=== PATIENT | female | born 1965 | race Caucasian/White ===

== ENCOUNTER 2024-06-05 08:56 | Inpatient (IN) | payer MEDICAID, SELFPAY ==
[2024-06-05] VITALS (12 sets, daily range): BP systolic 111–172; BP diastolic 66–96; PULSE 82–95; RESP 16–24; TEMP 36.8; O2SAT 92–98
[2024-06-05 09:19] LABS: Glucose Point of Care 80 mg/dL (70-110)
[2024-06-05 09:19] LABS: Glucose Point of Care 89 mg/dL (70-110)
--- NOTE | 2024-06-05 09:19 | XRR_ITS ---
PROCEDURE INFORMATION: Exam: XR Chest Exam date and time: 06/05/2024 9:34 AM Age: 59 years old Clinical indication: Shortness of breath TECHNIQUE: Imaging protocol: Radiologic exam of the chest. Views: 1 view. COMPARISON: No relevant prior studies available. FINDINGS: Lungs: Bilateral apical fibrotic changes. No focal infiltrates. Mild pulmonary venous congestion. Pleural spaces: Unremarkable. No pleural effusion. No pneumothorax. Heart/Mediastinum: The heart is enlarged. Bones/joints: Chronic left rib fractures. XR/XR chest 1V portable [id number] IMPRESSION: Cardiomegaly with mild pulmonary venous congestion. No focal infiltrates.
--- NOTE | 2024-06-05 09:19 | CTR_ITS ---
PROCEDURE INFORMATION: Exam: CT Head Without Contrast Exam date and time: 06/05/2024 9:41 AM Age: 59 years old Clinical indication: Altered mental status/memory loss TECHNIQUE: Imaging protocol: Computed tomography of the head without contrast. Radiation optimization: All CT scans at this facility use at least one of these dose optimization techniques: automated exposure control; mA and/or kV adjustment per patient size (includes targeted exams where dose is matched to clinical indication); or iterative reconstruction. COMPARISON: No relevant prior studies available. RADIATION DOSE METRICS: Total DLP (mGy-cm): 1024.08 FINDINGS: Brain: Normal. No hemorrhage. Unremarkable white matter. No mass effect. Cerebral ventricles: Cavum septum vergae. Pituitary gland and sella: There is a normal empty pituitary sella. Paranasal sinuses: Visualized sinuses are unremarkable. No fluid levels. Mastoid air cells: Visualized mastoid air cells are well aerated. Bones: Unremarkable. No acute fracture. Soft tissues: Unremarkable. CT/CT head wo con* [id number] IMPRESSION: No large territorial infarct or intracranial bleed.
--- NOTE | 2024-06-05 09:23 | W.ED.AMS ---
HPI - Altered Mental Status General: Chief Complaint: Altered Mental Status Stated Complaint: AMS Time Seen by Provider: 06/05/24 09:14 History of Present Illness: Patient presents to the ED with altered mental status and somnolence. Patient appears confused and demonstrates poor orientation, only able to identify location as '[place]' and '[facility].' Patient incorrectly identified year as 2023 but was able to name the current month and president correctly. Patient reports recent illness with breathing difficulties and abdominal pain. Patient endorses weakness in legs. Patient lives with mother and uses a walker for ambulation. Patient reports having been sick in recent days with associated breathing problems. Patient denies taking more medications than she is supposed to. She states she has fallen 3 times in the past 2 days due to generalized weakness and difficulty walking. Uncertain if she had hit her head. She also complains of midthoracic back pain. She smokes 1 pack cigarettes per day. She is not on oxygen at home. Constitutional: Positive for weakness and somnolence Respiratory: Positive for breathing difficulties Gastrointestinal: Positive for abdominal pain Neurological: Positive for altered mental status, confusion Musculoskeletal: Positive for generalized weakness All other systems negative or unable to assess due to patient's mental status [facility] ED PFSH: Medical History (Updated 06/05/24 @ 13:43 by Ric Red MD) Tobacco use disorder Social History Smoking and tobacco/nicotine status: current every day tobacco/nicotine user Physical Exam Const: GENERAL APPEARANCE: other (Somnolent but wakes easily. Speech is somewhat difficult to understand) HENMT: OTHER: Dry mucous membranes Eye: OTHER: Pupils are equal, round, reactive to light and accommodation. No scleral icterus Neck/C-Spine: OTHER: Neck is supple, no lymphadenopathy Resp: OTHER: Faint expiratory wheezes in the upper lobes bilaterally, decreased breath sounds in the lung bases bilaterally Cardio: OTHER: Heart is regular, GI: OTHER: Abdomen soft, nontender, normal bowel sounds Back/Pelvis: OTHER: tenderness in the mid thoracic spine region. Extremity: OTHER: Extremities are atraumatic. Right hand is cool to the touch but the distal motor and sensory function is intact. Radial pulses normal on the right. Lower extremities, motor and sensory function are normal. Neuro: OTHER: Patient is oriented x 2. Moves all extremities symmetrically, strength is equal bilaterally. Equal sensation bilaterally. Cranial nerves are intact Course Vital Signs: Vital signs: Vital Signs Temperature 98.3 F 06/05/24 08:58 Pulse Rate 84 06/05/24 11:48 Respiratory Rate 18 06/05/24 08:58 Blood Pressure 129/96 06/05/24 12:26 Pulse Oximetry 94 06/05/24 11:48 Oxygen Delivery Me thod BiPAP 06/05/24 11:48 Oxygen Flow Rate 2 06/05/24 09:45 Fraction of Inspir ed Oxygen 28 06/05/24 10:01 MDM - Altered Mental Status Medical Decision Making ?Patient is a 59-year-old female presenting with altered mental status, somnolence, confusion, breathing difficulties, and weakness. Patient has limited history available due to mental status. Unknown last normal as family is here with the patient. Problem List: 1. Altered mental status 2. Respiratory distress 3. Weakness 4. Abdominal pain Differential Diagnosis: 1. Medication overdose/toxicity 2. Metabolic encephalopathy 3. Hypoxic respiratory failure 4. Sepsis 5. Neurological emergency (CVA, seizure) 6. Substance use 7. Respiratory failure with CO2 toxicity ED Course: Patient requires immediate workup including comprehensive metabolic panel, complete blood count, urine drug screen, chest x-ray, and head CT to evaluate for acute pathology. Will initiate appropriate monitoring and supportive care. 1. Altered Mental Status - Obtain comprehensive metabolic panel, complete blood count, urine drug screen, Tylenol, aspirin and alcohol levels as well as urinalysis. Due to her frequent falls, will also obtain CPK to rule out rhabdomyolysis. Will check for COVID, flu and RSV. Will also check magnesium level to evaluate further for weakness. Will also check an ABG to rule out CO2 narcosis and respiratory failure - Head CT to rule out acute intracranial process - Continuous monitoring of mental status 2. Respiratory Distress - Chest x-ray to evaluate for acute process - Pulse oximetry monitoring - Consider blood gas if hypoxia noted 3. Weakness - Neurological examination monitoring - Consider additional imaging based on exam findings 4. Disposition - Likely admission pending workup results Patient was initially placed on BiPAP due to her hypercarbia and respiratory acidosis. She did seem somewhat improved. She was noted to have positive opiates in her urine drug screen so she was given 2 mg of Narcan IV and subsequently woke up. She is also hyperglycemic, initial glucose 57, repeat Accu-Chek 40. The patient has been given an amp of D50. Patient is much more awake. Magnesium is low she is she has been given IV magnesium. Repeat mixed blood gas does show improvement of her pH. Discussion with the family in regards to the patient's condition. They feel she is too weak for them to be able to take care of at home. They are requesting jail placement. Will plan for observation admission to the hospital to correct her metabolic abnormalities and probable jail placement subsequent to that. Have discussed this with the hospitalist, Dr. Red, who is in agreement Lab Data Patient is hyponatremic with a sodium of 131. She is hypoglycemic with a glucose of 57. She has been given 1 amp of D50. She has hyperkalemia with potassium of 5.9. White blood cell count is elevated at 17.0 with no definite source. Urinalysis is negative for UTI. Chest x-ray shows no infiltrate. On the patient's initial ABG she did have respiratory acidosis with a pCO2 in the 60s, pH of 7.3. She was placed on BiPAP. She is hypomagnesemic with a magnesium of 1.4. I have ordered replacement IV magnesium. She is also mild rhabdomyolysis with a CPK of 414 from interpretation. Urine drug screen is positive for opiates. Tylenol and aspirin are negative. She is negative for COVID, influenza and RSV. 06/05/24 10:05 06/05/24 11:46 Radiology Impressions Chest X-Ray 06/05/24 09:19 IMPRESSION: Cardiomegaly with mild pulmonary venous congestion. No focal infiltrates. Head CT 06/05/24 09:19 IMPRESSION: No large territorial infarct or intracranial bleed. Laboratory Results WBC 17.09 10^3/uL (3.29-11.43) H 06/05/24 10:05 RBC 4.80 10^6/uL (3.85-5.65) 06/05/24 10:05 Hgb 13.50 g/dL (11.27-16.99) 06/05/24 10:05 Hct 46.4 % (36-47) 06/05/24 10:05 MCV 96.7 fl (85-98) 06/05/24 10:05 MCH 28.1 pg (27-33) 06/05/24 10:05 MCHC 29.1 g/dL (30-55) L 06/05/24 10:05 RDW 14.8 % (12.1-15.1) 06/05/24 10:05 Plt Count 228 10^3/cmm (157-399) 06/05/24 10:05 MPV 10.6 fL (7.4-10.4) H 06/05/24 10:05 Neut % (Auto) 88.1 % 06/05/24 10:05 Lymph % (Auto) 4.2 % 06/05/24 10:05 [place] % (Auto) 6.6 % 06/05/24 10:05 Eos % (Auto) 0.1 % 06/05/24 10:05 Baso % (Auto) 0.2 % 06/05/24 10:05 Neut # (Auto) 15.05 10^3/uL (1.8-7.7) H 06/05/24 10:05 Lymph # (Auto) 0.7 10^3/uL (0.8-4.8) L 06/05/24 10:05 [place] # (Auto) 1.1 10^3/uL (0.2-0.9) H 06/05/24 10:05 Eos # (Auto) 0.0 10^3/uL (0.0-0.8) 06/05/24 10:05 Baso # (Auto) 0.0 10^3/uL (0.0-0.1) 06/05/24 10:05 Nucleated RBC % (auto) 0 % 06/05/24 10:05 Nucleated RBCs # 0.0 /100WBC 06/05/24 10:05 Specimen Type Arterial 06/05/24 12:16 Sample Site Radial, right 06/05/24 12:16 ABG pH 7.37 (7.35-7.45) 06/05/24 12:16 ABG pCO2 55.2 mmHg (35-45) H 06/05/24 12:16 ABG pO2 41.0 mmHg (80.0-100.0) L 06/05/24 12:16 ABG PO2/FiO2 Ratio 227 06/05/24 09:31 ABG HCO3 31.5 mmol/L (22-26) H 06/05/24 12:16 ABG Base Excess 4.8 mmol/L (-2.0-2.0) H 06/05/24 12:16 Aditya Test Pos 06/05/24 12:16 Hematocrit 38.1 % (37-47) 06/05/24 12:16 O2 Delivery Device Nc 06/05/24 12:16 O2 Liters/Min 2.0 % 06/05/24 09:31 FiO2 28.0 % 06/05/24 09:31 Family Services Manager ID glc 06/05/24 12:16 Blood Gas Notified Time 1010 06/05/24 09:31 Sodium 131 mmol/L (136-145) L 06/05/24 11:46 Potassium 5.9 mmol/L (3.5-5.1) H 06/05/24 11:46 Chloride 97 mmol/L (98-107) L 06/05/24 11:46 Carbon Dioxide 23 mmol/L (22-29) 06/05/24 11:46 Anion Gap 16.9 (5-19) 06/05/24 11:46 BUN 21 mg/dL (8-23) 06/05/24 11:46 Creatinine 1.3 mg/dL (0.5-0.9) H 06/05/24 11:46 GFR Calculation 41.6 mL/min (90-130) L 06/05/24 11:46 Glucose 57 mg/dL (65-115) L 06/05/24 11:46 POC Glucose 104 mg/dL (70-110) 06/05/24 13:02 Calculated Osmolality 273 mOsm/kg (285-295) L 06/05/24 11:46 Lactic Acid 1.4 mmol/L (0.5-2.2) 06/05/24 10:05 Calcium 8.3 mg/dL (8.5-10.5) L 06/05/24 11:46 Magnesium 1.4 mg/dL (1.7-2.3) L 06/05/24 11:46 Total Bilirubin 0.6 mg/dL (0.15-1.2) 06/05/24 11:46 AST 26 U/L (0-32) 06/05/24 11:46 ALT 12 U/L (0-33) 06/05/24 11:46 Alkaline Phosphatase 148 U/L (35-105) H 06/05/24 11:46 Ammonia 50 umol/L (11-51) 06/05/24 10:05 Creatine Kinase 414 U/L (26-192) H* 06/05/24 11:46 Total Protein 6.2 g/dL (6.6-8.7) L 06/05/24 11:46 Albumin 2.7 g/dL (3.5-5.2) L 06/05/24 11:46 Globulin 3.5 g/dL (1.3-4.6) 06/05/24 11:46 Urine Color Yellow (Yellow) 06/05/24 09:35 Urine Appearance Clear (CLEAR) 06/05/24 09:35 Urine pH 5.5 (5-7) 06/05/24 09:35 Ur Specific [place] 1.018 (1.005-1.030) 06/05/24 09:35 Urine Protein 1+ (Negative) A 06/05/24 09:35 Urine Glucose (UA) Negative (Normal) 06/05/24 09:35 Urine Ketones Negative (Negative) 06/05/24 09:35 Urine Blood Negative (Negative) 06/05/24 09:35 Urine Nitrate Negative (Negative) 06/05/24 09:35 Urine Bilirubin Negative (Negative) 06/05/24 09:35 Urine Urobilinogen 1.0 mg/dL (Negative) 06/05/24 09:35 Ur Leukocyte Esterase Negative (Negative) 06/05/24 09:35 Urine RBC 0-2 /hpf (0-2) 06/05/24 09:35 Urine WBC 0-5 /hpf (0-5) 06/05/24 09:35 Ur Squamous Epith Cells 0-5 /hpf (0-5) 06/05/24 09:35 Amorphous Sediment Not Reportable 06/05/24 09:35 Urine Bacteria None seen /hpf (NONE) 06/05/24 09:35 Hyaline Casts 13.63 /lpf 06/05/24 09:35 Salicylates < 0.3 mg/dL (3-10) L 06/05/24 11:46 Urine Opiates Screen Positive ng/mL (Negative) H 06/05/24 09:35 Acetaminophen < 5.0 ug/mL (10-30) L 06/05/24 11:46 Ur Barbiturates Screen Negative ng/mL (Negative) 06/05/24 09:35 Ur Phencyclidine Scrn Negative ng/mL (Negative) 06/05/24 09:35 Ur Amphetamines Screen Negative ng/mL (Negative) 06/05/24 09:35 U Benzodiazepines Scrn Negative ng/mL (Negative) 06/05/24 09:35 Urine Cocaine Screen Negative ng/mL (Negative) 06/05/24 09:35 U Marijuana (THC) Screen Negative ng/mL (Negative) 06/05/24 09:35 Ethyl Alcohol < 10 mg/dL (0-10) 06/05/24 11:46 Coronavirus (PCR) Negative (Negative) 06/05/24 09:40 Influenza A (PCR) Negative (Negative) 06/05/24 09:40 Influenza Type B (PCR) Negative (Negative) 06/05/24 09:40 RSV (PCR) Negative (Negative) 06/05/24 09:40 All radiology interpretation(s) finalized by discharge ED provider radiology interpretation(s): Chest x-ray per my interpretation shows mild vascular congestion, no consolidative infiltrate. Discharge Plan Discharge Condition: Stable Patient Instructions: Altered Mental Status (ED) Coding Level of Care Code ED Blood Bank Custodian for Negra Flaherty
[2024-06-05 09:43] LABS: ABG PH Result 7.31 (7.35-7.45); Arterial Blood Gas Hematocrit 42.8 % (37-47); Base Excess ABG 2.9 mmol/L (-2.0-2.0); Blood Gas Allen Test Pos; Blood Gas Operator Identificat glc; Blood Gas Sample Site Radial, right; Blood Gas Sample Type Arterial; HCO3 ABG 30.9 mmol/L (22-26); Oxygen Device NC; PO2 ABG 63.6 mmHg (80.0-100.0); PO2 FiO2 Ratio Arterial Blood 227
[2024-06-05 09:44] LABS: Bilirubin Urine Negative (Negative); Blood Urine Negative (Negative); Glucose Urine UA Negative (Normal); Ketones Urine Negative (Negative); Leukocyte Esterase Urine Negative (Negative); Nitrate Urine Negative (Negative); Protein Urine 1+ (Negative); Specific Gravity, Urine 1.018 (1.005-1.030); Urine Appearance Clear (CLEAR); Urine Color Yellow (Yellow); pH Urine 5.5 (5-7)
[2024-06-05] MEDS: sodium chloride 0.9% 1,000 ML 999 ML IV (09:44)
[2024-06-05 09:47] LABS: Add Urine Microscopic? YES; Bacteria Urine None Seen /hpf; Hyaline Casts Urine 13.63 /lpf; RBC Urine 0-2 /hpf (0-2); Squamous Epithelial Cell Urine 0-5 /hpf (0-5); WBC Urine 0-5 /hpf (0-5)
[2024-06-05 09:52] LABS: Amphetamines Screen Urine Negative (Negative); Barbiturates Screen Urine Negative (Negative); Benzodiazepines Screen Urine Negative (Negative); Cocaine Screen Urine Negative (Negative); Opiate Screen Urine Positive (Negative); PCP Screen Urine Negative (Negative); THC Screen Urine Negative (Negative)
[2024-06-05 10:03] LABS: UA Slide Review UA Slide Review Perf
[2024-06-05 10:09] LABS: ABG PCO2 61.5 mmHg (35-45)
[2024-06-05 10:10] LABS: Blood Gas CCRB Time 1010
[2024-06-05 10:15] LABS: Basophils % 0.2 %; Eosinophils % 0.1 %; Hematocrit 46.4 % (36-47); Lymphocytes # 0.7 10^3/uL (0.8-4.8); Lymphocytes % 4.2 %; Mean Corpuscular HGB Conc 29.1 g/dL (30-55); Mean Corpuscular Hemoglobin 28.1 pg (27-33); Mean Corpuscular Volume 96.7 fl (85-98); Mean Platelet Volume 10.6 fL (7.4-10.4); Monocytes # 1.1 10^3/uL (0.2-0.9); Monocytes % 6.6 %; Neutrophils # 15.05 10^3/uL (1.8-7.7); Neutrophils % 88.1 %; Nucleated Red Blood Cells % 0 %; Platelet Count 228 10^3/cmm (157-399); Red Cell Distribution Width 14.8 % (12.1-15.1); White Blood Count 17.09 10^3/uL (3.29-11.43)
[2024-06-05 10:37] LABS: Lactic Sepsis W/Reflex 1.4 mmol/L (0.5-2.2)
[2024-06-05 10:38] LABS: Ammonia 50 umol/L (11-51)
[2024-06-05 10:53] LABS: Covid PCR NEGATIVE (Negative); Influenza A NEGATIVE (Negative); Influenza B NEGATIVE (Negative); Respiratory Syncytial Virus Ce NEGATIVE (Negative)
[2024-06-05] MEDS: naloxone 0.4 mg/ml SDV 2 MG IVP (11:26)
[2024-06-05 12:18] LABS: Alanine Aminotransferase 12 U/L (0-33); Albumin Level 2.7 g/dL (3.5-5.2); Alkaline Phosphatase 148 U/L (35-105); Blood Urea Nitrogen 21 mg/dL (8-23); Calcium 8.3 mg/dL (8.5-10.5); Carbon Dioxide 23 mmol/L (22-29); Chloride 97 mmol/L (98-107); Globulin 3.5 g/dL (1.3-4.6); Glomerular Filtration Rate 41.6 mL/min (90-130); Glucose 57 mg/dL (65-115); Magnesium 1.4 mg/dL (1.7-2.3); Osmolality Calculated 273 mOsm/kg (285-295); Sodium 131 mmol/L (136-145); Total Bilirubin 0.6 mg/dL (0.15-1.2); Total Protein 6.2 g/dL (6.6-8.7)
[2024-06-05 12:27] LABS: Acetaminophen < 5.0 ug/mL (10-30); Alcohol Level < 10 mg/dL (0-10); Creatine Phosphokinase 414 U/L (26-192); Salicylate < 0.3 mg/dL (3-10)
[2024-06-05 12:27] LABS: ABG PCO2 55.2 mmHg (35-45); ABG PH Result 7.37 (7.35-7.45); Arterial Blood Gas Hematocrit 38.1 % (37-47); Base Excess ABG 4.8 mmol/L (-2.0-2.0); Blood Gas Allen Test Pos; Blood Gas Operator Identificat glc; Blood Gas Sample Site Radial, right; Blood Gas Sample Type Arterial; HCO3 ABG 31.5 mmol/L (22-26); Oxygen Device NC
[2024-06-05 12:43] LABS: Anion Gap 16.9 (5-19); Aspartate Amino Transferase 26 U/L (0-32); Potassium 5.9 mmol/L (3.5-5.1)
[2024-06-05] MEDS: dextrose 50% syringe 50 mL IVP (12:43)
[2024-06-05 13:06] LABS: Glucose Point of Care 104 mg/dL (70-110)
--- NOTE | 2024-06-05 13:39 | P.HP_ITS ---
Providers/Chief Complaint 2 Chief Complaint: AMS History of Present Illness Wanda Lamb is a 59 year old female with a past medical history significant for chronic pain, type 2 diabetes mellitus, and hypertension who presents to the emergency department with altered mentation. Patient is awake but found to be quite altered on examination. Patient's main complaint is shortness of breath, worse with exertion. Her family is bedside. Her mother provides most of collateral information. She states that the patient came to live with her this past Friday. Patient's been staying with various family members. She states that the patient's been somewhat lethargic for the past week. She states that she is fallen at least 6 times in the house. She states that she has hit her head at least 2 of these falls. She states that she can no longer care for the patient anymore. She does note that the patient is on chronic pain medications. She expresses concern that the patient likely ran out of her meds and has now been taking her oxycodones. Patient was reportedly given Narcan en route by EMS with improvement in mentation. She also received Narcan in the ED also with improvement in mentation. Further workup in the emergency department revealed multiple metabolic derangements. Also revealed evidence of rhabdomyolysis in the setting of recurrent falls. Patient also found to have hypoglycemia started on D10 infusion. Patient is unable to provide any pertinent history regarding her HPI or past medical history. She seems to be new to our health system. Reviewed medical history with the patient's mother. Limited knowledge of her medical history. She notes that she knows she is diabetic and has high blood pressures. She states she has had multiple surgeries including ankle surgeries. She notes a family history of malignancies. She states that the patient smokes about 1 pack of cigarettes per day. She denies current alcohol abuse. She is not sure about the medications that the patient takes. She states that she does fill her prescriptions at [facility] in [place]. Review of Systems 2 Narrative: A complete review of systems was obtained and is negative except as stated in HPI. PFSH Acute 2 PFSH: Medical History (Updated 06/05/24 @ 15:13 by Ric Red MD) Chronic pain Hypertension Diabetes mellitus Tobacco use disorder Surgical History (Updated 06/05/24 @ 14:03 by Ric Red MD) History of ankle surgery Family History (Updated 06/05/24 @ 14:03 by Ric Red MD) Grandfather Bone cancer Social History (Updated 06/05/24 @ 14:03 by Ric Red MD) Smoking and tobacco/nicotine status: current every day tobacco/nicotine user Alcohol intake: never Substance/Drug Use: unknown Vitals/I&O/Wt Last Vital Signs Temp 98.3 F 06/05/24 08:58 Pulse 84 06/05/24 11:48 Resp 18 06/05/24 08:58 BP 129/96 06/05/24 12:26 Pulse Ox 94 06/05/24 11:48 O2 Del Method BiPAP 06/05/24 11:48 O2 Flow Rate 2 06/05/24 09:45 FiO2 28 06/05/24 10:01 06/04/24 06/05/24 06/05/24 22:59 06:59 14:59 Intake Total 1000 / 1000 Balance 1000 / 1000 Weight last 48 hrs Weight 118.388 kg Physical Exam 2 Narrative: General: Patient is very lethargic. Arouses to stimulation. Head: Normocephalic. Atraumatic. EOM intact. Neck: No JVD. Cardiovascular: RRR. No gallops. No murmurs. Nonpitting lower extremity edema. Lungs: Breath sounds are slightly diminished n, no use of accessory muscles, no crackles or wheezes. On nasal cannula support. Skin: No jaundice. No rashes. Abdomen: Normal bowel sounds, abdomen soft and nontender. Extremities: No cyanosis or clubbing. Some bruising/scrapes on lower extremities. Musculoskeletal: No swollen or erythematous joints. Neurological: Moves all 4 extremities. No myoclonus. Urinary Catheter Management: [place]: Cath Placed During This Visit: yes Urinary Catheter Date of Insertion: 06/05/24 Urinary Catheter Time of Insertion: 09:46 Data 06/05/24 10:05 06/05/24 11:46 Micro: Microbiology 06/05/24 10:05 Blood Culture - Preliminary Blood SPECIMEN COLLECTED 06/05/24 09:55 Blood Culture - Preliminary Blood SPECIMEN COLLECTED A&P Assessment and plan (1) Toxic encephalopathy: Presentation concerning for acute toxic encephalopathy secondary to opioid overdose Patient is received 2 doses of Narcan Continue to monitor respiration rate May need additional doses versus Narcan drip (2) Diabetes mellitus: Patient with type 2 diabetes mellitus, home regimens unknown She is currently hypoglycemic Continue D10 drip Monitor blood glucose, hold off on insulin initiation due to hypoglycemia (3) Hypertension: Home regimen unknown IV hydralazine as needed (4) Chronic pain: Hold all opiates due to opiate overdose Tylenol PRNs okay Avoid other sedating meds (5) Hyperkalemia: Status post IV fluids in ED Repeat potassium level in several hours Telemetry monitoring (6) Hypomagnesemia: Replace magnesium Trend levels (7) Fall: Recurrent falls, head CT negative for subdural hematoma Fall precautions Therapy eval when appropriate (8) Leukocytosis: No obvious evidence of infection, continue to look for such Will check procalcitonin (9) Rhabdomyolysis: Suspected traumatic rhabdomyolysis from recurrent falls Monitor renal function, creatinine is currently 1.3 Start IV fluids Avoid further nephrotoxins Repeat labs tomorrow (10) Tobacco use disorder: Patient would benefit from cessation (11) Failure to thrive: Failure to thrive in adulthood Therapy evaluation Mother reports she can no longer care for her Case management consult Plan DVT prophylaxis: SCDs Attestations 2 Medical Necessity Statement*: Patient presents with altered mental status suspected secondary to opiate overdose, found to have multiple other metabolic derangements with failure to thrive with expected hospitalization not to cross 2 midnights for electrolyte replacement, treatment opioid overdose, therapy evaluation and supportive care. Coding Level of Care Code Acute Code for [facility] Diagnoses Toxic encephalopathy G92.9 Diabetes mellitus E11.9 Hypertension I10 Chronic pain G89.29 Hyperkalemia E87.5 Hypomagnesemia E83.42 Fall W19.XXXA Leukocytosis D72.829 Rhabdomyolysis M62.82 Tobacco use disorder F17.200 Failure to thrive
[2024-06-05 13:48] LABS: Glucose Point of Care 70 mg/dL (70-110)
[2024-06-05 15:33] LABS: Procalcitonin 0.07 ng/mL (0-0.5)
[2024-06-05] MEDS: magnesium sulfate premix 2 GM/50 ML PIGGYBACK IV (15:42)
[2024-06-05 15:43] LABS: Glucose Point of Care 45 mg/dL (70-110)
[2024-06-05 15:43] LABS: Glucose Point of Care 79 mg/dL (70-110)
[2024-06-05 16:23] LABS: Glucose Point of Care 44 mg/dL (70-110)
[2024-06-05] MEDS: dextrose 10% 250 ML 1000 ML IV ×2 (16:31→16:53)
[2024-06-05] MEDS: dextrose 10% 250 ML IV (16:59)
[2024-06-05 18:07] LABS: Glucose Point of Care 69 mg/dL (70-110)
[2024-06-05 18:34] LABS: Glucose Point of Care 54 mg/dL (70-110)
[2024-06-05 19:06] LABS: Glucose Point of Care 84 mg/dL (70-110)
[2024-06-05 19:39] LABS: Anion Gap 12.6 (5-19); Blood Urea Nitrogen 17 mg/dL (8-23); Carbon Dioxide 30 mmol/L (22-29); Chloride 99 mmol/L (98-107); Glomerular Filtration Rate 50.5 mL/min (90-130); Glucose 44 mg/dL (65-115); Osmolality Calculated 283 mOsm/kg (285-295); Potassium 4.6 mmol/L (3.5-5.1); Sodium 137 mmol/L (136-145)
[2024-06-05 22:28] LABS: Glucose Point of Care 39 mg/dL (70-110)
[2024-06-05] MEDS: glucagon 1 mg/mL KIT 1 mL IM (22:29)
[2024-06-05] MEDS: dextrose 10% 125 ML 750 ML IV (22:32)
[2024-06-05 23:20] LABS: Glucose Point of Care 103 mg/dL (70-110)
[2024-06-05 23:38] LABS: Glucose Point of Care 111 mg/dL (70-110)
[2024-06-06] VITALS (68 sets, daily range): BP systolic 115–230; BP diastolic 67–198; PULSE 61–114; RESP 12–31; TEMP 36.7–36.8; O2SAT 80–97; BMI 38.9
[2024-06-06 00:49] LABS: Glucose Point of Care 60 mg/dL (70-110)
[2024-06-06 01:47] LABS: Glucose Point of Care 59 mg/dL (70-110)
[2024-06-06] MEDS: octreotide 500 MCG in sodium chloride 0.9% (100 ml) 100 ML 10.1 MCG IV (01:48)
[2024-06-06] MEDS: hydrocortisone 100 mg/2 mL SDV IVP (01:50)
[2024-06-06] MEDS: glucagon 1 mg/mL KIT 1 mL IM (02:39)
--- NOTE | 2024-06-06 02:40 | PC.NURSE ---
Glucagon Patient's blood sugar [address] around [address] Hawkins at bedside. Order received for 1 mg glucagon IM.
--- NOTE | 2024-06-06 02:45 | XRR_ITS ---
PROCEDURE INFORMATION: Exam: XR Chest Exam date and time: 06/06/2024 2:44 AM Age: 59 years old Clinical indication: Other vascular access device placement or adjustment; Central line, non-tunnelled; Check S/P left sided central line placement TECHNIQUE: Imaging protocol: Radiologic exam of the chest. Views: 1 view. COMPARISON: CR (CHEST, ) 06/05/2024 9:34 AM FINDINGS: Tubes, catheters and devices: Central venous catheter has been placed on the left with its tip overlying the distal left brachiocephalic vein/SVC junction. Lungs: There may be minimal central vascular congestion. No focal consolidation is noted. Pleural spaces: Unremarkable. No pleural effusion. No pneumothorax. Heart/Mediastinum: The heart is enlarged. Bones/joints: There are old rib fractures on the left. XR/XR chest 1V portable [id number] IMPRESSION: 1. Central line placement as above. 2. Cardiomegaly. 3. Minimal central vascular congestion is suspected.
[2024-06-06] MEDS: dextrose 10% 250 ML 1000 ML IV (03:04)
--- NOTE | 2024-06-06 03:05 | PC.NURSE ---
D10 Dr. Hawkins at bedside while central line being placed by Dr. Mancilla. Verbal order received to administer D10 bolus 250 ml once now.
--- NOTE | 2024-06-06 03:41 | W.PM.EVENTAC ---
Event Note Event Note: Patient has been consistently hypoglycemic given multiple doses of glucagon, D10 boluses, I was told by the nursing staff they can run D10 continuously because there is no central line, central line was placed by Dr. Mancilla, she has been started on octreotide as well, patient likely has obstructive sleep apnea
[2024-06-06 03:43] LABS: Glucose Point of Care 188 mg/dL (70-110)
[2024-06-06 03:43] LABS: Glucose Point of Care 42 mg/dL (70-110)
[2024-06-06 04:11] LABS: Glucose Point of Care 183 mg/dL (70-110)
[2024-06-06 04:57] LABS: Glucose Point of Care 139 mg/dL (70-110)
[2024-06-06 06:04] LABS: Glucose Point of Care 83 mg/dL (70-110)
[2024-06-06] MEDS: dextrose 10% 250 ML 100 ML IV (06:15)
[2024-06-06 06:32] LABS: Basophils % 0.2 %; Lymphocytes # 0.5 10^3/uL (0.8-4.8); Lymphocytes % 1.9 %; Mean Corpuscular HGB Conc 29.1 g/dL (30-55); Mean Corpuscular Hemoglobin 28.1 pg (27-33); Mean Corpuscular Volume 96.4 fl (85-98); Mean Platelet Volume 10.3 fL (7.4-10.4); Monocytes # 0.4 10^3/uL (0.2-0.9); Monocytes % 1.8 %; Neutrophils # 23.23 10^3/uL (1.8-7.7); Neutrophils % 95.5 %; Nucleated Red Blood Cells % 0 %; Platelet Count 260 10^3/cmm (157-399); Red Blood Count 4.77 10^6/uL (3.85-5.65); Red Cell Distribution Width 14.8 % (12.1-15.1); White Blood Count 24.33 10^3/uL (3.29-11.43)
[2024-06-06 06:49] LABS: Alanine Aminotransferase 13 U/L (0-33); Albumin Level 3.1 g/dL (3.5-5.2); Alkaline Phosphatase 167 U/L (35-105); Anion Gap 13.2 (5-19); Aspartate Amino Transferase 28 U/L (0-32); Blood Urea Nitrogen 15 mg/dL (8-23); Calcium 9.4 mg/dL (8.5-10.5); Carbon Dioxide 30 mmol/L (22-29); Chloride 98 mmol/L (98-107); Globulin 3.7 g/dL (1.3-4.6); Glomerular Filtration Rate 56.4 mL/min (90-130); Glucose 88 mg/dL (65-115); Magnesium 1.6 mg/dL (1.7-2.3); Osmolality Calculated 282 mOsm/kg (285-295); Phosphorus 2.5 mg/dL (2.5-4.5); Potassium 5.2 mmol/L (3.5-5.1); Sodium 136 mmol/L (136-145); Total Bilirubin 0.8 mg/dL (0.15-1.2); Total Protein 6.8 g/dL (6.6-8.7)
[2024-06-06 06:57] LABS: Creatine Phosphokinase 279 U/L (26-192)
[2024-06-06 08:02] LABS: Glucose Point of Care 125 mg/dL (70-110)
[2024-06-06 08:24] LABS: NT Pro B Type Natriuretic Pept 2805 pg/mL (0-125)
[2024-06-06 09:28] LABS: Glucose Point of Care 122 mg/dL (70-110)
[2024-06-06 11:15] LABS: Glucose Point of Care 102 mg/dL (70-110)
[2024-06-06] MEDS: magnesium sulfate premix 2 GM/50 ML PIGGYBACK IV (12:06)
[2024-06-06] MEDS: FUROsemide 10 mg/mL SDV 2mL 20 MG IVP (12:06)
--- NOTE | 2024-06-06 13:08 | P.PN_ITS ---
Subjective 2 Subjective: Patient seen evaluated the emergency department this morning. She has been boarding there due to hospital census. Overnight, she was found to have persistent hypoglycemia. She was ultimately put on a D10 and octreotide. She does recall taking Lantus but cannot recall the specific details. She complains of persistent shortness of breath and states that she wants to go home today. She is adamant to go home. We reviewed her clinical presentation and plan of care. Medications: Reviewed: Yes Vitals/I&O/Wt Last Vital Signs Temp 98.3 F 06/05/24 08:58 Pulse 67 06/06/24 11:48 Resp 16 06/06/24 06:15 BP 166/83 06/06/24 09:33 Pulse Ox 95 06/06/24 11:48 O2 Del Method Nasal Cannula 06/06/24 09:32 O2 Flow Rate 5 06/06/24 09:32 FiO2 28 06/06/24 11:48 06/05/24 06/06/24 06/06/24 22:59 06:59 14:59 Intake Total 945 / 1945 250 / 2195 250 / 250 Output Total 1650 / 1650 1000 / 2650 Balance -705 / 295 -750 / -455 250 / 250 Weight last 48 hrs Weight 118.388 kg Physical Exam 2 Narrative: General: Patient is awake. Somewhat agitated. Head: Normocephalic. Atraumatic. EOM intact. Neck: No JVD. Cardiovascular: RRR. No gallops. No murmurs. Nonpitting lower extremity edema. Hypertensive. Lungs: Tachypneic. Conversational dyspnea. Increased work of breathing when speaking. On nasal cannula. Skin: No jaundice. Abdomen: Normal bowel sounds, abdomen soft and nontender. Extremities: No cyanosis or clubbing. Bruising/scrapes on lower extremities. Musculoskeletal: No swollen or erythematous joints. Neurological: Moves all 4 extremities. No myoclonus. Urinary Catheter Management: Huerta: Cath Placed During This Visit: yes Reason for Continuing Indwelling Catheter: Accurate Measurement of Urinary Output in Critically Ill Patients Urinary Catheter Date of Insertion: 06/05/24 Urinary Catheter Time of Insertion: 09:46 Data 06/06/24 06:23 06/06/24 06:23 Micro: Microbiology 06/05/24 10:05 Blood Culture - Preliminary Blood NEGATIVE TO DATE 06/05/24 09:55 Blood Culture - Preliminary Blood NEGATIVE TO DATE A&P Assessment and plan (1) Hypoglycemia: Patient persistently hypoglycemic overnight received D10 and octreotide She recalls taking multiple doses of Lantus but cannot recall the specific details Glycemic control seems to be improving, will hold drip to monitor blood glucose Continue holding diabetes medications and insulins Encourage oral intake (2) Pulmonary edema: Patient complains of shortness of breath X-ray this morning shows acute pulmonary edema Continue diuresis with IV lasix daily Check cardiac function w/ echo Continue respiratory support including BiPAP as needed (3) Toxic encephalopathy: Presented with acute toxic encephalopathy secondary to opioid overdose Mentation is improving, suspect opioid intoxication is nearing resolution She is at risk for opiate withdrawal symptoms, continue to monitor for such closely Avoid sedating medications Continue supportive care (4) Failure to thrive: Failure to thrive in adulthood Therapy evaluation Mother reports she can no longer care for her Case management consult (5) Diabetes mellitus: Patient with type 2 diabetes mellitus, home regimen still unknown Hypoglycemic overnight treated with D10 and octreotide Encourage oral intake Close monitoring of glucose levels today, may need further intervention pending clinical course (6) Hyperkalemia: Improved, K 5.2 Telemetry monitoring (7) Hypomagnesemia: Replace magnesium Trend levels (8) Leukocytosis: Leukocytosis worsening, no obvious source of infection, continue to monitor (9) Rhabdomyolysis: CK levels improved, currently at 279, discontinue trending Avoid further nephrotoxins (10) Fall: Fall precautions Patient is not quite medically ready for therapy evaluation (11) Hypertension: Home regimen unknown Blood pressures are elevated although patient is agitated IV hydralazine as needed (12) Chronic pain: Hold all opiates due to opiate overdose Tylenol PRNs Avoid other sedating meds (13) Tobacco use disorder: Patient would benefit from cessation Plan DVT prophylaxis: SCDs Attestations 2 Medical Necessity Statement*: Patient requires ongoing hospitalization for hourly glucose monitoring due to persistent/refractory hypoglycemia, toxic encephalopathy, acute pulmonary edema, respiratory failure requiring noninvasive mechanical ventilation, electrolyte management, and supportive care. Coding Level of Care Code Acute Code for [facility] Diagnoses Hypoglycemia E16.2 Pulmonary edema J81.1 Toxic encephalopathy G92.9 Failure to thrive Diabetes mellitus E11.9 Hyperkalemia E87.5 Hypomagnesemia E83.42 Leukocytosis D72.829 Rhabdomyolysis M62.82 Fall W19.XXXA Hypertension I10 Chronic pain G89.29 Tobacco use disorder F17.200
--- NOTE | 2024-06-06 13:15 | USCV_ITS ---
Wanda Lamb Age: 59 Gender: F : 1965 Exam Date: 06/06/2024 16:37 Ordering Phys: Ric Red MD Technologist: Radny Fontenot Exam Location: [facility] [place] Indication: pulmonary edema BP: 190 / 112 HR: 96 Rhythm: Sinus Technical Quality: Adequate MEASUREMENTS (Male / Female) Normal Values 2D ECHO LVOT Diameter 2.2 cm LV Ejection Fraction MOD 4C 72.4 % LV Ejection Fraction MOD 2C 67.5 % LV Ejection Fraction 2C AL 68.0 % LA Diameter 3.2 cm RA Systolic Volume 4C AL 38.3 ml RA Systolic Volume 4C MOD 37.6 ml LA Sys Volume AL 49.4 cm cubed LA Sys Volume Index AL 20.3 cm cubed/m squared Aorta at Sinotubular Diameter 2.1 cm M-MODE LA Ao Ratio MM 1.4 AV Cusp Separation MM 1.9 cm DOPPLER AV Peak Velocity 177.0 cm/s LVOT Peak Velocity 164.0 cm/s AV Area Cont Eq vti 3.7 cm squared AV Area Cont Eq pk 3.5 cm squared MV Peak Velocity 223.0 cm/s MV Area PHT 6.2 cm squared Mitral E to A Ratio 0.8 TV Peak Velocity 290.0 cm/s TR Peak Velocity 297.0 cm/s TR Peak Gradient 35.3 mmHg TR Mean Velocity 257.0 cm/s TR Mean Gradient 26.8 mmHg TR Velocity Time Integral 73.1 cm PV Peak Velocity 115.0 cm/s RV Ejection Time 0.3 s FINDINGS Left Ventricle LV systolic function is normal with EF of 55-60%. No regional wall motion abnormalities are seen. Grade 1 diastolic dysfunction Right Ventricle Normal in size and function. Right Atrium Normal in size Left Atrium Normal in size Mitral Valve Mitral valve appears thickened. Mild mitral regurgitation. Moderately elevated gradients across mitral valve of 8 mmHg. Aortic Valve Grossly normal. No significant stenosis or regurgitation. Tricuspid Valve Insufficient TR jet to calculate RVSP Pulmonic Valve Not well visualized Pericardium Normal Aorta Normal in size IVC Not well visualized CONCLUSIONS LV systolic function is normal with EF of 55 to 60%. Grade 1 diastolic dysfunction. Mild mitral regurgitation. Moderately elevated gradients across mitral valve of 8 mmHg No comparison studies are available. Jarret Chan MD (Electronically Signed) Final Date: 07 June 2024 16:33 S
[2024-06-06] MEDS: hyDRALAzine 20 mg/mL INJ 1 mL 10 MG IVP (15:13)
[2024-06-06 15:27] LABS: Glucose Point of Care 88 mg/dL (70-110)
[2024-06-06] MEDS: acetaminophen 325 mg Tablet 650 MG PO (18:01)
[2024-06-06 18:34] LABS: Glucose Point of Care 105 mg/dL (70-110)
[2024-06-06 20:34] LABS: Glucose Point of Care 108 mg/dL (70-110)
--- NOTE | 2024-06-06 20:59 | PC.NURSE ---
Present with RT in room as patient adamantly refused Bipap, stated she wanted to go home tomorrow.
[2024-06-06] MEDS: enoxaparin 40 mg/0.4 mL Syringe SUBCUT (21:37)
[2024-06-07] VITALS (104 sets, daily range): BP systolic 120–190; BP diastolic 56–130; PULSE 62–103; RESP 10–31; TEMP 36.2–36.8; O2SAT 86–98
[2024-06-07 00:41] LABS: Glucose Point of Care 105 mg/dL (70-110)
[2024-06-07] MEDS: hyDRALAzine 20 mg/mL INJ 1 mL 10 MG IVP ×4 (01:00→23:58)
--- NOTE | 2024-06-07 01:08 | PC.NURSE ---
Patient continued to refuse Bipap. When confronted with a second nurse to try and reinforce education of S/S of CO2 retention and risks, patient agreed to try bipap briefly if something for anxiety could be given. Contacted Dr. Hawkins in reference to discussion with patient, recieved orders for 2mg morphine IVP ONCE, and Dr. Hawkins insisted patient needs to wear Bipap only.
[2024-06-07] MEDS: morphine 4 mg/mL SDV 1 mL 2 MG IVP (01:37)
--- NOTE | 2024-06-07 02:57 | PC.NURSE ---
Contacted Dr. Hawkins in reference to consistently high BP. Received orders to add one time hydralazine 10 mg IVP ONCE NOW, and then to resume Q4H existing order if needed.
[2024-06-07 04:22] LABS: Glucose Point of Care 103 mg/dL (70-110)
[2024-06-07 05:09] LABS: Basophils # 0.1 10^3/uL (0.0-0.1); Basophils % 0.2 %; Eosinophils # 0.1 10^3/uL (0.0-0.8); Eosinophils % 0.3 %; Hematocrit 49.1 % (36-47); Lymphocytes # 0.8 10^3/uL (0.8-4.8); Lymphocytes % 3.8 %; Mean Corpuscular HGB Conc 28.7 g/dL (30-55); Mean Corpuscular Hemoglobin 27.7 pg (27-33); Mean Corpuscular Volume 96.5 fl (85-98); Mean Platelet Volume 10.4 fL (7.4-10.4); Monocytes # 1.7 10^3/uL (0.2-0.9); Monocytes % 7.8 %; Neutrophils # 19.04 10^3/uL (1.8-7.7); Neutrophils % 87.2 %; Nucleated Red Blood Cells % 0 %; Platelet Count 245 10^3/cmm (157-399); Red Blood Count 5.09 10^6/uL (3.85-5.65); White Blood Count 21.85 10^3/uL (3.29-11.43)
[2024-06-07 05:36] LABS: Alanine Aminotransferase 13 U/L (0-33); Alkaline Phosphatase 170 U/L (35-105); Anion Gap 16.9 (5-19); Aspartate Amino Transferase 23 U/L (0-32); Blood Urea Nitrogen 15 mg/dL (8-23); Calcium 9.4 mg/dL (8.5-10.5); Carbon Dioxide 28 mmol/L (22-29); Chloride 95 mmol/L (98-107); Creatinine Clr Calc Pharmacy 79.0766; Glomerular Filtration Rate 56.4 mL/min (90-130); Glucose 114 mg/dL (65-115); Magnesium 1.8 mg/dL (1.7-2.3); Osmolality Calculated 282 mOsm/kg (285-295); Phosphorus 2.6 mg/dL (2.5-4.5); Potassium 4.9 mmol/L (3.5-5.1); Sodium 135 mmol/L (136-145); Total Bilirubin 0.9 mg/dL (0.15-1.2)
[2024-06-07] MEDS: FUROsemide 10 mg/mL SDV 4mL 40 MG IVP (08:34)
[2024-06-07 08:57] LABS: Glucose Point of Care 125 mg/dL (70-110)
[2024-06-07 11:39] LABS: Glucose Point of Care 137 mg/dL (70-110)
--- NOTE | 2024-06-07 12:50 | ECG_ITS ---
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 Measurements Intervals [place] Rate: 89 P: 65 UT: 171 QRS: 102 QRSD: 80 T: 41 QT: 349 QTc: 426 Interpretive Statements SINUS RHYTHM POSSIBLE LEFT ATRIAL ENLARGEMENT [-0.1mV P-WAVE IN V1/V2] PATTERN CONSISTENT WITH PULMONARY DISEASE POSSIBLE RIGHT VENTRICULAR HYPERTROPHY [SOME/ALL OF: PROMINENT R IN V1, LATE TRANSITION, RAD, TRACI, SSS] SEPTAL MYOCARDIAL INFARCTION , OF INDETERMINATE AGE [40+ ms Q WAVE IN V1/V2] No previous ECG available for comparison Electronically Signed On 06-10-2024 22:07:00 SHANK SANDER by Jarret Chan M.D. [email or web address] [id number]
--- NOTE | 2024-06-07 13:17 | CTR_ITS ---
PROCEDURE INFORMATION: Exam: CT Chest Without Contrast; Diagnostic Exam date and time: 06/07/2024 5:07 PM Age: 59 years old Clinical indication: Other: Leukocytosis; Dyspnea; Additional info: Persitent leukocytosis, persistent leukocytosis, evluate for hydronpehrosis, TECHNIQUE: Imaging protocol: Diagnostic computed tomography of the chest without contrast. Radiation optimization: All CT scans at this facility use at least one of these dose optimization techniques: automated exposure control; mA and/or kV adjustment per patient size (includes targeted exams where dose is matched to clinical indication); or iterative reconstruction. COMPARISON: CR (CHEST, ) 06/06/2024 2:44 AM RADIATION DOSE METRICS: Total DLP (mGy-cm): 1310.68 FINDINGS: Lungs: Calcified granuloma with scarring in the right lung apex. Small scattered ground-glass opacities in the bilateral upper lobes and right middle lobe. Dependent atelectasis in the lower lobes. Pleural spaces: Small left and trace right pleural effusions. No pneumothorax. Heart: Unremarkable. No cardiomegaly. No pericardial effusion. Coronary arteries: Coronary artery calcifications. Lymph nodes: Unremarkable. No enlarged lymph nodes. Vasculature: Unremarkable. No aortic aneurysm. Bones/joints: Age indeterminate severe T7 and mild T5 compression fractures. Multiple old left rib fractures. Soft tissues: Unremarkable. PROCEDURE INFORMATION: Exam: CT Abdomen And Pelvis Without Contrast Exam date and time: 06/07/2024 5:07 PM Age: 59 years old Clinical indication: Other: Leukocytosis; Dyspnea; Additional info: Persitent leukjocytosis, persistent leukocytosis, evluate for hydronpehrosis, TECHNIQUE: Imaging protocol: Computed tomography of the abdomen and pelvis without contrast. Radiation optimization: All CT scans at this facility use at least one of these dose optimization techniques: automated exposure control; mA and/or kV adjustment per patient size (includes targeted exams where dose is matched to clinical indication); or iterative reconstruction. COMPARISON: CR (CHEST, ) 06/06/2024 2:44 AM RADIATION DOSE METRICS: Total DLP (mGy-cm): 1310.68 FINDINGS: Limitations: Streak artifact in the upper abdomen due to the patient's arms which were left at the sides. Liver: Normal. No mass. Gallbladder and biliary ducts: Cholecystectomy. The bile ducts are normal. Pancreas: Normal. No ductal dilation. Spleen: Normal. No splenomegaly. Adrenal glands: Normal. No mass. Kidneys and ureters: Normal. No hydronephrosis. Stomach and bowel: Gas distended transverse colon, likely ileus. The stomach, small bowel, and remainder of the colon are unremarkable. No wall thickening or obstruction. Appendix: The appendix is visualized and is normal. Intraperitoneal space: Unremarkable. No free air. No significant fluid collection. Vasculature: Mild calcified arterial plaque. No aneurysm. Lymph nodes: Unremarkable. No enlarged lymph nodes. Urinary bladder: Huerta catheter in a decompressed urinary bladder. Reproductive: Unremarkable as visualized. Bones/joints: Degenerative changes of the lumbar spine. Mild age indeterminate L1 and L2 compression fractures. Soft tissues: Body wall edema in the flank and hip regions. CT/[place] [id number] IMPRESSION: 1. Small scattered ground-glass opacities in both lungs. This could represent pneumonia or less likely pulmonary edema. 2. Small left and trace right pleural effusions. 3. Age-indeterminate T5 and T7 compression fractures. IMPRESSION: 1. No acute findings. 2. Age indeterminate mild L1 and L2 compression fractures.
[2024-06-07 14:54] LABS: Troponin(5th) Baseline 118 ng/L (0-10)
--- NOTE | 2024-06-07 15:36 | ECG_ITS ---
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 Measurements Intervals [place] Rate: 94 P: 66 PA: 169 QRS: 105 QRSD: 76 T: 40 QT: 347 QTc: 435 Interpretive Statements SINUS RHYTHM POSSIBLE LEFT ATRIAL ENLARGEMENT [-0.1mV P-WAVE IN V1/V2] POSSIBLE RIGHT VENTRICULAR HYPERTROPHY [SOME/ALL OF: PROMINENT R IN V1, LATE TRANSITION, RAD, TRACI, SSS] SEPTAL MYOCARDIAL INFARCTION , OF INDETERMINATE AGE [40+ ms Q WAVE IN V1/V2] Compared to ECG 06/07/2024 13:21:58 No significant changes Electronically Signed On 06-10-2024 22:23:19 KNIFE SHARPENER by Jarret Chan M.D. [email or web address] [email or web address]
[2024-06-07 16:55] LABS: Glucose Point of Care 137 mg/dL (70-110)
--- NOTE | 2024-06-07 17:34 | P.PN_ITS ---
Subjective 2 Subjective: Chart reviewed,patient is awake and alert today. States that she has been experiencing shortness of breath over past several weeks. She used to live with her biyfriend who a few weeks ago and she has since been living with her mother. Has a h/o HTN, type 2 diabetes mellitus, Medications: Reviewed: Yes Vitals/I&O/Wt Last Vital Signs Temp 97.1 F L 06/07/24 11:37 Pulse 94 06/07/24 16:15 Resp 15 06/07/24 16:15 BP 180/70 06/07/24 16:15 Pulse Ox 95 06/07/24 14:45 O2 Del Method BiPAP 06/07/24 04:00 O2 Flow Rate 3 06/06/24 20:00 FiO2 35 06/07/24 03:21 06/07/24 06/07/24 06/07/24 06:59 14:59 22:59 Output Total 800 / 4800 1650 / 1650 Balance -800 / -4410 -1650 / -1650 Weight last 48 hrs Weight 116.12 kg Weight 116.12 kg Weight 116.12 kg Physical Exam 2 Narrative: General: chronically ill appearing, AO x3 HEENT: PERRLA, pupils bilaterally equal and reactive, pallors not present Chest: scattered crackles bilaterally CVS: S1-S2 regular, no murmurs, no tachycardia, no gallops, no rubs Abdomen: Soft, nontender, no organomegaly, bowel sounds present Neuro: No focal deficits, no facial deformity, AO x3, power 5/5 in all limbs Extremities: anasarca+ Urinary Catheter Management: Huerta: Cath Placed During This Visit: yes Reason for Continuing Indwelling Catheter: Accurate Measurement of Urinary Output in Critically Ill Patients Urinary Catheter Date of Insertion: 06/05/24 Urinary Catheter Time of Insertion: 09:46 Data 06/07/24 04:54 06/07/24 04:54 A&P Assessment and plan (1) Hypoglycemia: Patient persistently hypoglycemic overnight received D10 and octreotide She recalls taking multiple doses of Lantus but cannot recall the specific details Glycemic control seems to be improving, will hold drip to monitor blood glucose Continue holding diabetes medications and insulins Encourage oral intake (2) Pulmonary edema: Patient complains of shortness of breath X-ray this morning shows acute pulmonary edema Continue diuresis with IV lasix daily Check cardiac function w/ echo Continue respiratory support including BiPAP as needed (3) Toxic encephalopathy: Presented with acute toxic encephalopathy secondary to opioid overdose Mentation is improving, suspect opioid intoxication is nearing resolution She is at risk for opiate withdrawal symptoms, continue to monitor for such closely Avoid sedating medications Continue supportive care (4) Failure to thrive: Failure to thrive in adulthood Therapy evaluation Mother reports she can no longer care for her Case management consult (5) Diabetes mellitus: Patient with type 2 diabetes mellitus, home regimen still unknown Hypoglycemic overnight treated with D10 and octreotide Encourage oral intake Close monitoring of glucose levels today, may need further intervention pending clinical course (6) Hyperkalemia: Improved, K 5.2 Telemetry monitoring (7) Hypomagnesemia: Replace magnesium Trend levels (8) Leukocytosis: Leukocytosis worsening, no obvious source of infection, continue to monitor (9) Rhabdomyolysis: CK levels improved, currently at 279, discontinue trending Avoid further nephrotoxins (10) Fall: Fall precautions Patient is not quite medically ready for therapy evaluation (11) Hypertension: Home regimen unknown Blood pressures are elevated although patient is agitated IV hydralazine as needed (12) Chronic pain: Hold all opiates due to opiate overdose Tylenol PRNs Avoid other sedating meds (13) Tobacco use disorder: Patient would benefit from cessation Plan DVT prophylaxis: lovenox Full code Jun 07, 2024 Chart reveiwed, patient is awake, alert today, She is chroniclaly ill appearing. Denies being on 02 previously , currently on 3-4 lpm supplemental 02. Underwent CT CAP today due to persisting leukocytosis, infectious sourceevaluation. Shows B/L scattered opacities likely infectious vs edema. Start Ceftriaxone 1g iv every 24 h and azithromycin 500mg x 3 days for possibility of CAP. CT abdomen pelvis additionally perfromed to assess for underlying cirrhosis as patient has generalized subcutanous edema. Study negative for cirrhosis, negtaive for any abdominal pathology. With elevated BNP, pulmonary edema, concern for CHF. Echo results available today show [id number]%, gr 1 diastolic dysfunction, mild MR. Possibly patient may have acute on chronic dCHF exacerbation. favor a chronic process though cannot be certain given the absence of prior echo to compare. Check EKG and trop series today , baseline trop at 118--> 109at 2 hrs. Negtaive delta. No acute ST_T changes on EKG. LEss likely ACS. Suspecte elevated trop related to CHF exacerbation. Continue lasxi 40mg iv q24h. Start asa 81mg daily. May need stress test once euvolemic. Currently heart failure may be contributed also by uncontrolled high BP. Start amlodipine 5mg po daily and metoprolol 12.5 mg BID, titrate medication per response. Noted to have severe crural candidiasis in groin folds and under breasts B/L. Start clotrimazole local application BID. Attestations 2 Medical Necessity Statement*: iv diuresis, stress test once euvolemic, CT CAP today Coding Level of Care Code Acute Code for [facility] Diagnoses Hypoglycemia E16.2 Pulmonary edema J81.1 Toxic encephalopathy G92.9 Failure to thrive Diabetes mellitus E11.9 Hyperkalemia E87.5 Hypomagnesemia E83.42 Leukocytosis D72.829 Rhabdomyolysis M62.82 Fall W19.XXXA Hypertension I10 Chronic pain G89.29 Tobacco use disorder F17.200
[2024-06-07 18:31] LABS: Troponin 5 2HR Delta -8.3 ABS# (0-10)
[2024-06-07 18:32] LABS: Troponin 5 2HR 109.7 ng/L (0-10)
--- NOTE | 2024-06-07 18:50 | ECG_ITS ---
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 Measurements Intervals [place] Rate: 77 P: 64 WI: 170 QRS: 98 QRSD: 78 T: 32 QT: 359 QTc: 408 Interpretive Statements SINUS RHYTHM WITH MARKED SINUS ARRHYTHMIA POSSIBLE LEFT ATRIAL ENLARGEMENT [-0.1mV P-WAVE IN V1/V2] BORDERLINE RIGHT AXIS DEVIATION [QRS AXIS > 90] SEPTAL MYOCARDIAL INFARCTION , OF INDETERMINATE AGE [40+ ms Q WAVE IN V1/V2] Compared to ECG 06/07/2024 15:36:30 No significant changes Electronically Signed On 06-10-2024 22:22:40 CONSUMER ELECTRONIC RETAIL SPECIALIST by Jarret Chan M.D. [email or web address] [id number]
[2024-06-07] MEDS: cefTRIAXone 1,000 mg SDV 1000 MG IVP (19:57)
[2024-06-07] MEDS: amlodipine 5 mg Tablet PO (19:57)
[2024-06-07 20:19] LABS: D Dimer 1.79 ug/mLFEU (0-0.59)
[2024-06-07 20:20] LABS: Troponin 5 6HR Delta -7.8 ng/L (0-12)
[2024-06-07 20:21] LABS: Troponin 5 6HR 110.2 ng/L (0-10)
[2024-06-07] MEDS: metoprolol tartrate 25 mg Tablet 12.5 MG PO (22:16)
[2024-06-07] MEDS: enoxaparin 40 mg/0.4 mL Syringe SUBCUT (22:16)
[2024-06-07 22:24] LABS: Glucose Point of Care 143 mg/dL (70-110)
[2024-06-08] VITALS (57 sets, daily range): BP systolic 100–185; BP diastolic 59–94; PULSE 55–87; RESP 12–27; TEMP 36.7–37; O2SAT 91–98
[2024-06-08] MEDS: acetaminophen 325 mg Tablet 650 MG PO ×3 (00:33→17:10)
[2024-06-08 05:26] LABS: Glucose Point of Care 133 mg/dL (70-110)
[2024-06-08 05:34] LABS: Basophils % 0.2 %; Eosinophils # 0.1 10^3/uL (0.0-0.8); Eosinophils % 0.4 %; Hematocrit 44.5 % (36-47); Lymphocytes # 0.7 10^3/uL (0.8-4.8); Lymphocytes % 3.9 %; Mean Corpuscular HGB Conc 30.6 g/dL (30-55); Mean Corpuscular Hemoglobin 28.6 pg (27-33); Mean Corpuscular Volume 93.5 fl (85-98); Mean Platelet Volume 10.8 fL (7.4-10.4); Monocytes # 1.4 10^3/uL (0.2-0.9); Monocytes % 8.3 %; Neutrophils # 14.52 10^3/uL (1.8-7.7); Neutrophils % 86.5 %; Nucleated Red Blood Cells % 0 %; Platelet Count 238 10^3/cmm (157-399); Red Blood Count 4.76 10^6/uL (3.85-5.65); Red Cell Distribution Width 14.7 % (12.1-15.1); White Blood Count 16.79 10^3/uL (3.29-11.43)
[2024-06-08 06:07] LABS: Alanine Aminotransferase 11 U/L (0-33); Albumin Level 2.9 g/dL (3.5-5.2); Alkaline Phosphatase 146 U/L (35-105); Anion Gap 15.2 (5-19); Aspartate Amino Transferase 16 U/L (0-32); Blood Urea Nitrogen 16 mg/dL (8-23); Calcium 9.1 mg/dL (8.5-10.5); Carbon Dioxide 34 mmol/L (22-29); Chloride 91 mmol/L (98-107); Creatinine Clr Calc Pharmacy 87.8629; Globulin 3.5 g/dL (1.3-4.6); Glomerular Filtration Rate 63.7 mL/min (90-130); Glucose 133 mg/dL (65-115); Osmolality Calculated 285 mOsm/kg (285-295); Potassium 4.2 mmol/L (3.5-5.1); Sodium 136 mmol/L (136-145); Total Bilirubin 0.9 mg/dL (0.15-1.2); Total Protein 6.4 g/dL (6.6-8.7)
[2024-06-08 06:30] LABS: Estmated Average Glucose 120; Hemoglobin A1C 5.8 % (4.0-6.0)
[2024-06-08 07:46] LABS: Glucose Point of Care 119 mg/dL (70-110)
[2024-06-08] MEDS: azithromycin 250 mg Tablet 500 MG PO (08:10)
[2024-06-08] MEDS: aspirin 81 mg EC Tablet PO (08:10)
[2024-06-08] MEDS: amlodipine 5 mg Tablet PO (08:10)
[2024-06-08] MEDS: FUROsemide 10 mg/mL SDV 4mL 40 MG IVP (08:11)
[2024-06-08] MEDS: metoprolol tartrate 25 mg Tablet 12.5 MG PO ×2 (08:28→20:01)
[2024-06-08] MEDS: clotrimazole 1% cream 30 gm 1 APPLIC TOPICAL ×2 (08:29→17:11)
[2024-06-08] MEDS: amlodipine 10 mg Tablet PO (09:56)
[2024-06-08 12:22] LABS: Glucose Point of Care 129 mg/dL (70-110)
[2024-06-08 12:38] LABS: MRSA PCR OZH (swab) NOT DETECTED (Not Detecte)
--- NOTE | 2024-06-08 14:05 | PC.NURSE ---
Report was given to NICHOLE Jaimes in med surge. Patient was transferred with all their belongings. Patient was stable upon transfer.
[2024-06-08 16:48] LABS: Glucose Point of Care 122 mg/dL (70-110)
[2024-06-08] MEDS: atorvastatin 40 mg Tablet 20 MG PO (17:11)
--- NOTE | 2024-06-08 17:30 | USCV_ITS ---
Wanda Lamb Age: 59 Gender: F : 1965 Exam Date: 06/08/2024 19:25 Ordering Phys: Chey Argueta MD Technologist: ISAMAR Exam Location: [facility] [place] Indication: assess for dvt HISTORY: assess for dvt PROCEDURES: Venous duplex imaging was performed in bilateral lower extremities. The following venous structures were evaluated: common femoral vein, profunda vein, proximal portion of the greater saphenous vein, superficial femoral vein, and the popliteal vein. In addition, the posterior tibial veins were evaluated. FINDINGS: Normal 2-D Doppler and augmentation and compressibility throughout the lower extremity venous structures. Additional imaging through the proximal calf veins also reveals no thrombus. Limited evaluation of the greater saphenous vein is patent with no thrombus. CONCLUSIONS No DVT bilateral lower extremities. Dr. Rody Mancuso DO (Electronically Signed) Final Date: 09 June 2024 08:58 S
--- NOTE | 2024-06-08 17:30 | P.PN_ITS ---
Subjective 2 Subjective: awake and alert. c/o pain in her legs B/L, restless legs Medications: Reviewed: Yes Vitals/I&O/Wt Last Vital Signs Temp 98.0 F 06/08/24 15:24 Pulse 71 06/08/24 15:24 Resp 16 06/08/24 15:24 BP 146/76 06/08/24 15:24 Pulse Ox 95 06/08/24 15:24 O2 Del Method Nasal Cannula 06/08/24 15:24 O2 Flow Rate 2 06/08/24 13:45 FiO2 35 06/07/24 03:21 06/08/24 06/08/24 06/08/24 06:59 14:59 22:59 Intake Total 400 / 400 Output Total 700 / 2350 1800 / 1800 Balance -300 / -1950 -1800 / -1800 Weight last 48 hrs Weight 108.5 kg Weight 108.5 kg Weight 116.12 kg Weight 116.12 kg Physical Exam 2 Narrative: General: chronically ill appearing, AO x3 HEENT: PERRLA, pupils bilaterally equal and reactive, pallors not present Chest: scattered crackles bilaterally CVS: S1-S2 regular, no murmurs, no tachycardia, no gallops, no rubs Abdomen: Soft, nontender, no organomegaly, bowel sounds present Neuro: No focal deficits, no facial deformity, AO x3, power 5/5 in all limbs Extremities: anasarca+ Urinary Catheter Management: Ocampo: Cath Placed During This Visit: yes Reason for Continuing Indwelling Catheter: Accurate Measurement of Urinary Output in Critically Ill Patients Urinary Catheter Date of Insertion: 06/05/24 Urinary Catheter Time of Insertion: 09:46 Data 06/08/24 03:00 06/08/24 03:00 Micro: Microbiology 06/08/24 09:39 Bacterial Antigens - Final Urine,Clean Catch A&P Assessment and plan (1) Hypoglycemia: Patient persistently hypoglycemic overnight received D10 and octreotide She recalls taking multiple doses of Lantus but cannot recall the specific details Glycemic control seems to be improving, will hold drip to monitor blood glucose Continue holding diabetes medications and insulins Encourage oral intake (2) Pulmonary edema: Patient complains of shortness of breath X-ray this morning shows acute pulmonary edema Continue diuresis with IV lasix daily Check cardiac function w/ echo Continue respiratory support including BiPAP as needed (3) Toxic encephalopathy: Presented with acute toxic encephalopathy secondary to opioid overdose Mentation is improving, suspect opioid intoxication is nearing resolution She is at risk for opiate withdrawal symptoms, continue to monitor for such closely Avoid sedating medications Continue supportive care (4) Failure to thrive: Failure to thrive in adulthood Therapy evaluation Mother reports she can no longer care for her Case management consult (5) Diabetes mellitus: Patient with type 2 diabetes mellitus, home regimen still unknown Hypoglycemic overnight treated with D10 and octreotide Encourage oral intake Close monitoring of glucose levels today, may need further intervention pending clinical course (6) Hyperkalemia: Improved, K 5.2 Telemetry monitoring (7) Hypomagnesemia: Replace magnesium Trend levels (8) Leukocytosis: Leukocytosis worsening, no obvious source of infection, continue to monitor (9) Rhabdomyolysis: CK levels improved, currently at 279, discontinue trending Avoid further nephrotoxins (10) Fall: Fall precautions Patient is not quite medically ready for therapy evaluation (11) Hypertension: Home regimen unknown Blood pressures are elevated although patient is agitated IV hydralazine as needed (12) Chronic pain: Hold all opiates due to opiate overdose Tylenol PRNs Avoid other sedating meds (13) Tobacco use disorder: Patient would benefit from cessation Plan DVT prophylaxis: lovenox Full code Jun 07, 2024 Chart reveiwed, patient is awake, alert today, She is chroniclaly ill appearing. Denies being on 02 previously , currently on 3-4 lpm supplemental 02. Underwent CT CAP today due to persisting leukocytosis, infectious sourceevaluation. Shows B/L scattered opacities likely infectious vs edema. Start Ceftriaxone 1g iv every 24 h and azithromycin 500mg x 3 days for possibility of CAP. CT abdomen pelvis additionally perfromed to assess for underlying cirrhosis as patient has generalized subcutanous edema. Study negative for cirrhosis, negtaive for any abdominal pathology. With elevated BNP, pulmonary edema, concern for CHF. Echo results available today show [id number]%, gr 1 diastolic dysfunction, mild MR. Possibly patient may have acute on chronic dCHF exacerbation. favor a chronic process though cannot be certain given the absence of prior echo to compare. Check EKG and trop series today , baseline trop at 118--> 109at 2 hrs. Negtaive delta. No acute ST_T changes on EKG. LEss likely ACS. Suspecte elevated trop related to CHF exacerbation. Continue lasxi 40mg iv q24h. Start asa 81mg daily. May need stress test once euvolemic. Currently heart failure may be contributed also by uncontrolled high BP. Start amlodipine 5mg po daily and metoprolol 12.5 mg BID, titrate medication per response. Noted to have severe crural candidiasis in groin folds and under breasts B/L. Start clotrimazole local application BID. 06/08/24: Alert, awake, 02 reqirement stable at 2-3 lpm, urine output 2400 cc. breathing is easier. encourage OOB and ambulation d/c ocampo catheter. c/o B/L severe leg pain. Resume lyrica, at reduced dosing of 75mg po daily, add prn morphine for pain control. Check LE duplex to evaluate for DVT. Kiney function improving today, BIRGIT resolving. BP is better controlled today with addition of metoprolol and increasing amlodipine dose to 10mg po daily. Plan for stress test once euvolemic. continue abx for pneumonia, leukocytsois is improving. Blood cx thus far negative to date. PDMP PDMP Reviewed: Not Reviewed Attestations 2 Medical Necessity Statement*: iv diuresis, stress test once euvolemic, iv antibiotics Coding Level of Care Code Acute Code for Chg Fwd Diagnoses Hypoglycemia E16.2 Pulmonary edema J81.1 Toxic encephalopathy G92.9 Failure to thrive Diabetes mellitus E11.9 Hyperkalemia E87.5 Hypomagnesemia E83.42 Leukocytosis D72.829 Rhabdomyolysis M62.82 Fall W19.XXXA Hypertension I10 Chronic pain G89.29 Tobacco use disorder F17.200
[2024-06-08] MEDS: cefTRIAXone 1,000 mg SDV 1000 MG IVP (18:07)
[2024-06-08] MEDS: pregabalin 75 mg Capsule PO (18:07)
[2024-06-08] MEDS: enoxaparin 40 mg/0.4 mL Syringe SUBCUT (20:01)
[2024-06-08] MEDS: zolpidem 5 mg Tablet 10 MG PO (20:07)
[2024-06-08 20:21] LABS: Glucose Point of Care 140 mg/dL (70-110)
[2024-06-09] VITALS (9 sets, daily range): BP systolic 90–151; BP diastolic 53–75; PULSE 60–85; RESP 17–21; TEMP 36.7–37.1; O2SAT 86–97
--- NOTE | 2024-06-09 | ECG_ITS ---
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
[2024-06-09 05:31] LABS: Basophils % 0.3 %; Eosinophils # 0.1 10^3/uL (0.0-0.8); Eosinophils % 1.2 %; Lymphocytes # 1.1 10^3/uL (0.8-4.8); Lymphocytes % 10.1 %; Mean Corpuscular HGB Conc 30.2 g/dL (30-55); Mean Corpuscular Hemoglobin 27.5 pg (27-33); Mean Corpuscular Volume 91.1 fl (85-98); Mean Platelet Volume 10.8 fL (7.4-10.4); Monocytes # 1.2 10^3/uL (0.2-0.9); Monocytes % 10.6 %; Neutrophils % 77.3 %; Nucleated Red Blood Cells % 0 %; Platelet Count 222 10^3/cmm (157-399); Red Blood Count 4.94 10^6/uL (3.85-5.65); Red Cell Distribution Width 14.8 % (12.1-15.1); White Blood Count 11.12 10^3/uL (3.29-11.43)
[2024-06-09 06:04] LABS: Alanine Aminotransferase 9 U/L (0-33); Albumin Level 2.9 g/dL (3.5-5.2); Alkaline Phosphatase 142 U/L (35-105); Blood Urea Nitrogen 20 mg/dL (8-23); Calcium 9.1 mg/dL (8.5-10.5); Carbon Dioxide 35 mmol/L (22-29); Chloride 91 mmol/L (98-107); Creatinine Clr Calc Pharmacy 94.8055; Globulin 3.5 g/dL (1.3-4.6); Glomerular Filtration Rate 72.9 mL/min (90-130); Glucose 138 mg/dL (65-115); Osmolality Calculated 289 mOsm/kg (285-295); Sodium 137 mmol/L (136-145); Total Bilirubin 0.8 mg/dL (0.15-1.2); Total Protein 6.4 g/dL (6.6-8.7)
[2024-06-09 06:05] LABS: Anion Gap 14.7 (5-19); Aspartate Amino Transferase 14 U/L (0-32); Potassium 3.7 mmol/L (3.5-5.1)
[2024-06-09 06:10] LABS: Glucose Point of Care 147 mg/dL (70-110)
[2024-06-09] MEDS: regadenoson 0.4 Mg/5 ml Syringe IVP (06:59)
[2024-06-09] MEDS: metoprolol tartrate 25 mg Tablet 12.5 MG PO ×2 (08:49→20:31)
[2024-06-09] MEDS: amlodipine 10 mg Tablet PO (08:49)
[2024-06-09] MEDS: FUROsemide 10 mg/mL SDV 4mL 40 MG IVP (08:49)
[2024-06-09] MEDS: aspirin 81 mg EC Tablet PO (08:49)
[2024-06-09] MEDS: pregabalin 75 mg Capsule PO (08:49)
[2024-06-09] MEDS: duloxetine 60 mg Capsule PO (08:49)
[2024-06-09] MEDS: azithromycin 250 mg Tablet 500 MG PO (08:52)
[2024-06-09] MEDS: clotrimazole 1% cream 30 gm 1 APPLIC TOPICAL ×2 (09:51→16:59)
[2024-06-09 11:45] LABS: Glucose Point of Care 186 mg/dL (70-110)
--- NOTE | 2024-06-09 15:09 | P.PN_ITS ---
Subjective 2 Subjective: Patient stable. Blood pressure has improved. She is not requiring BiPAP at this time. She is on nasal cannula oxygen saturation 94%. She is had adequate urine output. Currently on Lasix 40 every 12. Edema has resolved. She denies any chest pain at this time. Vitals/I&O/Wt Last Vital Signs Temp 98.0 F 06/09/24 13:00 Pulse 73 06/09/24 13:00 Resp 18 06/09/24 13:00 BP 90/53 06/09/24 13:00 Pulse Ox 92 06/09/24 13:20 O2 Del Method Nasal Cannula 06/09/24 13:00 O2 Flow Rate 2 06/09/24 13:20 FiO2 35 06/07/24 03:21 06/09/24 06/09/24 06/09/24 06:59 14:59 22:59 Intake Total 60 / 660 360 / 360 Balance 60 / -1140 360 / 360 Weight last 48 hrs Weight 236 lb 12.8 oz Weight 236 lb 14.4 oz Weight 239 lb 3.225 oz Weight 239 lb 3.225 oz Physical Exam 2 Narrative: General: No apparent distress, healthy appearing, well nourished HENMT: normoceophalic Eye: PERRL Neck: No carotid bruit bilaterally Muskuloskeletal: Full ROM Lymphatic: no lymphedema noted Respiratory: Normal respiratory effort, clear to auscultation bilaterally throughout all lung stein, no use of accessory muscles Cardio: No JVD, regular rate, regular rhythm, S1 S2 normal, no murmurs, peripheral pulses 2+ throughout GI: Normal to inspection, nondistended Extremities: Full ROM, normal, normal capillary refill, no cyanosis or edema Neuro: Alert and oriented x4, no focal motor deficits Psych: Affect normal, denies suicidal ideation, mental status grossly normal Skin: No rashes or lesions noted, no wounds Urinary Catheter Management: Huerta: Cath Placed During This Visit: yes, but has since been removed by the nurse Reason for Continuing Indwelling Catheter: Decision to DC Catheter Urinary Catheter Date of Insertion: 06/05/24 Urinary Catheter Time of Insertion: 09:46 Date Urinary Catheter Removed: 06/08/24 Time Urinary Catheter Discontinued: 14:00 Data 06/09/24 05:07 06/09/24 05:07 Micro: Microbiology 06/08/24 09:39 Bacterial Antigens - Final Urine,Clean Catch A&P PDMP PDMP Reviewed: Not Reviewed Coding Level of Care Code Acute Code for Chg Fwd
--- NOTE | 2024-06-09 15:39 | P.PN_ITS ---
Subjective 2 Subjective: Leukocytosis is now resolved. Stress test completed this morning showed a small area of ischemia in the left circumflex artery territory. Patient is currently on room air when evaluated. Medications: Reviewed: Yes Vitals/I&O/Wt Last Vital Signs Temp 98.0 F 06/09/24 13:00 Pulse 73 06/09/24 13:00 Resp 18 06/09/24 13:00 BP 90/53 06/09/24 13:00 Pulse Ox 92 06/09/24 13:20 O2 Del Method Nasal Cannula 06/09/24 13:00 O2 Flow Rate 2 06/09/24 13:20 FiO2 35 06/07/24 03:21 06/09/24 06/09/24 06/09/24 06:59 14:59 22:59 Intake Total 60 / 660 360 / 360 Balance 60 / -1140 360 / 360 Weight last 48 hrs Weight 107.411 kg Weight 107.456 kg Weight 108.5 kg Weight 108.5 kg Physical Exam 2 Narrative: General: No acute distress, AO x3 HEENT: PERRLA, pupils bilaterally equal and reactive, pallors not present Chest: Normal vesicular breath sounds, no added sounds, equal good air entry bilaterally CVS: S1-S2 regular, no murmurs, no tachycardia, no gallops, no rubs Abdomen: Soft, nontender, no organomegaly, bowel sounds present Neuro: No focal deficits, no facial deformity, AO x3, power 5/5 in all limbs Urinary Catheter Management: Ocampo: Cath Placed During This Visit: yes, but has since been removed by the nurse Reason for Continuing Indwelling Catheter: Decision to DC Catheter Urinary Catheter Date of Insertion: 06/05/24 Urinary Catheter Time of Insertion: 09:46 Date Urinary Catheter Removed: 06/08/24 Time Urinary Catheter Discontinued: 14:00 Data 06/09/24 05:07 06/09/24 05:07 Micro: Microbiology 06/08/24 09:39 Bacterial Antigens - Final Urine,Clean Catch A&P Assessment and plan (1) Hypoglycemia: Patient persistently hypoglycemic overnight received D10 and octreotide She recalls taking multiple doses of Lantus but cannot recall the specific details Glycemic control seems to be improving, will hold drip to monitor blood glucose Continue holding diabetes medications and insulins Encourage oral intake (2) Pulmonary edema: Patient complains of shortness of breath X-ray this morning shows acute pulmonary edema Continue diuresis with IV lasix daily Check cardiac function w/ echo Continue respiratory support including BiPAP as needed (3) Toxic encephalopathy: Presented with acute toxic encephalopathy secondary to opioid overdose Mentation is improving, suspect opioid intoxication is nearing resolution She is at risk for opiate withdrawal symptoms, continue to monitor for such closely Avoid sedating medications Continue supportive care (4) Failure to thrive: Failure to thrive in adulthood Therapy evaluation Mother reports she can no longer care for her Case management consult (5) Diabetes mellitus: Patient with type 2 diabetes mellitus, home regimen still unknown Hypoglycemic overnight treated with D10 and octreotide Encourage oral intake Close monitoring of glucose levels today, may need further intervention pending clinical course (6) Hyperkalemia: Improved, K 5.2 Telemetry monitoring (7) Hypomagnesemia: Replace magnesium Trend levels (8) Leukocytosis: Leukocytosis worsening, no obvious source of infection, continue to monitor (9) Rhabdomyolysis: CK levels improved, currently at 279, discontinue trending Avoid further nephrotoxins (10) Fall: Fall precautions Patient is not quite medically ready for therapy evaluation (11) Hypertension: Home regimen unknown Blood pressures are elevated although patient is agitated IV hydralazine as needed (12) Chronic pain: Hold all opiates due to opiate overdose Tylenol PRNs Avoid other sedating meds (13) Tobacco use disorder: Patient would benefit from cessation Plan DVT prophylaxis: lovenox Full code Jun 07, 2024 Chart reveiwed, patient is awake, alert today, She is chroniclaly ill appearing. Denies being on 02 previously , currently on 3-4 lpm supplemental 02. Underwent CT CAP today due to persisting leukocytosis, infectious sourceevaluation. Shows B/L scattered opacities likely infectious vs edema. Start Ceftriaxone 1g iv every 24 h and azithromycin 500mg x 3 days for possibility of CAP. CT abdomen pelvis additionally perfromed to assess for underlying cirrhosis as patient has generalized subcutanous edema. Study negative for cirrhosis, negtaive for any abdominal pathology. With elevated BNP, pulmonary edema, concern for CHF. Echo results available today show [id number]%, gr 1 diastolic dysfunction, mild MR. Possibly patient may have acute on chronic dCHF exacerbation. favor a chronic process though cannot be certain given the absence of prior echo to compare. Check EKG and trop series today , baseline trop at 118--> 109at 2 hrs. Negtaive delta. No acute ST_T changes on EKG. LEss likely ACS. Suspecte elevated trop related to CHF exacerbation. Continue lasxi 40mg iv q24h. Start asa 81mg daily. May need stress test once euvolemic. Currently heart failure may be contributed also by uncontrolled high BP. Start amlodipine 5mg po daily and metoprolol 12.5 mg BID, titrate medication per response. Noted to have severe crural candidiasis in groin folds and under breasts B/L. Start clotrimazole local application BID. 06/08/24: Alert, awake, 02 reqirement stable at 2-3 lpm, urine output 2400 cc. breathing is easier. encourage OOB and ambulation d/c ocampo catheter. c/o B/L severe leg pain. Resume lyrica, at reduced dosing of 75mg po daily, add prn morphine for pain control. Check LE duplex to evaluate for DVT. Kiney function improving today, BIRGIT resolving. BP is better controlled today with addition of metoprolol and increasing amlodipine dose to 10mg po daily. Plan for stress test once euvolemic. continue abx for pneumonia, leukocytsois is improving. Blood cx thus far negative to date. 06/09/24 : Alert, awake, feels better. Change iv lasix to po lasix 40mg daily today. BP dropped to 90 systolic this afternoon with increasing amlodipine dose. Reduce back to 5 mg daily. continue metoprolol. Stress test done today reported abnormal in lcx territory. Will consult cardiology. Leukocytosis resolved. L PDMP PDMP Reviewed: Not Reviewed Attestations 2 Medical Necessity Statement*: iv diuresis to po today, abnormal stress test , cardiology assessment Coding Level of Care Code Acute Code for Chg Fwd Diagnoses Hypoglycemia E16.2 Pulmonary edema J81.1 Toxic encephalopathy G92.9 Failure to thrive Diabetes mellitus E11.9 Hyperkalemia E87.5 Hypomagnesemia E83.42 Leukocytosis D72.829 Rhabdomyolysis M62.82 Fall W19.XXXA Hypertension I10 Chronic pain G89.29 Tobacco use disorder F17.200
--- NOTE | 2024-06-09 16:55 | P.CONIM_ITS ---
<Statement entered by Callum Mcguire MD - 06/09/24 23:41> Patient was evaluated and cared for in conjunction with an advanced practice practitioner. I personally examined the patient and reviewed the chart and all pertinent data including imaging, telemetry, and laboratory results. I discussed the patient in detail with the advanced practice practitioner. Please see their note for complete H&P testing result and agreed upon plan of care for the patient. 59-year-old female past medical history significant for hypertension diabetes mellitus presented with mental status changes secondary to opioid patient was treated with Narcan, currently she is alert awake oriented x 3, patient denies categorically getting chest pain shortness of breath PND orthopnea history of pulm edema or heart failure signs and symptoms. Echocardiogram shows normal ejection fraction but moderate mitral valve stenosis and mild mitral valve regurgitation there was no wall motion abnormality. Patient underwent Lexiscan MIBI stress test which shows small area of ischemia in circumflex territory, in the absence of wall motion abnormality and prone images it may can represent artifact since patient remains asymptomatic. GENERAL: Patient is alert, awake and oriented x3. HEART: Regular S1 and S2. No murmur, rub or gallop. LUNGS: Clear to auscultate bilaterally. CENTRAL NERVOUS SYSTEM: Grossly nonfocal. EXTREMITIES: Lower extremities with out edema bilaterally. Assessment and plan Abnormal stress test Mental status changes secondary to opiate currently alert awake vented x 3 Moderate mitral valve stenosis on the basis of transthoracic echocardiogram with gradient around 8 mmHg may need further assessment with Ross esophageal echocardiogram which may can perform as an outpatient, patient can follow-up with cardiology as an outpatient as she may need a further workup for that. Stress test shows mild area of ischemia in the circumflex territory which may can represent artifact in the absence of symptoms, prone images and wall motion abnormality on echo and both nuclear images therefore invasive strategy currently may not be warranted Continue aspirin add statin Continue beta-doug Follow-up with cardiology over next 4 weeks for possible further assessment of moderate mitral valve stenosis which may require outpatient transesophageal echocardiogram. From a cardiovascular perspective patient can be discharged home with scheduled follow-up as outpatient in cardiology department Providers/Reason For Consult 2 Consulting Physician/Specialty*: Callum Mcguire MD Reason for Consult*: Abnormal stress test Requesting Physician: Dr. Argueta Attending Physician: Chey Argueta MD History of Present Illness History of Present Illness This is a 59-year-old female past medical history significant for type 2 diabetes, hypertension, high cholesterol, and chronic pain that presented to our ER with altered mentation. Apparently she came in with main complaint of shortness of breath. She was found to have toxic encephalopathy secondary to possible ipioid overdose. Narcan was given and menation improved. She denies any recent episodes of chest pain. proBNP was found to be elevated at 2805. Echo was done that showed Ef 55-60% and grade 1 diastolic dysfunction. Troponin series was done that showed 118-109-110. She was found to have rhabdo as well. A stress test was done that showed small area of ischemia seen in the left circ territory and attneuation artifact in the anterior wall. LV function was normal. Currently she is on amlodipine 5 mg daily and metoprolol 12.5 BID for bp and lasix 40 mg daily. BP overall seems controlled. Review of Systems 2 Narrative: Consitutional: denies fever, chills, body aches, or changes in appetite, denies abnormal weight loss Eyes: Denies changes in vision Card: Denies chest pain, palpitations, irregular heart rhythm, edema, syncope, shortness of breath, orthopnea, leg pain with exertion Resp: Denies shortness of breath, denies hemoptysis, denies cough GI: denies abdominal pain, denies nausea or voimting, denies blood in stool : denies blood in urine, denies dysuria Musc: Denies extremity pain, denies limited range of motion or recent injury Skin: Denies rash, lesions, or wounds, denies changes to skin color Neuro: Denies nubmness in extremities, h/a, s/s of stroke Humberto: Denies easy bruiding/bleeding Medications/Allergies Home Medications ?Medication ?Instructions ?Recorded ?Confirmed ?Last Taken ?Type atorvastatin 20 mg tablet (Lipitor) 20 mg PO QPM 06/0606/06/24 Unknown History duloxetine 60 mg capsule,delayed 60 mg PO BID 06/06/24 06/06/24 Unknown History release (Cymbalta) insulin glargine 100 unit/mL 35 unit SUBCUT BID 06/06/24 Unknown History subcutaneous solution (Lantus U-100 Insulin) insulin lispro 100 unit/mL See Rx Instructions .Route .COMPLEX 06/06/24 06/06/24 Unknown History subcutaneous pen (Humalog KwikPen (U-100) Insulin) pregabalin 75 mg capsule (Lyrica) 75 mg PO Q8H 5 06/06/24 Unknown History zolpidem 10 mg tablet 10 mg PO BEDTIME 06/06/24 Unknown History Allergies Allergy/AdvReac Type Severity Reaction Status Date / Time No Known Allergies Allergy Unverified 06/06/24 01:01 Current Medications Generic Name Dose Route Start Last Admin Trade Name Freq PRN Reason Stop Dose Admin Acetaminophen 650 mg 06/05/24 16:02 06/08/24 17:10 Acetaminophen 325 Mg Tablet PO 650 mg Q6H PRN Administration Mild/Mod Pain Or Temp >/= 101 Aspirin 81 mg 06/08/24 09:00 06/09/24 08:49 Aspirin 81 Mg Ec Tablet PO 81 mg DAILY BRENNAN Administration Atorvastatin Calcium 20 mg 06/08/24 18:00 06/08/24 17:11 Atorvastatin 40 Mg Tablet PO 20 mg QPM BRENNAN Administration Azithromycin 500 mg 06/08/24 09:00 06/09/24 08:52 Azithromycin 250 Mg Tablet PO 06/11/24 08:59 500 mg DAILY BRENNAN Administration Protocol Ceftriaxone Sodium 1,000 mg 06/07/24 19:00 06/08/24 18:07 Ceftriaxone 1,000 Mg Sdv IVP 1,000 mg Q24H BRENNAN Administration Protocol Clotrimazole 1 applic 06/08/24 09:00 06/09/24 09:51 Clotrimazole 1% Cream 30 Gm TOPICAL 1 applic BID BRENNAN Administration Duloxetine HCl 60 mg 06/09/24 09:00 06/09/24 08:49 Duloxetine 60 Mg Capsule PO 60 mg DAILY BRENNAN Administration Enoxaparin Sodium 40 mg 06/06/24 21:00 06/08/24 20:01 Enoxaparin 40 Mg/0.4 Ml Syringe SUBCUT 40 mg BEDTIME BRENNAN Administration Hydralazine HCl 10 mg 06/05/24 16:02 06/07/24 23:58 Hydralazine 20 Mg/Ml Inj 1 Ml IVP 10 mg Q4H PRN Administration SBP>180mmHg or DBP>110mmHG Dextrose 125 mls @ 750 mls/hr 06/05/24 16:02 06/05/24 22:47 D10w IV Infused PRN PRN Infusion Adult Acute Hypoglycemia Nursing Protocol Protocol Dextrose 250 mls @ 1,000 mls/hr 06/06/24 03:02 06/06/24 03:16 D10w IV Infused PRN PRN Infusion Adult Acute Hypoglycemia Nursing Protocol Protocol Metoprolol Tartrate 12.5 mg 06/07/24 21:00 06/09/24 08:49 Metoprolol Tartrate 25 Mg Tablet PO 12.5 mg BID@0900,2100 BRENNAN Administration Pregabalin 75 mg 06/08/24 17:35 06/09/24 08:49 Pregabalin 75 Mg Capsule PO 75 mg DAILY BRENNAN Administration Zolpidem Tartrate 10 mg 06/08/24 17:33 06/08/24 20:07 Zolpidem 5 Mg Tablet PO 10 mg BEDTIME PRN Administration sleep PFSH Acute 2 PFSH: Medical History (Updated 06/09/24 @ 17:03 by Arina Paige NP) Chronic pain Hypertension Diabetes mellitus Tobacco use disorder Surgical History (Updated 06/05/24 @ 14:03 by Ric Red MD) History of ankle surgery Family History (Updated 06/05/24 @ 14:03 by Ric Red MD) Grandfather Bone cancer Social History (Updated 06/05/24 @ 14:03 by Ric Red MD) Smoking and tobacco/nicotine status: current every day tobacco/nicotine user Alcohol intake: never Substance/Drug Use: unknown Vitals/I&O/Wt Last Vital Signs Temp 98.0 F 06/09/24 13:00 Pulse 73 06/09/24 13:00 Resp 18 06/09/24 13:00 BP 90/53 06/09/24 13:00 Pulse Ox 92 06/09/24 13:20 O2 Del Method Nasal Cannula 06/09/24 13:00 O2 Flow Rate 2 06/09/24 13:20 FiO2 35 06/07/24 03:21 06/09/24 06/09/24 06/09/24 06:59 14:59 22:59 Intake Total 60 / 660 360 / 360 Balance 60 / -1140 360 / 360 Weight last 48 hrs Weight 236 lb 12.8 oz Weight 236 lb 14.4 oz Weight 239 lb 3.225 oz Weight 239 lb 3.225 oz Physical Exam 2 Narrative: General: No apparent distress, healthy appearing, well nourished HENMT: normoceophalic Neck: No carotid bruit bilaterally Muskuloskeletal: Full ROM Lymphatic: no lymphedema noted Respiratory: Normal respiratory effort, clear to auscultation bilaterally throughout all lung stein, no use of accessory muscles Cardio: No JVD, regular rate, regular rhythm, S1 S2 normal, no murmurs, peripheral pulses 2+ radial palpated bilaterally GI: obese, nondistended Extremities: Full ROM, normal, normal capillary refill, no cyanosis or edema Neuro: Alert and oriented x3 to person, place and somewhat to situation, poor historian Psych: Affect normal, denies suicidal ideation, mental status grossly normal Skin: No rashes or lesions noted, no wounds Urinary Catheter Management: Huerta: Cath Placed During This Visit: yes, but has since been removed by the nurse Reason for Continuing Indwelling Catheter: Decision to DC Catheter Urinary Catheter Date of Insertion: 06/05/24 Urinary Catheter Time of Insertion: 09:46 Date Urinary Catheter Removed: 06/08/24 Time Urinary Catheter Discontinued: 14:00 Data 06/09/24 05:07 06/09/24 05:07 Micro: Microbiology 06/08/24 09:39 Bacterial Antigens - Final Urine,Clean Catch A&P Assessment and plan (1) Hypertension: (2) Diabetes mellitus: (3) Hypoglycemia: (4) Failure to thrive: (5) Abnormal stress test: Plan At this time, patient is asymptomatic with mildy abnormal stress test. Could be artifact due to no prone imaging. Troponins were elevated. Dr. Mcguire will further look at the stress test. Will continue to monitor patient overnight for any acute changes. Most likely, patient will go home tomorrow. PDMP PDMP Reviewed: Not Reviewed Coding Level of Care Code Acute Code for Chg Fwd Diagnoses Hypertension I10 Diabetes mellitus E11.9 Hypoglycemia E16.2 Failure to thrive Abnormal stress test R94.39
[2024-06-09 16:58] LABS: Glucose Point of Care 118 mg/dL (70-110)
[2024-06-09] MEDS: cefTRIAXone 1,000 mg SDV 1000 MG IVP (16:59)
[2024-06-09] MEDS: atorvastatin 40 mg Tablet 20 MG PO (16:59)
[2024-06-09] MEDS: acetaminophen 325 mg Tablet 650 MG PO (17:12)
[2024-06-09 20:25] LABS: Glucose Point of Care 148 mg/dL (70-110)
[2024-06-09] MEDS: enoxaparin 40 mg/0.4 mL Syringe SUBCUT (20:32)
[2024-06-09] MEDS: zolpidem 5 mg Tablet 10 MG PO (20:35)
--- NOTE | 2024-06-09 22:09 | NMCV_ITS ---
NM sae perf SPECT r/s* [id number] Wanda Lamb Age: 59 Gender: F : 1965 Exam Date: 06/09/2024 06:17 Ordering Phys: Chey Argueta MD Technologist: KATY Mesa Exam Location: [facility] Indications: cp STRESS TEST [facility] IMAGE PROTOCOL Rest/Stress 1 Lexiscan Day Radiopharmaceutical Dose (mCi) Administration Site Administered by Rest: Tc-99m 11 IV Leilani Ryan, [employer] Sestamibi Stress:Tc-99m 33 IV Leilani Sanchezgle, [employer] Sestamibi Rest: 09-Jun-2024 60 Discovery 630 Stress: 09-Jun-2024 30 Discovery 630 0.4mg Lexiscan. Supine position only as patient was unable to lay prone. SPECT RESULTS Technical Quality: Good Raw Data Analysis: Normal Image Corrections: No attenuation or motion correction applied Summed Stress Score: 1 Summed Rest Score: 0 Summed Difference Score: 1 PERFUSION FINDINGS There is small area of reversible perfusion defect seen in the inferolateral wall. This is consistent with small area of ischemia in left circumflex artery territory. There is reduced radiotracer uptake in the anterior wall however no prone imaging performed. Likely secondary to attenuation artifact. FUNCTIONAL RESULTS (calculated via Gated SPECT) Stress Image LV EF (%): 84 Stress EDV (mL):93 TID: 1.05 Stress ESV (mL):15 FUNCTIONAL FINDINGS: There is normal left ventricular systolic function. IMPRESSIONS 1. Small area of ischemia seen in left circumflex artery territory. Attenuation artifact seen in anterior wall. 2. LV systolic function is normal Jarret Chan MD (Electronically Signed) Final Date: 09 June 2024 08:28 S
[2024-06-10] VITALS: BP 128/75; PULSE 65; RESP 18; TEMP 37; O2SAT 96
[2024-06-10 02:45] LABS: Basophils % 0.4 %; Eosinophils # 0.1 10^3/uL (0.0-0.8); Eosinophils % 1.7 %; Hematocrit 43.8 % (36-47); Lymphocytes # 1.9 10^3/uL (0.8-4.8); Lymphocytes % 22.6 %; Mean Corpuscular HGB Conc 30.6 g/dL (30-55); Mean Corpuscular Volume 91.6 fl (85-98); Mean Platelet Volume 10.5 fL (7.4-10.4); Monocytes # 1.3 10^3/uL (0.2-0.9); Monocytes % 15.2 %; Neutrophils # 4.93 10^3/uL (1.8-7.7); Neutrophils % 59.7 %; Nucleated Red Blood Cells % 0 %; Platelet Count 196 10^3/cmm (157-399); Red Blood Count 4.78 10^6/uL (3.85-5.65); Red Cell Distribution Width 14.8 % (12.1-15.1); White Blood Count 8.24 10^3/uL (3.29-11.43)
[2024-06-10 03:09] LABS: Alanine Aminotransferase 9 U/L (0-33); Alkaline Phosphatase 128 U/L (35-105); Anion Gap 12.8 (5-19); Aspartate Amino Transferase 19 U/L (0-32); Blood Urea Nitrogen 26 mg/dL (8-23); Carbon Dioxide 39 mmol/L (22-29); Chloride 91 mmol/L (98-107); Creatinine Clr Calc Pharmacy 75.8276; Globulin 3.7 g/dL (1.3-4.6); Glomerular Filtration Rate 56.4 mL/min (90-130); Glucose 148 mg/dL (65-115); Osmolality Calculated 296 mOsm/kg (285-295); Potassium 3.8 mmol/L (3.5-5.1); Sodium 139 mmol/L (136-145); Total Bilirubin 0.6 mg/dL (0.15-1.2); Total Protein 6.7 g/dL (6.6-8.7)
[2024-06-10 03:53] VITALS: BP 134/78; PULSE 67; RESP 17; TEMP 36.8; O2SAT 96
[2024-06-10 06:18] LABS: Glucose Point of Care 180 mg/dL (70-110)
[2024-06-10 07:35] VITALS: BP 123/60; PULSE 77; TEMP 36.9
[2024-06-10] MEDS: aspirin 81 mg EC Tablet PO (09:38)
[2024-06-10] MEDS: azithromycin 250 mg Tablet 500 MG PO (09:38)
[2024-06-10] MEDS: clotrimazole 1% cream 30 gm 1 APPLIC TOPICAL (09:38)
[2024-06-10] MEDS: amlodipine 10 mg Tablet 5 MG PO (09:38)
[2024-06-10] MEDS: duloxetine 60 mg Capsule PO (09:38)
[2024-06-10] MEDS: pregabalin 75 mg Capsule PO (09:38)
[2024-06-10] MEDS: FUROsemide 40 mg Tablet PO (09:38)
[2024-06-10] MEDS: metoprolol tartrate 25 mg Tablet 12.5 MG PO (09:40)
[2024-06-10 10:00] VITALS: PULSE 62; RESP 18; O2SAT 92
[2024-06-10 11:05] LABS: Glucose Point of Care 187 mg/dL (70-110)
[2024-06-10 11:14] VITALS: BP 158/70; PULSE 74; RESP 15; TEMP 36.5
--- NOTE | 2024-06-10 15:50 | P.DS_ITS ---
Discharge Providers Date of Admission: 06/06/24 08:07 Date of Discharge: June 10, 2024 Attending Provider at Admission: Ric Red MD Attending Provider at Discharge: Chey Argueta MD Diagnoses at Discharge Discharge Diagnosis (1) Hypoglycemia: Status: Acute (2) Pulmonary edema: Status: Acute (3) Toxic encephalopathy: Status: Acute (4) Failure to thrive: Status: Acute (5) Diabetes mellitus: Status: Acute (6) Hyperkalemia: Status: Acute (7) Hypomagnesemia: Status: Acute (8) Leukocytosis: Status: Acute (9) Rhabdomyolysis: Status: Acute (10) Fall: Status: Acute (11) Hypertension: Status: Acute (12) Chronic pain: Status: Chronic (13) Tobacco use disorder: Status: Acute Reason for Visit Reason for Visit: AMS Brief History: Wanda Lamb is a 59 year old female with a past medical history significant for chronic pain, type 2 diabetes mellitus, and hypertension who presents to the emergency department with altered mentation. Patient had been increasingly lethargic in the past few weeks. States that she used to live with her boyfriend who and she recently came to live with her mother. Her mother noted her to be increasingly fatigued and brought her to the hospital. There was concern for possible opiate overdose for which patient received Narcan with improvement in mentation. Thereafter patient also was noted to have persistent hypoglycemia for which she was on dextrose infusion. Patient's A1c returned at 5.8 consistent with well-controlled diabetes. Overall patient appears to have poor medical literacy. She tells me that she was on 325 units of Lantus twice daily. Her chart states she is on 35 units twice daily. It is highly unlikely that she was able to administer 325 units of Lantus via an insulin pen every day twice daily. It is however possi ble that she may have administered excess insulin accidentally. Since her HbA1c is currently pressure very well-controlled, Lantus has been placed on hold. She is recommended only to continue NovoLog sliding scale as she was doing previously prior to meals. She does note her scale to be 2,4,6 ,8 units etc. Her hypoglycemia resolved. Mentation improved during the course of admission. She was noted to have generalized anasarca. Concern was for CHF therefore she underwent an echocardiogram which showed a preserved ejection fraction of 55 to 60%. Grade 1 diastolic dysfunction and mild mitral regurgitation. There was moderately elevated gradient across the mitral valve. She received diuresis with Lasix IV, this has been transition to Lasix 20 mg p.o. daily at home. Troponins were elevated in the 100s range however without significant delta at 2 or 6 hours. She underwent a stress test due to concern for underlying ischemic disease. Stress test showed a small area of ischemia in the left circumflex artery territory. Cardiology was consulted. Since the patient was overall asymptomatic, this was thought to be related to possible artifact. Medical management was recommended. Patient is being discharged with aspirin 81 mg p.o. daily, continuing her atorvastatin 20 mg p.o. daily. Beta-doug added with metoprolol 12.5 mg p.o. twice daily. Follow-up arranged with cardiology as outpatient. She had leukocytosis of over 20,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 She was started on treatment with ceftriaxone and azithromycin. Leukocytosis is resolved. Patient has been successfully been able to wean down on her oxygen requirements. Home O2 eval was completed prior to discharge. Overall she is clinically improved and being discharged home in stable condition. Referral provided to establish with PCP locally. Physical Exam Urinary Catheter Management: Hu[place]: Cath Placed During This Visit: yes, but has since been removed by the nurse Reason for Continuing Indwelling Catheter: Decision to DC Catheter Urinary Catheter Date of Insertion: 06/05/24 Urinary Catheter Time of Insertion: 09:46 Date Urinary Catheter Removed: 06/08/24 Time Urinary Catheter Discontinued: 14:00 Discharge Data Studies Completed and Pending Completed Studies During Hospitalization Category Date Time Status CT chest abdomen pelvis [[place] [id number] Cat Scan 06/07/24 13:17 Completed ] Routine CT head wo con* [id number] Stat Cat Scan 06/05/24 09:19 Completed Cardiac Stress Test MIBI [Sestamibi Stress Test Request Exams 06/09/24 06:44 Draft ] Routine XR chest 1V portable [id number] Stat Exams 06/05/24 09:19 Completed XR chest 1V portable [id number] Stat Exams 06/06/24 02:45 Completed NM sae perf SPECT r/s* [id number] Routine Nuc Med 06/09/24 22:09 [place] [id number] Routine Ultrasound 06/08/24 17:30 Completed CV. echo complete* [id number] Routine Ultrasound 06/06/24 13:15 Completed Pending at discharge Category Date Time Status Cardiac Stress Test MIBI [Sestamibi Stress Test Request Exams 06/08/24 22:09 Stop Req ] Routine CMP [Comprehensive Metabolic Panel] AM LABS Lab 06/11/24 04:00 Ordered Complete Blood Count w/Auto AM LABS Lab 06/11/24 04:00 Ordered Radiology Impressions Head CT 06/05/24 09:19 IMPRESSION: No large territorial infarct or intracranial bleed. Chest X-Ray 06/06/24 02:45 IMPRESSION: 1. Central line placement as above. 2. Cardiomegaly. 3. Minimal central vascular congestion is suspected. Chest/Abdomen/Pelvis CT 06/07/24 13:17 IMPRESSION: 1. Small scattered ground-glass opacities in both lungs. This could represent pneumonia or less likely pulmonary edema. 2. Small left and trace right pleural effusions. 3. Age-indeterminate T5 and T7 compression fractures. IMPRESSION: 1. No acute findings. 2. Age indeterminate mild L1 and L2 compression fractures. Laboratory Results WBC 8.24 10^3/uL (3.29-11.43) 06/10/24 02:29 RBC 4.78 10^6/uL (3.85-5.65) 06/10/24 02:29 Hgb 13.40 g/dL (11.27-16.99) 06/10/24 02:29 Hct 43.8 % (36-47) 06/10/24 02: MCV 91.6 fl (85-98) 06/10/24 02:29 MCH 28.0 pg (27-33) 06/10/24 02:29 MCHC 30.6 g/dL (30-55) 06/10/24 02:29 RDW 14.8 % (12.1-15.1) 06/10/24 02:29 Plt Count 196 10^3/cmm (157-399) 06/10/24 02:29 MPV 10.5 fL (7.4-10.4) H 06/10/24 02:29 Neut % (Auto) 59.7 % 06/10/24 02:29 Lymph % (Auto) 22.6 % 06/10/24 02:29 [place] % (Auto) 15.2 % 06/10/24 02: Eos % (Auto) 1.7 % 06/10/24 02: Baso % (Auto) 0.4 % 06/10/24 02: Neut # (Auto) 4.93 10^3/uL (1.8-7.7) 06/10/24 02: Lymph # (Auto) 1.9 10^3/uL (0.8-4.8) 06/10/24 02: [place] # (Auto) 1.3 10^3/uL (0.2-0.9) H 06/10/24 02: Eos # (Auto) 0.1 10^3/uL (0.0-0.8) 06/10/24 02: Baso # (Auto) 0.0 10^3/uL (0.0-0.1) 06/10/24 02: Nucleated RBC % (auto) 0 % 06/10/24 02: Nucleated RBCs # 0.0 /100WBC 06/10/24 02: D-Dimer 1.79 ug/mLFEU (0-0.59) H 06/07/24 19:39 Specimen Type Arterial 06/05/24 12:16 Sample Site Radial, right 06/05/24 12:16 ABG pH 7.37 (7.35-7.45) 06/05/24 12:16 ABG pCO2 55.2 mmHg (35-45) H 06/05/24 12:16 ABG pO2 41.0 mmHg (80.0-100.0) L 06/05/24 12:16 ABG PO2/FiO2 Ratio 227 06/05/24 09:31 ABG HCO3 31.5 mmol/L (22-26) H 06/05/24 12:16 ABG Base Excess 4.8 mmol/L (-2.0-2.0) H 06/05/24 12:16 Aditya Test Pos 06/05/24 12:16 Hematocrit 38.1 % (37-47) 06/05/24 12:16 O2 Delivery Device Nc 06/05/24 12:16 O2 Liters/Min 2.0 % 06/05/24 09:31 FiO2 28.0 % 06/05/24 09:31 Telecom Coordinator ID [email or web address] 06/05/24 12:16 Blood Gas Notified Time 1010 06/05/24 09:31 Sodium 139 mmol/L (136-145) 06/10/24 02:29 Potassium 3.8 mmol/L (3.5-5.1) 06/10/24 02:29 Chloride 91 mmol/L (98-107) L 06/10/24 02:29 Carbon Dioxide 39 mmol/L (22-29) H 06/10/24 02:29 Anion Gap 12.8 (5-19) 06/10/24 02:29 BUN 26 mg/dL (8-23) H 06/10/24 02:29 Creatinine 1.0 mg/dL (0.5-0.9) H 06/10/24 02:29 GFR Calculation 56.4 mL/min (90-130) L 06/10/24 02:29 Glucose 148 mg/dL (65-115) H 06/10/24 02:29 POC Glucose 187 mg/dL (70-110) H 06/10/24 10:47 Estimat Average Glucose 120 06/08/24 03:00 Hemoglobin A1c 5.8 % (4.0-6.0) 06/08/24 03:00 Calculated Osmolality 296 mOsm/kg (285-295) H 06/10/24 02:29 Lactic Acid 1.4 mmol/L (0.5-2.2) 06/05/24 10:05 Calcium 9.0 mg/dL (8.5-10.5) 06/10/24 02:29 Phosphorus 2.6 mg/dL (2.5-4.5) 06/07/24 04:54 Magnesium 1.8 mg/dL (1.7-2.3) 06/07/24 04:54 Total Bilirubin 0.6 mg/dL (0.15-1.2) 06/10/24 02:29 AST 19 U/L (0-32) 06/10/24 02:29 ALT 9 U/L (0-33) 06/10/24 02:29 Alkaline Phosphatase 128 U/L (35-105) H 06/10/24 02:29 Ammonia 50 umol/L (11-51) 06/05/24 10:05 Creatine Kinase 279 U/L (26-192) H 06/06/24 06:23 Troponin T Baseline 118 ng/L (0-10) H* 06/07/24 13:35 Troponin T 120 Minute 109.7 ng/L (0-10) H 06/07/24 16:46 Delta Troponin T -8.3 ABS# (0-10) L 06/07/24 16:46 Troponin T Hi Sens 6Hr 110.2 ng/L (0-10) H 06/07/24 19:39 Troponin T Hi Sens 6Hr Delta -7.8 ng/L (0-12) L 06/07/24 19:39 NT-Pro-B Natriuret Pep 2805 pg/mL (0-125) H 06/06/24 06:23 Total Protein 6.7 g/dL (6.6-8.7) 06/10/24 02:29 Albumin 3.0 g/dL (3.5-5.2) L 06/10/24 02:29 Globulin 3.7 g/dL (1.3-4.6) 06/10/24 02:29 Procalcitonin 0.07 ng/mL (0-0.5) 06/05/24 11:46 Urine Color Yellow (Yellow) 06/05/24 09:35 Urine Appearance Clear (CLEAR) 06/05/24 09:35 Urine pH 5.5 (5-7) 06/05/24 09:35 Ur Specific [place] 1.018 (1.005-1.030) 06/05/24 09:35 Urine Protein 1+ (Negative) A 06/05/24 09:35 Urine Glucose (UA) Negative (Normal) 06/05/24 09:35 Urine Ketones Negative (Negative) 06/05/24 09:35 Urine Blood Negative (Negative) 06/05/24 09:35 Urine Nitrate Negative (Negative) 06/05/24 09:35 Urine Bilirubin Negative (Negative) 06/05/24 09:35 Urine Urobilinogen 1.0 mg/dL (Negative) 06/05/24 09:35 Ur Leukocyte Esterase Negative (Negative) 06/05/24 09:35 Urine RBC 0-2 /hpf (0-2) 06/05/24 09:35 Urine WBC 0-5 /hpf (0-5) 06/05/24 09:35 Ur Squamous Epith Cells 0-5 /hpf (0-5) 06/05/24 09:35 Amorphous Sediment Not Reportable 06/05/24 09:35 Urine Bacteria None seen /hpf (NONE) 06/05/24 09:35 Hyaline Casts 13.63 /lpf 06/05/24 09:35 Nasal MRSA (PCR) Not detected (Not Detecte) 06/08/24 09:39 Salicylates < 0.3 mg/dL (3-10) L 06/05/24 11:46 Urine Opiates Screen Positive ng/mL (Negative) H 06/05/24 09:35 Acetaminophen < 5.0 ug/mL (10-30) L 06/05/24 11:46 Ur Barbiturates Screen Negative ng/mL (Negative) 06/05/24 09:35 Ur Phencyclidine Scrn Negative ng/mL (Negative) 06/05/24 09:35 Ur Amphetamines Screen Negative ng/mL (Negative) 06/05/24 09:35 U Benzodiazepines Scrn Negative ng/mL (Negative) 06/05/24 09:35 Urine Cocaine Screen Negative ng/mL (Negative) 06/05/24 09:35 U Marijuana (THC) Screen Negative ng/mL (Negative) 06/05/24 09:35 Ethyl Alcohol < 10 mg/dL (0-10) 06/05/24 11:46 Coronavirus (PCR) Negative (Negative) 06/05/24 09:40 Influenza A (PCR) Negative (Negative) 06/05/24 09:40 Influenza Type B (PCR) Negative (Negative) 06/05/24 09:40 RSV (PCR) Negative (Negative) 06/05/24 09:40 Vitals Last Vital Signs Temp 97.7 F 06/10/24 11:14 Pulse 74 06/10/24 11:14 Resp 15 06/10/24 11:14 BP 158/70 06/10/24 11:14 Pulse Ox 92 06/10/24 10:00 O2 Del Method Room Air 06/10/24 10:00 O2 Flow Rate 2 06/10/24 08:00 FiO2 35 06/07/24 03:21 Discharge Plan Discharge Patient Disposition: Home Condition: Stable Prescriptions: New aspirin 81 mg Tablet,Delayed Release (Dr/Ec) 81 mg PO DAILY 30 Days Qty: 30 0RF amlodipine 10 mg Tablet 5 mg PO DAILY 30 Days Qty: 30 0RF clotrimazole 1 % Cream 1 applic topical BID 30 Days Qty: 30 0RF metoprolol tartrate 25 mg Tablet 12.5 mg PO BID@0900,2100 30 Days Qty: 30 0RF amoxicillin-pot clavulanate 875-125 mg tablet 1 tab PO BID 3 Days Qty: 6 0RF furosemide [Lasix] 20 mg tablet 20 mg PO DAILY 30 Days Qty: 30 0RF Continued atorvastatin [Lipitor] 20 mg Tablet 20 mg PO QPM zolpidem 10 mg tablet 10 mg PO BEDTIME insulin lispro [Humalog KwikPen Insulin] 100 unit/mL Insulin Pen See Rx Instructions .ROUTE .COMPLEX Rx Instructions: Inject 5 units with meals along with sliding scale . 150-200=2units 201-250=4units 251-300-=6units 301-350=8units over 350=10 units max 15 duloxetine [Cymbalta] 60 mg Capsule,Delayed Release(Dr/Ec) 60 mg PO BID pregabalin [Lyrica] 75 mg Capsule 75 mg PO Q8H Discontinued insulin glargine [Lantus U-100 Insulin] 100 unit/mL Solution 35 unit SUBCUT BID Discharge Orders: Discharge Order (Routine); Ordered 06/10/24 Ordered By: Chey Argueta Other Ambulatory Orders: DME: Oxygen (Order) Location: None Selected Ordered By: Chey Argueta Referrals: Arina Paige NP [Nurse Practitioner] - 3 weeks (abnoral stress test, hospital discharge follow up ) Ric Lima MD [Physician] - (We have notified your physician's clinic of the need for a follow-up appointment to be scheduled. If you have not heard from them within the next 2 business days, please call them directly. ) Discharge Diet: Usual diet Discharge Activity: Resume usual activity Patient Instructions: Metoprolol (By mouth) (Lopressor, Toprol XL), Furosemide (By mouth) (Lasix), Betamethasone/Clotrimazole (On the skin) (Lotrisone), Aspirin (By mouth), Amoxicillin/Clavulanate Potassium (By mouth) (Augmentin, Augmentin..., Amlodipine (By mouth), Leukocytosis (DC), Altered Mental Status (ED), Encephalopathy (DC), Hypoglycemia in Adolescents with Diabetes (DC), Opioid Safety Discharge Attestations Time Spent in Discharge Care*: greater than 30 min Quality Metrics Clinical Quality Measures [ No reported AMI, CVA or VTE this stay] Coding Level of Care Code Acute Code for Chg Fwd Diagnoses Hypoglycemia E16.2 Pulmonary edema J81.1 Toxic encephalopathy G92.9 Failure to thrive Diabetes mellitus E11.9 Hyperkalemia E87.5 Hypomagnesemia E83.42 Leukocytosis D72.829 Rhabdomyolysis M62.82 Fall W19.XXXA Hypertension I10 Chronic pain G89.29 Tobacco use disorder F17.200
[2024-06-10 16:44] VITALS: BP 158/70; PULSE 74; RESP 15; TEMP 36.5; O2SAT 99
== END 2024-06-10 16:47 | disposition home or self-care (01) | DRG 917 ==
LOC: ER 11:09 → ER IP 14:43 → MEDSURG 06-06 00:47 → ICU 06-06 01:32 → MEDSURG 06-08 14:07
PROVIDERS: Internal Medicine; Admitting Provider Internal Medicine; Emergency Provider Emergency Medicine; Visit Provider Student in an Organized Health Care Education/Training Program
DX: T40.2X1A Poisoning by other opioids, accidental (unintentional), initial encounter (principal); G92.8 Other toxic encephalopathy; I50.31 Acute diastolic (congestive) heart failure; E11.649 Type 2 diabetes mellitus with hypoglycemia without coma; R62.7 Adult failure to thrive; Z68.36 Body mass index [BMI] 36.0-36.9, adult; E87.5 Hyperkalemia; E83.42 Hypomagnesemia; T79.6XXA Traumatic ischemia of muscle, initial encounter; W18.30XA Fall on same level, unspecified, initial encounter; I11.0 Hypertensive heart disease with heart failure; G89.29 Other chronic pain; F17.210 Nicotine dependence, cigarettes, uncomplicated; I34.0 Nonrheumatic mitral (valve) insufficiency; Z79.82 Long term (current) use of aspirin; Z79.4 Long term (current) use of insulin; Z79.891 Long term (current) use of opiate analgesic; E78.00 Pure hypercholesterolemia, unspecified; G25.81 Restless legs syndrome
CPT/HCPCS: 36415; 36416; 36592; 36600; 51702; 70450; 71045; 71250; 74176; 78452; 80048; 80053; 80306; 80307; 81001; 82140; 82550; 82803; 82962; 83036; 83605; 83735; 83880; 84100; 84145; 84484; 85025; 85378; 86403; 87040; 87637; 93005; 93306; 93970; 94660; 94760; 96365; 96366; 96367; 96372; 96374; 96375; 96376; 99291; A9500; C1751; G0378; J0360; J0696; J1610; J1650; J1720; J1940; J2270; J2310; J2354; J2785; J3475; J7030; J7799; Q0144

== ENCOUNTER 2024-06-30 21:02 | Emergency (ER) | payer MEDICAID, SELFPAY ==
[2024-06-30 21:05] VITALS: BP 97/62; PULSE 78; RESP 18; TEMP 36.6; O2SAT 95
[2024-06-30 21:19] LABS: Glucose Point of Care 539 mg/dL (70-110)
[2024-06-30 21:29] LABS: Basophils % 0.1 %; Eosinophils # 0.1 10^3/uL (0.0-0.8); Eosinophils % 0.9 %; Hematocrit 46.5 % (36-47); Lymphocytes # 1.8 10^3/uL (0.8-4.8); Lymphocytes % 22.9 %; Mean Corpuscular HGB Conc 31.8 g/dL (30-55); Mean Corpuscular Hemoglobin 27.6 pg (27-33); Mean Corpuscular Volume 86.8 fl (85-98); Mean Platelet Volume 11.8 fL (7.4-10.4); Monocytes # 0.6 10^3/uL (0.2-0.9); Monocytes % 7.8 %; Neutrophils # 5.26 10^3/uL (1.8-7.7); Neutrophils % 67.9 %; Nucleated Red Blood Cells % 0 %; Platelet Count 207 10^3/cmm (157-399); Red Blood Count 5.36 10^6/uL (3.85-5.65); Red Cell Distribution Width 14.6 % (12.1-15.1); White Blood Count 7.74 10^3/uL (3.29-11.43)
[2024-06-30 21:46] LABS: Alanine Aminotransferase < 5 U/L (0-33); Albumin Level 3.4 g/dL (3.5-5.2); Alkaline Phosphatase 209 U/L (35-105); Anion Gap 16.6 (5-19); Aspartate Amino Transferase 9 U/L (0-32); Blood Urea Nitrogen 23 mg/dL (8-23); Calcium 9.5 mg/dL (8.5-10.5); Carbon Dioxide 33 mmol/L (22-29); Chloride 83 mmol/L (98-107); Creatinine Clr Calc Pharmacy 53.5822; Globulin 4.6 g/dL (1.3-4.6); Glomerular Filtration Rate 38.2 mL/min (90-130); Glucose 466 mg/dL (65-115); Osmolality Calculated 292 mOsm/kg (285-295); Potassium 3.6 mmol/L (3.5-5.1); Sodium 129 mmol/L (136-145); Total Bilirubin 0.6 mg/dL (0.15-1.2)
[2024-06-30 23:00] VITALS: PULSE 72; RESP 18; O2SAT 96
[2024-06-30 23:09] LABS: Ketone (Acetest) Serum Negative (Negative)
--- NOTE | 2024-06-30 23:22 | ED_ITS ---
HPI - Recheck/Abnormal Lab/Rx 2 General: Chief Complaint: Recheck/Abnormal Lab/Rx Stated Complaint: hyperglycemia Time Seen by Provider: 06/30/24 22:54 History of Present Illness: 59-year-old female with a history of obe sity and diabetes and hypertension who presents to the emergency room with slurred speech and hyperglycemia. She tells me she was told to quit taking her Lantus recently. She does not know why. She says she has been having a lot of pain recently. Generalized. EMS reported blood glucose of 530. She has no focal motor deficits. No fevers. No cough. No chest pain. No abdominal pain. Related Data Home Medications ?Medication ?Instructions ?Recorded ?Confirmed atorvastatin 20 mg tablet (Lipitor) 20 mg PO QPM 06/0606/06/24 duloxetine 60 mg capsule,delayed 60 mg PO BID 06/06/24 06/06/24 release (Cymbalta) insulin lispro 100 unit/mL See Rx Instructions .Route .COMPLEX 06/06/24 06/06/24 subcutaneous pen (Humalog KwikPen (U-100) Insulin) pregabalin 75 mg capsule (Lyrica) 75 mg PO Q8H 5 06/06/24 zolpidem 10 mg tablet 10 mg PO BEDTIME 06/06/24 Previous Rx's ?Medication ?Instructions ?Recorded amlodipine 10 mg tablet 5 mg (1/2 x 10 mg) PO DAILY 30 06/10/24 days #30 tabs aspirin 81 mg tablet,delayed 81 mg PO DAILY 30 days #3 0 tabs 06/10/24 release clotrimazole 1 % topical cream 1 applic topical BID 30 days #30 06/10/24 grams furosemide 20 mg tablet (Lasix) 20 mg PO DAILY 30 days #30 tabs 06/10/24 metoprolol tartrate 25 mg tablet 12.5 mg (1/2 x 25 mg) PO 06/10/24 BID@0900,2100 30 days #30 tabs Allergies Allergy/AdvReac Type Severity Reaction Status Date / Time No Known Allergies Allergy Verified 06/30/24 21:14 Review of Systems 2 Narrative: Constitutional symptoms: Negative except as documented in HPI. Skin symptoms: Negative except as documented in HPI. Eye symptoms: Negative except as documented in HPI. ENMT symptoms: Negative except as documented in HPI. Respiratory symptoms: Negative except as documented in HPI. Cardiovascular symptoms: Negative except as documented in HPI. Gastrointestinal symptoms: Negative except as documented in HPI. Genitourinary symptoms: Negative except as documented in HPI. Musculoskeletal symptoms: Negative except as documented in HPI. Neurologic symptoms: Negative except as documented in HPI. Psychiatric symptoms: Negative except as documented in HPI. Endocrine symptoms: Negative except as documented in HPI. PFSH ED 2 PFSH: Medical History (Updated 07/01/24 @ 01:10 by Mahnaz Stahl MD) Chronic pain Hypertension Diabetes mellitus Tobacco use disorder Surgical History (Updated 06/05/24 @ 14:03 by Ric Red MD) History of ankle surgery Family History (Updated 06/05/24 @ 14:03 by Ric Red MD) Grandfather Bone cancer Social History (Updated 06/05/24 @ 14:03 by Ric Red MD) Smoking and tobacco/nicotine status: current every day tobacco/nicotine user Alcohol intake: never Substance/Drug Use: unknown Physical Exam 2 Narrative: EXAM NARRATIVE: General: Alert, no acute distress. Skin: Warm, dry. Head: Normocephalic, atraumatic. Neck: Supple, trachea midline. Eye: Extraocular movements are intact. Ears, nose, mouth and throat: Tacky oral mucosa. Edentulous. Speech difficulties seem to be related to lack of dentures and does not appear to be slurred otherwise. Cardiovascular: Regular, Normal peripheral perfusion. Respiratory: Lungs are clear to auscultation, respirations are non-labored, breath sounds are equal, Symmetrical chest wall expansion. Gastrointestinal: Soft, Nontender, Non distended Musculoskeletal: Normal ROM, no deformity. Neurological: Alert and oriented, No focal neurological deficit observed. Psychiatric: Cooperative, appropriate mood & affect. Course 2 Vital Signs: Vital signs: Vital Signs Temperature 97.9 F 06/30/24 21:05 Pulse Rate 72 06/30/24 23:00 Respiratory Rate 18 06/30/24 23:00 Blood Pressure 97/62 06/30/24 21:05 Pulse Oximetry 96 06/30/24 23:00 Oxygen Delivery Me thod Nasal Cannula 06/30/24 23:00 Oxygen Flow Rate 2 06/30/24 23:00 MDM - Recheck/Abnormal Lab/Rx Medical Decision Making Medical decision making: Differential diagnosis for the patient with hyperglycemia would include but not be limited to and would be based on the above HPI review of systems and physical exam: DKA. Dehydration. Renal failure. Concern for electrolyte abnormalities. Concern for underlying infection that might result in hyperglycemia. Medical non-compliance Orders placed to evaluate differential diagnosis of the patient with hyperglycemia are based on the above differential, HPI and physical exam. CT head: Empty sella unchanged. No acute intracranial process. no intracranial hemorrhage, no evidence of infarct. no evidence of acute fracture.This was reviewed and interpreted by myself the ER physician. Lab Review: Laboratory results were reviewed and interpreted by myself the emergency room physician. No leukocytosis. No anemia. Renal function is slightly elevated At 1.4 over her baseline of 1. No signs of urinary tract infection. I reviewed the patient's medical record. Reexamination: Patient remained stable. No increased work of breathing. No altered mental status. No focal motor deficits. Assessment and plan: Hyperglycemia Dehydration ? IV insulin and IV fluids. - Discharged home - Discussed plan with patient. Answered any questions. - Evaluation and treatment of this problem were appropriate in the emergency setting. Lab Data 06/30/24 21:24 06/30/24 21:[address] 06/30/24 23:24 IMPRESSION: 1. Empty sella, unchanged. 2. Large cavum septum pellucidum, unchanged from prior. Negative. 3. No evidence of acute intracranial process. Laboratory Results WBC 7.74 10^3/uL (3.29-11.43) 06/30/24 21:24 RBC 5.36 10^6/uL (3.85-5.65) 06/30/24 21:24 Hgb 14.80 g/dL (11.27-16.99) 06/30/24 21:24 Hct 46.5 % (36-47) 06/30/24 21:24 MCV 86.8 fl (85-98) 06/30/24 21:24 MCH 27.6 pg (27-33) 06/30/24 21:24 MCHC 31.8 g/dL (30-55) 06/30/24 21:24 RDW 14.6 % (12.1-15.1) 06/30/24 21:24 Plt Count 207 10^3/cmm (157-399) 06/30/24 21:24 MPV 11.8 fL (7.4-10.4) H 06/30/24 21:24 Neut % (Auto) 67.9 % 06/30/24 21:24 Lymph % (Auto) 22.9 % 06/30/24 21:24 [place] % (Auto) 7.8 % 06/30/24 21:24 Eos % (Auto) 0.9 % 06/30/24 21:24 Baso % (Auto) 0.1 % 06/30/24 21:24 Neut # (Auto) 5.26 10^3/uL (1.8-7.7) 06/30/24 21:24 Lymph # (Auto) 1.8 10^3/uL (0.8-4.8) 06/30/24 21:24 [place] # (Auto) 0.6 10^3/uL (0.2-0.9) 06/30/24 21:24 Eos # (Auto) 0.1 10^3/uL (0.0-0.8) 06/30/24 21:24 Baso # (Auto) 0.0 10^3/uL (0.0-0.1) 06/30/24 21:24 Nucleated RBC % (auto) 0 % 06/30/24 21: Nucleated RBCs # 0.0 /100WBC 06/30/24 21:24 Sodium 129 mmol/L (136-145) L 06/30/24 21:24 Potassium 3.6 mmol/L (3.5-5.1) 06/30/24 21:24 Chloride 83 mmol/L (98-107) L 06/30/24 21:24 Carbon Dioxide 33 mmol/L (22-29) H 06/30/24 21:24 Anion Gap 16.6 (5-19) 06/30/24 21:24 BUN 23 mg/dL (8-23) 06/30/24 21:24 Creatinine 1.4 mg/dL (0.5-0.9) H 06/30/24 21:24 GFR Calculation 38.2 mL/min (90-130) L 06/30/24 21:24 Glucose 466 mg/dL (65-115) H 06/30/24 21:24 POC Glucose 160 mg/dL (70-110) H 07/01/24 00:59 Calculated Osmolality 292 mOsm/kg (285-295) 06/30/24 21:24 Lactic Acid 2.3 mmol/L (0.5-2.2) H 06/30/24 21:24 Calcium 9.5 mg/dL (8.5-10.5) 06/30/24 21:24 Total Bilirubin 0.6 mg/dL (0.15-1.2) 06/30/24 21:24 AST 9 U/L (0-32) 06/30/24 21:24 ALT < 5 U/L (0-33) 06/30/24 21:24 Alkaline Phosphatase 209 U/L (35-105) H 06/30/24 21:24 Total Protein 8.0 g/dL (6.6-8.7) 06/30/24 21: Albumin 3.4 g/dL (3.5-5.2) L 06/30/24 21:24 Globulin 4.6 g/dL (1.3-4.6) 06/30/24 21:24 Urine Color Yellow (Yellow) 07/01/24 00:12 Urine Appearance Clear (CLEAR) 07/01/24 00:12 Urine pH 5.5 (5-7) 07/01/24 00:12 Ur Specific [place] 1.012 (1.005-1.030) 07/01/24 00:12 Urine Protein Negative (Negative) 07/01/24 00:12 Urine Glucose (UA) 2+ (Normal) H 07/01/24 00:12 Urine Ketones Negative (Negative) 07/01/24 00:12 Urine Blood 2+ (Negative) A 07/01/24 00:12 Urine Nitrate Negative (Negative) 07/01/24 00:12 Urine Bilirubin Negative (Negative) 07/01/24 00:12 Urine Urobilinogen 1.0 mg/dL (Negative) 07/01/24 00:12 Ur Leukocyte Esterase Negative (Negative) 07/01/24 00:12 Urine RBC 5-10 /hpf (0-2) H 07/01/24 00:12 Urine WBC 0-4 /hpf (0-5) H 07/01/24 00:12 Ur Squamous Epith Cells 10-15 /hpf (0-5) H 07/01/24 00:12 Amorphous Sediment Not Reportable 07/01/24 00:12 Urine Bacteria None /hpf (NONE) 07/01/24 00:12 Serum Ketones Negative (Negative) 06/30/24 21:24 Influenza A (PCR) Negative (Negative) 06/30/24 23:05 Influenza Type B (PCR) Negative (Negative) 06/30/24 23:05 RSV (PCR) Negative (Negative) 06/30/24 23:05 SARS-CoV-2 (PCR) Negative (Negative) 06/30/24 23:05 All radiology interpretation(s) finalized by discharge Discharge Plan Discharge Patient Disposition: Home Clinical Impression: Hyperglycemia, Dehydration Condition: Stable Prescriptions: No Action atorvastatin [Lipitor] 20 mg Tablet 20 mg PO QPM zolpidem 10 mg tablet 10 mg PO BEDTIME insulin lispro [Humalog KwikPen Insulin] 100 unit/mL Insulin Pen See Rx Instructions .ROUTE .COMPLEX Rx Instructions: Inject 5 units with meals along with sliding scale . 150-200=2units 201-250=4units 251-300-=6units 301-350=8units over 350=10 units max 15 duloxetine [Cymbalta] 60 mg Capsule,Delayed Release(Dr/Ec) 60 mg PO BID pregabalin [Lyrica] 75 mg Capsule 75 mg PO Q8H aspirin 81 mg Tablet,Delayed Release (Dr/Ec) 81 mg PO DAILY 30 Days Qty: 30 0RF amlodipine 10 mg Tablet 5 mg PO DAILY 30 Days Qty: 30 0RF clotrimazole 1 % Cream 1 applic topical BID 30 Days Qty: 30 0RF metoprolol tartrate 25 mg Tablet 12.5 mg PO BID@0900,2100 30 Days Qty: 30 0RF furosemide [Lasix] 20 mg tablet 20 mg PO DAILY 30 Days Qty: 30 0RF Discharge Orders: Discharge ED (Routine); Ordered 07/01/24 Ordered By: Mahnaz Stahl Discharge Diet: Diabetic Discharge Activity: Increase activity as tolerated Patient Instructions: Diabetic Hyperglycemia (ED), Opioid Safety, Pain Management Activity Restrictions/Additional Instructions: Please follow with your primary provider on how to best manage her diabetes. Refrain from eating sugary and carbohydrate rich foods. It may be good to start back on your Lantus. You could consider starting at around 20 units twice a day as you were previously on 35 units twice a day. Thank you for choosing [facility] for your healthcare needs today. Please realize this is an emergency room and that we are providing you with a medical screening exam and this may not be complete and all inclusive of all the testing and or work up that you may need to determine your ailment or severity of your illness. You have been screened and evaluated and felt safe for discharge. Health conditions do change or evolve sometimes and as such it is important that you follow up with your Primary Doctor to be re checked, 3-5 days is a general good time frame for follow up. You are always welcome to return to the ED for re assessment if your symptoms are worsening or you have new concerns Print Language: Icelandic Coding Level of Care Code ED General Operator for Negra Flaherty
[2024-06-30 23:23] LABS: Lactic Sepsis W/Reflex 2.3 mmol/L (0.5-2.2)
--- NOTE | 2024-06-30 23:24 | CTR_ITS ---
PROCEDURE INFORMATION: Exam: CT Head Without Contrast Exam date and time: 06/30/2024 11:55 PM Age: 59 years old Clinical indication: Altered mental status/memory loss; Additional info: Encephalopathy, altered mental status TECHNIQUE: Imaging protocol: Computed tomography of the head without contrast. Radiation optimization: All CT scans at this facility use at least one of these dose optimization techniques: automated exposure control; mA and/or kV adjustment per patient size (includes targeted exams where dose is matched to clinical indication); or iterative reconstruction. COMPARISON: CT head wo con* [id number] 06/05/2024 9:41 AM RADIATION DOSE METRICS: Total DLP (mGy-cm): 1236.48 FINDINGS: Brain: Normal. No hemorrhage. Unremarkable white matter. No mass effect. Cerebral ventricles: No ventriculomegaly. Large cavum septum pellucidum, unchanged from prior. Pituitary gland and sella: Empty sella, unchanged. Paranasal sinuses: Visualized sinuses are unremarkable. No fluid levels. Mastoid air cells: Visualized mastoid air cells are well aerated. Bones: Unremarkable. No acute fracture. Soft tissues: Unremarkable. CT/CT head wo con* [id number] IMPRESSION: 1. Empty sella, unchanged. 2. Large cavum septum pellucidum, unchanged from prior. Negative. 3. No evidence of acute intracranial process.
[2024-06-30] MEDS: insulin regular-human 100 units/1 mL 16 UNIT IVP (23:33)
[2024-06-30] MEDS: sodium chloride 0.9% 1,000 ML 999 ML IV (23:34)
[2024-07-01 00:14] LABS: Influenza A NEGATIVE (Negative); Influenza B NEGATIVE (Negative); Respiratory Syncytial Virus Ce NEGATIVE (Negative); SARS-CoV-2 PCR NEGATIVE (Negative)
[2024-07-01 00:24] LABS: Bilirubin Urine Negative (Negative); Blood Urine 2+ (Negative); Glucose Urine UA 2+ (Normal); Ketones Urine Negative (Negative); Leukocyte Esterase Urine Negative (Negative); Nitrate Urine Negative (Negative); Protein Urine Negative (Negative); Specific Gravity, Urine 1.012 (1.005-1.030); Urine Appearance Clear (CLEAR); Urine Color Yellow (Yellow); pH Urine 5.5 (5-7)
[2024-07-01 00:36] LABS: WBC Urine 0-4 /hpf (0-5)
[2024-07-01 00:52] LABS: Reflex Lactate Order REFLEX LACTIC ORDERD
[2024-07-01 01:00] VITALS: BP 113/80; PULSE 71; RESP 20; O2SAT 90
[2024-07-01 01:03] LABS: Glucose Point of Care 160 mg/dL (70-110)
[2024-07-01 01:56] VITALS: BP 129/76; PULSE 68; O2SAT 94
== END 2024-07-01 01:57 | disposition home or self-care (01) ==
PROVIDERS: Emergency Medicine; Emergency Provider Emergency Medicine
DX: E11.65 Type 2 diabetes mellitus with hyperglycemia (principal); I10 Essential (primary) hypertension; E86.0 Dehydration; Z11.52 Encounter for screening for COVID-19; Z79.4 Long term (current) use of insulin; Z79.82 Long term (current) use of aspirin; Z72.0 Tobacco use
CPT/HCPCS: 36416; 70450; 80053; 81001; 82009; 82962; 83605; 85025; 87637; 96361; 96374; 99285; J1815; J7030

== ENCOUNTER 2024-07-09 19:29 | Inpatient (IN) | payer MEDICAID, SELFPAY ==
[2024-07-09] VITALS (23 sets, daily range): BP systolic 61–165; BP diastolic 40–112; PULSE 69–82; RESP 16–42; TEMP 37.1; O2SAT 50–98; BMI 45.6
--- NOTE | 2024-07-09 19:31 | XRR_ITS ---
PROCEDURE INFORMATION: Exam: XR Chest Exam date and time: 07/09/2024 8:03 PM Age: 59 years old Clinical indication: Chest pressure; Chest pain TECHNIQUE: Imaging protocol: Radiologic exam of the chest. Views: 1 view. COMPARISON: CT chest abdpel [id number] 06/07/2024 5:07 PM FINDINGS: Lungs: Unremarkable. No consolidation. Pleural spaces: Unremarkable. No pleural effusion. No pneumothorax. Heart/Mediastinum: Mild cardiomegaly. Bones/joints: Stable one or more healed left rib fractures. XR/XR chest 1V portable [id number] IMPRESSION: Mild cardiomegaly.
--- NOTE | 2024-07-09 19:31 | ECG_ITS ---
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 Measurements Intervals [place] Rate: 84 P: 0 MN: 0 QRS: -10 QRSD: 90 T: 9 QT: 407 QTc: 482 Interpretive Statements SUPRAVENTRICULAR RHYTHM WITH BASELINE ARTIFACT POSSIBLE RIGHT VENTRICULAR CONDUCTION DELAY [RSR (QR) IN V1/V2] ABNORMAL RHYTHM ECG Compared to ECG 06/07/2024 18:32:02 Ventricular premature complex(es) now present Aberrant conduction of supraventricular beat(s) now present Myocardial infarct finding no longer present Electronically Signed On 07-10-2024 18:00:57 LICENSED PHARMACIST by Jarret Chan M.D. [email or web address]
[2024-07-09] MEDS: methylPREDNISolone sod succ 125 mg/2 mL INJ IVP (20:09)
[2024-07-09 20:10] LABS: Basophils % 0.2 %; Eosinophils # 0.1 10^3/uL (0.0-0.8); Eosinophils % 0.5 %; Hematocrit 48.9 % (36-47); Lymphocytes # 1.6 10^3/uL (0.8-4.8); Lymphocytes % 13.1 %; Mean Corpuscular HGB Conc 30.9 g/dL (30-55); Mean Corpuscular Hemoglobin 27.7 pg (27-33); Mean Corpuscular Volume 89.6 fl (85-98); Mean Platelet Volume 11.7 fL (7.4-10.4); Monocytes # 1.1 10^3/uL (0.2-0.9); Monocytes % 9.4 %; Neutrophils # 9.16 10^3/uL (1.8-7.7); Neutrophils % 76.2 %; Nucleated Red Blood Cells % 0 %; Platelet Count 205 10^3/cmm (157-399); Red Blood Count 5.46 10^6/uL (3.85-5.65); Red Cell Distribution Width 15.5 % (12.1-15.1); White Blood Count 12.02 10^3/uL (3.29-11.43)
--- NOTE | 2024-07-09 20:16 | CTR_ITS ---
PROCEDURE INFORMATION: Exam: CT Head Without Contrast Exam date and time: 07/09/2024 8:59 PM Age: 59 years old Clinical indication: Injury or trauma; Blunt trauma (contusions or hematomas); Fall with headstrike. Hypotensive. ; Additional info: Fall, head injury TECHNIQUE: Imaging protocol: Computed tomography of the head without contrast. Radiation optimization: All CT scans at this facility use at least one of these dose optimization techniques: automated exposure control; mA and/or kV adjustment per patient size (includes targeted exams where dose is matched to clinical indication); or iterative reconstruction. COMPARISON: CT head wo con* [id number] 06/30/2024 11:55 PM RADIATION DOSE METRICS: Total DLP (mGy-cm): 1222.95 FINDINGS: Brain: Normal. No hemorrhage. Unremarkable white matter. No mass effect. Cerebral ventricles: No ventriculomegaly. Paranasal sinuses: Visualized sinuses are unremarkable. No fluid levels. Mastoid air cells: Visualized mastoid air cells are well aerated. Bones: Unremarkable. No acute fracture. Soft tissues: Unremarkable. Other findings: Severe calcified intracranial atherosclerotic vessel disease. CT/CT head wo con* [id number] IMPRESSION: No acute intracranial findings.
[2024-07-09] MEDS: albuterol 2.5 mg/3 mL Neb INHALATION (20:23)
[2024-07-09] MEDS: ipratropium-albuterol 3 mL Neb INHALATION (20:23)
[2024-07-09 20:28] LABS: Troponin(5th) Baseline 70 ng/L (0-10)
[2024-07-09 20:30] LABS: Alanine Aminotransferase < 5 U/L (0-33); Albumin Level 3.6 g/dL (3.5-5.2); Alkaline Phosphatase 175 U/L (35-105); Anion Gap 23.1 (5-19); Aspartate Amino Transferase 8 U/L (0-32); Blood Urea Nitrogen 45 mg/dL (8-23); Calcium 8.7 mg/dL (8.5-10.5); Carbon Dioxide 31 mmol/L (22-29); Chloride 84 mmol/L (98-107); Creatinine Clr Calc Pharmacy 12.7238; Globulin 3.5 g/dL (1.3-4.6); Glomerular Filtration Rate 6.2 mL/min (90-130); Glucose 153 mg/dL (65-115); Osmolality Calculated 295 mOsm/kg (285-295); Potassium 3.1 mmol/L (3.5-5.1); Sodium 135 mmol/L (136-145); Total Bilirubin 0.4 mg/dL (0.15-1.2); Total Protein 7.1 g/dL (6.6-8.7)
[2024-07-09 20:40] LABS: Influenza A NEGATIVE (Negative); Influenza B NEGATIVE (Negative); Respiratory Syncytial Virus Ce NEGATIVE (Negative); SARS-CoV-2 PCR NEGATIVE (Negative)
[2024-07-09] MEDS: sodium chloride 0.9% 1,000 ML 999 ML IV ×2 (20:50→21:56)
[2024-07-09 20:51] LABS: ABG PH Result 7.41 (7.35-7.45); Arterial Blood Gas Hematocrit 47.9 % (37-47); Base Excess ABG 7.4 mmol/L (-2.0-2.0); Blood Gas Allen Test Pos; Blood Gas Sample Type Arterial; Carboxyhemoglobin 2.4 %THgb (0.4-20.1); HCO3 ABG 34.1 mmol/L (22-26); HGB O2 Sat 93.7 % (95-100); PO2 ABG 90.8 mmHg (80.0-100.0); Total Hemoglobin 15.6 g/dL (12-16)
[2024-07-09 20:52] LABS: Blood Gas Operator Identificat MONRO; Blood Gas Sample Site Brachial, right; Oxygen Device NC; PO2 FiO2 Ratio Arterial Blood 283
--- NOTE | 2024-07-09 20:53 | CTR_ITS ---
PROCEDURE INFORMATION: Exam: CT Abdomen And Pelvis Without Contrast Exam date and time: 07/09/2024 9:02 PM Age: 59 years old Clinical indication: Pain and abnormal findings; Abnormal lab test; Abnormal kidney function lab tests; Prior surgery; Surgery date: 6+ months; Surgery type: Gb; C/O back pain. Actue renal failure. Creat increase from 1.4 on 06/30/2024 to 6.8 today. ; Additional info: Renal failure, R/O obstructive uropathy per hospitalist TECHNIQUE: Imaging protocol: Computed tomography of the abdomen and pelvis without contrast. Radiation optimization: All CT scans at this facility use at least one of these dose optimization techniques: automated exposure control; mA and/or kV adjustment per patient size (includes targeted exams where dose is matched to clinical indication); or iterative reconstruction. COMPARISON: [place] [id number] 06/07/2024 5:07 PM RADIATION DOSE METRICS: Total DLP (mGy-cm): 791.98 FINDINGS: Liver: Unremarkable. No mass. Gallbladder and biliary ducts: Status post cholecystectomy. Pancreas: Unremarkable. No ductal dilation. Spleen: Unremarkable. No mass. Adrenal glands: Unremarkable. No mass. Kidneys and ureters: Unremarkable. No stone or hydronephrosis. Stomach and bowel: Small bowel lipoma measuring 2.2 cm (series 3, image 31). No bowel wall thickening. No bowel obstruction. Appendix: No evidence of appendicitis. Intraperitoneal space: No free air. No significant fluid collection. Vasculature: No abdominal aortic aneurysm. Lymph nodes: No enlarged lymph nodes. Urinary bladder: Unremarkable as visualized. Reproductive: Unremarkable as visualized. Bones/joints: No acute fracture. No suspicious lesion. Soft tissues: No bowel containing hernia. CT/CT abdomen pelvis wo con [id number] IMPRESSION: No renal stones or evidence of obstructive uropathy.
[2024-07-09 21:00] LABS: Lactic Sepsis W/Reflex 2.6 mmol/L (0.5-2.2)
--- NOTE | 2024-07-09 21:07 | W.ED.CHESTPA ---
HPI - Chest Pain General: Chief Complaint: Chest Pain Stated Complaint: CHEST PAIN Time Seen by Provider: 07/09/24 19:31 History of Present Illness: 59-year-old female with a history of obesity, COPD, chronic hypoxemic respiratory failure on 2 L nasal cannula at all times, tobacco dependence, diabetes, chronic pain syndrome and hypertension who presents the emergency room with chest pain. Says this been going on for couple days. She tells me she has been short of breath. She does have some wheeze on exam. She has had some minor increase in oxygen requirement at 3 L. Currently no altered mental status. No focal motor deficits. She complains of no back pain or abdominal pain. No vomiting. She says however she has not been able to eat anything for a few days that she has had no appetite. Related Data Home Medications ?Medication ?Instructions ?Recorded ?Confirmed atorvastatin 20 mg tablet (Lipitor) 20 mg PO QPM 06/06/24 06/06/24 duloxetine 60 mg capsule,delayed 60 mg PO BID 06/06/24 06/06/24 release (Cymbalta) insulin lispro 100 unit/mL See Rx Instructions .Route .COMPLEX 06/06/24 06/06/24 subcutaneous pen (Humalog KwikPen (U-100) Insulin) pregabalin 75 mg capsule (Lyrica) 75 mg PO Q8H 06/06/24 06/06/24 zolpidem 10 mg tablet 10 mg PO BEDTIME 06/06/24 06/06/24 Previous Rx's ?Medication ?Instructions ?Recorded amlodipine 10 mg tablet 5 mg (1/2 x 10 mg) PO DAILY 30 06/10/24 days #30 tabs aspirin 81 mg tablet,delayed 81 mg PO DAILY 30 days #30 tabs 06/10/24 release clotrimazole 1 % topical cream 1 applic topical BID 30 days #30 06/10/24 grams furosemide 20 mg tablet (Lasix) 20 mg PO DAILY 30 days #30 tabs 06/10/24 metoprolol tartrate 25 mg tablet 12.5 mg (1/2 x 25 mg) PO 06/10/24 BID@0900,2100 30 days #30 tabs Allergies Allergy/AdvReac Type Severity Reaction Status Date / Time No Known Allergies Allergy Verified 06/30/24 21:14 Review of Systems Narrative: Constitutional symptoms: Negative except as documented in HPI. Skin symptoms: Negative except as documented in HPI. Eye symptoms: Negative except as documented in HPI. ENMT symptoms: Negative except as documented in HPI. Respiratory symptoms: Negative except as documented in HPI. Cardiovascular symptoms: Negative except as documented in HPI. Gastrointestinal symptoms: Negative except as documented in HPI. Genitourinary symptoms: Negative except as documented in HPI. Musculoskeletal symptoms: Negative except as documented in HPI. Neurologic symptoms: Negative except as documented in HPI. Psychiatric symptoms: Negative except as documented in HPI. Endocrine symptoms: Negative except as documented in HPI. PFSH ED PFSH: Medical History (Updated 07/09/24 @ 21:56 by Mahnaz Stahl MD) Chronic pain Hypertension Diabetes mellitus Tobacco use disorder Surgical History (Updated 06/05/24 @ 14:03 by Ric Red MD) History of ankle surgery Family History (Updated 06/05/24 @ 14:03 by Ric Red MD) Grandfather Bone cancer Social History (Updated 06/05/24 @ 14:03 by Ric Red MD) Smoking and tobacco/nicotine status: current every day tobacco/nicotine user Alcohol intake: never Substance/Drug Use: unknown Physical Exam Narrative: EXAM NARRATIVE: General: Alert, no acute distress. Skin: Warm, dry. Head: Normocephalic, atraumatic. Neck: Supple, trachea midline. Eye: Extraocular movements are intact. Ears, nose, mouth and throat: Dry oral mucosa Cardiovascular: Regular rate and rhythm, Normal peripheral perfusion. Respiratory: some expiratory wheeze, mild increased wob, breath sounds are equal, Symmetrical chest wall expansion. Gastrointestinal: Soft, Nontender, Non distended, Normal bowel sounds. Musculoskeletal: Normal ROM, no deformity. Neurological: Alert and oriented, No focal neurological deficit observed. Psychiatric: Cooperative, odd affect Course Vital Signs: Vital signs: Vital Signs Temperature 98.8 F 07/09/24 19:44 Pulse Rate 75 07/09/24 20:48 Respiratory Rate 22 H 07/09/24 20:37 Blood Pressure 76/40 07/09/24 20:55 Pulse Oximetry 98 07/09/24 20:45 Oxygen Delivery Me thod Nasal Cannula 07/09/24 20:37 Oxygen Flow Rate 3 07/09/24 20:37 MDM - Chest Pain Medical Decision Making Differential diagnosis for patient with chest pain includes but is not limited to and based on the above HPI, review of systems and physical exam: Pneumonia. unstable angina. angina. Acute coronary syndrome / AL. Pulmonary embolism. Costochondritis / musculoskeletal. Pleurisy. Pericarditis. Esophageal spasm. Pancreatis. Cholecystitis. Orders placed to evaluate differential diagnosis based on the above differential, HPI and physical exam EKG: Time 1936. Rate 84. Possible atrial fibrillation with controlled rate but I think this is more, No ST-T changes, no ectopy, This was reviewed and interpreted by myself the ER physician at 194. Chest x-ray: Mild cardiomegaly. No other acute process. This was reviewed and interpreted by myself the emergency room physician. I also reviewed the radiology report. Lab Review: Laboratory results were reviewed and interpreted by myself the emergency room physician. Of most note patient has acute renal failure. Normally has a creatinine between 0.8 and 1.2. Today her BUN and creatinine are 45 and 6.8. Her potassium is 3.1. Mild leukocytosis. She does have a mild lactic acidosis as well. She is receiving 2-1/2 L of fluids here in the emergency room and broad-spectrum antibiotics. I reviewed the patient's medical record. Reexamination: Patient had a minor fall while being assisted to the bathroom. She hit her head but not severely. She has no head pain. A head CT was ordered. I discussed things with her further. She says she has had some dry heaves. Some mild diarrhea. No focal abdominal pain. She says she still been making some urine. She just has had no appetite for several days now. CT head: No acute intracranial process. no intracranial hemorrhage, no evidence of infarct. no evidence of acute fracture.This was reviewed and interpreted by myself the ER physician. CT of the abdomen pelvis without contrast: I see no acute process. In particular I do not see any signs of obstructive uropathy. This was reviewed and interpreted by myself the emergency room physician. I also reviewed the radiology report. Consultation: I spoke with Dr. Hawkins who is on-call for the hospitalist service who agrees to admission. Assessment and plan: Acute renal failure Chest pain Elevated troponin Dehydration Possible sepsis ?Unclear source of her renal failure. She has had some dry heaving and a poor appetite. Not sure if this came first or secondary to the renal failure. CT does not show any signs of obstructive uropathy. Giving fluids. Her blood pressure still marginal. ?No clear source of sepsis but she does have an elevated white count, lactic acidosis and hypotension. This may all be secondary to dehydration and renal failure but for now treating as septic. -2.5 L normal saline bolus. Fluid volumes based on ideal body weight. -Broad-spectrum antibiotics were administered. Meropenem and Zyvox. -Sepsis quality measures. -Lactic acid with a reflex was ordered. -Blood cultures were ordered. -I discussed the patient with the hospitalist on-call who is admitting the patient. - Discussed findings and plan with patient. Answered any questions. - All laboratory values were reviewed and interpreted personally by myself, the ER physician - All imaging was reviewed and interpreted personally by myself, the ER physician. - Evaluation and treatment of this problem were appropriate in the emergency setting Critical care -I spent a total of >35 minutes of critical care time managing the patient, independent of any other practitioner. -The time involved in the performance of separately reportable procedures was not counted towards critical care time. Lab Data 07/09/24 20:01 07/09/24 20:01 Radiology Impressions Chest X-Ray 07/09/24 19:31 IMPRESSION: Mild cardiomegaly. Head CT 07/09/24 20:16 IMPRESSION: No acute intracranial findings. Abdomen/Pelvis CT 07/09/24 20:53 IMPRESSION: No renal stones or evidence of obstructive uropathy. Laboratory Results WBC 12.02 10^3/uL (3.29-11.43) H 07/09/24 20:01 RBC 5.46 10^6/uL (3.85-5.65) 07/09/24 20:01 Hgb 15.10 g/dL (11.27-16.99) 07/09/24 20:01 Hct 48.9 % (36-47) H 07/09/24 20:01 MCV 89.6 fl (85-98) 07/09/24 20:01 MCH 27.7 pg (27-33) 07/09/24 20:01 MCHC 30.9 g/dL (30-55) 07/09/24 20:01 RDW 15.5 % (12.1-15.1) H 07/09/24 20:01 Plt Count 205 10^3/cmm (157-399) 07/09/24 20:01 MPV 11.7 fL (7.4-10.4) H 07/09/24 20:01 Neut % (Auto) 76.2 % 07/09/24 20:01 Lymph % (Auto) 13.1 % 07/09/24 20:01 Warrick % (Auto) 9.4 % 07/09/24 20:01 Eos % (Auto) 0.5 % 07/09/24 20:01 Baso % (Auto) 0.2 % 07/09/24 20:01 Neut # (Auto) 9.16 10^3/uL (1.8-7.7) H 07/09/24 20:01 Lymph # (Auto) 1.6 10^3/uL (0.8-4.8) 07/09/24 20:01 Warrick # (Auto) 1.1 10^3/uL (0.2-0.9) H 07/09/24 20:01 Eos # (Auto) 0.1 10^3/uL (0.0-0.8) 07/09/24 20:01 Baso # (Auto) 0.0 10^3/uL (0.0-0.1) 07/09/24 20: Nucleated RBC % (auto) 0 % 07/09/24 20: Nucleated RBCs # 0.0 /100WBC 07/09/24 20:01 Specimen Type Arterial 07/09/24 20:49 Sample Site Brachial, right 07/09/24 20:49 ABG pH 7.41 (7.35-7.45) 07/09/24 20:49 ABG pCO2 54.0 mmHg (35-45) H 07/09/24 20:49 ABG pO2 90.8 mmHg (80.0-100.0) 07/09/24 20:49 ABG PO2/FiO2 Ratio 283 07/09/24 20:49 ABG HCO3 34.1 mmol/L (22-26) H 07/09/24 20:49 ABG O2 Saturation 96.0 07/09/24 20:49 ABG Base Excess 7.4 mmol/L (-2.0-2.0) H 07/09/24 20:49 Aditya Test Pos 07/09/24 20:49 A-a O2 Gradient 9.0 mmHg (5-10) 07/09/24 20:49 Hematocrit 47.9 % (37-47) H 07/09/24 20:49 Hgb O2 Saturation 93.7 % (95-100) L 07/09/24 20: Carboxyhemoglobin 2.4 %THgb (0.4-20.1) 07/09/24 20: Methemoglobin 0.0 % (0.4-1.5) L 07/09/24 20: Total Hemoglobin 15.6 g/dL (12-16) 07/09/24 20:49 Sodium 134.0 mmol/L (131-143) 07/09/24 20:49 Potassium 3.0 mmol/L (3.5-5.0) L 07/09/24 20: Glucose 173.0 mg/dL (70-115) H 07/09/24 20: Ionized Calcium 1.0 mmol/L (1.1-1.4) L 07/09/24 20:49 O2 Delivery Device Nc 07/09/24 20:49 O2 Liters/Min 3.0 % 07/09/24 20:49 FiO2 32.0 % 07/09/24 20:49 Swage Toolsetter ID Monro 07/09/24 20:49 Sodium 135 mmol/L (136-145) L 07/09/24 20: Potassium 3.1 mmol/L (3.5-5.1) L 07/09/24 20: Chloride 84 mmol/L (98-107) L 07/09/24 20: Carbon Dioxide 31 mmol/L (22-29) H 07/09/24 20: Anion Gap 23.1 (5-19) H 07/09/24 20:01 BUN 45 mg/dL (8-23) H 07/09/24 20:01 Creatinine 6.8 mg/dL (0.5-0.9) H* 07/09/24 20: GFR Calculation 6.2 mL/min (90-130) L 07/09/24 20: Glucose 153 mg/dL (65-115) H 07/09/24 20:01 Calculated Osmolality 295 mOsm/kg (285-295) 07/09/24 20: Lactic Acid 2.6 mmol/L (0.5-2.2) H 07/09/24 20:01 Calcium 8.7 mg/dL (8.5-10.5) 07/09/24 20:01 Total Bilirubin 0.4 mg/dL (0.15-1.2) 07/09/24 20:01 AST 8 U/L (0-32) 07/09/24 20:01 ALT < 5 U/L (0-33) 07/09/24 20:01 Alkaline Phosphatase 175 U/L (35-105) H 07/09/24 20:01 Troponin T Baseline 70 ng/L (0-10) H 07/09/24 20:01 Total Protein 7.1 g/dL (6.6-8.7) 07/09/24 20:01 Albumin 3.6 g/dL (3.5-5.2) 07/09/24 20:01 Globulin 3.5 g/dL (1.3-4.6) 07/09/24 20:01 Influenza A (PCR) Negative (Negative) 07/09/24 19:43 Influenza Type B (PCR) Negative (Negative) 07/09/24 19:43 RSV (PCR) Negative (Negative) 07/09/24 19:43 SARS-CoV-2 (PCR) Negative (Negative) 07/09/24 19:43 All radiology interpretation(s) finalized by discharge Discharge Plan Discharge Patient Disposition: Admitted As Inpatient Clinical Impression: Acute renal failure, Chest pain, Sepsis, Dehydration, COPD with acute exacerbation Condition: Stable Coding Level of Care Code ED Commercial Sales Representative for Negra Flaherty
[2024-07-09 21:15] LABS: Reflex Lactate Order REFLEX LACTIC ORDERD
--- NOTE | 2024-07-09 21:31 | ECG_ITS ---
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 Measurements Intervals [place] Rate: 71 P: 0 AR: 0 QRS: -31 QRSD: 96 T: 7 QT: 479 QTc: 523 Interpretive Statements SUPRAVENTRICULAR RHYTHM WITH BASELINE ARTIFACT LEFT AXIS DEVIATION [QRS AXIS < -30] POSSIBLE RIGHT VENTRICULAR CONDUCTION DELAY [RSR (QR) IN V1/V2] MODERATE T-WAVE ABNORMALITY, CONSIDER LATERAL ISCHEMIA [-0.1+ mV T-WAVE IN I/aVL/V5/V6] MODERATE T-WAVE ABNORMALITY, CONSIDER INFERIOR ISCHEMIA [-0.1+ mV T-WAVE IN II/aVF] Compared to ECG 07/09/2024 19:37:56 T-wave abnormality now present Possible ischemia now present Ventricular premature complex(es) no longer present Aberrant conduction of supraventricular beat(s) no longer present Electronically Signed On 07-10-2024 19:29:17 BACK GRAY CLOTH WASHER by Jarret Chan M.D. [email or web address]
[2024-07-09] MEDS: meropenem 500 mg SDV IVP (21:45)
[2024-07-09] MEDS: linezolid premix 600 MG/300 ML PREMIX 300 MG IV (21:50)
[2024-07-09] MEDS: sodium chloride 0.9% 500 ML 999 ML IV (21:53)
[2024-07-09 21:59] LABS: Troponin 5 2HR 73.68 ng/L (0-10); Troponin 5 2HR Delta 3.68 ABS# (0-10)
--- NOTE | 2024-07-09 22:13 | PM.HP ---
Providers/Chief Complaint Chief Complaint: CHEST PAIN History of Present Illness Wanda Lamb is a 59 year old female was recently discharged from the hospital after management of hypoglycemia, elevated troponin with stress test positive in left circumflex territory cardiology recommended medical management because patient was asymptomatic, presented today for worsening of back pain, generalized weakness and fatigue. Patient is stating that she has chronic back pain from a compression fracture, at home she lives with her mom, she does not check her blood pressure before taking her medications, she is compliant with her medications, stating that she is on Ozempic, for last few days she has not been feeling well, her p.o. intake has decreased significantly, she has not been drinking much or eating well, she took all of her medications in last few days, she has not experienced any chest pain, signs of UTI. She is denying fever cough or headaches. Workup in the ER consistent with high lactic acid, hypotension, patient is laying supine stating that she does not want to change her position for risk of worsening of back pain, She does have acute renal failure, CT abdomen pelvis did not show any sign obstruction Her lactic acid is high related to hypotension due to hypovolemia Patient is afebrile, there is no source of infection, chest x-ray unremarkable UA is pending Bicarb 31 EKG has a lot of artifact, concern for atrial flutter Review of Systems Const: Reports: chills; Denies: fever(s) Eyes: Denies: change in vision ENMT: Denies: throat pain Card: Reports: dyspnea on exertion GI: Reports: nausea and bloating : Denies: flank pain Musc: Reports: back pain Psych: Reports: anxiety Medications/Allergies Home Medications ?Medication ?Instructions ?Recorded ?Confirmed ?Last Taken ?Type atorvastatin 20 mg tablet (Lipitor) 20 mg PO QPM 06/06/24 06/06/24 Unknown History duloxetine 60 mg capsule,delayed 60 mg PO BID 06/06/24 06/06/24 Unknown History release (Cymbalta) insulin lispro 100 unit/mL See Rx Instructions .Route .COMPLEX 06/06/24 06/06/24 Unknown History subcutaneous pen (Humalog KwikPen (U-100) Insulin) pregabalin 75 mg capsule (Lyrica) 75 mg PO Q8H 06/06/24 06/06/24 Unknown History zolpidem 10 mg tablet 10 mg PO BEDTIME 06/06/24 06/06/24 Unknown History amlodipine 10 mg tablet 5 mg (1/2 x 10 mg) PO DAILY 30 06/10/24 Unknown Rx days #30 tabs aspirin 81 mg tablet,delayed 81 mg PO DAILY 30 days #30 tabs 06/10/24 Unknown Rx release clotrimazole 1 % topical cream 1 applic topical BID 30 days #30 06/10/24 Unknown Rx grams furosemide 20 mg tablet (Lasix) 20 mg PO DAILY 30 days #30 tabs 06/10/24 Unknown Rx metoprolol tartrate 25 mg tablet 12.5 mg (1/2 x 25 mg) PO 06/10/24 Unknown Rx BID@0900,2100 30 days #30 tabs Allergies Allergy/AdvReac Type Severity Reaction Status Date / Time No Known Allergies Allergy Verified 06/30/24 21:14 PFSH Acute PFSH: Medical History (Updated 07/09/24 @ 23:59 by Callum Hawkins MD) Sepsis Chronic pain Hypertension Diabetes mellitus Tobacco use disorder Surgical History History of ankle surgery Family History Grandfather Bone cancer Social History Smoking and tobacco/nicotine status: current every day tobacco/nicotine user Alcohol intake: never Substance/Drug Use: unknown Vitals/I&O/Wt Last Vital Signs Temp 98.8 F 07/09/24 19:44 Pulse 75 07/09/24 20:48 Resp 22 H 07/09/24 20:37 BP 76/40 07/09/24 20:55 Pulse Ox 98 07/09/24 20:45 O2 Del Method Nasal Cannula 07/09/24 20:37 O2 Flow Rate 3 07/09/24 20:37 07/09/24 07/09/24 07/09/24 06:59 14:59 22:59 Intake Total 0 / 0 Balance 0 / 0 Weight last 48 hrs Weight 136.078 kg Physical Exam Narrative: Patient clinically looks dehydrated Lower extremity no significant edema Morbidly obese Complaining of back pain No sign of cauda equina S1, S2 variable Hypotensive Currently on 2 to 3 L nasal cannula No active sign of focal deficit No active sign of meningitis Not complaining of active chest pain or shortness of breath Appears stated age Able to answer questions AOx4 Sepsis: Is patient septic: Yes Focused sepsis exam performed: Yes Focused sepsis exam: Cap refill less than 3 seconds No sign of encephalopathy No signs of skin mottling On 3 L saturating 94% No active chest pain Peripheral pulses intact Date exam was performed: 07/10/24 Time exam was performed: 00:03 Data 07/09/24 20:01 07/09/24 20:01 Micro: Microbiology 07/09/24 20:03 Blood Culture - Preliminary Blood SPECIMEN COLLECTED 07/09/24 20:01 Blood Culture - Preliminary Blood SPECIMEN COLLECTED A&P Assessment and plan (1) Diabetes mellitus: (2) Acute renal failure: (3) Dehydration: (4) Chronic pain: Plan Hypovolemic hypotension Will give her albumin along IV fluids SIRS criteria met: Patient has tachycardia tachypnea low blood pressure high lactic acid and leukocytosis however she is afebrile there is no source of infection, UA is pending Chest x-ray unremarkable no signs of meningitis, she has been given meropenem and linezolid which I would not continue at this point unless I see any valid source of infection Patient Taking antihypertensive regimen at home despite her decreased p.o. intake that most likely is the etiology for her low blood pressure No active chest pain Patient has received septic bolus by ER physician, blood cultures requested, she has received antibiotics closely monitor for now White count: 12,000, no active source of infection patient had received IV steroids in the ER I would not continue steroids and antibiotics for now anticipating worsening of leukocytosis in the morning secondary to use of steroids Patient is stating that she does have chronic loose stools from use of Ozempic Chronic hypoxia requires 2 to 3 L of oxygen, no acute decompensation Acute on chronic kidney disease Related to hypotension, monitor for ATN Will request Huerta catheter Postrenal obstruction ruled out Hold nephrotoxic agents Hold diuretics Check CPK UA is pending Type II diabetic: Will use insulin for now, hold Ozempic Please note on her recent admission patient experienced significant hypoglycemia Chronic back pain secondary to compression fracture: No sign of cauda equina Reduce the dose of Lyrica and opioids secondary to worsening kidney function Elevated troponin: No significant delta, no active chest pain Demand ischemia? With underlying acute on chronic kidney disease DVT prophylaxis heparin Cardiac consistent carb diet Full code Patient lives with her mother Uses a walker on as-needed basis PDMP PDMP Reviewed: Not Reviewed Attestations Medical Necessity Statement*: More than 2 midnights anticipated Diagnoses Diabetes mellitus E11.9 Acute renal failure N17.9 Dehydration E86.0 Chronic pain G89.29
[2024-07-09 23:15] LABS: NT Pro B Type Natriuretic Pept 696 pg/mL (0-125); Procalcitonin 0.41 ng/mL (0-0.5)
[2024-07-09] MEDS: heparin 5,000 unit/mL INJ 1 mL 5000 UNIT SUBCUT (23:31)
[2024-07-09] MEDS: TRAMadol 50 mg Tablet 25 MG PO (23:57)
[2024-07-09] MEDS: ondansetron 2 mg/ML SDV 2 mL 4 MG IVP (23:59)
[2024-07-10] VITALS (100 sets, daily range): BP systolic 65–139; BP diastolic 36–112; PULSE 63–90; RESP 12–34; TEMP 36.2–36.7; O2SAT 81–97
[2024-07-10 00:36] LABS: Creatine Phosphokinase 75 U/L (26-192)
--- NOTE | 2024-07-10 00:56 | PC.NURSE ---
this nurse made provider aware of pain/ blood pressure upon his assessment.
--- NOTE | 2024-07-10 01:31 | ECG_ITS ---
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 Measurements Intervals [place] Rate: 89 P: 52 [place]: 194 QRS: 77 QRSD: 87 T: 49 QT: 367 QTc: 447 Interpretive Statements SINUS RHYTHM NONSPECIFIC T-WAVE ABNORMALITY INTERPRETATION BASED ON A DEFAULT AGE OF 40 YEARS Compared to ECG 07/09/2024 21:36:41 Atrial fibrillation no longer present Left-axis deviation no longer present Possible ischemia no longer present T-wave abnormality still present Electronically Signed On 07-10-2024 19:27:11 RISK COMPLIANCE ANALYST by Jarret Chan M.D. [id number]
[2024-07-10] MEDS: norepinephrine 4 MG/250 ML BAG 30 MG IV (01:34)
[2024-07-10] MEDS: albumin 12.5 GM/250 ML VIAL IV (01:55)
[2024-07-10 02:14] LABS: Troponin 5 6HR 58.36 ng/L (0-10)
[2024-07-10 02:25] LABS: Troponin 5 6HR Delta -11.64 ng/L (0-12)
--- NOTE | 2024-07-10 02:28 | PC.NURSE ---
Arrival to ICU 12: BP 65/45 on arrival to ICU. Color is pale. Dr. Hawkins called @0130- New order to start Levophed. See 'MAR' for administration.
[2024-07-10 02:33] LABS: Bilirubin Urine Negative (Negative); Blood Urine 2+ (Negative); Glucose Urine UA 1+ (Normal); Ketones Urine Negative (Negative); Leukocyte Esterase Urine Trace (Negative); Nitrate Urine Negative (Negative); Protein Urine 2+ (Negative); Specific Gravity, Urine 1.009 (1.005-1.030); Urine Appearance Clear (CLEAR); Urine Color Yellow (Yellow); Urobilinogen Urine 0.2 mg/dL (Negative); pH Urine 5.5 (5-7)
[2024-07-10 02:38] LABS: Bacteria Urine None Seen /hpf; Hyaline Casts Urine 60.81 /lpf; Universal Test for UA Present (0); WBC Urine 21-50 /hpf (0-5)
[2024-07-10 02:49] LABS: Add Urine Culture? Yes
[2024-07-10 06:22] LABS: Basophils % 0.1 %; Eosinophils % 0.1 %; Hematocrit 46.5 % (36-47); Lymphocytes # 0.5 10^3/uL (0.8-4.8); Lymphocytes % 5.6 %; Mean Corpuscular HGB Conc 30.1 g/dL (30-55); Mean Corpuscular Hemoglobin 27.3 pg (27-33); Mean Corpuscular Volume 90.8 fl (85-98); Mean Platelet Volume 11.2 fL (7.4-10.4); Monocytes # 0.1 10^3/uL (0.2-0.9); Monocytes % 1.4 %; Neutrophils # 8.72 10^3/uL (1.8-7.7); Neutrophils % 92.2 %; Nucleated Red Blood Cells % 0 %; Platelet Count 156 10^3/cmm (157-399); Red Blood Count 5.12 10^6/uL (3.85-5.65); Red Cell Distribution Width 15.5 % (12.1-15.1); White Blood Count 9.46 10^3/uL (3.29-11.43)
[2024-07-10 06:49] LABS: Anion Gap 22.4 (5-19); Blood Urea Nitrogen 47 mg/dL (8-23); Calcium 8.2 mg/dL (8.5-10.5); Carbon Dioxide 27 mmol/L (22-29); Chloride 87 mmol/L (98-107); Glomerular Filtration Rate 5.9 mL/min (90-130); Glucose 255 mg/dL (65-115); Magnesium 1.4 mg/dL (1.7-2.3); Osmolality Calculated 297 mOsm/kg (285-295); Phosphorus 6.5 mg/dL (2.5-4.5); Potassium 3.4 mmol/L (3.5-5.1); Sodium 133 mmol/L (136-145)
[2024-07-10 06:53] LABS: Creatinine Clr Calc Pharmacy 10.2271
[2024-07-10 07:30] LABS: Glucose Point of Care 231 mg/dL (70-110)
--- NOTE | 2024-07-10 08:13 | USR_ITS ---
PROCEDURE INFORMATION: Exam: US Retroperitoneal, Complete, Kidneys and Bladder Exam date and time: 07/10/2024 11:44 AM Age: 59 years old Clinical indication: Acute renal insufficiency TECHNIQUE: Imaging protocol: Real-time ultrasound of the retroperitoneum with image documentation. Complete exam focused on the bilateral kidneys and urinary bladder. COMPARISON: CT abdomen pelvis con [id number] 07/09/2024 9:02 PM FINDINGS: The right kidney measures 10.5 x 5.3 x 4.2 cm. No gross suspicious mass or hydronephrosis. The left kidney measures 10.8 x 4.9 x 6.0 cm. No gross suspicious mass or hydronephrosis. The bladder was not assessed. The aorta is not visualized. US/US renal BI* [id number] IMPRESSION: 1. Suboptimal visualization secondary to bowel gas. 2. No gross renal mass or hydronephrosis.
--- NOTE | 2024-07-10 08:15 | USCV_ITS ---
Wanda Lamb Age: 59 Gender: F : 1965 Exam Date: 07/10/2024 11:03 Ordering Phys: James De Oliveira MD Technologist: Randy Fontenot Exam Location: [facility] [place] Indication: check EF BP: 69 / 36 HR: Rhythm: Sinus Technical Quality: Adequate MEASUREMENTS (Male / Female) Normal Values 2D ECHO LV Diastolic Diameter PLAX 4.1 cm 4.2 - 5.9 / 3.9 - 5.3 cm IVS Diastolic Thickness 1.1 cm 0.6 - 1.0 / 0.6 - 0.9 cm IVS Systolic Thickness 1.8 cm LVPW Diastolic Thickness 1.5 cm 0.6 - 1.0 / 0.6 - 0.9 cm LVPW Systolic Thickness 1.9 cm LVOT Diameter 2.2 cm LV Ejection Fraction 2D Teich 68.9 % LV Ejection Fraction MOD 4C 75.0 % LV Ejection Fraction MOD 2C 77.8 % LV Ejection Fraction 2C AL 78.5 % LA Diameter 3.0 cm RA Systolic Volume 4C AL 36.9 ml RA Systolic Volume 4C MOD 33.4 ml LA Sys Volume AL 42.3 cm cubed LA Sys Volume Index AL 19.2 cm cubed/m squared Aorta at Sinotubular Diameter 2.0 cm IVC Diameter 2.0 cm M-MODE LA Ao Ratio MM 0.9 AV Cusp Separation MM 2.0 cm FINDINGS Left Ventricle Right Ventricle Right Atrium Left Atrium Mitral Valve Aortic Valve Tricuspid Valve Pulmonic Valve Pericardium Aorta IVC CONCLUSIONS Limited echo performed to assess LV systolic function. LV systolic function is normal with EF of 60-65%. No regional wall motion abnormalities are seen. Jarret Chan MD (Electronically Signed) Final Date: 10 July 2024 12:04 S
--- NOTE | 2024-07-10 08:16 | USR_ITS ---
PROCEDURE INFORMATION: Exam: US Duplex Lower Extremity Veins, Bilateral Exam date and time: 07/10/2024 11:21 AM Age: 59 years old Clinical indication: Lower extremity edema, bilaterally. Swelling TECHNIQUE: Imaging protocol: Real-time duplex ultrasound of the bilateral extremities with 2-D tan scale, color Doppler flow and spectral waveform analysis including responses to compression and other maneuvers (when performed) with image documentation. Complete exam focused on the lower extremity veins. COMPARISON: CT abdomen pelvis wo con [id number] 07/09/2024 9:02 PM FINDINGS: The common femoral, femoral, popliteal and posterior tibial veins are patent. There is appropriate compression and augmentation. Doppler interogation reveals venous blood flow. US/[place] [id number] IMPRESSION: No evidence of deep venous thrombosis.
[2024-07-10 08:43] LABS: C Reactive Protein 40.3 mg/L (0.0-4.9); Cortisol Random 28.41 ug/dL (2.47-19.5)
[2024-07-10] MEDS: pregabalin 50 mg Capsule PO ×2 (08:47→18:04)
[2024-07-10] MEDS: piperacillin-tazobactam 3.375 GM in sodium chloride 0.9% (plus) 50 ML IV ×2 (08:48→20:24)
[2024-07-10] MEDS: insulin lispro 100 unit/1 mL SUBCUT ×4 (08:48→20:23)
[2024-07-10] MEDS: sennosides-docusate Tablet 1 TAB PO (08:48)
[2024-07-10] MEDS: aspirin 81 mg EC Tablet PO (08:48)
[2024-07-10] MEDS: acetaminophen 500 mg Tablet PO (09:02)
[2024-07-10 09:10] LABS: Lactate (Lactic Acid level) 0.9 mmol/L (0.5-2.2)
[2024-07-10 09:19] LABS: Alcohol Level < 10 mg/dL (0-10); Salicylate < 0.3 mg/dL (3-10)
[2024-07-10] MEDS: midodrine 5 mg TABLET 10 MG PO ×2 (09:23→16:17)
[2024-07-10] MEDS: levETIRAcetam 1,000 MG/100 ML PREMIX 400 MG IV (09:23)
[2024-07-10] MEDS: oxyCODONE 5 mg IR Tab/Cap PO ×3 (09:24→20:22)
[2024-07-10] MEDS: sodium chloride 0.9% 1,000 ML 75 ML IV ×2 (09:34→22:31)
[2024-07-10] MEDS: heparin 5,000 unit/mL INJ 1 mL 5000 UNIT SUBCUT (11:17)
[2024-07-10 12:37] LABS: Glucose Point of Care 201 mg/dL (70-110)
[2024-07-10] MEDS: albumin 25 G/100 ML BAG 60 G IV ×2 (12:44→20:01)
--- NOTE | 2024-07-10 13:23 | PM.CONSULT ---
Providers/Reason For Consult Consulting Physician/Specialty*: Nephrology Reason for Consult*: dafne Requesting Physician: DR De Oliveira Attending Physician: James De Oliveira MD History of Present Illness History of Present Illness Wanda Lamb is a 59 year old female who presented to the er on 07/09 complainig of worsening of back pain, generalized weakness and fatigue. She noted that she was on Ozempic, and for last few days her po intake has decreased significantly. On presentation, CT abdomen pelvis did not show any sign obstruction and her work-up revealed a sodium 135, potassium 3.1, chloride 84, bicabr 31, bun 45, creatinine 6.8. Nephrology was consulted for further evaluation of her elevated creatinine Review of Systems General: Reports: 10 or more systems reviewed and unremarkable except in HPI and below Medications/Allergies Home Medications ?Medication ?Instructions ?Recorded ?Confirmed ?Last Taken ?Type atorvastatin 20 mg tablet (Lipitor) 20 mg PO QPM 06/06/24 07/10/24 07/09/24 History duloxetine 60 mg capsule,delayed 60 mg PO BID 06/06/24 07/10/24 07/09/24 History release (Cymbalta) insulin lispro 100 unit/mL See Rx Instructions .Route .COMPLEX 06/06/24 07/10/24 07/09/24 History subcutaneous pen (Humalog KwikPen (U-100) Insulin) pregabalin 75 mg capsule (Lyrica) 75 mg PO Q8H 06/06/24 07/10/24 07/09/24 History zolpidem 10 mg tablet 10 mg PO BEDTIME 06/06/24 07/10/24 07/09/24 History amlodipine 10 mg tablet 5 mg (1/2 x 10 mg) PO DAILY 30 06/10/24 07/10/24 07/09/24 Rx days #30 tabs aspirin 81 mg tablet,delayed 81 mg PO DAILY 30 days #30 tabs 06/10/24 07/10/24 07/09/24 Rx release clotrimazole 1 % topical cream 1 applic topical BID 30 days #30 06/10/24 07/10/24 Unknown Rx grams furosemide 20 mg tablet (Lasix) 20 mg PO DAILY 30 days #30 tabs 06/10/24 07/10/24 Unknown Rx metoprolol tartrate 25 mg tablet 12.5 mg (1/2 x 25 mg) PO 06/10/24 07/10/24 Unknown Rx BID@0900,2100 30 days #30 tabs Allergies Allergy/AdvReac Type Severity Reaction Status Date / Time No Known Allergies Allergy Verified 07/10/24 02:20 Current Medications Generic Name Dose Route Start Last Admin Trade Name Candido PRN Reason Stop Dose Admin Acetaminophen 500 mg 07/09/24 22:19 07/10/24 09:02 Acetaminophen 500 Mg Tablet PO 500 mg Q4H PRN Administration fever Aspirin 81 mg 07/10/24 09:00 07/10/24 08:48 Aspirin 81 Mg Ec Tablet PO 81 mg DAILY BRENNAN Administration Heparin Sodium (Porcine) 5,000 unit 07/09/24 22:30 07/10/24 11:17 Heparin 5,000 Unit/Ml Inj 1 Ml SUBCUT 5,000 unit Q12H BRENNAN Administration Norepinephrine Bitartrate 4 mg in 250 mls @ 0 mls/hr 07/10/24 01:45 07/10/24 12:45 Levophed IV 2 mcg/min .Q0M BRENNAN 7.5 mls/hr Titration Protocol Per Protocol Piperacillin Sod/Tazobactam 50 mls @ 12.5 mls/hr 07/10/24 09:00 07/10/24 08:48 Sod 3.375 gm/ Sodium Chloride IV 12.5 mls/hr Q12H BRENNAN Administration Sodium Chloride 1,000 mls @ 75 mls/hr 07/10/24 09:00 07/10/24 09:34 Sodium Chloride 0.9% IV 75 mls/hr .[id number] BRENNAN Administration Albumin Human 25 g in 100 mls @ 60 mls/hr 07/10/24 11:30 07/10/24 12:44 Albumin IV 60 mls/hr Q8H BRENNAN Administration Insulin Human Lispro 0 unit 07/10/24 08:00 07/10/24 12:43 Insulin Lispro 100 Unit/1 Ml SUBCUT 6 unit WM&BEDTIME BRENNAN Administration Protocol Midodrine 10 mg 07/10/24 09:00 07/10/24 09:23 Midodrine 5 Mg Tablet PO 10 mg Q8H BRENNAN Administration Ondansetron HCl 4 mg 07/09/24 22:19 07/09/24 23:59 Ondansetron 2 Mg/Ml Sdv 2 Ml IVP 4 mg Q6H PRN Administration NAUSEA AND VOMITING Oxycodone HCl 5 mg 07/09/24 22:25 07/10/24 09:24 Oxycodone 5 Mg Ir Tab/Cap PO 5 mg Q4H PRN Administration pain Pregabalin 50 mg 07/10/24 09:00 07/10/24 08:47 Pregabalin 50 Mg Capsule PO 50 mg BID BRENNAN Administration Senna/Docusate Sodium 1 tab 07/10/24 09:00 07/10/24 08:48 Sennosides-Docusate Tablet PO 1 tab DAILY BRENNAN Administration PFSH Acute PFSH: Medical History (Updated 07/09/24 @ 23:59 by Callum Hawkins MD) Sepsis Chronic pain Hypertension Diabetes mellitus Tobacco use disorder Surgical History History of ankle surgery Family History Grandfather Bone cancer Social History Smoking and tobacco/nicotine status: current every day tobacco/nicotine user Alcohol intake: never Substance/Drug Use: unknown Vitals/I&O/Wt Last Vital Signs Temp 98.1 F 07/10/24 08:00 Pulse 80 07/10/24 10:15 Resp 15 07/10/24 10:15 BP 84/59 07/10/24 10:15 Pulse Ox 94 07/10/24 10:15 O2 Del Method Nasal Cannula 07/10/24 10:15 O2 Flow Rate 2 07/10/24 10:15 07/09/24 07/10/24 07/10/24 22:59 06:59 14:59 Intake Total 0 / 0 3105.875 / 3105.875 145.25 / 145.25 Output Total 850 / 850 150 / 150 Balance 0 / 0 2255.875 / 2255.875 -4.75 / -4.75 Weight last 48 hrs Weight 98.792 kg Weight 98.792 kg Weight 136.078 kg Physical Exam Narrative: GEN: nad, alert, conversant HEAD: normocephalic, atraumatic EYES: eomi, anicteric sclera HEENT: MMM NECK: no JVD CV: RRR LUNGS: CTAB ABD: soft, nt, nd EXT: no LE edema SKIN: no rash NEURO: grossly normal Urinary Catheter Management: Huerta: Cath Placed During This Visit: yes Reason for Continuing Indwelling Catheter: Accurate Measurement of Urinary Output in Critically Ill Patients Urinary Catheter Date of Insertion: 07/09/24 Urinary Catheter Time of Insertion: 22:58 Data 07/10/24 06:15 07/10/24 06:15 Micro: Microbiology 07/09/24 20:03 Blood Culture - Preliminary Blood SPECIMEN COLLECTED 07/09/24 20:01 Blood Culture - Preliminary Blood SPECIMEN COLLECTED A&P Assessment and plan (1) Acute renal failure: dafne - her dafne is likely due to pre-renal/atn due to voluem depletion and sepsis. She is non-oliguric with stable lytes and volume status. There is no acute indication for renal replacement therapy at this time. - cont ivf - check urine lytes sepsis- she is on empiric abx and levophed per the primary service hyponatremia- likely due to hypovolemic hyponatremia. cont to monitor hypokalemia- cautiously supplement with kcl PDMP PDMP Reviewed: Not Reviewed Consult Attestations Medical Necessity Statement: dafne, sepsis Time Spent in Patient Care: 50 minutes Coding Level of Care Code Acute Code for Chg Fwd Diagnoses Acute renal failure N17.9
[2024-07-10 13:33] LABS: Anion Gap 23.3 (5-19); Blood Urea Nitrogen 49 mg/dL (8-23); Calcium 8.3 mg/dL (8.5-10.5); Carbon Dioxide 27 mmol/L (22-29); Chloride 88 mmol/L (98-107); Glomerular Filtration Rate 6.5 mL/min (90-130); Glucose 217 mg/dL (65-115); Osmolality Calculated 300 mOsm/kg (285-295); Potassium 3.3 mmol/L (3.5-5.1); Sodium 135 mmol/L (136-145)
[2024-07-10 13:42] LABS: Creatinine Clr Calc Pharmacy 11.1711
--- NOTE | 2024-07-10 16:08 | P.PN_ITS ---
Subjective 2 Subjective: Patient was seen this morning, nursing staff at bedside, she denies a history of alcoholism, no history of drug use, denies any history of chest pain, no shortness of breath, she tells me that her appetite has decreased since her boyfriend recently, denies any suicidal ideation, no homicidal ideation, she denies any abdominal pain, no flank pain, no dysuria discussed her acute renal failure, denies any salicylate use, no trauma, no injury, no history of kidney failure, discussed nephrology consultation, dizziness her persistent hypotension requiring Levophed currently at Levophed at 1, denies any allergic reaction, no fevers, chills, no cough, no chest pain, shortness of breath, she has been using her medications as prescribed Vitals/I&O/Wt Last Vital Signs Temp 97.7 F 07/10/24 12:30 Pulse 73 07/10/24 14:00 Resp 17 07/10/24 14:00 BP 96/61 07/10/24 14:00 Pulse Ox 94 07/10/24 14:00 O2 Del Method Nasal Cannula 07/10/24 12:30 O2 Flow Rate 3 07/10/24 12:30 07/10/24 07/10/24 07/10/24 06:59 14:59 22:59 Intake Total 3105.875 / 3105.875 672.00 / 672.00 Output Total 850 / 850 700 / 700 Balance 2255.875 / 2255.875 -28.00 / -28.00 Weight last 48 hrs Weight 98.792 kg Weight 98.792 kg Weight 136.078 kg Physical Exam 2 Const: COMMON NORMALS: no acute distress and patient oriented x3 Resp: COMMON NORMALS: normal respiratory effort, No retractions, No use of accessory muscles and clear to auscultation bilaterally AUSCULTATION: clear to auscultation bilaterally Cardio: COMMON NORMALS: regular rate, regular rhythm, S1 normal heart sound present and S2 normal heart sound present RATE: regular rate RHYTHM: r egular rhythm HEART SOUNDS: S1 normal heart sound present and S2 normal heart sound present GI: COMMON NORMALS: Normal to inspection, nondistended, normoactive bowel sounds present and non-tender Extremity: COMMON NORMALS: no pedal edema Neuro: COMMON NORMALS: patient oriented x3 Psych: COMMON NORMALS: mental status grossly normal Urinary Catheter Management: Huerta: Cath Placed During This Visit: yes Reason for Continuing Indwelling Catheter: Accurate Measurement of Urinary Output in Critically Ill Patients Urinary Catheter Date of Insertion: 07/09/24 Urinary Catheter Time of Insertion: 22:58 Sepsis: Is patient septic: Yes Focused sepsis exam performed: Yes F ocused sepsis exam: DP PT pulses palpable, cap refill greater than 2 seconds, no mottling Date exam was performed: 07/10/24 Time exam was performed: 09:00 Data 07/10/24 06:15 07/10/24 12:57 Micro: Microbiology 07/09/24 20:03 Blood Culture - Preliminary Blood SPECIMEN COLLECTED 07/09/24 20:01 Blood Culture - Preliminary Blood SPECIMEN COLLECTED A&P Assessment and plan (1) Diabetes mellitus: (2) Acute renal failure: (3) Dehydration: (4) Chronic pain: (5) Shock: (6) UTI (urinary tract infection): (7) Failure to thrive: (8) Hypovolemic shock: (9) Sepsis: Plan Shock -Multifactorial -Hypovolemic shock from poor oral intake -Component related to polypharmacy, metoprolol, Lasix -Concerns for septic shock given UTI Plan -Start midodrine 10 every 8 hours -Albumin -Currently on Levophed, wean as tolerated -IV fluids -Monitor closely -Cardiac echo -Venous ultrasound -Repeat lactic acid ? Check cortisol levels Sepsis -Concern for sepsis associated with UTI -Currently on Zosyn -Blood cultures pending -Maintain MAP greater than 65 Urinary tract infection -CT scan pelvis no renal stones or evidence of obstructive uropathy -Continue Zosyn Acute renal failure -Likely secondary to shock, hypovolemia, dehydration, sepsis, polypharmacy -Consult nephrology -Salicylate levels within normal limits -IV fluids Hypoxia requiring 2 L, chest x-ray showing mild cardiomegal Type 2 diabetes mellitus, low-dose sliding scale Chronic back pain secondary to compression fracture: -Continue to monitor Failure to thrive, poor appetite, after her boyfriend's passing away ? Start protein shakes ? Will consult psychiatry once medically stable Elevated troponin: -Monitor for chest pain DVT prophylaxis heparin Cardiac consistent carb diet Full code Patient lives with her mother Uses a walker on as-needed basis PDMP PDMP Reviewed: Not Reviewed Attestations 2 Medical Necessity Statement*: Patient requires hospitalization, inpatient, greater than 2 minutes, for shock, sepsis, hypovolemia, UTI Diagnoses Diabetes mellitus E11.9 Acute renal failure N17.9 Dehydration E86.0 Chronic pain G89.29 Shock R57.9 UTI (urinary tract infection) N39.0 Failure to thrive Hypovolemic shock R57.1 Sepsis A41.9
[2024-07-10 16:28] LABS: Glucose Point of Care 193 mg/dL (70-110)
--- NOTE | 2024-07-10 18:44 | PC.NURSE ---
SHit SUmmary: Uneventful shift. Slept in bed for most of the day. total urine output was 1000mL. Creatnine went down slightly. Nephrology consulted.
[2024-07-10 20:18] LABS: Glucose Point of Care 172 mg/dL (70-110)
[2024-07-11] VITALS (60 sets, daily range): BP systolic 70–143; BP diastolic 40–84; PULSE 54–79; RESP 12–29; TEMP 36.1–36.3; O2SAT 77–99
[2024-07-11] MEDS: midodrine 5 mg TABLET 10 MG PO ×3 (00:20→18:00)
[2024-07-11] MEDS: heparin 5,000 unit/mL INJ 1 mL 5000 UNIT SUBCUT ×3 (00:21→22:28)
[2024-07-11] MEDS: oxyCODONE 5 mg IR Tab/Cap PO ×3 (00:28→12:26)
[2024-07-11] MEDS: albumin 25 G/100 ML BAG 60 G IV ×2 (04:22→12:24)
[2024-07-11 05:49] LABS: Basophils % 0.1 %; Eosinophils % 0.1 %; Hematocrit 41.9 % (36-47); Lymphocytes # 1.5 10^3/uL (0.8-4.8); Lymphocytes % 14.9 %; Mean Corpuscular HGB Conc 30.8 g/dL (30-55); Mean Corpuscular Hemoglobin 27.9 pg (27-33); Mean Corpuscular Volume 90.5 fl (85-98); Mean Platelet Volume 11.5 fL (7.4-10.4); Monocytes # 0.6 10^3/uL (0.2-0.9); Monocytes % 6.2 %; Neutrophils # 8.02 10^3/uL (1.8-7.7); Nucleated Red Blood Cells % 0 %; Platelet Count 163 10^3/cmm (157-399); Red Blood Count 4.63 10^6/uL (3.85-5.65); Red Cell Distribution Width 15.5 % (12.1-15.1); White Blood Count 10.28 10^3/uL (3.29-11.43)
[2024-07-11 06:07] LABS: INR 0.92 (0.8-1.2)
[2024-07-11 06:14] LABS: Alanine Aminotransferase < 5 U/L (0-33); Albumin Level 3.8 g/dL (3.5-5.2); Alkaline Phosphatase 106 U/L (35-105); Anion Gap 20.1 (5-19); Aspartate Amino Transferase 6 U/L (0-32); Blood Urea Nitrogen 52 mg/dL (8-23); C Reactive Protein 19.1 mg/L (0.0-4.9); Calcium 8.1 mg/dL (8.5-10.5); Carbon Dioxide 29 mmol/L (22-29); Chloride 94 mmol/L (98-107); Creatinine Clr Calc Pharmacy 12.9665; Globulin 3.3 g/dL (1.3-4.6); Glomerular Filtration Rate 7.7 mL/min (90-130); Glucose 117 mg/dL (65-115); Magnesium 1.5 mg/dL (1.7-2.3); Osmolality Calculated 305 mOsm/kg (285-295); Phosphorus 5.9 mg/dL (2.5-4.5); Potassium 3.1 mmol/L (3.5-5.1); Sodium 140 mmol/L (136-145); Total Bilirubin 0.2 mg/dL (0.15-1.2); Total Protein 7.1 g/dL (6.6-8.7)
[2024-07-11 06:17] LABS: Lactate (Lactic Acid level) 0.6 mmol/L (0.5-2.2)
[2024-07-11 06:20] LABS: NT Pro B Type Natriuretic Pept 1049 pg/mL (0-125); Procalcitonin 0.15 ng/mL (0-0.5)
[2024-07-11 07:21] LABS: Glucose Point of Care 126 mg/dL (70-110)
[2024-07-11] MEDS: sennosides-docusate Tablet 1 TAB PO (08:04)
[2024-07-11] MEDS: pregabalin 50 mg Capsule PO ×2 (08:04→18:00)
[2024-07-11] MEDS: aspirin 81 mg EC Tablet PO (08:04)
[2024-07-11] MEDS: piperacillin-tazobactam 3.375 GM in sodium chloride 0.9% (plus) 50 ML IV ×2 (08:04→22:28)
--- NOTE | 2024-07-11 08:31 | XRR_ITS ---
PROCEDURE INFORMATION: Exam: XR Chest Exam date and time: 07/11/2024 8:39 AM Age: 59 years old Clinical indication: Shortness of breath; Additional info: SOB TECHNIQUE: Imaging protocol: Radiologic exam of the chest. Views: 1 view. COMPARISON: CR (CHEST, ) 07/09/2024 8:03 PM FINDINGS: Lungs: Unremarkable. No consolidation. Pleural spaces: Unremarkable. No pleural effusion. No pneumothorax. Heart/Mediastinum: The heart is enlarged. Bones/joints: Moderate degenerative disease of bilateral acromioclavicular joints. There are moderate degenerative changes of the glenohumeral joints. Multiple chronic left rib fractures. XR/XR chest 1V portable [id number] IMPRESSION: No acute cardiopulmonary process.
[2024-07-11] MEDS: levETIRAcetam 500 MG/100 ML PREMIX 400 MG IV ×2 (09:54→22:29)
--- NOTE | 2024-07-11 10:33 | P.PN_ITS ---
Subjective 2 Subjective: Patient has no new complaints on 2L. She was weaned off levophed yesterday AM. Medications: Reviewed: Yes Vitals/I&O/Wt Last Vital Signs Temp 97.0 F L 07/11/24 04:00 Pulse 76 07/11/24 06:00 Resp 25 H 07/11/24 06:00 BP 118/72 07/11/24 07:00 Pulse Ox 91 07/11/24 09:00 O2 Del Method Oxymask 07/11/24 06:00 O2 Flow Rate 5 07/11/24 06:00 07/10/24 07/11/24 07/11/24 22:59 07:59 14:59 Intake Total 1795.50 / 2467.50 169.25 / 2636.75 Output Total 300 / 1000 700 / 1700 600 / 600 Balance 1495.50 / 1467.50 -530.75 / 936.75 -600 / -600 Weight last 48 hrs Weight 98.792 kg Weight 98.792 kg Weight 136.078 kg Physical Exam 2 Narrative: GEN: nad, alert, conversant HEAD: normocephalic, atraumatic EYES: eomi, anicteric sclera HEENT: MMM NECK: no JVD CV: RRR LUNGS: CTAB ABD: soft, nt, nd EXT: no LE edema SKIN: no rash NEURO: grossly normal Urinary Catheter Management: Huerta: Cath Placed During This Visit: yes Reason for Continuing Indwelling Catheter: Accurate Measurement of Urinary Output in Critically Ill Patients Urinary Catheter Date of Insertion: 07/09/24 Urinary Catheter Time of Insertion: 22:58 Data 07/11/24 05:39 07/11/24 05:39 Micro: Microbiology 07/09/24 20:03 Blood Culture - Preliminary Blood NEGATIVE TO DATE 07/09/24 20:01 Blood Culture - Preliminary Blood NEGATIVE TO DATE A&P Assessment and plan (1) Acute renal failure: dafne - her dafne is likely due to pre-renal/atn due to volume depletion and sepsis. Her creatinine is improved and she is non-oliguric with stable lytes and volume status. There is no acute indication for renal replacement therapy at this time. - maintain MAP > 65 for renal perfusion sepsis- she is on empiric abx. She has been weaned off levophed hyponatremia- likely due to hypovolemic hyponatremia. cont to monitor hypokalemia- cautiously supplement with kcl PDMP PDMP Reviewed: Not Reviewed Attestations 2 Medical Necessity Statement*: dafne, sepsis Time Spent in Patient Care: 25 minutes Coding Level of Care Code Acute Code for Chg Fwd Diagnoses Acute renal failure N17.9
[2024-07-11 11:18] LABS: Glucose Point of Care 188 mg/dL (70-110)
[2024-07-11] MEDS: insulin lispro 100 unit/1 mL SUBCUT ×2 (12:24→22:28)
--- NOTE | 2024-07-11 13:33 | P.PN_ITS ---
Subjective 2 Subjective: Patient was seen this morning, she is alert oriented x 3, following all commands, denies any fevers, no chills, no cough, no nausea, no vomiting, no abdominal pain Vitals/I&O/Wt Last Vital Signs Temp 97.0 F L 07/11/24 04:00 Pulse 64 07/11/24 12:00 Resp 20 H 07/11/24 12:26 BP 141/73 07/11/24 12:00 Pulse Ox 96 07/11/24 12:00 O2 Del Method Nasal Cannula 07/11/24 10:48 O2 Flow Rate 3 07/11/24 10:48 07/10/24 07/11/24 07/11/24 22:59 07:59 14:59 Intake Total 1795.50 / 2467.50 169.25 / 2636.75 Output Total 300 / 1000 700 / 1700 600 / 600 Balance 1495.50 / 1467.50 -530.75 / 936.75 -600 / -600 Weight last 48 hrs Weight 98.792 kg Weight 98.792 kg Weight 136.078 kg Physical Exam 2 Const: COMMON NORMALS: no acute distress and patient oriented x3 Resp: COMMON NORMALS: normal respiratory effort, No retractions, No use of accessory muscles and clear to auscultation bilaterally AUSCULTATION: clear to auscultation bilaterally Cardio: COMMON NORMALS: regular rate, regular rhythm, S1 normal heart sound present and S2 normal heart sound present RATE: regular rate RHYTHM: r egular rhythm HEART SOUNDS: S1 normal heart sound present and S2 normal heart sound present GI: COMMON NORMALS: Normal to inspection, nondistended, normoactive bowel sounds present and non-tender Extremity: COMMON NORMALS: no pedal edema Neuro: COMMON NORMALS: patient oriented x3 Psych: COMMON NORMALS: mental status grossly normal Urinary Catheter Management: Huerta: Cath Placed During This Visit: yes Reason for Continuing Indwelling Catheter: Accurate Measurement of Urinary Output in Critically Ill Patients Urinary Catheter Date of Insertion: 07/09/24 Urinary Catheter Time of Insertion: 22:58 Data 07/11/24 05:39 07/11/24 05:39 Micro: Microbiology 07/10/24 02:23 Urine Culture - Preliminary Urine,Clean Catch 07/09/24 20:03 Blood Culture - Preliminary Blood NEGATIVE TO DATE 07/09/24 20:01 Blood Culture - Preliminary Blood NEGATIVE TO DATE A&P Assessment and plan (1) Diabetes mellitus: (2) Acute renal failure: (3) Dehydration: (4) Chronic pain: (5) Shock: (6) UTI (urinary tract infection): (7) Failure to thrive: (8) Hypovolemic shock: (9) Sepsis: Plan Shock -Multifactorial -Hypovolemic shock from poor oral intake -Component related to polypharmacy, metoprolol, Lasix -Concerns for septic shock given UTI Plan - midodrine 10 every 8 hours -Albumin, stopped -Currently on Levophed, wean as tolerated, weaned -IV fluids -Monitor closely -Cardiac echo CONCLUSIONS Limited echo performed to assess LV systolic function. LV systolic function is normal with EF of 60-65%. No regional wall motion abnormalities are seen. -Venous ultrasound no acute findings Sepsis -Concern for sepsis associated with UTI -Currently on Zosyn -Blood cultures pending -Maintain MAP greater than 65 Urinary tract infection -CT scan pelvis no renal stones or evidence of obstructive uropathy -Continue Zosyn Acute renal failure, renal function improving -Likely secondary to shock, hypovolemia, dehydration, sepsis, polypharmacy -Consult nephrology -Salicylate levels within normal limits -IV fluids Hypoxia requiring 2 L, monitor for fluid overload Type 2 diabetes mellitus, low-dose sliding scale Chronic back pain secondary to compression fracture: -Continue to monitor Failure to thrive, poor appetite, after her boyfriend's passing away ? Start protein shakes ? Will consult psychiatry once medically stable Elevated troponin: -Monitor for chest pain Seizure-like episodes -Observed with myoclonic jerking of her arms, bilaterally, she was alert awake during this time -Improved with Keppra -Continue Keppra 500 twice daily DVT prophylaxis heparin Cardiac consistent carb diet Full code Patient lives with her mother Uses a walker on as-needed basis Plan for today, PT OT, speech therapy eval, but to a chair, monitor blood pressures PDMP PDMP Reviewed: Not Reviewed Attestations 2 Medical Necessity Statement*: Patient requires hospitalization for hypotension, sepsis, dehydration, adult failure to thrive, acute renal failure Diagnoses Diabetes mellitus E11.9 Acute renal failure N17.9 Dehydration E86.0 Chronic pain G89.29 Shock R57.9 UTI (urinary tract infection) N39.0 Failure to thrive Hypovolemic shock R57.1 Sepsis A41.9
[2024-07-11 17:27] LABS: Glucose Point of Care 113 mg/dL (70-110)
[2024-07-11] MEDS: oxyCODONE 5 mg IR Tab/Cap 10 MG PO (18:00)
[2024-07-11] MEDS: duloxetine 60 mg Capsule PO (18:00)
[2024-07-11 21:17] LABS: Glucose Point of Care 150 mg/dL (70-110)
[2024-07-12] VITALS (52 sets, daily range): BP systolic 104–147; BP diastolic 52–86; PULSE 50–69; RESP 12–32; TEMP 36.1–36.6; O2SAT 91–100
[2024-07-12] MEDS: oxyCODONE 5 mg IR Tab/Cap 10 MG PO ×3 (00:43→15:56)
[2024-07-12] MEDS: midodrine 5 mg TABLET 10 MG PO ×2 (00:44→07:54)
--- NOTE | 2024-07-12 02:00 | PC.NURSE ---
Right forearm/AC IV found to be infiltrated with a small, ~1cm pocket of fluid while Zosyn was running. IV aspiration attempted with no success, IV then discontinued with small amount of fluid draining from the site. Telepharmacy contacted, they advised there is no treatment for infiltrated Zosyn and to monitor the site. Dr. Hawkins notified with no new orders.
[2024-07-12 04:37] LABS: Basophils % 0.4 %; Eosinophils # 0.1 10^3/uL (0.0-0.8); Eosinophils % 0.9 %; Hematocrit 43.1 % (36-47); Lymphocytes # 2.3 10^3/uL (0.8-4.8); Lymphocytes % 28.3 %; Mean Corpuscular HGB Conc 30.2 g/dL (30-55); Mean Corpuscular Hemoglobin 27.8 pg (27-33); Mean Corpuscular Volume 92.3 fl (85-98); Mean Platelet Volume 11.6 fL (7.4-10.4); Monocytes # 0.6 10^3/uL (0.2-0.9); Monocytes % 6.8 %; Neutrophils # 5.08 10^3/uL (1.8-7.7); Neutrophils % 63.2 %; Nucleated Red Blood Cells % 0 %; Platelet Count 146 10^3/cmm (157-399); Red Blood Count 4.67 10^6/uL (3.85-5.65); Red Cell Distribution Width 15.5 % (12.1-15.1); White Blood Count 8.03 10^3/uL (3.29-11.43)
[2024-07-12 04:45] LABS: INR 0.94 (0.8-1.2)
[2024-07-12 04:54] LABS: Lactate (Lactic Acid level) 0.7 mmol/L (0.5-2.2)
[2024-07-12 04:57] LABS: Alanine Aminotransferase < 5 U/L (0-33); Albumin Level 3.8 g/dL (3.5-5.2); Alkaline Phosphatase 97 U/L (35-105); Aspartate Amino Transferase 7 U/L (0-32); Blood Urea Nitrogen 47 mg/dL (8-23); C Reactive Protein 15.6 mg/L (0.0-4.9); Calcium 8.7 mg/dL (8.5-10.5); Carbon Dioxide 32 mmol/L (22-29); Chloride 94 mmol/L (98-107); Creatinine Clr Calc Pharmacy 20.1701; Globulin 3.2 g/dL (1.3-4.6); Glomerular Filtration Rate 12.9 mL/min (90-130); Glucose 124 mg/dL (65-115); Magnesium 1.2 mg/dL (1.7-2.3); Osmolality Calculated 302 mOsm/kg (285-295); Sodium 139 mmol/L (136-145); Total Bilirubin 0.2 mg/dL (0.15-1.2)
[2024-07-12 04:58] LABS: Anion Gap 16.3 (5-19); Potassium 3.3 mmol/L (3.5-5.1)
[2024-07-12 05:12] LABS: NT Pro B Type Natriuretic Pept 1821 pg/mL (0-125); Procalcitonin 0.09 ng/mL (0-0.5)
[2024-07-12] MEDS: piperacillin-tazobactam 3.375 GM in sodium chloride 0.9% (plus) 50 ML 1 GM IV (07:53)
[2024-07-12] MEDS: pregabalin 50 mg Capsule PO ×2 (07:54→18:04)
[2024-07-12] MEDS: sennosides-docusate Tablet 1 TAB PO (07:54)
[2024-07-12] MEDS: levETIRAcetam 500 MG/100 ML PREMIX 400 MG IV (07:54)
[2024-07-12] MEDS: aspirin 81 mg EC Tablet PO (07:54)
[2024-07-12] MEDS: duloxetine 60 mg Capsule PO ×2 (07:54→18:03)
[2024-07-12 08:05] LABS: Glucose Point of Care 114 mg/dL (70-110)
[2024-07-12] MEDS: magnesium lactate 84 mg Tablet PO (09:17)
--- NOTE | 2024-07-12 10:29 | P.PN_ITS ---
Subjective 2 Subjective: Patient has no new complaints on 2L Medications: Reviewed: Yes Vitals/I&O/Wt Last Vital Signs Temp 97.2 F L 07/12/24 04:00 Pulse 59 L 07/12/24 08:00 Resp 19 H 07/12/24 08:00 BP 117/68 07/12/24 08:00 Pulse Ox 98 07/12/24 08:00 O2 Del Method Nasal Cannula 07/12/24 07:42 O2 Flow Rate 2 07/12/24 07:42 07/11/24 07/12/24 07/12/24 22:59 06:59 14:59 Intake Total 372 / 372 590 / 962 Output Total 1000 / 1600 1900 / 3500 Balance -628 / -1228 -1310 / -2538 Weight last 48 hrs Weight 100.046 kg Physical Exam 2 Narrative: GEN: nad, alert, conversant HEAD: normocephalic, atraumatic EYES: eomi, anicteric sclera HEENT: MMM NECK: no JVD CV: RRR LUNGS: CTAB ABD: soft, nt, nd EXT: no LE edema SKIN: no rash NEURO: grossly normal Urinary Catheter Management: Huerta: Cath Placed During This Visit: yes Reason for Continuing Indwelling Catheter: Accurate Measurement of Urinary Output in Critically Ill Patients Urinary Catheter Date of Insertion: 07/09/24 Urinary Catheter Time of Insertion: 22:58 Data 07/12/24 04:10 07/12/24 04:10 Micro: Microbiology 07/10/24 02:23 Urine Culture - Preliminary Urine,Clean Catch A&P Assessment and plan (1) Acute renal failure: dafne - her dafne is likely due to pre-renal/atn due to volume depletion and sepsis. Her creatinine continues to improve and she is non-oliguric with stable lytes and volume status. There is no acute indication for renal replacement therapy at this time. - maintain MAP > 65 for renal perfusion sepsis- she is on abx per the primary service. She has been weaned off levophed hyponatremia- likely due to hypovolemic hyponatremia. Improved. Cont to monitor hypokalemia- cautiously supplement with kcl PDMP PDMP Reviewed: Not Reviewed Attestations 2 Medical Necessity Statement*: dafne Time Spent in Patient Care: 25 minutes Coding Level of Care Code Acute Code for Chg Fwd Diagnoses Acute renal failure N17.9
[2024-07-12 11:52] LABS: Glucose Point of Care 143 mg/dL (70-110)
[2024-07-12] MEDS: heparin 5,000 unit/mL INJ 1 mL 5000 UNIT SUBCUT (11:57)
[2024-07-12] MEDS: insulin lispro 100 unit/1 mL SUBCUT ×2 (11:57→20:42)
--- NOTE | 2024-07-12 12:01 | P.PN_ITS ---
Subjective 2 Subjective: Patient was seen this morning, denies any fevers, no chills, no nausea, no vomiting, follows all commands Vitals/I&O/Wt Last Vital Signs Temp 97.2 F L 07/12/24 04:00 Pulse 59 L 07/12/24 08:00 Resp 19 H 07/12/24 08:00 BP 117/68 07/12/24 08:00 Pulse Ox 98 07/12/24 08:00 O2 Del Method Nasal Cannula 07/12/24 07:42 O2 Flow Rate 2 07/12/24 07:42 07/11/24 07/12/24 07/12/24 22:59 06:59 14:59 Intake Total 372 / 372 590 / 962 Output Total 1000 / 1600 1900 / 3500 Balance -628 / -1228 -1310 / -2538 Weight last 48 hrs Weight 100.046 kg Physical Exam 2 Const: COMMON NORMALS: no acute distress and patient oriented x3 Resp: COMMON NORMALS: normal respiratory effort, No retractions, No use of accessory muscles and clear to auscultation bilaterally AUSCULTATION: clear to auscultation bilaterally Cardio: COMMON NORMALS: regular rate, regular rhythm, S1 normal heart sound present and S2 normal heart sound present RATE: regular rate RHYTHM: r egular rhythm HEART SOUNDS: S1 normal heart sound present and S2 normal heart sound present GI: COMMON NORMALS: Normal to inspection, nondistended, normoactive bowel sounds present and non-tender Extremity: COMMON NORMALS: no pedal edema Neuro: COMMON NORMALS: patient oriented x3 Psych: COMMON NORMALS: mental status grossly normal Urinary Catheter Management: Huerta: Cath Placed During This Visit: yes Reason for Continuing Indwelling Catheter: Accurate Measurement of Urinary Output in Critically Ill Patients Urinary Catheter Date of Insertion: 07/09/24 Urinary Catheter Time of Insertion: 22:58 Data 07/12/24 04:10 07/12/24 04:10 Micro: Microbiology 07/10/24 02:23 Urine Culture - Final Urine,Clean Catch A&P Assessment and plan (1) Diabetes mellitus: (2) Acute renal failure: (3) Dehydration: (4) Chronic pain: (5) Shock: (6) UTI (urinary tract infection): (7) Failure to thrive: (8) Hypovolemic shock: (9) Sepsis: Plan Shock, resolved -Multifactorial -Hypovolemic shock from poor oral intake -Component related to polypharmacy, metoprolol, Lasix -Concerns for septic shock given UTI Plan - midodrine 5 every 8 hours -Albumin, stopped -Currently on Levophed, wean as tolerated, weaned -IV fluids -Monitor closely -Cardiac echo CONCLUSIONS Limited echo performed to assess LV systolic function. LV systolic function is normal with EF of 60-65%. No regional wall motion abnormalities are seen. -Venous ultrasound no acute findings Sepsis, resolved -Concern for sepsis associated with UTI -Currently on Zosyn, deescalate to cefdinir -Blood cultures no growth -Maintain MAP greater than 65 Urinary tract infection -CT scan pelvis no renal stones or evidence of obstructive uropathy -Continue Zosyn, desscalate to Augmentin Acute renal failure, renal function improving -Likely secondary to shock, hypovolemia, dehydration, sepsis, polypharmacy -Consult nephrology -Salicylate levels within normal limits -IV fluids Hypoxia requiring 2 L, monitor for fluid overload Type 2 diabetes mellitus, low-dose sliding scale Chronic back pain secondary to compression fracture: -Continue to monitor Failure to thrive, poor appetite, after her boyfriend's passing away ? Start protein shakes ? Will consult psychiatry Elevated troponin: -Monitor for chest pain Seizure-like episodes -Observed with myoclonic jerking of her arms, bilaterally, she was alert awake during this time -Improved with Keppra -Continue Keppra 500 twice daily DVT prophylaxis heparin Cardiac consistent carb diet Full code Patient lives with her mother Uses a walker on as-needed basis Plan for today, PT OT, speech therapy eval, but to a chair, monitor blood pressures, move to med surg PDMP PDMP Reviewed: Not Reviewed Attestations 2 Medical Necessity Statement*: Patient requires hospitalization, for acute renal failure, requiring clinical monitoring, moved to [facility], psychiatric evaluation, Diagnoses Diabetes mellitus E11.9 Acute renal failure N17.9 Dehydration E86.0 Chronic pain G89.29 Shock R57.9 UTI (urinary tract infection) N39.0 Failure to thrive Hypovolemic shock R57.1 Sepsis A41.9
--- NOTE | 2024-07-12 13:57 | PC.SLP ---
Therapist checked on patient twice. First time she was not hungry due to just eating breakfast, stated she is not having any swallowing difficulties with current diet, and did not want to participate in therapy. Second time, she trialed several sips of thin water without s/s of aspiration. Patient said she was struggling catching her breath and did not want to trail anything else or do therapy.
[2024-07-12] MEDS: midodrine 5 mg TABLET PO (15:58)
--- NOTE | 2024-07-12 17:04 | P.NPUCON_ITS ---
Providers/Reason for Consult 2 Consulting Physican/Specialty*: Onel Mas/Psychiatry Reason for Consult*: depression Attending Physician: James De Oliveira MD Psych Consult HPI History of Present Illness Wanda Lamb is a 59 year old female admitted to the intensive care unit with management of current kidney problems, hypotension and hypovolemia. Patient had reported that she has been struggling with oral intake and had not been drinking fluids or eating well. She reports that she is had poor appetite since the of her boyfriend of 20 years in April 2024. Patient acknowledges that she has been feeling more hopeless and worthless. She reports that she has been having more difficulties with falling asleep and reported diminished appetite. She had reported that she has been more tearful. She denies any suicidal thoughts at this time. She does endorse some feelings of hopelessness. She had reported that she has been feeling more isolated recently. She reports having struggles in the past with nightmares and flashbacks regarding having witnessed the of her 3-month-old infant who had due to SIDS many years ago. She reports that she does not engage in any recent avoidance of places or things that remind her of her trauma. She does report having problems with managing her worry. She reports no diurnal variation with her depression. She does report no worsening depression during the winter months. She reports no history of psychosis. She denies any history of jose alejandro. She did report that she had struggled with falling asleep but stated that the Ambien had been helpful at night. She had reported no previous trials of other antidepressants. She denied any history of addiction. She denied any history of binge eating. She did report having struggles with managing her medical problems at home as she reported that she currently is living with her biological mother who also has medical issues. Inpatient psychiatric history: none Outpatient psychiatric history: followed by Dr. Christine through [facility] in [facility] for the past 2 years. Reports depressive episodes beginning 20 years ago, with one previous medication trial.=Cymbalta Current psychiatric medications: cymbalta 60mg daily, ambien 10mg at night Medical history/Surgical history: as stated Allergies: nkda Substance abuse history: none reported Legal history: none history: none Family psychiatric history: depression=maternal side of family Social History: The patient was born in [place] and raised by her biological parents. She reports that her father was in the and served in [place]. She reports having 3 brothers and 1 sister all of whom are . She reports that she had dropped out of school and did not earned her GED. She was raised in [place]. She had reported having worked previously but states that she is currently retired. She had previously been living in [facility] with her boyfriend of 20 years prior to his sudden in April due to heart disease. She now lives in [place] with her biological mother. She had reported 1 previous marriage lasting 21 years having been to the from this man more than 20 years ago. She had reported having 8 children with 1 son that at the age of 3 months. She does report limited social supports. She reported no history of learning problems. Meds Home Medications and Allergies Home Medications ?Medication ?Instructions ?Recorded ?Confirmed ?Last Taken ?Type atorvastatin 20 mg tablet (Lipitor) 20 mg PO QPM 06/0607/10/24 07/09/24 History duloxetine 60 mg capsule,delayed 60 mg PO BID 06/06/24 07/10/24 07/09/24 History release (Cymbalta) insulin lispro 100 unit/mL See Rx Instructions .Route .COMPLEX 06/06/24 07/10/24 07/09/24 History subcutaneous pen (Humalog KwikPen (U-100) Insulin) pregabalin 75 mg capsule (Lyrica) 75 mg PO Q8H 5 07/10/24 07/09/24 History zolpidem 10 mg tablet 10 mg PO BEDTIME 06/06/2407/09/24 History amlodipine 10 mg tablet 5 mg (1/2 x 10 mg) PO DAILY 30 06/10/24 07/10/24 07/09/24 Rx days #30 tabs aspirin 81 mg tablet,delayed 81 mg PO DAILY 30 days #3 0 tabs 06/10/24 07/10/24 07/09/24 Rx release clotrimazole 1 % topical cream 1 applic topical BID 30 days #30 06/10/24 07/10/24 Unknown Rx grams furosemide 20 mg tablet (Lasix) 20 mg PO DAILY 30 days #30 tabs 06/10/24 07/10/24 Unknown Rx metoprolol tartrate 25 mg tablet 12.5 mg (1/2 x 25 mg) PO 06/10/24 07/10/24 Unknown Rx BID@0900,2100 30 days #30 tabs Allergies Allergy/AdvReac Type Severity Reaction Status Date / Time No Known Allergies Allergy Verified 07/10/24 02:20 Current Medications Current Medications Generic Name Dose Route Start Last Admin Trade Name Freq PRN Reason Stop Dose Admin Acetaminophen 500 mg 07/09/24 22:19 07/10/24 09:02 Acetaminophen 500 Mg Tablet PO 500 mg Q4H PRN Administration fever Aspirin 81 mg 07/10/24 09:00 07/12/24 07:54 Aspirin 81 Mg Ec Tablet PO 81 mg DAILY BRENNAN Administration Duloxetine HCl 60 mg 07/11/24 18:00 07/12/24 07:54 Duloxetine 60 Mg Capsule PO 60 mg BID BRENNAN Administration Heparin Sodium (Porcine) 5,000 unit 07/09/24 22:30 07/12/24 11:57 Heparin 5,000 Unit/Ml Inj 1 Ml SUBCUT 5,000 unit Q12H BRENNAN Administration Insulin Human Lispro 0 unit 07/10/24 08:00 07/12/24 11:57 Insulin Lispro 100 Unit/1 Ml SUBCUT 4 unit WM&BEDTIME BRENNAN Administration Protocol Magnesium Lactate 84 mg 07/12/24 09:00 07/12/24 09:17 Magnesium Lactate 84 Mg Tablet PO 84 mg DAILY BRENNAN Administration Midodrine 5 mg 07/12/24 16:00 07/12/24 15:58 Midodrine 5 Mg Tablet PO 5 mg Q8H BRENNAN Administration Ondansetron HCl 4 mg 07/09/24 22:19 07/09/24 23:59 Ondansetron 2 Mg/Ml Sdv 2 Ml IVP 4 mg Q6H PRN Administration NAUSEA AND VOMITING Oxycodone HCl 10 mg 07/11/24 17:57 07/12/24 15:56 Oxycodone 5 Mg Ir Tab/Cap PO 10 mg Q6H PRN Administration pain Pregabalin 50 mg 07/10/24 09:00 07/12/24 07:54 Pregabalin 50 Mg Capsule PO 50 mg BID BRENNAN Administration Senna/Docusate Sodium 1 tab 07/10/24 09:00 07/12/24 07:54 Sennosides-Docusate Tablet PO 1 tab DAILY BRENNAN Administration PFSH NPU 2 PFSH: Medical History (Updated 07/12/24 @ 17:28 by Onel Mas MD) Sepsis Chronic pain Hypertension Diabetes mellitus Tobacco use disorder Surgical History History of ankle surgery Family History Grandfather Bone cancer Social History Smoking and tobacco/nicotine status: current every day tobacco/nicotine user Alcohol intake: never Substance/Drug Use: unknown Mental Status Exam 2 MSE Comments: Patient is casually dressed white female who appeared overweight lying in bed was pleasant and cooperative on interview. There was evidence of mild psychomotor retardation. Her speech was normal in regards to rate rhythm and prosody. She appeared to be a good historian. She was alert and oriented to person, place, time and situation. There was no clear evidence of delusional thinking.She did not appear to be responding internal stimuli. She denied any homicidal or suicidal ideation. Her mood was described as depressed. Her affect was restricted in range and mood congruent. Her recent and remote memory appeared grossly intact. Her insight was fair. Her judgment appeared fair. Her impulse control appeared adequate. Vitals/I&O/Wt Last Vital Signs Temp 97.2 F L 07/12/24 04:00 Pulse 56 L 07/12/24 16:30 Resp 21 H 07/12/24 16:30 BP 109/60 07/12/24 16:30 Pulse Ox 96 07/12/24 16:30 O2 Del Method Nasal Cannula 07/12/24 07:42 O2 Flow Rate 2 07/12/24 07:42 07/12/24 07/12/24 07/12/24 06:59 14:59 22:59 Intake Total 590 / 962 480 / 480 Output Total 1900 / 3500 Balance -1310 / -2538 480 / 480 Weight last 48 hrs Weight 100.046 kg Physical Exam 2 Urinary Catheter Management: Huerta: Cath Placed During This Visit: yes Reason for Continuing Indwelling Catheter: Accurate Measurement of Urinary Output in Critically Ill Patients Urinary Catheter Date of Insertion: 07/09/24 Urinary Catheter Time of Insertion: 22:58 Data NPU 07/12/24 04:10 07/12/24 04:10 Micro: Microbiology 07/10/24 02:23 Urine Culture - Final Urine,Clean Catch Microbiology 07/10/24 02:23 Urine,Clean Catch Urine Culture - Final A&P Assessment and plan (1) MDD (major depressive disorder), recurrent episode, moderate: (2) Anxiety disorder, unspecified: Plan 1. Patient confirmed taking only cymbalta 60mg daily but increase to 90mg may be warranted if this was the case. In the case where patient in taking Cymbalta 120mg daily, would consider adding low dose of abilify adjunctively to target continued depression. Continue ambien 10mg at night as prescribed. 2. Follow up with Dr. Christine, outpatient psychiatrist. Consider outpatient psychotherapy to target anxiety and depression. PDMP PDMP Reviewed: Not Reviewed Attestations NPU 2 Medical Necessity Statement*: NA. Coding Level of Care Code Acute Code for [facility] Fwd Diagnoses MDD (major depressive disorder), recurrent episode, moderate F33.1 Anxiety disorder, unspecified F41.9
[2024-07-12 18:02] LABS: Glucose Point of Care 111 mg/dL (70-110)
[2024-07-12] MEDS: levETIRAcetam 500 MG/5 ML UDC PO (18:03)
[2024-07-12] MEDS: cefdinir 300 MG CAPSULE PO (18:03)
[2024-07-12 20:40] LABS: Glucose Point of Care 167 mg/dL (70-110)
[2024-07-12] MEDS: atorvastatin 40 mg Tablet 20 MG PO (20:42)
[2024-07-13] VITALS (27 sets, daily range): BP systolic 87–144; BP diastolic 52–85; PULSE 54–65; RESP 10–21; TEMP 36.1–36.8; O2SAT 88–98
[2024-07-13] MEDS: oxyCODONE 5 mg IR Tab/Cap 10 MG PO ×2 (00:01→06:33)
[2024-07-13] MEDS: midodrine 5 mg TABLET PO ×2 (00:02→10:10)
[2024-07-13] MEDS: heparin 5,000 unit/mL INJ 1 mL 5000 UNIT SUBCUT ×2 (00:02→10:10)
[2024-07-13 04:03] LABS: Basophils % 0.5 %; Eosinophils # 0.1 10^3/uL (0.0-0.8); Eosinophils % 0.8 %; Hematocrit 44.4 % (36-47); Lymphocytes # 1.9 10^3/uL (0.8-4.8); Lymphocytes % 28.4 %; Mean Corpuscular HGB Conc 30.4 g/dL (30-55); Mean Corpuscular Volume 92.1 fl (85-98); Mean Platelet Volume 10.9 fL (7.4-10.4); Monocytes # 0.5 10^3/uL (0.2-0.9); Monocytes % 6.9 %; Neutrophils # 4.18 10^3/uL (1.8-7.7); Neutrophils % 63.1 %; Nucleated Red Blood Cells % 0 %; Platelet Count 149 10^3/cmm (157-399); Red Blood Count 4.82 10^6/uL (3.85-5.65); Red Cell Distribution Width 15.1 % (12.1-15.1); White Blood Count 6.62 10^3/uL (3.29-11.43)
[2024-07-13 04:18] LABS: Anion Gap 15.6 (5-19); Aspartate Amino Transferase 8 U/L (0-32); Blood Urea Nitrogen 35 mg/dL (8-23); Calcium 8.8 mg/dL (8.5-10.5); Carbon Dioxide 34 mmol/L (22-29); Chloride 94 mmol/L (98-107); Glomerular Filtration Rate 25.3 mL/min (90-130); Glucose 112 mg/dL (65-115); Osmolality Calculated 299 mOsm/kg (285-295); Phosphorus 3.6 mg/dL (2.5-4.5); Potassium 3.6 mmol/L (3.5-5.1); Sodium 140 mmol/L (136-145); Total Bilirubin 0.3 mg/dL (0.15-1.2); Total Protein 7.3 g/dL (6.6-8.7)
[2024-07-13 04:59] LABS: Alanine Aminotransferase < 5 U/L (0-33); Albumin Level 3.8 g/dL (3.5-5.2); Alkaline Phosphatase 102 U/L (35-105); Globulin 3.5 g/dL (1.3-4.6)
[2024-07-13 05:01] LABS: NT Pro B Type Natriuretic Pept 1214 pg/mL (0-125)
[2024-07-13] MEDS: ondansetron 2 mg/ML SDV 2 mL 4 MG IVP (08:40)
[2024-07-13 08:43] LABS: Glucose Point of Care 122 mg/dL (70-110)
[2024-07-13] MEDS: levETIRAcetam 500 MG/5 ML UDC PO (10:08)
[2024-07-13] MEDS: magnesium lactate 84 mg Tablet PO (10:09)
[2024-07-13] MEDS: aspirin 81 mg EC Tablet PO (10:09)
[2024-07-13] MEDS: duloxetine 60 mg Capsule PO (10:09)
[2024-07-13] MEDS: cefdinir 300 MG CAPSULE PO (10:09)
[2024-07-13] MEDS: sennosides-docusate Tablet 1 TAB PO (10:09)
[2024-07-13] MEDS: pregabalin 50 mg Capsule PO (10:10)
--- NOTE | 2024-07-13 11:10 | P.PN_ITS ---
Subjective 2 Subjective: Patient has no new complaints on 2L Medications: Reviewed: Yes Vitals/I&O/Wt Last Vital Signs Temp 97.0 F L 07/13/24 08:00 Pulse 58 L 07/13/24 10:00 Resp 13 07/13/24 10:00 BP 115/64 07/13/24 10:00 Pulse Ox 92 07/13/24 10:00 O2 Del Method Nasal Cannula 07/13/24 08:43 O2 Flow Rate 2 07/13/24 08:43 07/12/24 07/13/24 07/13/24 22:59 06:59 14:59 Intake Total 222 / 702 0 / 0 Output Total 1700 / 1700 1700 / 3400 Balance -1478 / -998 -1700 / -2698 0 / 0 Weight last 48 hrs Weight 100.5 kg Weight 100.046 kg Physical Exam 2 Narrative: GEN: nad, alert, conversant HEAD: normocephalic, atraumatic EYES: eomi, anicteric sclera HEENT: MMM NECK: no JVD CV: RRR LUNGS: CTAB ABD: soft, nt, nd EXT: no LE edema SKIN: no rash NEURO: grossly normal Urinary Catheter Management: Huerta: Cath Placed During This Visit: yes Reason for Continuing Indwelling Catheter: Accurate Measurement of Urinary Output in Critically Ill Patients Urinary Catheter Date of Insertion: 07/09/24 Urinary Catheter Time of Insertion: 22:58 Data 07/13/24 03:47 07/13/24 03:47 Micro: Microbiology 07/10/24 02:23 Urine Culture - Final Urine,Clean Catch A&P Assessment and plan (1) Acute renal failure: Plan dafne - her dafne is likely due to pre-renal/atn due to volume depletion and sepsis. Her creatinine is improving and she is non-oliguric with stable lytes and volume status. cont to monitpr renal function - maintain MAP > 65 for renal perfusion sepsis- she is on abx per the primary service. She has been weaned off levophed hyponatremia- likely due to hypovolemic hyponatremia. Improved. Cont to monitor hypokalemia- improved. cont to monitor PDMP PDMP Reviewed: Not Reviewed Attestations 2 Medical Necessity Statement*: dafne Time Spent in Patient Care: 25 minutes Coding Level of Care Code Acute Code for [facility] Fwd Diagnoses Acute renal failure N17.9
[2024-07-13 12:06] LABS: Glucose Point of Care 143 mg/dL (70-110)
[2024-07-13] MEDS: insulin lispro 100 unit/1 mL SUBCUT (12:07)
--- NOTE | 2024-07-13 13:56 | PM.DCS ---
Discharge Providers Date of Admission: 07/09/24 22:01 Date of Discharge: July 13, 2024 Attending Provider at Admission: Callum Hawkins MD Attending Provider at Discharge: Ricky Cabral Diagnoses at Discharge Discharge Diagnosis (1) Acute renal failure: Status: Acute Reason for Visit Reason for Visit: CHEST PAIN Hospital Course Hospital Course History of diabetes, tachycardia, smoking, admitted after presenting with acute on chronic back pain, also found to be hypotensive with suspected hypovolemic shock, possible septic shock after sepsis due to urinary tract infection, also with acute kidney injury, creatinine as high as 7.1, with suspected ATN. Received fluid resuscitation, received pressor support. Was assessed by nephrology. Psychiatry also saw her due to depression since passing away of her significant other. She has shown gradual improvement with improving blood pressures, weaning of pressors, with gradually improving BIRGIT, creatinine trending down, as low as 2 today. Has been producing urine. Received magnesium replacement for hypomagnesemia. Continued empirically on antibiotic, although urine culture eventually unrevealing without growth on final culture. Blood culture remaining negative. As she otherwise has continued to improve, she is discharging home today with home health services, she had declined consideration of rehabilitation at SNF recommended her since patient lives at home with her elderly mother, however, she is firm about return home. On admission also with noted bilateral myoclonic jerking motion for which was started on Keppra. Head CT without acute intracranial findings. Without recurrence symptoms have resolved. Will refer her for additional assessment with EEG. As per psychiatry recommendation she is continued on duloxetine and asked to resume follow-up with her outpatient psychiatrist Dr. Christine. She requires for additional pain medication due to flareups of chronic pain. Discussed with her multimodal pain control strategies including Tylenol, Bengay, warmth or cooling to achieve pain relief. She requests for additional treatment with oxycodone due to lack of success with Tylenol in the past. Discussed with her risks of opioid medication and discussed not to use opiate for treatment of chronic pain beyond the flare due to multiple risks including constipation, respiratory depression, especially if her renal dysfunction were to worsen, potential life-threatening respiratory depression, as well as significant tolerance, dependence issues related to opioids. Physical Exam Const: COMMON NORMALS: patient oriented x3 and alert GENERAL APPEARANCE: cooperative ORIENTATION/CONSCIOUSNESS: Yes awake HENMT: COMMON NORMALS: oropharynx normal Neck/C-Spine: COMMON NORMALS: no JVD Resp: COMMON NORMALS: normal respiratory effort and clear to auscultation bilaterally AUSCULTATION: clear to auscultation bilaterally Cardio: COMMON NORMALS: no JVD, regular rhythm, S1 normal heart sound present, S2 normal heart sound present and No murmurs present (Cardio) RHYTHM: regular rhythm HEART SOUNDS: S1 normal heart sound present and S2 normal heart sound present GI: COMMON NORMALS: Normal to inspection, nondistended, normoactive bowel sounds present, Soft to palpation and non-tender PALPATION: Yes Soft to palpation Extremity: COMMON NORMALS: no joint enlargement and no pedal edema Neuro: COMMON NORMALS: patient oriented x3 and moves all extremities SENSORIUM/ORIENTATION: Yes alert Skin: COMMON NORMALS: no rashes or lesions noted GENERAL SKIN EXAM: no rashes or lesions noted Urinary Catheter Management: Huerta: Cath Placed During This Visit: yes Reason for Continuing Indwelling Catheter: Accurate Measurement of Urinary Output in Critically Ill Patients Urinary Catheter Date of Insertion: 07/09/24 Urinary Catheter Time of Insertion: 22:58 Discharge Data Studies Completed and Pending Completed Studies During Hospitalization Category Date Time Status CT abdomen pelvis wo con [id number] Stat Cat Scan 07/09/24 20:[address] head wo con* [id number] Stat Cat Scan 07/09/24 20:16 Completed XR chest 1V portable [id number] Stat Exams 07/09/24 19:31 Completed XR chest 1V portable [id number] Stat Exams 07/11/24 08:31 [place] [id number] Routine Ultrasound 07/10/24 08:16 Completed CV. echo limited [id number] Stat Ultrasound 07/10/24 08:15 Completed US renal BI* [id number] Routine Ultrasound 07/10/24 08:13 Completed Pending at discharge Category Date Time Status Blood Culture Stat Lab 07/09/24 20:03 Results Radiology Impressions Head CT 07/09/24 20:16 IMPRESSION: No acute intracranial findings. Abdomen/Pelvis CT 07/09/24 20:53 IMPRESSION: No renal stones or evidence of obstructive uropathy. Renal Ultrasound 07/10/24 08:13 IMPRESSION: 1. Suboptimal visualization secondary to bowel gas. 2. No gross renal mass or hydronephrosis. Venous Duplex 07/10/24 08:16 IMPRESSION: No evidence of deep venous thrombosis. Chest X-Ray 07/11/24 08:31 IMPRESSION: No acute cardiopulmonary process. Laboratory Results WBC 6.62 10^3/uL (3.29-11.43) 07/13/24 03:47 RBC 4.82 10^6/uL (3.85-5.65) 07/13/24 03:47 Hgb 13.50 g/dL (11.27-16.99) 07/13/24 03:47 Hct 44.4 % (36-47) 07/13/24 03:47 MCV 92.1 fl (85-98) 07/13/24 03:47 MCH 28.0 pg (27-33) 07/13/24 03:47 MCHC 30.4 g/dL (30-55) 07/13/24 03:47 RDW 15.1 % (12.1-15.1) 07/13/24 03:47 Plt Count 149 10^3/cmm (157-399) L 07/13/24 03:47 MPV 10.9 fL (7.4-10.4) H 07/13/24 03:47 Neut % (Auto) 63.1 % 07/13/24 03:47 Lymph % (Auto) 28.4 % 07/13/24 03:47 [place] % (Auto) 6.9 % 07/13/24 03:47 Eos % (Auto) 0.8 % 07/13/24 03:47 Baso % (Auto) 0.5 % 07/13/24 03:47 Neut # (Auto) 4.18 10^3/uL (1.8-7.7) 07/13/24 03:47 Lymph # (Auto) 1.9 10^3/uL (0.8-4.8) 07/13/24 03:47 [place] # (Auto) 0.5 10^3/uL (0.2-0.9) 07/13/24 03:47 Eos # (Auto) 0.1 10^3/uL (0.0-0.8) 07/13/24 03:47 Baso # (Auto) 0.0 10^3/uL (0.0-0.1) 07/13/24 03:47 Nucleated RBC % (auto) 0 % 07/13/24 03:47 Nucleated RBCs # 0.0 /100WBC 07/13/24 03:47 PT 13.30 SECONDS (12.1-14.9) 07/12/24 04:10 INR 0.94 (0.8-1.2) 07/12/24 04:10 Specimen Type Arterial 07/09/24 20:49 Sample Site Brachial, right 07/09/24 20:49 ABG pH 7.41 (7.35-7.45) 07/09/24 20:49 ABG pCO2 54.0 mmHg (35-45) H 07/09/24 20:49 ABG pO2 90.8 mmHg (80.0-100.0) 07/09/24 20:49 ABG PO2/FiO2 Ratio 283 07/09/24 20:49 ABG HCO3 34.1 mmol/L (22-26) H 07/09/24 20:49 ABG O2 Saturation 96.0 07/09/24 20:49 ABG Base Excess 7.4 mmol/L (-2.0-2.0) H 07/09/24 20:49 Aditya Test Pos 07/09/24 20:49 A-a O2 Gradient 9.0 mmHg (5-10) 07/09/24 20:49 Hematocrit 47.9 % (37-47) H 07/09/24 20:49 Hgb O2 Saturation 93.7 % (95-100) L 07/09/24 20:49 Carboxyhemoglobin 2.4 %THgb (0.4-20.1) 07/09/24 20:49 Methemoglobin 0.0 % (0.4-1.5) L 07/09/24 20:49 Total Hemoglobin 15.6 g/dL (12-16) 07/09/24 20: Sodium 134.0 mmol/L (131-143) 07/09/24 20:49 Potassium 3.0 mmol/L (3.5-5.0) L 07/09/24 20: Glucose 173.0 mg/dL (70-115) H 07/09/24 20:49 Ionized Calcium 1.0 mmol/L (1.1-1.4) L 07/09/24 20:49 O2 Delivery Device Nc 07/09/24 20:49 O2 Liters/Min 3.0 % 07/09/24 20:49 FiO2 32.0 % 07/09/24 20:49 Parole Or Probation Officer ID [place] 07/09/24 20:49 Sodium 140 mmol/L (136-145) 07/13/24 03:47 Potassium 3.6 mmol/L (3.5-5.1) 07/13/24 03:47 Chloride 94 mmol/L (98-107) L 07/13/24 03:47 Carbon Dioxide 34 mmol/L (22-29) H 07/13/24 03:47 Anion Gap 15.6 (5-19) 07/13/24 03:47 BUN 35 mg/dL (8-23) H 07/13/24 03:47 Creatinine 2.0 mg/dL (0.5-0.9) H 07/13/24 03:47 GFR Calculation 25.3 mL/min (90-130) L 07/13/24 03:47 Glucose 112 mg/dL (65-115) 07/13/24 03:47 POC Glucose 143 mg/dL (70-110) H 07/13/24 12:04 Calculated Osmolality 299 mOsm/kg (285-295) H 07/13/24 03:47 Lactic Acid 2.6 mmol/L (0.5-2.2) H 07/09/24 20:01 Lactic Acid (Sepsis) 2.0 mmol/L (0.5-2.2) 07/09/24 21:38 Lactate 0.7 mmol/L (0.5-2.2) 07/12/24 04:10 Calcium 8.8 mg/dL (8.5-10.5) 07/13/24 03:47 Phosphorus 3.6 mg/dL (2.5-4.5) 07/13/24 03:47 Magnesium 1.0 mg/dL (1.7-2.3) L 07/13/24 03:47 Total Bilirubin 0.3 mg/dL (0.15-1.2) 07/13/24 03:47 AST 8 U/L (0-32) 07/13/24 03:47 ALT < 5 U/L (0-33) 07/13/24 03:47 Alkaline Phosphatase 102 U/L (35-105) 07/13/24 03:47 Creatine Kinase 75 U/L (26-192) 07/09/24 20:01 Troponin T Baseline 70 ng/L (0-10) H 07/09/24 20:01 Troponin T 120 Minute 73.68 ng/L (0-10) H 07/09/24 21:38 Delta Troponin T 3.68 ABS# (0-10) 07/09/24 21:38 Troponin T Hi Sens 6Hr 58.36 ng/L (0-10) H 07/10/24 01:44 Troponin T Hi Sens 6Hr Delta -11.64 ng/L (0-12) L 07/10/24 01:44 C-Reactive Protein 15.6 mg/L (0.0-4.9) H 07/12/24 04:10 NT-Pro-B Natriuret Pep 1214 pg/mL (0-125) H 07/13/24 03:47 Total Protein 7.3 g/dL (6.6-8.7) 07/13/24 03:47 Albumin 3.8 g/dL (3.5-5.2) 07/13/24 03:47 Globulin 3.5 g/dL (1.3-4.6) 07/13/24 03:47 Procalcitonin 0.09 ng/mL (0-0.5) 07/12/24 04:10 Random Cortisol 28.41 ug/dL (2.47-19.5) H 07/10/24 01:44 Urine Color Yellow (Yellow) 07/10/24 02:23 Urine Appearance Clear (CLEAR) 07/10/24 02:23 Urine pH 5.5 (5-7) 07/10/24 02:23 Ur Specific [place] 1.009 (1.005-1.030) 07/10/24 02:23 Urine Protein 2+ (Negative) A 07/10/24 02:23 Urine Glucose (UA) 1+ (Normal) H 07/10/24 02:23 Urine Ketones Negative (Negative) 07/10/24 02:23 Urine Blood 2+ (Negative) A 07/10/24 02:23 Urine Nitrate Negative (Negative) 07/10/24 02:23 Urine Bilirubin Negative (Negative) 07/10/24 02:23 Urine Urobilinogen 0.2 mg/dL (Negative) 07/10/24 02:23 Ur Leukocyte Esterase Trace (Negative) A 07/10/24 02:23 Urine RBC 6-10 /hpf (0-2) 07/10/24 02:23 Urine WBC 21-50 /hpf (0-5) H 07/10/24 02:23 Ur Squamous Epith Cells 6-10 /hpf (0-5) 07/10/24 02:23 Amorphous Sediment Not Reportable 07/10/24 02:23 Urine Bacteria None seen /hpf (NONE) 07/10/24 02:23 Hyaline Casts 60.81 /lpf 07/10/24 02:23 Salicylates < 0.3 mg/dL (3-10) L 07/10/24 06:15 Ethyl Alcohol < 10 mg/dL (0-10) 07/10/24 06:15 Influenza A (PCR) Negative (Negative) 07/09/24 19:43 Influenza Type B (PCR) Negative (Negative) 07/09/24 19:43 RSV (PCR) Negative (Negative) 07/09/24 19:43 SARS-CoV-2 (PCR) Negative (Negative) 07/09/24 19:43 Vitals Last Vital Signs Temp 97.0 F L 07/13/24 08:00 Pulse 58 L 07/13/24 12:00 Resp 16 07/13/24 12:00 BP 130/71 07/13/24 12:00 Pulse Ox 93 07/13/24 12:00 O2 Del Method Nasal Cannula 07/13/24 08:43 O2 Flow Rate 2 07/13/24 08:43 Discharge Plan Discharge Patient Disposition: Home Health Service Condition: Stable Prescriptions: New oxycodone-acetaminophen 5-325 mg tablet 1 tab PO Q8H PRN (Reason: pain) Qty: 5 0RF cefdinir 300 mg Capsule 300 mg PO BID Qty: 8 0RF Continued atorvastatin [Lipitor] 20 mg Tablet 20 mg PO QPM insulin lispro [Humalog KwikPen Insulin] 100 unit/mL Insulin Pen See Rx Instructions .ROUTE .COMPLEX Rx Instructions: Inject 5 units with meals along with sliding scale . 150-200=2units 201-250=4units 251-300-=6units 301-350=8units over 350=10 units max 15 duloxetine [Cymbalta] 60 mg Capsule,Delayed Release(Dr/Ec) 60 mg PO BID pregabalin [Lyrica] 75 mg Capsule 75 mg PO Q8H aspirin 81 mg Tablet,Delayed Release (Dr/Ec) 81 mg PO DAILY 30 Days Qty: 30 0RF clotrimazole 1 % Cream 1 applic topical BID 30 Days Qty: 30 0RF metoprolol tartrate 25 mg Tablet 12.5 mg PO BID@0900,2100 30 Days Qty: 30 0RF Changed furosemide [Lasix] 20 mg tablet 20 mg PO DAILY PRN (Reason: Edema) 30 Days Qty: 30 0RF zolpidem 10 mg tablet 5 mg PO BEDTIME Qty: 1 0RF Rx Instructions: Dose change only. Discontinued amlodipine 10 mg Tablet 5 mg PO DAILY 30 Days Qty: 30 0RF Discharge Orders: Discharge Order (Routine); Ordered 07/13/24 Ordered By: Ricky Cabral Other Ambulatory Orders: EEG electroencephalogram (Routine) Timeframe: 3 Days Facility: [facility] - Location: Neurology Ordered By: Ricky Cabral Referrals: Dr Christine [Other] - 2 weeks (Psychiatry) Wai Byrne FNP [Nurse Practitioner] - 07/19/24 1:00 pm Discharge Diet: As Directed Discharge Activity: Increase activity as tolerated Patient Instructions: Opioid Safety, Acute Kidney Injury (GEN), Hypotension (GEN) Activity Restrictions/Additional Instructions: Continue to monitor Patient's Health Concerns: Continue to monitor blood pressures at home. Avoid low blood pressures at home. Target blood pressure 120/80. Hold blood pressure medications reviewed blood pressure is lower than 110 systolic or 60 diastolic. Follow-up with your primary provider to reassess kidney function after acute kidney injury. Discussed with your primary doctor also regarding chronic pain with acute breakthrough. As discussed, avoid long-term opiate treatment due to significant risks. Continue dysphagia level 6 diet, soft and bite-size with thin liquids. Continue aspiration precautions. Discharge Attestations Time Spent in Discharge Care*: greater than 30 min Quality Metrics Clinical Quality Measures [ No reported AMI, CVA or VTE this stay] Coding Level of Care Code 50301 Total time (in minutes) for Discharge: 50 Diagnoses Acute renal failure N17.9
[2024-07-13] MEDS: magnesium sulfate premix 2 GM/50 ML PIGGYBACK IV (14:01)
== END 2024-07-13 16:10 | disposition home health service (06) | DRG 871 ==
LOC: ER 21:56 → ER IP 23:38 → ICU 07-10 00:50
PROVIDERS: Family Medicine; Admitting Provider Internal Medicine; Emergency Provider Emergency Medicine; Visit Provider Internal Medicine
DX: A41.9 Sepsis, unspecified organism (principal); N17.0 Acute kidney failure with tubular necrosis; R57.1 Hypovolemic shock; R65.21 Severe sepsis with septic shock; J44.1 Chronic obstructive pulmonary disease with (acute) exacerbation; J96.11 Chronic respiratory failure with hypoxia; E87.1 Hypo-osmolality and hyponatremia; N39.0 Urinary tract infection, site not specified; F33.1 Major depressive disorder, recurrent, moderate; E86.0 Dehydration; Z11.52 Encounter for screening for COVID-19; Z99.81 Dependence on supplemental oxygen; Z68.33 Body mass index [BMI] 33.0-33.9, adult; G89.4 Chronic pain syndrome; I10 Essential (primary) hypertension; F17.200 Nicotine dependence, unspecified, uncomplicated; E11.9 Type 2 diabetes mellitus without complications; E66.01 Morbid (severe) obesity due to excess calories; I95.9 Hypotension, unspecified; R62.7 Adult failure to thrive; E86.9 Volume depletion, unspecified; E87.6 Hypokalemia; E83.42 Hypomagnesemia; R41.843 Psychomotor deficit; F41.9 Anxiety disorder, unspecified; Z79.4 Long term (current) use of insulin; Z79.899 Other long term (current) drug therapy; Z79.85 Long-term (current) use of injectable non-insulin antidiabetic drugs
CPT/HCPCS: 36415; 36416; 36600; 51702; 70450; 71045; 74176; 76770; 80048; 80051; 80053; 80307; 81001; 82330; 82533; 82550; 82805; 82962; 83605; 83735; 83880; 84100; 84145; 84484; 85025; 85610; 86140; 87040; 87086; 87637; 92526; 92610; 93005; 93308; 93970; 94640; 96365; 96367; 96372; 96375; 96376; 97116; 97161; 97165; 97530; 99285; J1644; J1815; J1953; J2020; J2185; J2405; J2543; J2919; J3475; J7030; J7040; J7613; J9999; P9045; P9046; Q3014

== ENCOUNTER → 2024-08-12 10:06 | Outpatient (BNVA) | payer MEDICAID, SELFPAY | PROVIDERS: PCP Registered Nurse; Visit Provider Registered Nurse | DX: E11.9 Type 2 diabetes mellitus without complications (principal) | CPT/HCPCS: 80053; 83036; 85025 ==

== ENCOUNTER → 2024-08-19 10:52 | Outpatient (BNVA) | payer MEDICAID, SELFPAY | PROVIDERS: PCP Registered Nurse; Visit Provider Registered Nurse | DX: E87.6 Hypokalemia (principal) | CPT/HCPCS: 80048 ==

== ENCOUNTER 2024-08-31 20:24 | Emergency (ER) | payer MEDICAID, SELFPAY ==
[2024-08-31 20:26] VITALS: BP 160/96; PULSE 86; RESP 28; TEMP 36.9; O2SAT 93; BMI 34.2
--- NOTE | 2024-08-31 20:45 | XRR_ITS ---
PROCEDURE INFORMATION: Exam: XR Chest Exam date and time: 08/31/2024 8:49 PM Age: 59 years old Clinical indication: Pain; Chest pressure; Additional info: Chest pain TECHNIQUE: Imaging protocol: Radiologic exam of the chest. Views: 1 view. COMPARISON: CR XR chest 1V portable [id number] 07/11/2024 8:39 AM FINDINGS: Limitations: Underpenetration. Lungs: Nonspecific interstitial prominence. Pleural spaces: No pleural effusion or pneumothorax. Heart/Mediastinum: Mild cardiomegaly. Vasculature: Atherosclerotic calcifications of the aorta are noted. Bones/joints: No acute osseous abnormalities are seen. Stable healed left posterior rib fractures. XR/XR chest 1V portable [id number] IMPRESSION: Nonspecific interstitial prominence. Differential includes artifact, chronic lung changes, pulmonary edema, though atypical infection.
--- NOTE | 2024-08-31 20:45 | ECG_ITS ---
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 Measurements Intervals [place] Rate: 84 P: 43 NE: 178 QRS: 71 QRSD: 79 T: 24 QT: 377 QTc: 447 Interpretive Statements SINUS RHYTHM Compared to ECG 07/10/2024 02:54:56 T-wave abnormality no longer present Electronically Signed On 09-06-2024 10:17:05 CDT by Jarret Chan M.D. [id number]
--- NOTE | 2024-08-31 21:12 | W.ED.SOB ---
HPI - SOB/Dyspnea General: Chief Complaint: Shortness of Breath/Dyspnea Stated Complaint: sob Time Seen by Provider: 08/31/24 20:26 History of Present Illness: HPI Narrative: Patient is a 59-year-old female from home where she lives with her mother seen for worsening shortness of breath and chronic pain. She states that she does not have adequate pain medicine at home for her chronically compressed, fractured spine. She mostly recently fell roughly 2 months ago causing nonoperable compression fractures. She also complains of left ankle pain from when she broke her ankle many years ago. She also states that she has required increasing amounts of oxygen at home. Initially she was supposed to only wear oxygen as needed but today she has felt short of breath even on 2 L which normally would have worked for her. At 1 point in time she was wearing up to 5 L nasal cannula at which time she decided come to the emergency department. She denies cough, chest pain, lightheadedness, fever, nausea, vomiting, diarrhea, constipation, dysuria, frequency. Related Data Home Medications ?Medication ?Instructions ?Recorded ?Confirmed atorvastatin 20 mg tablet (Lipitor) 20 mg PO QPM 06/06/24 08/19/24 duloxetine 60 mg capsule,delayed 60 mg PO BID 06/06/24 08/19/24 release (Cymbalta) insulin lispro 100 unit/mL See Rx Instructions .Route .COMPLEX 06/06/24 08/19/24 subcutaneous pen (Humalog KwikPen (U-100) Insulin) trazodone 50 mg tablet 25 mg PO DAILY 08/12/24 08/19/24 Previous Rx's ?Medication ?Instructions ?Recorded oxycodone-acetaminophen 5 mg-325 1 tab PO Q8H PRN pain #5 tabs 07/13/24 mg tablet zolpidem 10 mg tablet 5 mg (1/2 x 10 mg) PO BEDTIME #1 07/13/24 tab potassium chloride 20 mEq 20 meq PO DAILY #30 tabs 08/12/24 tablet,extended release(part/cryst) (Klor-Con M) pregabalin 75 mg capsule (Lyrica) 75 mg PO TID 30 days #90 caps 08/12/24 dapagliflozin propanediol 10 mg 10 mg PO DAILY 90 days #90 tabs 08/13/24 tablet (Farxiga) hydroxyzine HCl 25 mg tablet 25 mg PO BID PRN itching 30 days 08/19/24 #60 tabs insulin glargine 100 unit/mL (3 40 unit (0.4 mL) SUBCUT BID 30 08/19/24 mL) subcutaneous pen (Lan days #24 mL Solostar U-100 Insulin) methocarbamol 750 mg tablet 750 mg PO BID 10 days #20 tabs 08/19/24 Incontinence Briefs XL #120 ea 08/22/24 furosemide 20 mg tablet (Lasix) 20 mg PO DAILY #30 tabs 09/01/24 potassium chloride 20 mEq 20 meq PO DAILY #30 tabs 09/01/24 tablet,extended release (K-Tab) Allergies Allergy/AdvReac Type Severity Reaction Status Date / Time ibuprofen Allergy Unknown Verified 08/31/24 20:34 [facility] ED PFSH: Medical History (Updated 09/01/24 @ 00:42 by Kevin Martin MD) Sepsis Chronic pain Hypertension Diabetes mellitus Tobacco use disorder Surgical History History of ankle surgery Family History Grandfather Bone cancer Social History Smoking and tobacco/nicotine status: current every day tobacco/nicotine user Alcohol intake: never Substance/Drug Use: unknown Physical Exam Const: OTHER: Mild distress due to chronic pain and relative shortness of breath. HENMT: COMMON NORMALS: normocephalic and atraumatic HEAD & SCALP: normocephalic and atraumatic Eye: COMMON NORMALS: Equal, round and reactive pupils present, EOMs intact bilaterally and no scleral icterus PUPIL: Yes Equal, round and reactive pupils present Chest: OTHER: No chest pain. Resp: OTHER: Mild crackles at both lung bases. Mild wheezes in all lung stein. Mild tachypnea, some increased work of breathing with mild intercostal retractions. 94% on 2 L nasal cannula. Cardio: COMMON NORMALS: regular rate, regular rhythm and No murmurs present (Cardio) RATE: regular rate RHYTHM: regular rhythm GI: OTHER: Abdomen is protuberant, nontender, normal bowel sounds. Back/Pelvis: OTHER: No obvious step-off or deformity of the spine. Patient states she has pain with palpation of every spinal segment from cervical to lumbar. Increased pain with any motion of the spine. Extremity: NARRATIVE EXTREMITY EXAM: 1+ pitting edema of the lower extremities. Several excoriations which appear factitious but not necessarily infected. Neuro: OTHER: Alert and oriented to person place and time. No lateralizing deficits of strength or sensation. Psych: OTHER: Anxious, tearful, Course Vital Signs: Vital signs: Vital Signs Temperature 98.4 F 08/31/24 20:26 Pulse Rate 75 09/01/24 01:47 Respiratory Rate 28 H 08/31/24 20:26 Blood Pressure 123/69 09/01/24 01:47 Pulse Oximetry 94 09/01/24 01:47 Oxygen Delivery Me thod Nasal Cannula 08/31/24 22:42 Oxygen Flow Rate 2 08/31/24 22:42 MDM - SOB/Dyspnea Medical Decision Making Patient remained hemodynamically stable throughout ED course. She appears to have some fluid overload and mild increased work of breathing as a result. BNP is somewhat elevated. After receiving IV Lasix she is feeling significantly better. Oxygen saturation 94% on 2 L nasal cannula which she has at home. She has not been taking oral Lasix because of her recent BIRGIT she suffered. She will be given a prescription for Lasix as well as potassium with instructions to follow-up very close with primary care to make sure her kidney function remained stable. She shows good understanding and agrees with plan. She was evaluated by the hospitalist service who agrees with this plan Lab Data 08/31/24 21:11 08/31/24 21:11 Labs/Radiology: Radiology Impressions Chest X-Ray 08/31/24 20:45 IMPRESSION: Nonspecific interstitial prominence. Differential includes artifact, chronic lung changes, pulmonary edema, though atypical infection. Laboratory Results WBC 11.56 10^3/uL (3.29-11.43) H 08/31/24 21:11 RBC 3.98 10^6/uL (3.85-5.65) 08/31/24 21:11 Hgb 11.40 g/dL (11.27-16.99) 08/31/24 21:11 Hct 37.6 % (36-47) 08/31/24 21:11 MCV 94.5 fl (85-98) 08/31/24 21:11 MCH 28.6 pg (27-33) 08/31/24 21:11 MCHC 30.3 g/dL (30-55) 08/31/24 21:11 RDW 18.0 % (12.1-15.1) H 08/31/24 21:11 Plt Count 324 10^3/cmm (157-399) 08/31/24 21:11 MPV 9.3 fL (7.4-10.4) 08/31/24 21:11 Neut % (Auto) 79.6 % 08/31/24 21:11 Lymph % (Auto) 13.6 % 08/31/24 21:11 Boyd % (Auto) 4.8 % 08/31/24 21:11 Eos % (Auto) 0.7 % 08/31/24 21:11 Baso % (Auto) 0.3 % 08/31/24 21:11 Neut # (Auto) 9.21 10^3/uL (1.8-7.7) H 08/31/24 21:11 Lymph # (Auto) 1.6 10^3/uL (0.8-4.8) 08/31/24 21:11 Boyd # (Auto) 0.6 10^3/uL (0.2-0.9) 08/31/24 21:11 Eos # (Auto) 0.1 10^3/uL (0.0-0.8) 08/31/24 21:11 Baso # (Auto) 0.0 10^3/uL (0.0-0.1) 08/31/24 21:11 Nucleated RBC % (auto) 0 % 08/31/24 21:11 Nucleated RBCs # 0.0 /100WBC 08/31/24 21:11 Sodium 143 mmol/L (136-145) 08/31/24 21:11 Potassium 3.5 mmol/L (3.5-5.1) 08/31/24 21:11 Chloride 104 mmol/L (98-107) 08/31/24 21:11 Carbon Dioxide 31 mmol/L (22-29) H 08/31/24 21:11 Anion Gap 11.5 (5-19) 08/31/24 21:11 BUN 6 mg/dL (8-23) L 08/31/24 21:11 Creatinine 1.1 mg/dL (0.5-0.9) H 08/31/24 21:11 GFR Calculation 50.5 mL/min (90-130) L 08/31/24 21:11 Glucose 65 mg/dL (65-115) 08/31/24 21:11 Calculated Osmolality 292 mOsm/kg (285-295) 08/31/24 21:11 Calcium 8.7 mg/dL (8.5-10.5) 08/31/24 21:11 Total Bilirubin 0.3 mg/dL (0.15-1.2) 08/31/24 21:11 AST 10 U/L (0-32) 08/31/24 21:11 ALT < 5 U/L (0-33) 08/31/24 21:11 Alkaline Phosphatase 160 U/L (35-105) H 08/31/24 21:11 Troponin T Baseline 96 ng/L (0-10) H 08/31/24 21:11 Troponin T 120 Minute 90.42 ng/L (0-10) H 08/31/24 23:24 Delta Troponin T -5.58 ABS# (0-10) L 08/31/24 23:24 NT-Pro-B Natriuret Pep 2446 pg/mL (0-125) H 08/31/24 21:11 Total Protein 6.4 g/dL (6.6-8.7) L 08/31/24 21:11 Albumin 3.2 g/dL (3.5-5.2) L 08/31/24 21:11 Globulin 3.2 g/dL (1.3-4.6) 08/31/24 21:11 Urine Color Yellow (Yellow) 08/31/24 20:44 Urine Appearance Clear (CLEAR) 08/31/24 20:44 Urine pH 6.5 (5-7) 08/31/24 20:44 Ur Specific Leon 1.006 (1.005-1.030) 08/31/24 20:44 Urine Protein Negative (Negative) 08/31/24 20:44 Urine Glucose (UA) 2+ (Normal) H 08/31/24 20:44 Urine Ketones Negative (Negative) 08/31/24 20:44 Urine Blood 1+ (Negative) A 08/31/24 20:44 Urine Nitrate Negative (Negative) 08/31/24 20:44 Urine Bilirubin Negative (Negative) 08/31/24 20:44 Urine Urobilinogen 0.2 mg/dL (Negative) 08/31/24 20:44 Ur Leukocyte Esterase Trace (Negative) A 08/31/24 20:44 Urine RBC 3-5 /hpf (0-2) 08/31/24 20:44 Urine WBC 11-20 /hpf (0-5) H 08/31/24 20:44 Ur Squamous Epith Cells 0-5 /hpf (0-5) 08/31/24 20:44 Amorphous Sediment Not Reportable 08/31/24 20:44 Urine Bacteria 1+ /hpf (NONE) H 08/31/24 20:44 Hyaline Casts 0-4 /lpf H 08/31/24 20:44 All radiology interpretation(s) finalized by discharge EKG Data EKG 1: Interpretation: Time?2030?normal sinus rhythm, rate of 84, no ST segment elevation or depression, no T wave inversions, intervals within normal limits. QTc = 418 Discharge Plan Discharge Patient Disposition: Home Clinical Impression: Acute exacerbation of CHF (congestive heart failure) Condition: Stable Prescriptions: New furosemide [Lasix] 20 mg tablet 20 mg PO DAILY Qty: 30 0RF potassium chloride [K-Tab] 20 mEq tablet extended release 20 meq PO DAILY Qty: 30 0RF No Action trazodone 50 mg tablet 25 mg PO DAILY Rx Instructions: UNSURE ON DOSE GETS AT [facility] pregabalin [Lyrica] 75 mg capsule 75 mg PO TID 30 Days Qty: 90 2RF potassium chloride [Klor-Con M20] 20 mEq tablet,ER particles/crystals 20 meq PO DAILY Qty: 30 0RF hydroxyzine HCl 25 mg tablet 25 mg PO BID PRN (Reason: itching) 30 Days Qty: 60 0RF insulin glargine [Lantus Solostar U-100 Insulin] 100 unit/mL (3 mL) insulin pen 40 unit SUBCUT BID 30 Days Qty: 24 0RF Rx Instructions: script change to 40u BID on 08/19. no refill needed methocarbamol 750 mg tablet 750 mg PO BID 10 Days Qty: 20 0RF (DME) Incontinence Briefs XL See Rx Instructions .Route .MEDSUPPLY Qty: 120 0RF Rx Instructions: 4 per day dapagliflozin propanediol [Farxiga] 10 mg tablet 10 mg PO DAILY 90 Days Qty: 90 0RF atorvastatin [Lipitor] 20 mg Tablet 20 mg PO QPM insulin lispro [Humalog KwikPen Insulin] 100 unit/mL Insulin Pen See Rx Instructions .ROUTE .COMPLEX Rx Instructions: Inject 5 units with meals along with sliding scale . 150-200=2units 201-250=4units 251-300-=6units 301-350=8units over 350=10 units max 15 duloxetine [Cymbalta] 60 mg Capsule,Delayed Release(Dr/Ec) 60 mg PO BID oxycodone-acetaminophen 5-325 mg tablet 1 tab PO Q8H PRN (Reason: pain) Qty: 5 0RF zolpidem 10 mg tablet 5 mg PO BEDTIME Qty: 1 0RF Rx Instructions: Dose change only. Discharge Orders: Discharge ED (Routine); Ordered 09/01/24 Ordered By: Kevin Martin Referrals: Wai Byrne FNP [Primary Care Provider] - Discharge Diet: Low Salt Discharge Activity: Increase activity as tolerated Patient Instructions: Heart Failure (ED) Activity Restrictions/Additional Instructions: Today your shortness of breath and some of your pain are caused by fluid overload. We gave you IV Lasix which helped you pee out some of this fluid. Please take the prescribed Lasix and potassium every day and follow-up closely with your primary care doctor to make sure that you are remaining appropriately fluid balanced and not harming your kidneys. Please follow-up within 1 week with your primary care doctor. Print Language: Liberian Coding Level of Care Code ED Field Hauler for Negra Flaherty
[2024-08-31 21:22] LABS: Basophils % 0.3 %; Eosinophils # 0.1 10^3/uL (0.0-0.8); Eosinophils % 0.7 %; Hematocrit 37.6 % (36-47); Lymphocytes # 1.6 10^3/uL (0.8-4.8); Lymphocytes % 13.6 %; Mean Corpuscular HGB Conc 30.3 g/dL (30-55); Mean Corpuscular Hemoglobin 28.6 pg (27-33); Mean Corpuscular Volume 94.5 fl (85-98); Mean Platelet Volume 9.3 fL (7.4-10.4); Monocytes # 0.6 10^3/uL (0.2-0.9); Monocytes % 4.8 %; Neutrophils # 9.21 10^3/uL (1.8-7.7); Neutrophils % 79.6 %; Nucleated Red Blood Cells % 0 %; Platelet Count 324 10^3/cmm (157-399); Red Blood Count 3.98 10^6/uL (3.85-5.65); White Blood Count 11.56 10^3/uL (3.29-11.43)
[2024-08-31 21:33] VITALS: BP 160/96; PULSE 83; O2SAT 91
[2024-08-31 21:42] LABS: Bilirubin Urine Negative (Negative); Blood Urine 1+ (Negative); Glucose Urine UA 2+ (Normal); Ketones Urine Negative (Negative); Leukocyte Esterase Urine Trace (Negative); Nitrate Urine Negative (Negative); Protein Urine Negative (Negative); Specific Gravity, Urine 1.006 (1.005-1.030); Urine Appearance Clear (CLEAR); Urine Color Yellow (Yellow); Urobilinogen Urine 0.2 mg/dL (Negative); pH Urine 6.5 (5-7)
[2024-08-31 21:47] LABS: Bacteria Urine 1+ /hpf; Hyaline Casts Urine 0-4 /lpf; Squamous Epithelial Cell Urine 0-5 /hpf (0-5)
[2024-08-31 21:47] LABS: Troponin(5th) Baseline 96 ng/L (0-10)
[2024-08-31 21:50] LABS: Alanine Aminotransferase < 5 U/L (0-33); Albumin Level 3.2 g/dL (3.5-5.2); Alkaline Phosphatase 160 U/L (35-105); Anion Gap 11.5 (5-19); Aspartate Amino Transferase 10 U/L (0-32); Blood Urea Nitrogen 6 mg/dL (8-23); Calcium 8.7 mg/dL (8.5-10.5); Carbon Dioxide 31 mmol/L (22-29); Chloride 104 mmol/L (98-107); Creatinine Clr Calc Pharmacy 67.1188; Globulin 3.2 g/dL (1.3-4.6); Glomerular Filtration Rate 50.5 mL/min (90-130); Glucose 65 mg/dL (65-115); NT Pro B Type Natriuretic Pept 2446 pg/mL (0-125); Osmolality Calculated 292 mOsm/kg (285-295); Potassium 3.5 mmol/L (3.5-5.1); Sodium 143 mmol/L (136-145); Total Bilirubin 0.3 mg/dL (0.15-1.2); Total Protein 6.4 g/dL (6.6-8.7)
[2024-08-31] MEDS: morphine 4 mg/mL SDV 1 mL 2 MG IVP (21:50)
[2024-08-31 21:52] LABS: Add Urine Culture? Yes
[2024-08-31 22:42] VITALS: BP 154/92; PULSE 86; O2SAT 95
[2024-08-31] MEDS: FUROsemide 10 mg/mL SDV 4mL 40 MG IVP (22:42)
[2024-08-31 23:52] LABS: Troponin 5 2HR 90.42 ng/L (0-10)
[2024-08-31 23:56] LABS: Troponin 5 2HR Delta -5.58 ABS# (0-10)
[2024-09-01] MEDS: morphine 4 mg/mL SDV 1 mL 2 MG IVP (01:11)
[2024-09-01 01:47] VITALS: BP 123/69; PULSE 75; O2SAT 94
== END 2024-09-01 01:48 | disposition home or self-care (01) ==
PROVIDERS: Emergency Provider Student in an Organized Health Care Education/Training Program; PCP Registered Nurse
DX: I11.0 Hypertensive heart disease with heart failure (principal); I50.9 Heart failure, unspecified; E11.9 Type 2 diabetes mellitus without complications; Z72.0 Tobacco use; Z79.4 Long term (current) use of insulin
CPT/HCPCS: 36415; 71045; 80053; 81001; 83880; 84484; 85025; 87086; 93005; 96374; 96375; 96376; 99285; J1940; J2270

== ENCOUNTER 2024-09-05 21:59 | Inpatient (IN) | payer MEDICAID, SELFPAY ==
--- OUTSIDE RECORDS SUMMARY | 2024-09-02 11:20 | XMS_ITS | Encounter Summary ---
Author Organization [facility] Address [address] [place] [address] Care Team Providers Care Gymnasium Teacher Name Role Phone Kevin Grimes MD Primary Care Provider [phone] Reason for Referral * Radiology Services (Routine) - Open Specialty Diagnoses / Procedures Referred By Contac t Referred To Contact Radiology Diagnoses Claudication Procedures US ANKLE PRESSURE INDEX Kevin Grimes MD [address] [address] Phone: tel: fax: [facility] [address] [address] Phone: tel: fax: Referral ID Status Reason Start Date Expiration Date Visits Re quested Visits Authorized [id number] Open 09/02/2024 10/03/2025 1 1 Reason for Visit * Reason Comments Establish Care ER Follow Up 08-31-24; SOB and fal l; [facility] ER; uses oxygen at home Encounter Details Date Type Department Care Team (Late st Contact Info) Description 09/02/2024 11:20 AM CDT Office Visit [facility] [address] [phone] Kevin Grimes MD [address] [address] Severe obesity (BMI 35.0-39.9) with comorbidity (CMS/HCC) (Primary Dx); Type 2 diabetes mellitus with hyperglycemia, with long-term current use of insulin (CMS/HCC); Hemiparesis of left nondominant side as late effect of cerebral infarction (CMS/HCC); 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 2 diabetes mellitus (CMS/HCC); Moderate episode of recurrent major depressive disorder (CMS/HCC); Chronic respiratory failure with hypoxia (CMS/HCC); Simple chronic bronchitis (CMS/HCC); Tobacco dependence; Gastroesophageal reflux disease without esophagitis; Closed fracture of shaft of left fibula, sequela; History of CVA with residual deficit; Uses walker; Claudication Social History Tobacco Use Types Packs/Day Years Used Date Smoking Tobacco: Every Day Cigarettes Smokeless Tobacco: Never Tobacco Cessation:Ready to Q uit: Not Asked; Counseling Given: Not Answered Alcohol Use Standard Drinks/Week Comments Not Currently 0 (1 standard drink = 0.6 oz pur e alcohol) Comments Unknown Sex and Gender Information Value Date Recorded Sex Assigned at Not on file 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 Gender Identity Not on file Sexual Orientation Not on file documented as of this encounter Last Filed Vital Signs Vital Sign Reading Time Taken Comments Blood Pressure 128/76 09/02/2024 11:54 AM CDT Pulse 79 09/02/2024 11:54 AM CDT Temperature 36.6 C (97.9 F) 09/02/2024 11:54 AM CDT Respiratory Rate 20 09/02/2024 11:54 AM CDT Oxygen Saturation 93% 09/02/2024 11:54 AM CDT Inhaled Oxygen Concentration - - Weight 108 kg (238 lb) 09/02/2024 11:54 AM CDT Height 172.7 cm (5' 8 ) 09/02/2024 11:54 AM CDT Body Mass Index 36.19 09/02/2024 11:54 AM CDT documented in this encounter Progress Notes * Kevin Grimes MD - 09/02/2024 11:44 AM CDT [facility] [place] 09/02/2024 Subjective: Wanda Lamb is a 59 y.o. female who comes today for evaluation of Establish Care and ER Follow Up(08-31-24; SOB and fall; [facility] ER; uses oxygen at home/) . History of Present Illness The patient presents for evaluation of diabetes, stroke, left fibula fracture, depression, heartburn, bronchitis, and medication management. She was diagnosed with diabetes in 2014, which was attributed to steroid injections for back pain. The injections were ineffective, leading to the initiation of oral medication that caused her blood sugar levels to spike to over 600, resulting in a coma. Nerve pain is experienced throughout her body due to diabetes, for which Lyrica is taken. Current diabetes management includes Farxiga and Lantus 40 units twice daily using a pen. Humalog is administered at 5 units before meals plus sliding scale depending on blood sugar levels, with a maximum daily dose of 24 units. Ozempic was discontinued due to gastrointestinal side effects. Approximately 5 years ago, a minor stroke occurred, which did not result in unilateral weakness butleft her unable to walk. Inpatient rehabilitation for 2 weeks in [place] facilitated the transitionfrom a wheelchair to a walker. Post- discharge, exercises were continued at home. During this period, a fall resulted in a fracture to the left fibula in two places, necessitating surgical intervention with an extra-long plate and 13 screws. Severe pain in the ankle and leg persists due to the fractures, which is not significantly alleviated by Lyrica or muscle relaxants. Oxycodone 10 mg every 4 to 6 hours was previously taken about 1.5 years ago, providing relief, but has notbeen taken for the past year. Anti-inflammatories are not taken. Recent imaging of the ankle did not reveal abnormalities, but severe pain and swelling continue, making it difficult to wear socks andshoes. A burning sensation in the leg is reported. Leg circulation evaluation is not believed to have been conducted. Mobility is assisted by a walker, and using a cane is being considered as suggested by her mother. Psychiatric care is provided for depression, with medication prescribed. Trazodone is taken for sleep and Ambien, both prescribed by the psychiatrist. Heartburn is managed with omeprazole. Smoking is reported, and an inhaler is occasionally used. Oxygen at home has been used for about a year following a bout of pneumonia. A diagnosis of bronchitis was made a long time ago, and a daily cough is present. Recently, the emergency department was visited for shortness of breath, where a diuretic was given and congestive heart failure was suspected. A diagnosis of congestive heart failurehas never been made, nor has a appliance installer been seen. An echocardiogram was conducted at some point in the past Atorvastatin is taken for cholesterol management. Methocarbamol 750 mg twice daily is taken as a muscle relaxant. Lyrica 75 mg three times daily is taken. Lisinopril 40 mg is taken for blood pressuremanagement. Chlorthalidone is taken for blood pressure management. PAST SURGICAL HISTORY: Surgical intervention for left fibula fracture with an extra-long plate and 13 screws. Surgery to reattach the bicep using a plastic screw. SOCIAL HISTORY The patient smokes. Review of Systems Constitutional: Negative for fever. Respiratory: Positive for shortness of breath. Cardiovascular: Negative for chest pain. Gastrointestinal: Negative for abdominal pain. Musculoskeletal: Positive for joint pain. Skin: Negative for rash. Neurological: Negative for weakness. Objective: Vitals: 09/02/24 1154 Temp: 97.9 ??F (36.6 ??C) Pulse: 79 BP: 128/76 Resp: 20 SpO2: 93% Physical Exam Vitals and nursing note reviewed. Constitutional: General: She is not in acute distress. Appearance: Normal appearance. She is obese. She is not ill-appearing. HENT: Head: Normocephalic and atraumatic. Eyes: Conjunctiva/sclera: Conjunctivae normal. Cardiovascular: Rate and Rhythm: Normal rate and regular rhythm. Heart sounds: Normal heart sounds. Pulmonary: Effort: Pulmonary effort is normal. Breath sounds: Normal breath sounds. Abdominal: Palpations: Abdomen is soft. Musculoskeletal: Cervical back: Neck supple. Comments: Ambulates with walker Skin: Findings: No rash. Neurological: Mental Status: She is alert and oriented to person, place, and time. Mental status is at baseline. Psychiatric: Mood and Affect: Mood normal. Behavior: Behavior normal. Past medical history, surgical history and social history reviewed. Past Medical History: Diagnosis Date Compression fracture of cervical spine ([facility]) Type 2 diabetes mellitus ([facility]) Procedures Assessment/Plan: ICD-10-CM ICD-9-CM 1. Severe obesity (BMI 35.0-39.9) with comorbidity ([facility]) E66.01 278.01 2. Type 2 diabetes mellitus with hyperglycemia, with long-term current use of insulin ([facility]) E11.65 250.00 Z79.4 790.29 V58.67 3. Hemiparesis of left nondominant side as late effect of cerebral infarction ([facility]) I69.354 438.22 4. 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 Moderate episode of recurrent major depressive disorder ([facility]) F33.1 296.32 6. Chronic respiratory failure with hypoxia ([facility]) J96.11 518.83 799.02 7. Simple chronic bronchitis ([facility]) J41.0 491.0 8. Tobacco dependence F17.200 305.1 9. Gastroesophageal reflux disease without esophagitis K21.9 530.81 10. Closed fracture of shaft of left fibula, sequela S82.402S 905.4 diclofenac sodium EC (VOLTAREN)25 mg Tablet, Delayed Release (E.C.) 11. History of CVA with residual deficit I69.30 438.9 12. Uses walker Z99.89 V46.8 13. Claudication I73.9 443.9 US ANKLE PRESSURE INDEX Assessment & Plan 1. Diabetes Mellitus. - Currently on Farxiga and Lantus 40 units twice a day, Humalog 5 units before meals plus sliding scale, maximum daily dose of 24 units. - Lab work will be done during the next visit to check blood sugar levels. - Advised to continue current medication regimen. 2. Stroke. - Experienced a stroke approximately 5 years ago, resulting in left-sided weakness and difficulty walking. - Inpatient rehab for 2 weeks, now uses a walker. - Advised to continue using the walker and consider using a cane in the left hand for additional support. - Monitoring for any changes in mobility or strength. 3. Left Fibula Fracture. - Fractured left fibula in two places, surgery involved an extra-long plate and 13 screws. - Reports significant pain in ankle and leg, pain described as unbearable with burning sensation. - Non-narcotic medication for pain and inflammation will be prescribed for a few weeks. - Increasing the dosage of Lyrica may be considered in the future - Concern for number of sedating medications when considering how best to manage patient's pain. 4. Depression. - Currently seeing a psychiatrist and on medication for depression. - Medications include trazodone and Ambien for sleep. - Advised to continue current treatment plan and follow up with psychiatrist as needed. - Monitoring for any changes in mood or symptoms. 5. Heartburn. - Taking omeprazole for heartburn. - Advised to continue this medication as prescribed. - Monitoring for any changes in symptoms. 6. Bronchitis. - History of bronchitis, uses oxygen at home as needed. - Uses Ventolin inhaler as needed. - Advised to continue using the inhaler and monitor symptoms. - Monitoring for any respiratory issues or exacerbations. 7. Medication Management. - On multiple medications including atorvastatin, methocarbamol 750 mg twice a day, Lyrica 75 mg three times a day, trazodone, Ambien, lisinopril, and chlorthalidone. - Advised to bring all medications to the next appointment for review. - Refills will be provided as needed. - Monitoring for any adverse effects or interactions. Follow-up - Follow-up appointment scheduled for 10/2024. - Review of records and medications will be conducted at the next visit. - Potential lab work to check blood sugar and other relevant parameters. Kevin Grimes MD The author of this note, patient (or authorized software sales representative), and all other persons present consent to the audio recording of this visit for charting documentation purposes. This note was automatically generated by a [employer] technology ([employer]), reviewed, edited, and finalized by Kevin Grimes MD. Depression Screen Positive: PHQ-2 score >= 3 or PHQ-9 score >= 9 PHQ-2 Total: 4 (09/02/2024 11:00 AM) PHQ-9 Total: 8 (09/02/2024 11:00 AM) DEPRESSION PLAN OF CARE Her depression screen was positive. She is currently managed by Behavioral [facility] documented in this encounter Plan of Treatment Upcoming Encounters Date Type Department Care Team (Late st Contact Info) Description 10/07/2024 11:00 AM CDT Office Visit [facility] [address] [address] Kevin Grimes MD [address] [address] Scheduled Orders Name Type Priority Associated Diagnoses Orde r Schedule US ANKLE PRESSURE INDEX Imaging Routine Claudication Expected: 09/09/2024 (Approximate), Expires: 11/02/2024 documented as of this encounter Visit Diagnoses Diagnosis Severe obesity (BMI 35.0-39.9) with comorbidity ([facility])- Primary Type 2 diabetes mellitus with hyperglycemia, with long-term current use of insulin ([facility]) Hemiparesis of left nondominant side as late effect of cerebral infarction ([facility]) 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 2 diabetes mellitus ([facility]) Moderate episode of recurrent major depressive disorder ([facility]) Chronic respiratory failure with hypoxia ([facility]) Chronic respiratory failure Simple chronic bronchitis ([facility]) Simple chronic bronchitis Tobacco dependence Tobacco use disorder Gastroesophageal reflux disease without esophagitis Esophageal reflux Closed fracture of shaft of left fibula, sequela History of CVA with residual deficit Uses walker Claudication Peripheral vascular disease, unspecified documented in this encounter Additional Health Concerns Assessment Noted Time PHQ-9 Depression Total Score: 4 09/03/19 25 11:00 AM CDT documented as of this encounter Care Teams Gymnasium Teacher Relationship Specialty Start Date End Date Kevin Grimes MD [address] [phone] PCP - General Family Practice 09/02/24 documented as of this encounter
[2024-09-05] VITALS (24 sets, daily range): BP systolic 138–194; BP diastolic 66–114; PULSE 67–106; RESP 18–23; TEMP 36.1; O2SAT 84–99; BMI 36.5
--- NOTE | 2024-09-05 22:08 | XRR_ITS ---
PROCEDURE INFORMATION: Exam: XR Chest Exam date and time: 09/05/2024 10:42 PM Age: 59 years old Clinical indication: Shortness of breath; Additional info: SOB TECHNIQUE: Imaging protocol: Radiologic exam of the chest. Views: 1 view. COMPARISON: 1. CR (CHEST, ) 08/31/2024 8:49 PM 2. CR XR chest 1V portable [id number] 07/11/2024 8:39 AM FINDINGS: Lungs: Stable mild bibasilar interstitial opacities suggesting edema. No consolidation. Pleural spaces: Unremarkable. No pleural effusion. No pneumothorax. Heart/Mediastinum: Mild cardiomegaly. Bones/joints: Old left posterolateral rib fractures, unchanged. XR/XR chest 1V portable [id number] IMPRESSION: 1. Mild cardiomegaly. 2. Stable mild bibasilar interstitial opacities suggesting edema.
--- NOTE | 2024-09-05 22:20 | ECG_ITS ---
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 Measurements Intervals [place] Rate: 85 P: 0 WV: 0 QRS: 105 QRSD: 98 T: 110 QT: 361 QTc: 430 Interpretive Statements SINUS RHYTHM WITH SIGNIFICANT BASELINE ARTIFACT RIGHT AXIS DEVIATION [QRS AXIS > 100] Compared to ECG 08/31/2024 20:30:22 Right-axis deviation now present Electronically Signed On 09-06-2024 09:16:13 CDT by Jarret Chan M.D. [email or web address]
[2024-09-05] MEDS: LORazepam 1 MG/0.5 ML injection IVP (22:25)
[2024-09-05] MEDS: dextrose 10% 250 ML 1000 ML IV (22:25)
[2024-09-05 22:31] LABS: ABG PH Result 7.25 (7.35-7.45); Arterial Blood Gas Hematocrit 36.4 % (37-47); Base Excess ABG 4.4 mmol/L (-2.0-2.0); Blood Gas Allen Test Pos; Blood Gas Operator Identificat gerca; Blood Gas Sample Site Radial, left; Blood Gas Sample Type Arterial; Carboxyhemoglobin 2.6 %THgb (0.4-20.1); HCO3 ABG 33.9 mmol/L (22-26); HGB O2 Sat 84.7 % (95-100); Methemoglobin 1.3 % (0.4-1.5); Oxygen Device BIPAP; PO2 ABG 63.8 mmHg (80.0-100.0); PO2 FiO2 Ratio Arterial Blood 127; Total Hemoglobin 11.9 g/dL (12-16)
[2024-09-05 22:32] LABS: ABG PCO2 78.1 mmHg (35-45)
[2024-09-05 22:46] LABS: Basophils % 0.3 %; Eosinophils # 0.1 10^3/uL (0.0-0.8); Eosinophils % 0.4 %; Hematocrit 37.7 % (36-47); Lymphocytes % 8.3 %; Mean Corpuscular HGB Conc 29.7 g/dL (30-55); Mean Corpuscular Hemoglobin 28.9 pg (27-33); Mean Corpuscular Volume 97.2 fl (85-98); Mean Platelet Volume 9.6 fL (7.4-10.4); Monocytes # 0.5 10^3/uL (0.2-0.9); Monocytes % 4.4 %; Neutrophils % 84.2 %; Nucleated Red Blood Cells # 0.1 /100WBC; Nucleated Red Blood Cells % 0.4 %; Platelet Count 301 10^3/cmm (157-399); Red Blood Count 3.88 10^6/uL (3.85-5.65); Red Cell Distribution Width 18.6 % (12.1-15.1); White Blood Count 11.87 10^3/uL (3.29-11.43)
[2024-09-05 22:46] LABS: Glucose Point of Care 146 mg/dL (70-110)
[2024-09-05] MEDS: ipratropium-albuterol 3 mL Neb INHALATION (22:53)
[2024-09-05 22:55] LABS: Influenza A NEGATIVE (Negative); Influenza B NEGATIVE (Negative); Respiratory Syncytial Virus Ce NEGATIVE (Negative); SARS-CoV-2 PCR NEGATIVE (Negative)
[2024-09-05 23:03] LABS: Troponin(5th) Baseline 59 ng/L (0-10)
[2024-09-05 23:04] LABS: Lactic Sepsis W/Reflex 0.7 mmol/L (0.5-2.2)
--- NOTE | 2024-09-05 23:14 | ED_ITS ---
HPI - SOB/Dyspnea 2 General: Chief Complaint: Shortness of Breath/Dyspnea Stated Complaint: sob Time Seen by Provider: 09/05/24 22:07 History of Present Illness: HPI Narrative: 59-year-old female who wears 6 L at base line at home. She called an ambulance for shortness of breath. On EMS arrival they found her O2 sat in the 30s. She has been on BiPAP on the way here. They also found her glucose was low. She got D10 en route as well has Solu-Medrol, and breathing treatments. She still struggling to breathe. She denies fever. She says her chest hurts to some degree. She has been coughing. No significant sputum production. She does take insulin. It appears she was admitted 2 months ago for acute renal failure. Related Data Home Medications ?Medication ?Instructions ?Recorded ?Confirmed atorvastatin 20 mg tablet (Lipitor) 20 mg PO QPM 06/0608/19/24 duloxetine 60 mg capsule,delayed 60 mg PO BID 06/06/24 08/19/24 release (Cymbalta) insulin lispro 100 unit/mL See Rx Instructions .Route .COMPLEX 06/06/24 08/19/24 subcutaneous pen (Humalog KwikPen (U-100) Insulin) trazodone 50 mg tablet 25 mg PO DAILY 08/12/2408/03 Previous Rx's ?Medication ?Instructions ?Recorded oxycodone-acetaminophen 5 mg-325 1 tab PO Q8H PRN pain #5 tabs 07/13/24 mg tablet zolpidem 10 mg tablet 5 mg (1/2 x 10 mg) PO BEDTIM E #1 07/13/24 tab potassium chloride 20 mEq 20 meq PO DAILY #30 tabs 02/26 tablet,extended release(part/cryst) (Klor-Con M) pregabalin 75 mg capsule (Lyrica) 75 mg PO TID 30 days #90 caps 08/12/24 dapagliflozin propanediol 10 mg 10 mg PO DAILY 90 days #90 tabs 08/13/24 tablet (Farxiga) hydroxyzine HCl 25 mg tablet 25 mg PO BID PRN itching 30 days 08/19/24 #60 tabs insulin glargine 100 unit/mL (3 40 unit (0.4 mL) SUBCU T BID 30 08/19/24 mL) subcutaneous pen (Lantus days #24 mL Solostar U-100 Insulin) methocarbamol 750 mg tablet 750 mg PO BID 10 days #20 tabs 08/19/24 Incontinence Briefs XL #120 ea 08/22/24 furosemide 20 mg tablet (Lasix) 20 mg PO DAILY #30 tab s 09/01/24 potassium chloride 20 mEq 20 meq PO DAILY #30 tabs tablet,extended release (K-Tab) Allergies Allergy/AdvReac Type Severity Reaction Status Date / Time ibuprofen Allergy Unknown Verified 08/31/24 20:34 PFSH ED 2 PFSH: Medical History Sepsis Chronic pain Hypertension Diabetes mellitus Tobacco use disorder Surgical History History of ankle surgery Family History Grandfather Bone cancer Social History Smoking and tobacco/nicotine status: current every day tobacco/nicotine user Alcohol intake: never Substance/Drug Use: unknown Physical Exam 2 Const: GENERAL APPEARANCE: cooperative, in distress and ill appearing; not frail appearing HENMT: COMMON NORMALS: normocephalic, atraumatic and Normal external nose present HEAD & SCALP: normocephalic and atraumatic FACE & SINUS: normal facial exam and face symmetric NOSE: Normal external nose present Eye: COMMON NORMALS: Equal, round and reactive pupils present and EOMs intact bilaterally PUPIL: Yes Equal, round and reactive pupils present Neck/C-Spine: GENERAL: Yes trachea midline Chest: CHEST: Yes Symmetrical chest wall rise Resp: EFFORT & INSPECTION: Yes symmetric chest movement, Yes labored and Yes uses accessory muscles AUSCULTATION: diminished lung sounds Cardio: COMMON NORMALS: regular rate and regular rhythm RATE: regular rate RHYTHM: regular rhythm GI: COMMON NORMALS: Normal to inspection, nondistended, normoactive bowel sounds present Extremity: GENERAL: Yes edema Neuro: MICHI COMA SCALE: document GCS findings [place] coma scale eye opening: Spontaneous [place] coma scale verbal response: Orientated [place] coma scale motor response: Obey commands [place] coma scale total score: 15 S ENSORY EXAM: Yes extremities (intact) Psych: COMMON NORMALS: speech normal SPEECH: Yes normal speech Skin: COMMON NORMALS: no rashes or lesions noted GENERAL SKIN EXAM: no rashes or lesions noted Course 2 Vital Signs: Vital signs: Vital Signs Temperature 96.9 F L 09/05/24 22:00 Pulse Rate 82 09/06/24 00:42 Respiratory Rate 19 H 09/06/24 00:42 Blood Pressure 133/95 09/06/24 00:42 Pulse Oximetry 99 09/06/24 00:42 Oxygen Delivery Me thod BiPAP 09/05/24 22:57 Oxygen Flow Rate 97 09/05/24 22:57 Fraction of Inspir ed Oxygen 50 09/05/24 22:57 MDM - SOB/Dyspnea Medical Decision Making Patient is placed back on BiPAP on arrival. Arterial blood gas on arrival shows a pH of 7.25 with a pCO2 of 78. This will be retested at midnight. She is looking improved. She is given 1 mg of lorazepam for anxiety. Blood pressure is down to 138 systolic, heart rate down to 75. Saturations are 97% on by. She is pulling good tidal volumes currently. Chest x-ray shows bilateral edema. Swabs for flu COVID and RSV are negative. Lactic acid is 0.7. She is given Zosyn and vancomycin after blood cultures for empiric therapy. BNP is significantly elevated. She is given Lasix. Huerta placed. Blood gases improved after 1.5 hours on BiPAP. She will go to the ICU. Hospitalist is seeing the patient. Lab Data 09/05/24 22:35 09/05/24 22:35 Labs/Radiology: Radiology Impressions Chest X-Ray 09/05/24 22:08 IMPRESSION: 1. Mild cardiomegaly. 2. Stable mild bibasilar interstitial opacities suggesting edema. Laboratory Results WBC 11.87 10^3/uL (3.29-11.43) H 09/05/24 22:35 RBC 3.88 10^6/uL (3.85-5.65) 09/05/24 22:35 Hgb 11.20 g/dL (11.27-16.99) L 09/05/24 22:35 Hct 37.7 % (36-47) 09/05/24 22:35 MCV 97.2 fl (85-98) 09/05/24 22:35 MCH 28.9 pg (27-33) 09/05/24: MCHC 29.7 g/dL (30-55) L 09/05/24: RDW 18.6 % (12.1-15.1) H 09/05/24 22:35 Plt Count 301 10^3/cmm (157-399) 09/05/24: MPV 9.6 fL (7.4-10.4) 09/05/24 22: Neut % (Auto) 84.2 % 09/05/24 22: Lymph % (Auto) 8.3 % 09/05/24:35 Crosby % (Auto) 4.4 % 09/05/24: Eos % (Auto) 0.4 % 09/05/24: Baso % (Auto) 0.3 % 09/05/24: Neut # (Auto) 10.00 10^3/uL (1.8-7.7) H 09/05/24 22: Lymph # (Auto) 1.0 10^3/uL (0.8-4.8) 09/05/24: Crosby # (Auto) 0.5 10^3/uL (0.2-0.9) 09/05/24: Eos # (Auto) 0.1 10^3/uL (0.0-0.8) 09/05/24:35 Baso # (Auto) 0.0 10^3/uL (0.0-0.1) 09/05/24: Nucleated RBC % (auto) 0.4 % 09/05/24: Nucleated RBCs # 0.1 /100WBC 09/05/24: Specimen Type Arterial 09/05/24 22:19 Sample Site Radial, left 09/05/24 22:19 ABG pH 7.25 (7.35-7.45) L 09/05/24 22:19 ABG pCO2 78.1 mmHg (35-45) H* 09/05/24 22:19 ABG pO2 63.8 mmHg (80.0-100.0) L 09/05/24 22:19 ABG PO2/FiO2 Ratio 127 09/05/24:19 ABG HCO3 33.9 mmol/L (22-26) H 09/05/24 22:19 ABG Base Excess 4.4 mmol/L (-2.0-2.0) H 09/05/24 22:19 Aditya Test Pos 09/05/24 22:19 Hematocrit 36.4 % (37-47) L 09/05/24 22:19 Hgb O2 Saturation 84.7 % (95-100) L 09/05/24 22:19 Carboxyhemoglobin 2.6 %THgb (0.4-20.1) 09/05/24 22:19 Methemoglobin 1.3 % (0.4-1.5) 09/05/24 22:19 Total Hemoglobin 11.9 g/dL (12-16) L 09/05/24 22:19 O2 Delivery Device Bipap 09/05/24 22:19 FiO2 50.0 % 09/05/24 22:19 PEEP 10.0 cmH20 09/05/24 22:19 Cocktail Lounge Manager ID [email or web address] 09/05/24 22:19 Sodium 140 mmol/L (136-145) 09/05/24 22:35 Potassium 3.8 mmol/L (3.5-5.1) 09/05/24 22:35 Chloride 101 mmol/L (98-107) 09/05/24 22:35 Carbon Dioxide 33 mmol/L (22-29) H 09/05/24 22:35 Anion Gap 9.8 (5-19) 09/05/24 22:35 BUN 7 mg/dL (8-23) L 09/05/24 22:35 Creatinine 1.1 mg/dL (0.5-0.9) H 09/05/24 22:35 GFR Calculation 50.5 mL/min (90-130) L 09/05/24 22:35 Glucose 170 mg/dL (65-115) H 09/05/24 22:35 POC Glucose 97 mg/dL (70-110) 09/05/24 23:17 Calculated Osmolality 292 mOsm/kg (285-295) 09/05/24 22:35 Lactic Acid 0.7 mmol/L (0.5-2.2) 09/05/24 22:35 Calcium 8.5 mg/dL (8.5-10.5) 09/05/24 22:35 Total Bilirubin 0.3 mg/dL (0.15-1.2) 09/05/24 22:35 AST 12 U/L (0-32) 09/05/24 22:35 ALT < 5 U/L (0-33) 09/05/24 22:35 Alkaline Phosphatase 143 U/L (35-105) H 09/05/24 22:35 Troponin T Baseline 59 ng/L (0-10) H 09/05/24 22:35 NT-Pro-B Natriuret Pep 3699 pg/mL (0-125) H 09/05/24 22:35 Total Protein 6.7 g/dL (6.6-8.7) 09/05/24 22:35 Albumin 3.4 g/dL (3.5-5.2) L 09/05/24 22:35 Globulin 3.3 g/dL (1.3-4.6) 09/05/24 22:35 Influenza A (PCR) Negative (Negative) 09/05/24 22:00 Influenza Type B (PCR) Negative (Negative) 09/05/24 22:00 RSV (PCR) Negative (Negative) 09/05/24 22:00 SARS-CoV-2 (PCR) Negative (Negative) 09/05/24 22:00 All radiology interpretation(s) finalized by discharge Critical Care Time 2 Critical Care Time: Critical Care Time: Yes Total Critical Care Time: 35 Attestation: This case had a high probability of a clinically significant, sudden, or life threatening deterioration of this patient's condition which required my full and direct attention, intervention and personal management. Time is independent of any procedures performed Discharge Plan Discharge Patient Disposition: Admitted As Inpatient Admit Provider: David Kaplan Clinical Impression: Acute exacerbation of CHF (congestive heart failure), Pulmonary edema, Acute on chronic respiratory failure with hypoxia and hypercapnia Condition: Serious Coding Level of Care Code ED Perpetual Inventory Clerk for Negra Flaherty
[2024-09-05 23:20] LABS: Glucose Point of Care 97 mg/dL (70-110)
[2024-09-05 23:20] LABS: Alanine Aminotransferase < 5 U/L (0-33); Albumin Level 3.4 g/dL (3.5-5.2); Alkaline Phosphatase 143 U/L (35-105); Anion Gap 9.8 (5-19); Aspartate Amino Transferase 12 U/L (0-32); Blood Urea Nitrogen 7 mg/dL (8-23); Calcium 8.5 mg/dL (8.5-10.5); Carbon Dioxide 33 mmol/L (22-29); Chloride 101 mmol/L (98-107); Creatinine Clr Calc Pharmacy 69.4263; Globulin 3.3 g/dL (1.3-4.6); Glomerular Filtration Rate 50.5 mL/min (90-130); Glucose 170 mg/dL (65-115); NT Pro B Type Natriuretic Pept 3699 pg/mL (0-125); Osmolality Calculated 292 mOsm/kg (285-295); Potassium 3.8 mmol/L (3.5-5.1); Sodium 140 mmol/L (136-145); Total Bilirubin 0.3 mg/dL (0.15-1.2); Total Protein 6.7 g/dL (6.6-8.7)
[2024-09-05] MEDS: dextrose 10% 250 ML IV (23:30)
[2024-09-05] MEDS: piperacillin-tazobactam 4.5 GM in sodium chloride 0.9% (plus) 50 ML IV (23:45)
[2024-09-06] VITALS (181 sets, daily range): BP systolic 115–182; BP diastolic 57–108; PULSE 0–96; RESP 10–25; TEMP 36.3–36.9; O2SAT 90–100
[2024-09-06] MEDS: vancomycin 1,250 MG/250 ML PIGGYBACK 166.67 MG IV (00:04)
[2024-09-06 00:06] LABS: ABG PH Result 7.32 (7.35-7.45); Arterial Blood Gas Hematocrit 34.8 % (37-47); Blood Gas Allen Test Pos; Blood Gas Operator Identificat gerca; Blood Gas Sample Site Radial, right; Blood Gas Sample Type Arterial; HCO3 ABG 32.6 mmol/L (22-26); Oxygen Device BIPAP; PO2 ABG 93.3 mmHg (80.0-100.0)
[2024-09-06 00:07] LABS: PO2 FiO2 Ratio Arterial Blood 186
[2024-09-06 00:08] LABS: ABG PCO2 63.5 mmHg (35-45)
[2024-09-06 00:12] LABS: Glucose Point of Care 120 mg/dL (70-110)
[2024-09-06] MEDS: FUROsemide 10 mg/mL SDV 10mL 80 MG IVP (00:34)
[2024-09-06 00:56] LABS: Troponin 5 2HR 55.27 ng/L (0-10); Troponin 5 2HR Delta -3.73 ABS# (0-10)
[2024-09-06 01:18] LABS: Glucose Point of Care 94 mg/dL (70-110)
--- NOTE | 2024-09-06 01:23 | PM.HP ---
Providers/Chief Complaint Admitting Physician: David Kaplan MD Primary Care Provider: JOANN Costa Chief Complaint: sob History of Present Illness Wanda Lamb is a 59 year old female with history of COPD, diabetes, obesity lives at home with her mother. She states they take care of each other. Patient still smokes 1/2 pack/day down from 1 pack/day last year. She uses albuterol but denies having nebulizers. Patient became short of breath progressively the last few days despite no sick contacts. Her typical oxygen requirement is 2 L/min but she turned it up to 6 L/min the last 2 days. She has had swelling of the legs cough that is nonproductive but no fevers. Patient denies history of clots in legs or clots in the lungs. She reports a pressure in the chest. Her cardiac enzyme was troponin 59 dropped to 55 at follow-up. This is lower than her baseline 96 Review of Systems Narrative: Review of systems is difficult to obtain because the patient is on BiPAP and in some respiratory distress. General she denies fevers or sick contacts Respiratory she has had cough nonproductive Malignancy history she denies clots in legs or lungs Cardiovascular she denies chest pain but does feel like it is hard to breathe on further thought she says she does have some pain with deep breaths. She denies history of [place] Medications/Allergies Home Medications ?Medication ?Instructions ?Recorded ?Confirmed ?Last Taken ?Type atorvastatin 20 mg tablet (Lipitor) 20 mg PO QPM 06/06/24 08/19/24 07/09/24 History duloxetine 60 mg capsule,delayed 60 mg PO BID 06/06/24 08/19/24 07/09/24 History release (Cymbalta) insulin lispro 100 unit/mL See Rx Instructions .Route .COMPLEX 06/06/24 08/19/24 07/09/24 History subcutaneous pen (Humalog KwikPen (U-100) Insulin) oxycodone-acetaminophen 5 mg-325 1 tab PO Q8H PRN pain #5 tabs 07/13/24 08/19/24 Unknown Rx mg tablet zolpidem 10 mg tablet 5 mg (1/2 x 10 mg) PO BEDTIME #1 07/13/24 08/19/24 07/09/24 Rx tab potassium chloride 20 mEq 20 meq PO DAILY #30 tabs 08/12/24 08/19/24 Unknown Rx tablet,extended release(part/cryst) (Klor-Con M) pregabalin 75 mg capsule (Lyrica) 75 mg PO TID 30 days #90 caps 08/12/24 08/19/24 Unknown Rx trazodone 50 mg tablet 25 mg PO DAILY 08/12/24 08/19/24 Unknown History dapagliflozin propanediol 10 mg 10 mg PO DAILY 90 days #90 tabs 08/13/24 08/19/24 Unknown Rx tablet (Farxiga) hydroxyzine HCl 25 mg tablet 25 mg PO BID PRN itching 30 days 08/19/24 08/19/24 Unknown Rx #60 tabs insulin glargine 100 unit/mL (3 40 unit (0.4 mL) SUBCUT BID 30 08/19/24 08/19/24 Unknown Rx mL) subcutaneous pen (Lantus days #24 mL Solostar U-100 Insulin) methocarbamol 750 mg tablet 750 mg PO BID 10 days #20 tabs 08/19/24 08/19/24 Unknown Rx Incontinence Briefs XL #120 ea 08/22/24 08/22/24 Unknown Rx furosemide 20 mg tablet (Lasix) 20 mg PO DAILY #30 tabs 09/01/24 Unknown Rx potassium chloride 20 mEq 20 meq PO DAILY #30 tabs 09/01/24 Unknown Rx tablet,extended release (K-Tab) Allergies Allergy/AdvReac Type Severity Reaction Status Date / Time ibuprofen Allergy Unknown Verified 08/31/24 20:34 PFSH Acute PFSH: Medical History (Updated 09/06/24 @ 01:30 by David Kaplan MD) Morbid obesity Sepsis Chronic pain Hypertension Diabetes mellitus Tobacco use disorder Surgical History History of ankle surgery Family History Grandfather Bone cancer Social History (Updated 09/06/24 @ 01:28 by David Kaplan MD) Smoking and tobacco/nicotine status: current every day tobacco/nicotine user cigarettes Number of cigarettes per day: 11-20 Alcohol intake: never Substance/Drug Use: unknown Additional social history: Patient lives with her mother. Patient wants full code Vitals/I&O/Wt Last Vital Signs Temp 96.9 F L 09/05/24 22:00 Pulse 77 09/06/24 01:15 Resp 20 H 09/06/24 01:15 BP 180/108 09/06/24 01:15 Pulse Ox 100 09/06/24 01:15 O2 Del Method BiPAP 09/06/24 01:16 O2 Flow Rate 97 09/05/24 22:57 FiO2 50 09/05/24 22:57 09/05/24 09/05/24 09/06/24 14:59 22:59 06:59 Intake Total 0 / 0 550 / 550 Output Total 1500 / 1500 Balance 0 / 0 -950 / -950 Weight last 48 hrs Weight 110 kg Weight 108.862 kg Physical Exam Narrative: General well-developed morbidly obese female tachypneic in moderate respiratory distress. She is able to speak through her mask and is a relatively good historian though hard to understand just because of the mask. CV regular rate and rhythm Lungs crackles heard in both lower lung steni there is poor air movement and a prolonged Tory phase Abdomen diminished bowel tones soft obese Calves 1+ bilateral pretibial edema Neck thick short no mass no tenderness Mood and affect are appropriate Urinary Catheter Management: Huerta: Cath Placed During This Visit: yes Urinary Catheter Date of Insertion: 09/06/24 Urinary Catheter Time of Insertion: 00:25 Data 09/05/24 22:35 09/05/24 22:35 Micro: Microbiology 09/05/24 22:35 Blood Culture - Preliminary Blood SPECIMEN COLLECTED 09/05/24 22:39 Blood Culture - Preliminary Blood SPECIMEN COLLECTED A&P Assessment and plan (1) Acute on chronic respiratory failure with hypoxia and hypercapnia: Patient is supported with BiPAP. She will be started on steroids and doxycycline. I do not see clear evidence of infection infection beyond bronchitis, COPD exacerbation. Will diurese and replace potassium (2) Acute exacerbation of CHF (congestive heart failure): Furosemide 40 mg IV and potassium 40 mg p.o. in addition to continuing her home regimen (3) Diabetes mellitus: Sliding scale insulin and 1500-calorie ADA diet. (4) COPD with acute exacerbation: Start Decadron 6 mg p.o. daily. DuoNebs every 6 hours (5) Morbid obesity: She will need to be on a weight loss diet. Recommend testing for sleep apnea. Consider treatment with GLP-1 agonist for obesity and diabetes PDMP PDMP Reviewed: Not Reviewed Attestations Medical Necessity Statement*: Patient will be admitted to the ICU with acute combined hypoxic and hypercapnic respiratory failure. 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
[2024-09-06] MEDS: hyDRALAzine 20 mg/mL INJ 1 mL 10 MG IVP ×2 (01:55→06:03)
[2024-09-06] MEDS: enoxaparin 40 mg/0.4 mL Syringe SUBCUT (01:59)
[2024-09-06] MEDS: oxyCODONE-APAP 5-325 mg Tablet 1 TAB PO ×3 (02:07→17:07)
[2024-09-06] MEDS: potassium chloride ER 20 mEq Tablet 40 MEQ PO (02:08)
[2024-09-06] MEDS: FUROsemide 10 mg/mL SDV 4mL 40 MG IVP ×2 (02:11→16:56)
[2024-09-06] MEDS: dexamethasone 4 mg/mL INJ IVP (02:33)
--- NOTE | 2024-09-06 02:39 | ECG_ITS ---
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 Measurements Intervals [place] Rate: 64 P: 54 WV: 158 QRS: 84 QRSD: 100 T: 48 QT: 490 QTc: 507 Interpretive Statements SINUS RHYTHM POSSIBLE LEFT ATRIAL ENLARGEMENT [-0.1mV P-WAVE IN V1/V2] PROLONGED QT INTERVAL Compared to ECG 09/05/2024 22:20:56 Prolonged QT interval now present Right-axis deviation no longer present ST (T wave) deviation no longer present Electronically Signed On 09-06-2024 10:21:23 CDT by Jarret Chan M.D. [email or web address]
[2024-09-06 03:13] LABS: Glucose Point of Care 95 mg/dL (70-110)
[2024-09-06 05:29] LABS: Basophils % 0.2 %; Eosinophils % 0.1 %; Hematocrit 37.2 % (36-47); Lymphocytes # 0.5 10^3/uL (0.8-4.8); Lymphocytes % 5.7 %; Mean Corpuscular HGB Conc 30.1 g/dL (30-55); Mean Corpuscular Hemoglobin 28.8 pg (27-33); Mean Corpuscular Volume 95.6 fl (85-98); Mean Platelet Volume 9.7 fL (7.4-10.4); Monocytes # 0.1 10^3/uL (0.2-0.9); Monocytes % 1.5 %; Neutrophils # 8.28 10^3/uL (1.8-7.7); Neutrophils % 90.9 %; Nucleated Red Blood Cells % 0.3 %; Platelet Count 283 10^3/cmm (157-399); Red Blood Count 3.89 10^6/uL (3.85-5.65); Red Cell Distribution Width 18.5 % (12.1-15.1); White Blood Count 9.12 10^3/uL (3.29-11.43)
--- NOTE | 2024-09-06 05:37 | ECG_ITS ---
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 Measurements Intervals [place] Rate: 75 P: 53 AL: 162 QRS: 87 QRSD: 93 T: 44 QT: 452 QTc: 506 Interpretive Statements SINUS RHYTHM PROLONGED QT INTERVAL Compared to ECG 09/06/2024 02:39:46 No significant changes Electronically Signed On 09-06-2024 10:21:04 CDT by Jarret Chan M.D. [email or web address]
[2024-09-06 05:51] LABS: Troponin 5 6HR 49.95 ng/L (0-10); Troponin 5 6HR Delta -9.05 ng/L (0-12)
--- OUTSIDE RECORDS SUMMARY | 2024-09-06 05:54 | XMS_ITS | Encounter Summary ---
Author Organization [facility] Address [address] [place] [address] Care Team Providers Care Nursing Scheduler Name Role Phone Sadaf Ag MD, Chuy Lowery Primary Care Provider +1- [phone] Encounter Details Date Type Department Care Team (Late st Contact Info) Description 03/12/2003 Emergency [facility] Emergency Department [address] 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 Gender Identity Not on file Sexual Orientation Not on file documented as of this encounter Plan of Treatment Not on file documented as of this encounter Visit Diagnoses Diagnosis Closed fracture of lumbar vertebra without mention of spinal cord injury (CMS/HCC)- Primary Closed fracture of lumbar vertebra without mention of spinal cord injury documented in this encounter Care Teams Nursing Scheduler Relationship Specialty Start Date End Date Chuy Talavera Jr., MD [address] [place] [address] [address] [place] [phone] PCP - General Family Practice 07/09/19 documented as of this encounter
--- OUTSIDE RECORDS SUMMARY | 2024-09-06 05:54 | XMS_ITS | Encounter Summary ---
Author Organization [facility] Address [address] [place] [address] Care Team Providers Care Couples Therapist Name Role Phone Sadaf Ag MD, Chuy Lowery Primary Care Provider +1- [phone] Encounter Details Date Type Department Care Team (Late st Contact Info) Description 12/09/2002 Emergency [facility] Emergency Department [address] 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
--- OUTSIDE RECORDS SUMMARY | 2024-09-06 05:54 | XMS_ITS | Encounter Summary ---
Author Organization [facility] Address [address] [place] [address] Care Team Providers Care Aeronautical Engineering Technologist Name Role Phone Sadaf Ag MD, Chuy Lowery Primary Care Provider +1- [phone] Encounter Details Date Type Department Care Team (Late st Contact Info) Description 03/01/2003 Emergency [facility] Emergency Department [address] 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 Gender Identity Not on file Sexual Orientation Not on file documented as of this encounter Plan of Treatment Not on file documented as of this encounter Visit Diagnoses Diagnosis Closed fracture of lumbar vertebra without mention of spinal cord injury (CMS/HCC)- Primary Closed fracture of lumbar vertebra without mention of spinal cord injury documented in this encounter Care Teams Aeronautical Engineering Technologist Relationship Specialty Start Date End Date Chuy Talavera Jr., MD [address] [place] [address] [address] [place] [phone] PCP - General Family Practice 07/09/19 documented as of this encounter
--- OUTSIDE RECORDS SUMMARY | 2024-09-06 05:54 | XMS_ITS | Encounter Summary ---
Author Organization [facility] Address [address] [place] [address] Care Team Providers Care Stone Gluer Name Role Phone Sadaf Ag MD, Chuy Lowery Primary Care Provider +1- [phone] Encounter Details Date Type Department Care Team (Late st Contact Info) Description 11/07/2002 Emergency [facility] Emergency Department [address] 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
--- OUTSIDE RECORDS SUMMARY | 2024-09-06 05:54 | XMS_ITS | Encounter Summary ---
Author Organization [facility] Address [address] [place] [address] Care Team Providers Care Log Operations Coordinator Name Role Phone Sadaf Ag MD, Chuy Lowery Primary Care Provider +1- [phone] Encounter Details Date Type Department Care Team (Latest Contact Info) Description 07/12/2002 Outpatient Historical [facility] Kj Hollis MD [facility] [address], [place] [id number] Sprain lumbosacral (Primary Dx); MYALGIA AND MYOSITIS NOS Social History Tobacco Use Types Packs/Day Years Used Date Smoking Tobacco: Never Assessed Comments Unknown Sex and Gender Information Value Date Recorded Sex Assigned at Not on file 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
--- OUTSIDE RECORDS SUMMARY | 2024-09-06 05:54 | XMS_ITS | Encounter Summary ---
Author Organization [facility] Address [address] [place] [address] Care Team Providers Care Metal Moulder'S Assistant Name Role Phone Sadaf Ag MD, Chuy Lowery Primary Care Provider +1- [phone] Encounter Details Date Type Department Care Team (Latest Contact Info) Description 09/29/2002 Outpatient Historical [facility] Kj Hollis MD [facility] [address], [place] [address] LOC PRIM OSTEOART-L/LEG (Primary Dx); LUMBAGO; ESOPHAGEAL REFLUX Social History Tobacco Use Types Packs/Day Years Used Date Smoking Tobacco: Never Assessed Comments Unknown Sex and Gender Information Value Date Recorded Sex Assigned at Not on file 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
--- OUTSIDE RECORDS SUMMARY | 2024-09-06 05:54 | XMS_ITS | Encounter Summary ---
Author Organization [facility] Address [address] [place] [address] Care Team Providers Care Customer Complaint Service Supervisor Name Role Phone Sadaf Ag MD, Chuy Lowery Primary Care Provider +1- [phone] Encounter Details Date Type Department Care Team (Late st Contact Info) Description 05/01/2003 Emergency [facility] Emergency Department [address] 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
--- OUTSIDE RECORDS SUMMARY | 2024-09-06 05:54 | XMS_ITS | Clinical Summary ---
Author Organization [address] [place] [address] [address] [place] [address] Care Team Providers Care Community Health Representative Name Role Phone Sadaf Ag MD, Chuy Lowery Primary Care Provider +1- [phone] Allergies Active Allergy Reactions Criticality Noted Date Comments Propoxyphene Hallucination Low 11/08/2013 Propoxyphene N-Acetaminophen Hallucination Low 05/2012 Medications LISINOPRIL ORAL Take 1 Tablet by mouth daily transcripter. Active zolpidem (AMBIEN) 10 mg tablet Take 10 mg by mouth nightly as needed for Insomnia. Active lurasidone (Latuda) 40 mg Tablet tablet Take by mouth. A ctive albuterol (PROVENTIL,VENTOLI N) 2.5 mg /3 mL (0.083 %) Solution for Nebulization INHALE 3 ML (1 ML) VIA NEBULIZER 4 TIMES PER DAY NEEDED 12/03/19 20 Active BD Single Use Swabs Regular Pads, Medicated USE DIRECTED UP TO FOUR TIMES DAILY 09/06/19 20 Active busPIRone (BUSPAR) 15 mg Tablet TAKE 2 TABLETS BY MOUTH 2 TIMES A DAY 12/03/19 20 Active DULoxetine (CYMBALTA) 60 mg Capsule, Delayed Release(E.C.) TAKE 2 CAPSULE(S) BY MOUTH 1 TIME A DAY 12/03/19 20 Active Lantus Solostar U-100 Insulin 100 unit/mL (3 mL) solution for injection INJECT 40 UNITS BY SUBCUTANEOUS INJECTION 2 TIMES DAILY. 11/12/19 20 Active LORazepam (ATIVAN) 1 mg tablet TAKE 1 TABLET BY MOUTH 3 TIMES DAILY NEEDED. (CAN START 10/16/19) 11/15/19 20 Active benztropine (COGENTIN) 1 mg tablet TAKE 1/2 TABLET BY MOUTH 2 TIMES A DAY 11/15/19 20 Active mirtazapine (REMERON) 15 mg tablet TAKE 1 TO 3 TABLETS BY MOUTH 1 TIME A DAY AT BEDTIME 12/03/19 20 Active meloxicam (MOBIC) 7.5 mg tabletIndications: Lumbar radiculopathy,DDD (degenerative disc disease), lumbar TAKE 1 TABLET (7.5 MG) BY MOUTH DAILY. 90 Tablet 1 05/19/19 21 Active sucralfate (CARAFATE) 1 gram tabletIndications: Gastroesophageal reflux disease TAKE 1 TABLET (1 GRAM) BY MOUTH 4 TIMES DAILY BEFORE MEALS AND AT BEDTIME. 120 Tablet 6 05/19/19 21 Active Lantus Solostar U-100 Insulin 100 unit/mL (3 mL) solution for injectionIndicatio ns:Type 2 diabetes mellitus without complication, with long-term current use of insulin ([facility]) INJECT 40 UNITS BY SUBCUTANEOUS INJECTION 2 TIMES DAILY. 30 mL 4 05/29/19 21 Active loratadine (CLARITIN) 10 mg tablet TAKE 1 TABLET (10 MG) BY MOUTH DAILY. 30 Tablet 1 07/12/19 21 Active esomeprazole (NexIUM) 20 mg Capsule, Delayed Release(E.C.) TAKE 1 CAPSULE BY MOUTH DAILY. 30 Capsule 5 07/12/19 21 Active montelukast (SINGULAIR) 10 mg tablet TAKE 1 TABLET (10 MG) BY MOUTH DAILY AT BEDTIME. 30 Tablet 4 07/12/19 21 Active atorvastatin (LIPITOR) 10 mg tabletIndications: Hyperlipidemia, unspecified hyperlipidemia type TAKE 1 TABLET BY MOUTH EVERY EVENING 30 Tablet 08/04/19 21 Active pregabalin (LYRICA) 75 mg Capsule TAKE 1 CAPSULE BY MOUTH EVERY 8 HOURS. 90 Capsule 4 09/07/19 21 Active potassium chloride (KLOR-CON) 20 mEq Extended Release tablet TAKE 1 TABLET BY MOUTH TWICE DAILY 20 Tablet 10/04/19 21 Active tiZANidine (ZANAFLEX) 4 mg TabletIndications: Lumbar radiculopathy,DDD (degenerative disc disease), lumbar TAKE 1 TABLET (4 MG) BY MOUTH EVERY 8 HOURS NEEDED 30 Tablet 10/04/19 21 Active Insulin [place], Disposable, (TechLITE Pen Needle) 31 gauge x 3/16 NeedleIndications: Type 2 diabetes mellitus without complication, with long-term current use of insulin ([facility]) USE FOR INJECTING INSULIN THREE TIMES DAILY. 100 Each 11 10/21/19 21 Active cetirizine (ZyrTEC) 10 mg tablet TAKE 1 TABLET (10 MG) BY MOUTH DAILY 90 Tablet 1 10/20/19 21 Active lisinopriL (PRINIVIL) 40 mg tablet TAKE 1 TABLET (40 MG) BY MOUTH DAILY 90 Tablet 10/20/19 21 Active amLODIPine (NORVASC) 5 mg tabletIndications: Essential hypertension TAKE 1 TABLET (5 MG) BY MOUTH DAILY 90 Tablet 11/01/19 21 Active Victoza 3-Mikael 0.6 mg/0.1 mL (18 mg/3 mL)Indications:Typ e 2 diabetes mellitus without complication, with long-term current use of insulin ([facility]) INJECT 1.8 MG SUBCUTANEOUSLY DAILY 9 mL 11/01/19 21 Active Active Problems Problem Noted Date Diagnosed Date Diabetic polyneuropathy asso ciated with type 2 diabetes mellitus 12/08/2019 Lumbar facet joint pain 12/08/2019 Lumbar facet arthropathy 12/08/2019 DDD (degenerative disc disease), lumbosacral 09/2019 DDD (degenerative disc disease), lumbar 12/08/19 20 Neuroforaminal stenosis of lumbar spine 12/08/19 20 Lumbar radiculitis 12/08/2019 Type 2 diabetes mellitus wit hout complication, with long-term current use of insulin 10/21/2019 Family History Medical History Relation Name Comments No Known Problems Daughter 1 No Known Problems Daughter 2 No Known Problems Daughter 3 No Known Problems Daughter 4 Alzheimer's Disease Father Cancer Father No Known Problems Mother No Known Problems Son 1 No Known Problems Son 2 No Known Problems Son 3 No Known Problems Son 4 Relation Name Status Comments Daughter 1 Alive Daughter 2 Alive Daughter 3 Alive Daughter 4 Alive Father Alive Mother Alive Son 1 Alive Son 2 Alive Son 3 Alive Son 4 Alive Son 5 Social History Tobacco Use Types Packs/Day Years Used Date Smoking Tobacco: Every Day Cigarettes Smokeless Tobacco: Never Tobacco Cessation:Ready to Q uit: No Alcohol Use Standard Drinks/Week Comments No 0 (1 standard drink = 0.6 oz pur e alcohol) Comments No Sex and Gender Information Value Date Recorded Sex Assigned at Not on file 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 Gender Identity Not on file Sexual Orientation Not on file Occupation Industry Job Start Date Job End Date Not on file Not on file Not on file Not on file Not on file Not on file Not on file Not on file Last Filed Vital Signs Vital Sign Reading Time Taken Comments Blood Pressure 116/78 09/05/2020 1:43 PM CDT Pulse 101 09/05/2020 1:43 PM CDT Temperature 35.7 C (96.2 F) 09/05/2020 1:43 PM CDT Respiratory Rate 18 09/05/2020 1:43 PM CDT Oxygen Saturation 97% 09/05/2020 1:43 PM CDT Inhaled Oxygen Concentration - - Weight 83.6 kg (184 lb 3.2 oz) 09/05/2020 1:43 P M CDT Height 172.7 cm (5' 8 ) 09/05/2020 1:43 PM CDT Body Mass Index 28.01 09/05/2020 1:43 PM CDT Plan of Treatment Health Maintenance Due Date Last Done Comments DIABETES ANNUAL RETINAL EXAM 1981 DTAP/TDAP/TD VACCINES (1 - Tdap) 1982 Preventative Visit-Managed Medicaid 1982 HPV/Cotest (21-29) 1984 CERVICAL CANCER SCREENING 1993 HPV/Cotest (30-65) 1993 PAP SMEAR 1993 BREAST CANCER SCREENING 2003 COLORECTAL SCREENING 2008 FIT/FOBT Q 1 year 2008 Flex Sig/CT Colonography Q 5 years 2008 ZOSTER VACCINE (1 of 2) 2013 DIABETES HBA1C Q 6 MONTHS 04/13/2020 10/13/2019, 10/2019 DIABETES MICROALBUMIN ANNUAL SCREEN 07/08/202007/08 LDL CHOLESTEROL ANNUAL 07/08/2020 07/09/2019 DIABETES ANNUAL FOOT EXAM 10/20/20202019, 10/13/2019, 07/09/2019 Colorectal Cancer Screening 07/14/2022 FIT-DNA Q 3 years 07/14/2022 07/15/2019 RSV VACCINE (60+ or ) (1 - Risk 60-74 years 1-dose series) 2023 INFLUENZA VACCINE (#1) 2023 Procedures Procedure Name Priority Date/Time Associated Diagnosis Comments HEMOGLOBIN A1C Routine 10/13/2019 1:28 PM CDT Type 2 diabetes mellitus without complication, with long-term current use of insulin ([facility]) COLON CANCER SCREEN, STOOL DNA Routine 07/15/2019 3:30 PM CDT Encounter for colorectal cancer screening MICROALBUMIN/CREATI NINE RATIO, RANDOM UR Routine 07/09/2019 3:42 PM MARKER HAND Type 2 diabetes mellitus without complication, with long-term current use of insulin ([facility]) LIPID RFLX Routine 07/09/2019 3:05 PM MARKER HAND Hyperlipidemia, unspecified hyperlipidemia type from Last 3 Months or Most Recently Relevant to Health Maintenance Results * (ABNORMAL) HEMOGLOBIN A1C (10/13/2019 1:28 PM CDT) HEMOGLOBIN A1C 8.2(H) See Comment % 10/13/2019 6:15 PM CDT [facility] EST. AVG GLUCOSE, A1C 189 mg/dL 10/13/2019 6:15 PM CDT [facility] Blood Venipuncture / Unknown 10/13/2019 1:28 PM CDT 10/13/2019 1:28 PM CDT Narrative [facility] - 10/13/2019 6:15 PM CDT HGB A1C INTERPRETATION NORMAL: <5.7% PRE-DIABETES: 5.7 - 6.4% DIABETES: 6.5% OR GREATER Falsely low A1C measurements can occur when: 1. Anemia and/or hemolytic anemia is present. 2. Hemoglobin variants present. 3. Renal failure. 4. Transfusion of blood product in the last 120 days. We recommend ordering a fructosamine test([id number]) to more accurately assess glycemic status if any of the above conditions are present. us Hailee Waite DISPATCHER BUS AND [place]OL[employer] CHEMISTRY ORDERABLES Final Resu lt [facility] [place]# [id number] [address] [place] [id number] * COLON CANCER SCREEN, STOOL DNA (07/15/2019 3:30 PM CDT) COLOGUARD RESULT Negative Not Applicable In [facility] Comment: A negative result indicates a low likelihood that a colorectal cancer (CRC) or an advanced adenoma (adenomatous polyps with more advanced pre-malignant features) is present. The chance that a person with a negative Cologuard test has a colorectal cancer is less than 1 in 1500 (negative predictive value >99.9%) or has an advanced adenoma is less than 5.3% (negative predictive value 94.7%). These data are based on a prospective cross-sectional screening study of 10,000 individuals at average risk for colorectal cancer who were screened with both Cologuard and colonoscopy. (Enrico Marshall et al, N Engl J Med 2014;370(14):2562-9121) The normal value (reference range) for this assay is negative. COLOGUARD RE-SCREENING RECOMMENDATION: Periodic routine colorectal cancer screening is an important part of preventive healthcare for asymptomatic persons at average risk for colorectal cancer. Following a negative Cologuard result, the [place] Cancer Society and U.S. Multi-Society Task Force screening guidelines recommend a Cologuard re-screening interval of 3 years. References: [place] [employer] Society (ACS). Colorectal cancer prevention and early detection. [place], [place]: [place] [employer]; [updated 2015Aug 26]. https://www.cancer.org/cancer/ikguq-yzgvqc-hriuxp/vnwfljuwo-bucgoofnn-wuqtmlk/ac s-rec ommendations.html. Accessed January 02, 2018; Jame DK, Shanthi CR, Wild RodriguezK, Colorectal Cancer Screening: Recommendations for Physicians and Patients from the U.S. Multi-Society Task Force on Colorectal Cancer Screening, Am J Gastroenterology 2017; 112:2127-1999. TEST TYPE: Composite algorithmic analysis of stool DNA-biomarkers with hemoglobin immunoassay. Quantitative values of individual biomarkers are not reportable and are not associated with individual biomarker result reference ranges. PRECAUTIONS AND LIMITATIONS: Cologuard is intended for colorectal cancer screening of adults of either sex, 45 years or older, who are at average-risk for colorectal cancer (CRC). Cologuard has been approved for use by the U.S. FDA. Cologuard may produce a false negative or false positive result. A negative Cologuard test result does not guarantee the absence of CRC or advanced adenoma (pre-cancer). Patients with a negative Cologuard test result should be advised to continue participating in a colorectal cancer screening program. The screening interval for Cologuard is currently recommended at an interval of every 3 years by the [place] [employer] Society and U.S. Multi-Society Task Force. A false positive result occurs when Cologuard produces a positive result, even though a colonoscopy may not find colorectal cancer or precancerous polyps. The performance of Cologuard has been established in a cross sectional study (i.e., single point in time) of average-risk adults aged 50-84. Cologuard performance in patients ages 45 to 49 years was estimated by sub-group analysis of near-age groups. Cologuard performance data in a 10,000 patient pivotal study using colonoscopy as the reference method can be accessed at the following location: www.[employer]/results. Additional description of the Cologuard test process, warnings and precautions can be found at www.cologuardtest.com. Rx only. Stool STOOL SPECIMEN / Unknown 07/15/2019 3:30 PM CDT 07/16/2019 5:05 PM CDT us Hailee Waite DISPATCHER BUS AND [place] BODY FLUIDS AND STOOLS Final Re sult [employer] CLIA # [id number] [address] , [address] [place] [address] * MICROALBUMIN/CREATININE RATIO, RANDOM UR (07/09/2019 3:42 PM MARKER HAND) MICROALBUMIN, URINE <1.2 No Reference Range mg/dL 07/09/2019 8:08 PM MARKER HAND [facility] CREATININE, URINE 54.2 29.0 - 226.0 mg/dL 07/09/2019 8:08 PM MARKER HAND [facility] Comment:Reference Range vari es with fluid intake and diet. MICROALBUMIN/C REAT RATIO, UR <22.1 <25.0 mg/g 07/09/2019 8:08 PM [facility] Urine URINE SPECIMEN OBTAINED BY CLEAN CATCH PROCEDURE / Unknown Collection / Unknown 07/09/2019 3:42 PM MARKER HAND 07/09/2019 3:42 PM MARKER HAND Narrative [facility] - 07/09/2019 8:08 PM MARKER HAND Condition Microalbumin/Creat ratio Normal Males <17 Normal Females <25 Microalbuminuria Males 17-299 Microalbuminuria Females 25-299 Overt proteinuria >=300 Hailee Waite DISPATCHER BUS AND [place] URINE ORDERABLES Final Result [facility] CLIA# [id number] [address] [place] [address] * (ABNORMAL) LIPID RFLX (07/09/2019 3:05 PM MARKER HAND) CHOLESTEROL 161 <200 mg/dL 07/09/2019 3:52 PM [facility] [place] TRIGLYCERIDE 114 <150 mg/dL 07/09/2019 3:52 PM [facility] [place] HDL 38(L) 40 - 59 mg/dL 07/09/2019 3:52 PM [facility] [place] LDL CALCULATED 100(H) <100 mg/dL 07/09/2019 3:52 PM [facility] [place] NON-HDL CHOLESTEROL 123 <130 mg/dL 07/09/2019 3:52 PM [facility] [place] Blood Venipuncture / Unknown 07/09/2019 3:05 PM MARKER HAND 07/09/2019 3:05 PM MARKER HAND Narrative [facility] [place] - 07/09/2019 3:52 PM MARKER HAND TOTAL CHOLESTEROL mg/dL Desirable <200 Borderline high 200-239 High >=240 TRIGLYCERIDES mg/dL Normal <150 Borderline high 150-199 High 200-499 Very high >=500 HDL CHOLESTEROL mg/dL Low <40 Normal 40-59 Desirable >=60 NON HDL CHOLESTEROL mg/dL Optimal <130 Near Optimal 130-159 Borderline High 160-189 Very High >=190 CALCULATED LDL mg/dL LDL <70, OPTIMAL if have Atherosclerotic cardiovascular disease (ASCVD) or intermediate or higher (>7.5%) 10 year risk of ASCVD including most adults with diabetes. LDL <100, Optimal in adult patients with low (<7.5%) 10 year ASCVD risk LDL 100-160, Suboptimal LDL >160, High LDL >190, Very high ATPIII Guidelines Reference Ranges for Lipid Panels (NCEP/AMA) . Hailee Waite DISPATCHER BUS AND [employer]OL[employer] CHEMISTRY ORDERABLES Final Resu lt Performing Organization Address City/State/[facility] Co de Phone Number [facility]# [id number] [address] [place] [address] from Last 3 Months or Most Recently Relevant to Health Maintenance Insurance [place]ICA[place] [employer] Medicaid DISABILITY DETERMINATION Care Teams Community Health Representative Relationship Specialty Start Date End Date Chuy Talavera Jr., MD [address] [place] [address] [address] [place] [phone] PCP - General Family Practice 07/09/19
--- OUTSIDE RECORDS SUMMARY | 2024-09-06 05:55 | XMS_ITS | Encounter Summary ---
Author Organization [facility] Address [address] [place] [address] Care Team Providers Care Director Search Marketing Strategies Name Role Phone Sadaf Ag MD, Chuy Lowery Primary Care Provider +1- [phone] Encounter Details Date Type Department Care Team (Latest Contact Info) Description 09/07/2004 Outpatient [facility] Oral and Maxillo Surgery[address] [place] [address] Cruz Mills, PhD NO ADDRESS ON FILE UNSPEC DENTAL CARIES (Primary Dx) Social History Tobacco Use Types Packs/Day Years Used Date Smoking Tobacco: Never Assessed Comments Unknown Sex and Gender Information Value Date Recorded Sex Assigned at Not on file Legal Sex Female 6:07 AM FIRST MATE Gender Identity Not on file Sexual Orientation Not on file documented as of this encounter Plan of Treatment Not on file documented as of this encounter Visit Diagnoses Diagnosis Unspecified dental caries- Primary documented in this encounter Care Teams Director Search Marketing Strategies Relationship Specialty Start Date End Date Chuy Talavera Jr., MD [address] [place] [address] [address] [place] [phone] PCP - General Family Practice 07/09/19 documented as of this encounter
--- OUTSIDE RECORDS SUMMARY | 2024-09-06 05:55 | XMS_ITS | Encounter Summary ---
Author Organization [facility] Address [address] [place] [address] Care Team Providers Care Welder/Fabricator Name Role Phone Sadaf Ag MD, Chuy Lowery Primary Care Provider +1- [phone] Encounter Details Date Type Department Care Team (Late st Contact Info) Description 10/05/[address] [facility] Emergency Department [address] 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
--- OUTSIDE RECORDS SUMMARY | 2024-09-06 05:55 | XMS_ITS | Encounter Summary ---
Author Organization [facility] Address [address] [place] [address] Care Team Providers Care Chip Applying Machine Tender Name Role Phone Sadaf Ag MD, Chuy Lowery Primary Care Provider +1- [phone] Encounter Details Date Type Department Care Team (Late st Contact Info) Description 03/09/2002 Emergency [facility] Emergency Department [address] 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
--- OUTSIDE RECORDS SUMMARY | 2024-09-06 05:55 | XMS_ITS | Encounter Summary ---
Author Organization [facility] Address [address] [place] [address] Care Team Providers Care Show Card Letterer Name Role Phone Sadaf Ag MD, Chuy Loewry Primary Care Provider +1- [phone] Encounter Details Date Type Department Care Team (Late st Contact Info) Description 08/26/2006 Emergency [facility] Emergency Department [address] [place] [address] Cy [place] MD [address] [place], [place] [address] Anxiety State, Unspecified (Primary Dx) Social History Tobacco Use Types Packs/Day Years Used Date Smoking Tobacco: Never Assessed Comments Unknown Sex and Gender Information Value Date Recorded Sex Assigned at Not on file 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
--- OUTSIDE RECORDS SUMMARY | 2024-09-06 05:55 | XMS_ITS | Encounter Summary ---
Author Organization [facility] Address [address] 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
--- OUTSIDE RECORDS SUMMARY | 2024-09-06 05:55 | XMS_ITS | Encounter Summary ---
Author Organization [facility] Address [address] 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
--- OUTSIDE RECORDS SUMMARY | 2024-09-06 05:55 | XMS_ITS | Clinical Summary ---
Author Organization [facility] Address [address] [place] [address] Phone Care Team Providers Care Solutions Sales Executive Name Role Phone Kevin Grimes MD Primary Care Provider [phone] [phone] Allergies Active Allergy Reactions Criticality Noted Date Comments Nsaids (Non-Steroidal Anti-Inflammatory Drug) Other (See Comments) 09/02/2024 Unknown Other Wanchese-3s Other (See Comments) 09/02/2024 Pt reporst steroids put her into a coma due to sugar issues Propoxyphene Hallucination Low 11/08/2013 Propoxyphene N-Acetaminophen Hallucination Low 09/02/2012 Medications insulin glargine (Lantus Solostar U-100 Insulin) 100 unit/mL pen syringeIndication s:Type 2 diabetes mellitus without complication, with long-term current use of insulin ([facility]) INJECT 40 UNITS BY SUBCUTANEOUS INJECTION 2 TIMES DAILY. 30 mL 4 021 Active albuterol (PROVENTIL,VENTOL IN) 2.5 mg /3 mL (0.083 %) Solution for Nebulization INHALE 3 ML (1 ML) VIA NEBULIZER 4 TIMES PER DAY NEEDED Active alcohol (BD Single Use Swabs Regular) Pads, Medicated USE DIRECTED UP TO FOUR TIMES DAILY Active LORazepam (ATIVAN) 1 mg tablet TAKE 1 TABLET BY MOUTH 3 TIMES DAILY NEEDED. (CAN START 10/16/19) Active DULoxetine (CYMBALTA) 60 mg Capsule, Delayed Release(E.C.) TAKE 2 CAPSULE(S) BY MOUTH 1 TIME A DAY Active busPIRone (BUSPAR) 15 mg Tablet TAKE 2 TABLETS BY MOUTH 2 TIMES A DAY Active insulin glargine (Lantus Solostar U-100 Insulin) 100 unit/mL pen syringe INJECT 40 UNITS BY SUBCUTANEOUS INJECTION 2 TIMES DAILY. Active benztropine (COGENTIN) 1 mg tablet TAKE 1/2 TABLET BY MOUTH 2 TIMES A DAY Active mirtazapine (REMERON) 15 mg tablet TAKE 1 TO 3 TABLETS BY MOUTH 1 TIME A DAY AT BEDTIME Active amLODIPine (NORVASC) 5 mg tabletIndications :Essential hypertension TAKE 1 TABLET (5 MG) BY MOUTH DAILY 90 Tablet 1 Active esomeprazole (NexIUM) 20 mg Capsule, Delayed Release(E.C.) TAKE 1 CAPSULE BY MOUTH DAILY. 30 Capsule 5 Active pregabalin (LYRICA) 75 mg Capsule TAKE 1 CAPSULE BY MOUTH EVERY 8 HOURS. 90 Capsule 4 021 Active loratadine (CLARITIN) 10 mg tablet TAKE 1 TABLET (10 MG) BY MOUTH DAILY. 30 Tablet 1 Active montelukast (SINGULAIR) 10 mg tablet TAKE 1 TABLET (10 MG) BY MOUTH DAILY AT BEDTIME. 30 Tablet 4 021 Active atorvastatin (LIPITOR) 10 mg tabletIndications :Hyperlipidemia, unspecified hyperlipidemia type TAKE 1 TABLET BY MOUTH EVERY EVENING 30 Tablet 0 Active Insulin [place], Disposable, 31 gauge x 3/16 NeedleIndications :Type 2 diabetes mellitus without complication, with long-term current use of insulin ([facility]) USE FOR INJECTING INSULIN THREE TIMES DAILY. 100 Each 11 Active cetirizine (ZyrTEC) 10 mg tablet TAKE 1 TABLET (10 MG) BY MOUTH DAILY 90 Tablet 1 Active lisinopriL (PRINIVIL) 40 mg tablet TAKE 1 TABLET (40 MG) BY MOUTH DAILY 90 Tablet 0 021 Active liraglutide (Victoza 3-Mikael) 0.6 mg/0.1 mL (18 mg/3 mL)Indications:Ty pe 2 diabetes mellitus without complication, with long-term current use of insulin ([facility]) INJECT 1.8 MG SUBCUTANEOUSLY DAILY 9 mL 0 Active amLODIPine (NORVASC) 5 mg tabletIndications :Essential hypertension TAKE 1 TABLET (5 MG) BY MOUTH DAILY 90 Tablet 0 021 Active Jardiance 10 mg tablet TAKE 1 TABLET (10 MG) BY MOUTH DAILY 90 Tablet Active potassium chloride (KLOR-CON) 20 mEq Extended Release tablet TAKE 1 TABLET BY MOUTH TWICE DAILY 20 Tablet 021 Active tiZANidine (ZANAFLEX) 4 mg TabletIndications :Lumbar radiculopathy,DDD (degenerative disc disease), lumbar TAKE 1 TABLET (4 MG) BY MOUTH EVERY 8 HOURS NEEDED 30 Tablet Active sucralfate (CARAFATE) 1 gram tabletIndications :Gastroesophageal reflux disease TAKE 1 TABLET (1 GRAM) BY MOUTH 4 TIMES DAILY BEFORE MEALS AND AT BEDTIME. 120 Tablet 5 021 Active amLODIPine (NORVASC) 5 mg tablet TAKE 1 TABLET (5 MG) BY MOUTH DAILY 90 Tablet Active meloxicam (MOBIC) 7.5 mg tabletIndications :Lumbar radiculopathy,DDD (degenerative disc disease), lumbar TAKE 1 TABLET (7.5 MG) BY MOUTH DAILY. 90 Tablet 021 Active lisinopriL (PRINIVIL) 40 mg tablet TAKE 1 TABLET (40 MG) BY MOUTH DAILY 90 Tablet Active omeprazole (PriLOSEC) 40 mg Capsule, Delayed Release(E.C.) TAKE 1 CAPSULE (40 MG) BY MOUTH DAILY. 30 Capsule 5 021 Active lurasidone (LATUDA) 40 mg Tablet tablet Take by mouth. Active LISINOPRIL ORAL Take 1 Tablet by mouth daily ball holder. Active zolpidem (AMBIEN) 10 mg tablet Take 10 mg by mouth nightly as needed for Insomnia. Active POTASSIUM CHLORIDE ORAL Take by mouth. A ctive LISINOPRIL ORAL Take 40 mg by mouth daily. Active OMEPRAZOLE ORAL Take 40 mg by mouth daily. Active pregabalin (LYRICA ORAL) Take 75 mg by mouth 3 times daily. Active duloxetine HCl (CYMBALTA ORAL) Take 60 mg by mouth 2 times daily. Psych prescribes Active atorvastatin (LIPITOR) 20 mg tablet Take 20 mg by mouth daily. Active dapagliflozin propanediol (Farxiga) 10 mg Tablet Take 10 mg by mouth daily. Active hydrOXYzine HCL (ATARAX) 25 mg tablet Take 25 mg by mouth 2 times daily as needed for Itching. Active methocarbamoL (ROBAXIN) 750 mg tablet Take 750 mg by mouth 2 times daily as needed for Spasm. Active traZODone (DESYREL) 50 mg tablet Take 50 mg by mouth daily at bedtime. Psych Prescribes Active zolpidem (AMBIEN) 10 mg tablet Take 10 mg by mouth nightly as needed for Insomnia. Psych Prescribes Active insulin glargine (Lantus Solostar U-100 Insulin) 100 unit/mL pen syringe Inject 40 Units by subcutaneous injection 2 times daily. 30 mL 5 Active insulin lispro (HumaLOG KwikPen Insulin) 100 unit/mL pen syringe Inject 5 Units by subcutaneous injection 3 times daily with meals. Take 5 units + sliding scale, maximum daily dose 24 units 15 mL 11 Active albuterol sulfate HFA 90 mcg/actuation aerosol inhaler Take 2 Puffs by inhalation every 6 hours as needed for Shortness of Breath. Active chlorthalidone (HYGROTON) 25 mg tablet Take 25 mg by mouth daily. Active insulin glargine (LANTUS) 100 unit/mL vial Inject by subcutaneous injection. 2024 Discontinued insulin aspart (NovoLOG) 100 unit/mL injection Inject by subcutaneous injection. 2024 Discontinued diclofenac sodium EC (VOLTAREN) 25 mg Tablet, Delayed Release (E.C.)Indications :Closed fracture of shaft of left fibula, sequela Take 1 Tablet (25 mg) by mouth 2 times daily for 14 days. 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 09/02/2024 Moderate episode of recurrent major depressive d isorder 09/02/2024 Gastroesophageal reflux disease without esophagi tis 09/02/2024 Tobacco dependence 09/02/2024 Chronic respiratory failure with hypoxia 025 Simple chronic bronchitis 09/02/2024 Uses walker 09/02/2024 Diabetic polyneuropathy asso ciated with type 2 diabetes mellitus 12/08/2019 DDD (degenerative disc disease), lumbosacral 09/2019 Lumbar radiculitis 12/08/2019 Lumbar facet arthropathy 12/08/2019 Neuroforaminal stenosis of lumbar spine 12/08/19 20 Lumbar facet joint pain 12/08/2019 DDD (degenerative disc disease), lumbar 12/08/19 Type 2 diabetes mellitus wit hout complication, with long-term current use of insulin 10/21/2019 Encounters Date Type Department Care Team Description 09/02/2024 11:20 AM CDT Office Visit [address] [address] Kevin Grimes MD Severe obesity (BMI 35.0-39.9) with comorbidity (CMS/HCC) [...] CVA with residual deficit; Uses walker; Claudication 09/02/[address] [phone] Kevin Grimes MD Provider Call 08/17/2024 External Device Data STL ABSTRACTION Provider, Abstract 07/26/2024 Orders Only [facility] [address] [place] [id number] Provider, Abstract 07/26/2024 Abstract [facility] Medicine [facility] [address] [place] [address] [address] [place] [address] Chuy Talavera Jr., MD 07/09/2024 - 07/09/2024 11:59 PM FURNITURE ASSEMBLY SUPERVISOR Hospital Encounter [facility] [address] [place] [address] Ambulance, [facility] Discharge Disposition: [facility] 06/30/2024 12:30 AM FURNITURE ASSEMBLY SUPERVISOR - 06/30/2024 11:59 PM FURNITURE ASSEMBLY SUPERVISOR Hospital Encounter [facility] [place] [address] [place] [address] Ambulance, [facility] Discharge Disposition: [facility] 06/23/2024 External Device Data STL ABSTRACTION Provider, Abstract 06/22/2024 External Device Data ST[place] ABSTRACTION Provider, Abstract 06/22/2024 External Device Data ST[place] ABSTRACTION Provider, Abstract from Last 3 Months Family History Medical History Relation Name Comments [...] on file Legal Sex Female 11:34 PM FURNITURE ASSEMBLY SUPERVISOR Gender Identity Not on file Sexual Orientation Not on file Last Filed Vital Signs [...] Mass Index 36.19 09/02/2024 11:54 AM CDT Plan of Treatment Upcoming Encounters Date Type Department Care Team (Late st Contact Info) Description 10/07/2024 11:00 AM CDT Office Visit [address] [address] Kevin Grimes MD [address] [phone] Health Maintenance Due Date Last Done Comments DIABETES ANNUAL RETINAL EXAM 1981 DTAP/TDAP/TD VACCINES (1 - Tdap) 1982 HPV/Cotest (21-29) 1984 CERVICAL CANCER SCREENING 1993 HPV/Cotest (30-65) 1993 PAP SMEAR 1993 BREAST CANCER SCREENING 2003 COLORECTAL SCREENING 2008 FIT/FOBT Q 1 year 2008 Flex Sig/CT Colonography Q 5 years 2008 ZOSTER VACCINE (1 of 2) 2013 DIABETES: A1C (Auto Order) 01/13/202010/12, 10/13/2019, 07/09/2019 DIABETES HBA1C Q 6 MONTHS 04/13/20202019, 10/13/2019, 07/09/2019 DIABETES MICROALBUMIN ANNUAL SCREEN 07/08/202007/08 LDL CHOLESTEROL ANNUAL 07/08/2020 07/09/2019 DIABETES ANNUAL FOOT EXAM 10/20/2020 10/21/2019, 02/2020 Colorectal Cancer Screening 07/14/2022 FIT-DNA Q 3 years 07/14/2022 07/15/2019 RSV VACCINE (60+ or ) (1 - Risk 60-74 years 1-dose series) 2023 INFLUENZA VACCINE (#1) 2023 COVID-19 Vaccine (2 season) 01/04/202401/2021 Procedures Procedure Name Priority Date/Time Associated Diagnosis Comments COMPREHENSIVE METABOLIC PANEL Routine 07/13/2024 10:08 AM CDT PROTIME-INR Routine 07/12/2024 COMPREHENSIVE METABOLIC PANEL Routine 07/09/2024 10:07 AM FURNITURE ASSEMBLY SUPERVISOR HEMOGLOBIN A1C Routine 10/13/2019 1:28 PM CDT COLON CANCER SCREEN, STOOL DNA Routine 07/15/2019 3:30 PM CDT MICROALBUMIN/CREATININ E RATIO, RANDOM UR Routine 07/09/2019 3:42 PM FURNITURE ASSEMBLY SUPERVISOR LIPID RFLX Routine 07/09/2019 3:05 PM FURNITURE ASSEMBLY SUPERVISOR from Last 3 Months or Most Recently Relevant to Health Maintenance Results * COMPREHENSIVE METABOLIC PANEL (07/13/2024 10:08 AM CDT) Only the most recent of2 resultswithin the time period is included. Blood us Abstract Provider CHEMISTRY ORDERABLES Final Res ult * PROTIME-INR (07/12/2024) ABSTRACTED PROTIME 13.3 ABSTRACTED INR 0.94 Blood 07/12/2024 us Abstract Provider HEMATOLOGY ORDERABLES Final Re sult * (ABNORMAL) HEMOGLOBIN A1C (10/13/2019 1:28 PM CDT) HEMOGLOBIN A1C 8.2(H) See Comment % 10/13/2019 6:15 PM CDT [facility] EST. AVG GLUCOSE, A1C 189 mg/dL 10/13/2019 6:15 PM CDT [facility] Blood Venipuncture / Unknown 10/13/2019 1:28 PM CDT 10/13/2019 3:52 PM CDT Narrative [facility] - 10/13/2019 6:15 PM CDT HGB A1C INTERPRETATION NORMAL: <5.7% PRE-DIABETES: 5.7 - 6.4% DIABETES: 6.5% OR GREATER Falsely low A1C measurements can occur when: 1. Anemia and/or hemolytic anemia is present. 2. Hemoglobin variants present. 3. Renal failure. 4. Transfusion of blood product in the last 120 days. We recommend ordering a fructosamine test([id number]) to more accurately assess glycemic status if any of the above conditions are present. Hailee Waite [facility] CHEMISTRY ORDERABLES Final Resu lt [facility] IA# [id number] [address] [place] [address] * COLON CANCER SCREEN, STOOL DNA (07/15/2019 3:30 PM CDT) COLOGUARD RESULT Negative Not Applicable 07/19/2019 10:10 PM CDT [facility] Comment: A negative result indicates a low [...] screened with both Cologuard and colonoscopy. (Enrico Natarajan al, N Engl J Med 2014;370(14):8441-2352) The normal value (reference range) for this assay is negative. COLOGUARD RE-SCREENING RECOMMENDATION: Periodic routine colorectal cancer screening is an important part of preventive healthcare for asymptomatic persons at average risk for colorectal cancer. Following a negative Cologuard result, the British Cancer Society and U.S. Multi-Society Task Force screening guidelines recommend a Cologuard re-screening interval of 3 years. References: British Cancer Society (ACS). Colorectal cancer prevention and early detection. [place], [place]: British Cancer Society; [updated 2015Aug 26]. https://www.cancer.org/cancer/fmbqd-stzqma-jvhwtl/ztckxthaw-mtrmdzgcd-qholoor/ac s-rec ommendations.html. Accessed January 02, 2018; Jame DK, Shanthi MOSS, Wild REYNOSO, Colorectal Cancer Screening: Recommendations for Physicians and Patients from the U.S. Multi-Society Task Force on Colorectal Cancer Screening, Am J Gastroenterology 2017; 112:5976-8626. TEST TYPE: Composite algorithmic analysis of stool [...] interval of every 3 years by the British Cancer Society and U.S. Multi-Society Task Force. [...] can be accessed at the following location: www.Stylenda.Revert/results. Additional description of the Cologuard test process, warnings and precautions can be found at www.cologuardtest.com. Rx only. Stool STOOL SPECIMEN / Unknown 07/15/2019 3:30 PM CDT 07/16/2019 5:05 PM CDT Hailee Waite REEL SLITTER BODY FLUIDS AND STOOLS Final Re sult Performing Organization Address City/[facility]/ZIP Co de Phone Number [facility] CLIA # [id number] [address], [address] [place] [address] * MICROALBUMIN/CREATININE RATIO, RANDOM UR (07/09/2019 3:42 PM FURNITURE ASSEMBLY SUPERVISOR) MICROALBUMIN, URINE <1.2 No Reference Range mg/dL 07/09/2019 8:08 PM FURNITURE ASSEMBLY SUPERVISOR [facility] CREATININE, URINE 54.2 29.0 - 226.0 mg/dL 07/09/2019 8:08 PM FURNITURE ASSEMBLY SUPERVISOR [facility] Comment:Reference Range vari es with fluid intake and diet. MICROALBUMIN/C REAT RATIO, UR <22.1 <25.0 mg/g 07/09/2019 8:08 PM FURNITURE ASSEMBLY SUPERVISOR [facility] Urine URINE SPECIMEN OBTAINED BY CLEAN CATCH PROCEDURE / Unknown Collection / Unknown 07/09/2019 3:42 PM FURNITURE ASSEMBLY SUPERVISOR 07/09/2019 7:19 PM FURNITURE ASSEMBLY SUPERVISOR Narrative [facility] - 07/09/2019 8:08 PM FURNITURE ASSEMBLY SUPERVISOR Condition Microalbumin/Creat ratio Normal Males <17 Normal Females <25 Microalbuminuria Males 17-299 Microalbuminuria Females 25-299 Overt proteinuria >=300 Hailee DAVID URINE ORDERABLES Final Result [facility] CLIA# [id number] [address] [place] [address] * (ABNORMAL) LIPID RFLX (07/09/2019 3:05 PM FURNITURE ASSEMBLY SUPERVISOR) CHOLESTEROL 161 <200 mg/dL 07/09/2019 3:52 PM [facility] [place] TRIGLYCERIDE 114 <150 mg/dL 07/09/2019 3:52 PM [facility] [place] HDL 38(L) 40 - 59 mg/dL 07/09/2019 3:52 PM [facility] [place] LDL CALCULATED 100(H) <100 mg/dL 07/09/2019 3:52 PM [facility] [place] NON-HDL CHOLESTEROL 123 <130 mg/dL 07/09/2019 3:52 PM [facility] [place] Blood Venipuncture / Unknown 07/09/2019 3:05 PM FURNITURE ASSEMBLY SUPERVISOR 07/09/2019 3:05 PM FURNITURE ASSEMBLY SUPERVISOR Narrative [facility] [place] - 07/09/2019 3:52 PM FURNITURE ASSEMBLY SUPERVISOR TOTAL CHOLESTEROL mg/dL Desirable <200 Borderline high [...] Reference Ranges for Lipid Panels (NCEP/AMA) . us Hailee Waite REEL SLITTER CHEMISTRY ORDERABLES Final Resu lt [facility] [place] CLIA# [id number] [address] [place] [address] from Last 3 Months or Most Recently Relevant to Health Maintenance Insurance [place] * Guarantor: WANDA LAMB Account Type Relation to Patient Date of Phone Billing Address Personal/Family [address] [place] [address] [facility] Medicaid Care Teams Solutions Sales Executive Relationship Specialty Start Date End Date Kevin Grimes MD [address] [phone] PCP - General Family Practice 09/02/24
--- OUTSIDE RECORDS SUMMARY | 2024-09-06 05:55 | XMS_ITS | Encounter Summary ---
Author Organization [facility] Address [address] [place] [address] Care Team Providers Care Cpr Instructor Name Role Phone Sadaf Ag MD, Chuy Lowery Primary Care Provider +1- [phone] Encounter Details Date Type Department Care Team (Late st Contact Info) Description 09/26/2004 Emergency [facility] Emergency Department [address] 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
--- OUTSIDE RECORDS SUMMARY | 2024-09-06 05:55 | XMS_ITS | Encounter Summary ---
Author Organization [facility] Address [address] [place] [address] Care Team Providers Care Stringed Instrument Repairer Name Role Phone Sadaf Ag MD, Chuy Lowery Primary Care Provider +1- [phone] Encounter Details Date Type Department Care Team (Late st Contact Info) Description 07/14/2005 Emergency [facility] Emergency Department [address] [place] [address] Alexsander Lind MD NO ADDRESS ON FILE Lumbago (Primary Dx) Social History Tobacco Use Types Packs/Day Years Used Date Smoking Tobacco: Never Assessed Comments Unknown Sex and Gender Information Value Date Recorded Sex Assigned at Not on file Legal Sex Female 6:07 AM SALON SALES CONSULTANT Gender Identity Not on file Sexual Orientation Not on file documented as of this encounter Plan of Treatment Not on file documented as of this encounter Procedures Procedure Name Priority Date/Time Associated Diagnosis Comments XR KNEE 1 OR 2 VW LEFT Routine 07/14/2005 11:41 AM SALON SALES CONSULTANT documented in this encounter Results * XR KNEE 1 OR 2 VW LEFT (07/14/2005 11:41 AM SALON SALES CONSULTANT) Anatomical Region Laterality Modality Lower Extremity Other 07/14/2005 11:4 1 AM SALON SALES CONSULTANT Narrative 07/14/2005 11:41 AM SALON SALES CONSULTANT 07-14-05 TWO VIEWS LEFT KNEE: HISTORY: Knee pain. I see no evidence of a joint effusion. The bony structures are intact. IMPRESSION: Negative study. [facility] D: 07-14-05 [id number] Dictated By: Sushil Quevedo M.D. Electronically Signed By: Sushil Quevedo M.D. Date Signed: 07/15/05 Procedure Note 03/24/2009 07-14-05 TWO VIEWS LEFT KNEE: HISTORY: Knee pain. I see no evidence of a joint effusion. The bony structures are intact. IMPRESSION: Negative study. [facility] D: 07-14-056 Dictated By: Sushil Quevedo M.D. Electronically Signed By: Sushil Quevedo M.D. Date Signed: 07/15/05 us Physician Sj Ed DIAGNOSTIC IMAGING ORDERABLES Fi nal Result documented in this encounter Visit Diagnoses Diagnosis Lumbago- Primary documented in this encounter Care Teams Stringed Instrument Repairer Relationship Specialty Start Date End Date Chuy Talavera Jr., MD [address] [place] [address] 248 [facility] [address] [place] [phone] PCP - General Family Practice 07/09/19 documented as of this encounter
--- OUTSIDE RECORDS SUMMARY | 2024-09-06 05:55 | XMS_ITS | Encounter Summary ---
Author Organization [facility] Address [address] [place] [address] Care Team Providers Care Lamp Tester And Inspector Name Role Phone Sadaf Ag MD, Chuy Lowery Primary Care Provider +1- [phone] Encounter Details Date Type Department Care Team (Latest Contact Info) Description 08/23/2006 Outpatient Historical [facility] [address] [place] [address] AMBULANCE, [facility] Other Injury of Other Sites of Trunk (Primary Dx) Social History Tobacco Use Types Packs/Day Years Used Date Smoking Tobacco: Never Assessed Comments Unknown Sex and Gender Information Value Date Recorded Sex Assigned at Not on file Legal Sex Female 6:07 AM LEGAL NURSE CONSULTANT Gender Identity Not on file Sexual Orientation Not on file documented as of this encounter Plan of Treatment Not on file documented as of this encounter Visit Diagnoses Diagnosis Other injury of other sites of trunk- Primary documented in this encounter Care Teams Lamp Tester And Inspector Relationship Specialty Start Date End Date Chuy Talavera Jr., MD [address] [place] [address] [address] [place] [address] PCP - General Family Practice 07/09/19 documented as of this encounter
--- OUTSIDE RECORDS SUMMARY | 2024-09-06 05:55 | XMS_ITS | Encounter Summary ---
Author Organization [facility] Address [address] [place] [address] Care Team Providers Care Tour Conductor Name Role Phone Sadaf Ag MD, Chuy Lowery Primary Care Provider +1- [phone] Encounter Details Date Type Department Care Team (Late st Contact Info) Description 10/06/2004 Emergency [facility] Emergency Department [address] [place] [address] Fern Mo FNP NO ADDRESS ON FILE UNSPEC DENTAL CARIES (Primary Dx) Social History Tobacco Use Types Packs/Day Years Used Date Smoking Tobacco: Never Assessed Comments Unknown Sex and Gender Information Value Date Recorded Sex Assigned at Not on file Legal Sex Female 6:07 AM REGISTERED NURSING PROFESSOR Gender Identity Not on file Sexual Orientation Not on file documented as of this encounter Plan of Treatment Not on file documented as of this encounter Visit Diagnoses Diagnosis Unspecified dental caries- Primary documented in this encounter Care Teams Tour Conductor Relationship Specialty Start Date End Date Chuy Talavera Jr., MD [address] [place] [address] [address] [place] [phone] PCP - General Family Practice 07/09/19 documented as of this encounter
--- OUTSIDE RECORDS SUMMARY | 2024-09-06 05:55 | XMS_ITS | Encounter Summary ---
Author Organization [facility] Address [address] [facility] [address] 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
--- OUTSIDE RECORDS SUMMARY | 2024-09-06 05:55 | XMS_ITS | Encounter Summary ---
Author Organization [facility] Address [address] 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
--- OUTSIDE RECORDS SUMMARY | 2024-09-06 05:55 | XMS_ITS | Encounter Summary ---
Author Organization [facility] Address [address] [place] [address] Care Team Providers Care Balancer Name Role Phone Sadaf Ag MD, Chuy Lowery Primary Care Provider +1- [phone] Encounter Details Date Type Department Care Team (Late st Contact Info) Description 12/24/2004 Emergency [facility] Emergency Department [address] 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
--- OUTSIDE RECORDS SUMMARY | 2024-09-06 05:55 | XMS_ITS | Encounter Summary ---
Author Organization [facility] Address [address] [place] [address] Care Team Providers Care Prototype Special Build Name Role Phone Sadaf Ag MD, Chuy Lowery Primary Care Provider +1- [phone] Encounter Details Date Type Department Care Team (Late st Contact Info) Description 07/10/2004 Emergency [facility] Emergency Department [address] 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
--- OUTSIDE RECORDS SUMMARY | 2024-09-06 05:55 | XMS_ITS | Encounter Summary ---
Author Organization [facility] Address [address] [place] [address] Care Team Providers Care Electrical Maintenance Man Name Role Phone Sadaf Ag MD, Chuy Lowery Primary Care Provider +1- [phone] Encounter Details Date Type Department Care Team (Late st Contact Info) Description 12/08/2004 Emergency [facility] Emergency Department [address] 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 Gender Identity Not on file Sexual Orientation Not on file documented as of this encounter Plan of Treatment Not on file documented as of this encounter Procedures Procedure Name Priority Date/Time Associated Diagnosis Comments CBC WITH DIFFERENTIAL Routine 12/09/2004 1:17 AM CDT ETHANOL LEVEL Routine 12/09/2004 1:17 AM CDT BASIC METABOLIC PANEL Routine 12/09/2004 1:17 AM CDT documented in this encounter Results * (ABNORMAL) BASIC METABOLIC PANEL (12/09/2004 1:17 AM CDT) GLUCOSE 99 70 - 110 mg/dL INTERFACE SYSTEM BUN 13 7 - 17 mg/dL INTERFACE SYSTEM CREATININE 0.6(L) 0.7 - 1.2 mg/dL INTERFACE SYSTEM SODIUM 140 136 - 145 mEq/L INTERFACE SYSTEM POTASSIUM 3.8 3.5 - 5.0 mEq/L INTERFACE SYSTEM CHLORIDE 104 95 - 110 mEq/L INTERFACE SYSTEM CO2 25 22 - 32 mmol/l INTERFACE SYSTEM ANION GAP 15 9 - 20 mEq/L INTERFACE SYSTEM OSMOLALITY, CALCULATED 288 275 - 295 mOsm/Kg INTERFACE SYSTEM CALCIUM 9.3 8.4 - 10.5 mg/dL INTERFACE SYSTEM 12/09/2004 1:17 AM CDT Rajni Correia MD CHEMISTRY ORDERABLES Final Result Performing Organization Address [facility] de Phone Number INTERFACE SYSTEM Refer to clinic/hospital department * ETHANOL LEVEL (12/09/2004 1:17 AM CDT) ETHANOL <10 <=10 mg/dL INTERFACE SYSTEM 12/09/2004 1:17 AM CDT Rajni Correia MD CHEMISTRY ORDERABLES Final Result Performing Organization Address [facility] de Phone Number INTERFACE SYSTEM Refer to clinic/hospital department * (ABNORMAL) CBC WITH DIFFERENTIAL (12/09/2004 1:17 AM CDT) WBC 9.4 4.5 - 11.0 K/ul INTERFACE SYSTEM RBC 4.18(L) 4.20 - 5.40 Mil/ul INTERFACE SYSTEM HEMOGLOBIN 12.5 12.0 - 16.0 g/dL INTERFACE SYSTEM HEMATOCRIT 37.9 36.0 - 46.0 % INTERFACE SYSTEM MCV 90.7 84.0 - 103.0 Fl INTERFACE SYSTEM MCH 29.9 27.0 - 34.0 pg INTERFACE SYSTEM MCHC 33.0 30.0 - 35.0 g/dL INTERFACE SYSTEM RDW 14.1 11.0 - 14.5 % INTERFACE SYSTEM PLATELETS 289 140 - 440 K/ul INTERFACE SYSTEM MPV 10.4 8.9 - 12.8 Fl INTERFACE SYSTEM NEUTROPHILS 64.0 42.2 - 75.2 % INTERFACE SYSTEM LYMPHOCYTES 25.9 24.0 - 44.0 % INTERFACE SYSTEM MONOCYTES 8.4 2.0 - 10.0 % INTERFACE SYSTEM EOSINOPHILS 1.5 0.0 - 7.0 % INTERFACE SYSTEM BASOPHILS 0.2 0.0 - 1.0 % INTERFACE SYSTEM NEUTROPHIL ABSOLUTE 6.0 2.0 - 8.0 K/uL INTERFACE SYSTEM LYMPHOCYTE ABSOLUTE 2.4 1.2 - 4.0 K/ul INTERFACE SYSTEM MONOCYTE ABSOLUTE 0.8(H) 0.1 - 0.6 K/ul INTERFACE SYSTEM EOSINOPHIL ABSOLUTE 0.1 0.0 - 0.7 K/ul INTERFACE SYSTEM BASOPHILS ABSOLUTE 0.0 0.0 - 0.2 K/ul INTERFACE SYSTEM PERIPHERAL BLOOD SMEAR REVIEW Automated Diff INTERFACE SYSTEM 12/09/2004 1:17 AM CDT us Rajni Correia MD HEMATOLOGY ORDERABLES Final Result INTERFACE SYSTEM Refer to clinic/hospital department documented in this encounter Visit Diagnoses Diagnosis Depressive disorder, not elsewhere classified- Primary documented in this encounter Care Teams Electrical Maintenance Man Relationship Specialty Start Date End Date Chuy Talavera Jr., MD [address] [place] [address] 248 [facility] 140 [place] [phone] PCP - General Family Practice 07/09/19 documented as of this encounter
--- OUTSIDE RECORDS SUMMARY | 2024-09-06 05:55 | XMS_ITS | Encounter Summary ---
Author Organization [facility] Address [address] [facility] [address] 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
--- OUTSIDE RECORDS SUMMARY | 2024-09-06 05:55 | XMS_ITS | Encounter Summary ---
Author Organization [facility] Address [address] [place] [address] Care Team Providers Care Magnetic Tape Winder Name Role Phone Kevin Grimes MD Primary Care Provider +1 -[phone] Reason for Visit * Reason Comments Provider Call Encounter Details Date Type Department Care Team ([facility] st Contact Info) Description 09/02/2024 Telephone [facility] [address] [address] Kevin Grimes MD [facility] [address] [address] Provider Call Social History Tobacco Use Types Packs/Day Years Used Date Smoking Tobacco: Every Day Cigarettes Smokeless Tobacco: Never Alcohol Use Standard Drinks/Week Comments Not Currently 0 (1 standard drink = 0.6 oz pur e alcohol) Comments Unknown Sex and Gender Information Value Date Recorded Sex Assigned at Not on file 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 Discussed not filling diclofenac sodium EC (VOLTAREN) . Voiced understanding. Nisa VARELA * Telephone Encounter - Nisa Muñoz RN - 09/02/2024 2:13 PM CDT 09/02/2024 2:13 PM Returned call and spoke with patient. Discussed that she is only allergic to Nsaids and anything with steroids in it. Voiced understanding. Nisa RN * Telephone Encounter - Nisa Muñoz RN - 09/02/2024 2:12 PM CDT 09/02/2024 2:12 PM Returned call and spoke with Antonella with [facility]. Discussed that they have Nsaids, aspirin, and methadone listed as allergies for patient. Voiced understanding. Nisa RN * Telephone Encounter - Ruslan Sampson - 09/02/2024 2:02 PM CDT Copied from [facility] #[id number]. Topic: [id number] Call >> September 02, 2024 2:00 PM Ruslan Cummings wrote: Caller is requesting to speak with Clinical Care Team. Caller Name: [facility] [address] [place] [address] (Pharmacy) Callback Number: Clinician Type: Pharmacy - Medication Question Call Notes: Bebe w/ [facility] states that on the diclofenac sodium EC (VOLTAREN) 25 mg Tablet, Delayed Release (E.C.), the patient is allergic to one of the ingredients. Bebe would like to verify that the provider would still like to prescribe the medication. documented in this encounter Plan of Treatment Upcoming Encounters Date Type Department Care Team (Late st Contact Info) Description 10/07/2024 11:00 AM CDT Office Visit [facility] [address] [phone] Kevin Grimes MD [address] [address] documented as of this encounter Visit Diagnoses Not on filedocumented in this encounter Additional Health Concerns Assessment Noted Time PHQ-9 Depression Total Score: 4 09/03/19 25 11:00 AM CDT documented as of this encounter Care Teams Magnetic Tape Winder Relationship Specialty Start Date End Date Kevin Grimes MD [address] [facility] [address] [place] [phone] PCP - General Family Practice 09/02/24 documented as of this encounter
--- OUTSIDE RECORDS SUMMARY | 2024-09-06 05:55 | XMS_ITS | Encounter Summary ---
Author Organization [facility] Address [address] [facility] [address] [facility] [address] 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
--- OUTSIDE RECORDS SUMMARY | 2024-09-06 05:55 | XMS_ITS | Encounter Summary ---
Author Organization [facility] Address [address] [place] [address] Care Team Providers Care Digital Strategy Manager Name Role Phone Sadaf Ag MD, Chuy Lowery Primary Care Provider +1- [phone] Encounter Details Date Type Department Care Team (Late st Contact Info) Description 02/06/2005 Emergency [facility] Emergency Department [address] 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
--- OUTSIDE RECORDS SUMMARY | 2024-09-06 05:55 | XMS_ITS | Encounter Summary ---
Author Organization [facility] Address [address] 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
--- OUTSIDE RECORDS SUMMARY | 2024-09-06 05:55 | XMS_ITS | Encounter Summary ---
Author Organization [facility] Address [address] [place] [address] Care Team Providers Care Pastry Cook Apprentice Name Role Phone Sadaf Ag MD, Chuy Lowery Primary Care Provider +1- [phone] Encounter Details Date Type Department Care Team (Late st Contact Info) Description 06/22/2004 Emergency [facility] Emergency Department [address] 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
--- OUTSIDE RECORDS SUMMARY | 2024-09-06 05:55 | XMS_ITS | Encounter Summary ---
Author Organization [facility] Address [address] Lopez: Epic Prelude ADT [place] [address] Care Team Providers Care Senior Oracle Adf Developer Name Role Phone Sadaf Ag MD, Chuy Lowery Primary Care Provider +1- [phone] Encounter Details Date Type Department Care Team (Late st Contact Info) Description 11/27/2001 Outpatient Historical ForFly lagos MD [address] [facility] 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
--- OUTSIDE RECORDS SUMMARY | 2024-09-06 05:55 | XMS_ITS | Encounter Summary ---
Author Organization [facility] Address [address] [place] [address] Care Team Providers Care Treatment Manager Name Role Phone Sadaf Ag MD, Chuy Lowery Primary Care Provider +1- [phone] Encounter Details Date Type Department Care Team (Late st Contact Info) Description 02/14/2004 Emergency [facility] Emergency Department [address] 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
--- OUTSIDE RECORDS SUMMARY | 2024-09-06 05:55 | XMS_ITS | Encounter Summary ---
Author Organization [facility] Address [address] [place] [address] Care Team Providers Care Family And Consumer Sciences Teacher Name Role Phone Sadaf Ag MD, Chuy Lowery Primary Care Provider +1- [phone] Encounter Details Date Type Department Care Team (Late st Contact Info) Description 09/07/2004 Emergency [facility] Emergency Department [address] 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
--- OUTSIDE RECORDS SUMMARY | 2024-09-06 05:55 | XMS_ITS | Encounter Summary ---
Author Organization [facility] Address [address] [place] [address] Care Team Providers Care Pharmacist Per Diem Name Role Phone Sadaf gA MD, Chuy Lowery Primary Care Provider +1- [phone] Encounter Details Date Type Department Care Team (Late st Contact Info) Description 06/03/[address] [facility] Emergency Department [address] 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
--- OUTSIDE RECORDS SUMMARY | 2024-09-06 05:55 | XMS_ITS | Encounter Summary ---
Author Organization [facility] Address [address] [place] [address] Care Team Providers Care Weaver [place]minster Name Role Phone Sadaf Ag MD, Chuy Lowery Primary Care Provider +1- [phone] Encounter Details Date Type Department Care Team (Late st Contact Info) Description 02/14/2005 Emergency [facility] Emergency Department [address] 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 Gender Identity Not on file Sexual Orientation Not on file documented as of this encounter Plan of Treatment Not on file documented as of this encounter Procedures Procedure Name Priority Date/Time Associated Diagnosis Comments ETHANOL LEVEL Routine 02/14/2005 4:09 PM CDT BASIC METABOLIC PANEL PLUS Routine 02/14/2005 4:08 PM CDT CBC WITH DIFFERENTIAL Routine 02/14/2005 4:08 PM CDT TSH Routine 02/14/2005 4:08 PM CDT T4 FREE Routine 02/14/2005 4:08 PM CDT BASIC METABOLIC PANEL Routine 02/14/2005 4:08 PM CDT DRUG SCREEN, URINE Routine 02/14/2005 4: 01 PM CDT documented in this encounter Results * ETHANOL LEVEL (02/14/2005 4:09 PM CDT) ETHANOL <10 <=10 mg/dL INTERFACE SYSTEM 02/14/2005 4:09 PM CDT us Eduardo Alva MD CHEMISTRY ORDERABLES Final Resul t Performing Organization Address [facility] Phone Number INTERFACE SYSTEM Refer to clinic/hospital department * T4 FREE (02/14/2005 4:08 PM CDT) T4 FREE 0.97 0.89 - 1.76 ng/dL INTERFACE SYSTEM Comment: As of 04 at 3:00 p.m. [facility] has changed the methodology for Free T4, and with this change the reference range has changed from 0.71-1.85 to 0.89-1.76 ng/dl. 02/14/2005 4:08 PM CDT us Eduardo Alva MD CHEMISTRY ORDERABLES Final Resul t Performing Organization Address [facility] Phone Number INTERFACE SYSTEM Refer to clinic/hospital department * TSH (02/14/2005 4:08 PM CDT) TSH 0.852 0.350 - 5.500 uIU/ml INTERFACE SYSTEM Comment: As of 04 at 3:00 p.m. [facility] has changed the methodology for TSH, and with this change the reference range has changed from 0.49-4.67 to 0.35-5.5 uIU/ml. 02/14/2005 4:08 PM CDT us Eduardo Alva MD CHEMISTRY ORDERABLES Final Resul t Performing Organization Address [facility]/ZIP Co de Phone Number INTERFACE SYSTEM Refer to clinic/hospital department * (ABNORMAL) BASIC METABOLIC PANEL PLUS (02/14/2005 4:08 PM CDT) ALKALINE PHOSPHATASE 102 38 - 126 IU/L INTERFACE SYSTEM TOTAL PROTEIN 8.4(H) 6.3 - 8.2 g/dL INTERFACE SYSTEM ALBUMIN 4.1 3.5 - 5.0 g/dL INTERFACE SYSTEM AST 18 14 - 36 IU/L INTERFACE SYSTEM ALT 23 9 - 52 IU/L INTERFACE SYSTEM BILIRUBIN TOTAL 0.3 0.2 - 1.4 mg/dL INTERFACE SYSTEM 02/14/2005 4:08 PM CDT us Eduardo Alva MD CHEMISTRY ORDERABLES Final Resul t Performing Organization Address City/State/[facility] Co de Phone Number INTERFACE SYSTEM Refer to clinic/hospital department * (ABNORMAL) CBC WITH DIFFERENTIAL (02/14/2005 4:08 PM CDT) Pathologist [facility] WBC 10.4 4.5 - 11.0 K/ul INTERFACE SYSTEM RBC 4.89 4.20 - 5.40 Mil/ul INTERFACE SYSTEM HEMOGLOBIN 14.3 12.0 - 16.0 g/dL INTERFACE SYSTEM HEMATOCRIT 43.8 36.0 - 46.0 % INTERFACE SYSTEM MCV 89.6 84.0 - 103.0 Fl INTERFACE SYSTEM MCH 29.2 27.0 - 34.0 pg INTERFACE SYSTEM MCHC 32.6 30.0 - 35.0 g/dL INTERFACE SYSTEM RDW 14.1 11.0 - 14.5 % INTERFACE SYSTEM PLATELETS 367 140 - 440 K/ul INTERFACE SYSTEM MPV 10.6 8.9 - 12.8 Fl INTERFACE SYSTEM NEUTROPHILS 73.8 42.2 - 75.2 % INTERFACE SYSTEM LYMPHOCYTES 18.6(L) 24.0 - 44.0 % INTERFACE SYSTEM MONOCYTES 6.3 2.0 - 10.0 % INTERFACE SYSTEM EOSINOPHILS 1.2 0.0 - 7.0 % INTERFACE SYSTEM BASOPHILS 0.1 0.0 - 1.0 % INTERFACE SYSTEM NEUTROPHIL ABSOLUTE 7.7 2.0 - 8.0 K/uL INTERFACE SYSTEM LYMPHOCYTE ABSOLUTE 1.9 1.2 - 4.0 K/ul INTERFACE SYSTEM MONOCYTE ABSOLUTE 0.7(H) 0.1 - 0.6 K/ul INTERFACE SYSTEM EOSINOPHIL ABSOLUTE 0.1 0.0 - 0.7 K/ul INTERFACE SYSTEM BASOPHILS ABSOLUTE 0.0 0.0 - 0.2 K/ul INTERFACE SYSTEM 02/14/2005 4:08 PM CDT Eduardo Alva MD HEMATOLOGY ORDERABLES Final Resu lt Performing Organization Address [facility] Phone Number INTERFACE SYSTEM Refer to clinic/hospital department * (ABNORMAL) BASIC METABOLIC PANEL (02/14/2005 4:08 PM CDT) GLUCOSE 118(H) 70 - 110 mg/dL INTERFACE SYSTEM BUN 6(L) 7 - 17 mg/dL INTERFACE SYSTEM CREATININE 0.8 0.7 - 1.2 mg/dL INTERFACE SYSTEM SODIUM 142 136 - 145 mEq/L INTERFACE SYSTEM POTASSIUM 3.7 3.5 - 5.0 mEq/L INTERFACE SYSTEM CHLORIDE 106 95 - 110 mEq/L INTERFACE SYSTEM CO2 23 22 - 32 mmol/l INTERFACE SYSTEM ANION GAP 17 9 - 20 mEq/L INTERFACE SYSTEM OSMOLALITY, CALCULATED 290 275 - 295 mOsm/Kg INTERFACE SYSTEM CALCIUM 9.8 8.4 - 10.5 mg/dL INTERFACE SYSTEM 02/14/2005 4:08 PM CDT Eduardo Alva MD CHEMISTRY ORDERABLES Final Resul t Performing Organization Address [facility] Phone Number INTERFACE SYSTEM Refer to clinic/hospital department * (ABNORMAL) DRUG SCREEN, URINE (02/14/2005 4:01 PM CDT) OPIATE QUAL, URINE Drug Negative Drug Negative INTERFACE SYSTEM AMPHETAMINE QUAL, URINE Drug Negative Drug Negative INTERFACE SYSTEM BARBITURATE QUAL, URINE Drug Positive(A) Drug Negative INTERFACE SYSTEM COCAINE QUAL URINE Drug Negative Drug Negative INTERFACE SYSTEM PCP QUAL, URINE Drug Negative Drug Negative INTERFACE SYSTEM CANNABINOIDS QUAL, URINE Drug Negative Drug Negative INTERFACE SYSTEM BENZODIAZEPINE QUAL, URINE Drug Negative Drug Negative INTERFACE SYSTEM 02/14/2005 4:01 PM CDT Eduardo Alva MD URINE ORDERABLES Final Result Performing Organization Address [facility] Phone Number INTERFACE SYSTEM Refer to clinic/hospital department documented in this encounter Visit Diagnoses Diagnosis Depressive disorder, not elsewhere classified- Primary documented in this encounter Care Teams Weaver [place]minster Relationship Specialty Start Date End Date Chuy Talavera Jr., MD [address] [place] [address] [address] [phone] PCP - General Family Practice 07/09/19 documented as of this encounter
--- OUTSIDE RECORDS SUMMARY | 2024-09-06 05:55 | XMS_ITS | Encounter Summary ---
Author Organization [facility] Address [address] [place] [address] Care Team Providers Care Insurance Checker Name Role Phone Sadaf Ag MD, Chuy Lowery Primary Care Provider +1- [phone] Encounter Details Date Type Department Care Team (Late st Contact Info) Description 07/05/2004 Emergency [facility] Emergency Department [address] 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
--- OUTSIDE RECORDS SUMMARY | 2024-09-06 05:55 | XMS_ITS | Encounter Summary ---
Author Organization [facility] Address [address] 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
--- OUTSIDE RECORDS SUMMARY | 2024-09-06 05:55 | XMS_ITS | Encounter Summary ---
Author Organization [facility] Address [address] [place] [address] Care Team Providers Care Flake Drier Name Role Phone Sadaf Ag MD, Chuy Lowery Primary Care Provider +1- [phone] Encounter Details Date Type Department Care Team (Latest Contact Info) Description 09/11/2004 Outpatient [facility] Oral and Maxillo Surgery[address] [place] [address] Cruz Mills, PhD NO ADDRESS ON FILE SURGERY FOLLOWUP, UNSPEC (Primary Dx) Social History Tobacco Use Types Packs/Day Years Used Date Smoking Tobacco: Never Assessed Comments Unknown Sex and Gender Information Value Date Recorded Sex Assigned at Not on file 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
--- OUTSIDE RECORDS SUMMARY | 2024-09-06 05:55 | XMS_ITS | Encounter Summary ---
Author Organization [facility] Address [address] [place] [address] Care Team Providers Care Cutter Gas Name Role Phone Sadaf Ag MD, Chuy Lowery Primary Care Provider +1- [phone] Encounter Details Date Type Department Care Team (Latest Contact Info) Description 09/18/2004 Outpatient [facility] Oral and Maxillo Surgery[address] [place] [address] Cruz Mills, PhD NO ADDRESS ON FILE SURGERY FOLLOWUP, UNSPEC (Primary Dx) Social History Tobacco Use Types Packs/Day Years Used Date Smoking Tobacco: Never Assessed Comments Unknown Sex and Gender Information Value Date Recorded Sex Assigned at Not on file 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
--- OUTSIDE RECORDS SUMMARY | 2024-09-06 05:55 | XMS_ITS | Encounter Summary ---
Author Organization [facility] Address [address] [place] [address] Care Team Providers Care Chief Development Officer Name Role Phone Sadaf Ag MD, Chuy Lowery Primary Care Provider +1- [phone] Encounter Details Date Type Department Care Team (Late st Contact Info) Description 09/24/2004 Emergency [facility] Emergency Department [address] 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
--- OUTSIDE RECORDS SUMMARY | 2024-09-06 05:55 | XMS_ITS | Encounter Summary ---
Author Organization [facility] Address [address] 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
--- OUTSIDE RECORDS SUMMARY | 2024-09-06 05:55 | XMS_ITS | Encounter Summary ---
Author Organization [facility] Address [address] Lopez: Epic Prelude ADT [place] [address] Care Team Providers Care Mobile Ui Developer Name Role Phone Sadaf Ag MD, Chuy Lowery Primary Care Provider +1- [phone] Encounter Details Date Type Department Care Team (Late st Contact Info) Description 08/30/1999 Outpatient Historical Non-Staff, Physician NO ADDRESS ON FILE Social History Tobacco Use Types Packs/Day Years Used Date Smoking Tobacco: Never Assessed Comments Unknown Sex and Gender Information Value Date Recorded Sex Assigned at Not on file Legal Sex Female 6:[address] MAN Gender Identity Not on file Sexual Orientation Not on file documented as of this encounter Plan of Treatment Not on file documented as of this encounter Visit Diagnoses Not on filedocumented in this encounter Care Teams Mobile Ui Developer Relationship Specialty Start Date End Date Chuy Talavera Jr., MD [address] [place], [place] [address] [address] [phone] PCP - General Family Practice 07/09/19 documented as of this encounter
--- OUTSIDE RECORDS SUMMARY | 2024-09-06 05:55 | XMS_ITS | Encounter Summary ---
Author Organization [facility] Address [address] [place] [address] Care Team Providers Care Wire Puller Name Role Phone Sadaf Ag MD, Chuy Lowery Primary Care Provider +1- [phone] Encounter Details Date Type Department Care Team (Late st Contact Info) Description 04/24/2005 Emergency [facility] Emergency Department [address] 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 Gender Identity Not on file Sexual Orientation Not on file documented as of this encounter Plan of Treatment Not on file documented as of this encounter Procedures Procedure Name Priority Date/Time Associated Diagnosis Comments CARDIAC ENZYMES Routine 04/24/2005 9:55 PM PLAYGROUND WORKER CBC WITH DIFFERENTIAL Routine 04/24/2005 9:55 PM PLAYGROUND WORKER PTT Routine 04/24/2005 9:55 PM PLAYGROUND WORKER PROTIME-INR Routine 04/24/2005 9:55 PM PLAYGROUND WORKER BASIC METABOLIC PANEL Routine 04/24/2005 9:55 PM PLAYGROUND WORKER documented in this encounter Results * (ABNORMAL) CBC WITH DIFFERENTIAL (04/24/2005 9:55 PM PLAYGROUND WORKER) WBC 8.8 4.5 - 11.0 K/ul INTERFACE SYSTEM RBC 4.92 4.20 - 5.40 Mil/ul INTERFACE SYSTEM HEMOGLOBIN 14.9 12.0 - 16.0 g/dL INTERFACE SYSTEM HEMATOCRIT 42.8 36.0 - 46.0 % INTERFACE SYSTEM MCV 87.0 84.0 - 103.0 Fl INTERFACE SYSTEM MCH 30.3 27.0 - 34.0 pg INTERFACE SYSTEM MCHC 34.8 30.0 - 35.0 g/dL INTERFACE SYSTEM RDW 14.6(H) 11.0 - 14.5 % INTERFACE SYSTEM PLATELETS 336 140 - 440 K/ul INTERFACE SYSTEM MPV 9.8 8.9 - 12.8 Fl INTERFACE SYSTEM NEUTROPHILS 63.7 42.2 - 75.2 % INTERFACE SYSTEM LYMPHOCYTES 26.7 24.0 - 44.0 % INTERFACE SYSTEM MONOCYTES 7.7 2.0 - 10.0 % INTERFACE SYSTEM EOSINOPHILS 1.7 0.0 - 7.0 % INTERFACE SYSTEM BASOPHILS 0.2 0.0 - 1.0 % INTERFACE SYSTEM NEUTROPHIL ABSOLUTE 5.6 2.0 - 8.0 K/uL INTERFACE SYSTEM LYMPHOCYTE ABSOLUTE 2.3 1.2 - 4.0 K/ul INTERFACE SYSTEM MONOCYTE ABSOLUTE 0.7(H) 0.1 - 0.6 K/ul INTERFACE SYSTEM EOSINOPHIL ABSOLUTE 0.2 0.0 - 0.7 K/ul INTERFACE SYSTEM BASOPHILS ABSOLUTE 0.0 0.0 - 0.2 K/ul INTERFACE SYSTEM 04/24/2005 9:55 PM PLAYGROUND WORKER us Dino Betts DO HEMATOLOGY ORDERABLES Final Res ult INTERFACE SYSTEM Refer to clinic/hospital department * PTT (04/24/2005 9:55 PM PLAYGROUND WORKER) PTT 27.7 24.3 - 37.5 Secs INTERFACE SYSTEM Comment:Therapeutic Range: 04/24/2005 9:55 PM PLAYGROUND WORKER Dino Betts DO HEMATOLOGY ORDERABLES Final Res ult Performing Organization Address [facility] Phone Number INTERFACE SYSTEM Refer to clinic/hospital department * (ABNORMAL) PROTIME-INR (04/24/2005 9:55 PM PLAYGROUND WORKER) PROTIME 12.3(L) 12.6 - 14.9 Secs INTERFACE SYSTEM Comment: As of 05 note change in normal range. INR 0.9 INTERFACE SYSTEM Comment: Expected Values for INR: DVT/PE Goal INR 2.5; range 2.0 - 3.0 Valve Replacement Tissue Goal INR 2.5; range 2.0 - 3.0 Mechanical Goal INR 3.0; range 2.5 - 3.5 POST-ND Goal INR 2.5; range 2.0 - 3.0 or Goal 3.0; range 2.5 - 3.5 Atrial Fibrillation Goal INR 2.5; range 2.0 - 3.0 Ischemic Stroke Goal INR 2.5; range 2.0 - 3.0 For additional information see Guidelines for Anticoagulation available from the pharmacy Roderick Laguerre D. 04/24/2005 9:55 PM PLAYGROUND WORKER us Dino Betts DO HEMATOLOGY ORDERABLES Final Res ult Performing Organization Address [facility] Phone Number INTERFACE SYSTEM Refer to clinic/hospital department * (ABNORMAL) BASIC METABOLIC PANEL (04/24/2005 9:55 PM PLAYGROUND WORKER) GLUCOSE 126(H) 70 - 110 mg/dL INTERFACE SYSTEM BUN 11 7 - 17 mg/dL INTERFACE SYSTEM CREATININE 0.8 0.7 - 1.2 mg/dL INTERFACE SYSTEM SODIUM 138 136 - 145 mEq/L INTERFACE SYSTEM POTASSIUM 4.0 3.5 - 5.0 mEq/L INTERFACE SYSTEM CHLORIDE 101 95 - 110 mEq/L INTERFACE SYSTEM CO2 24 22 - 32 mmol/l INTERFACE SYSTEM ANION GAP 17 9 - 20 mEq/L INTERFACE SYSTEM OSMOLALITY, CALCULATED 285 275 - 295 mOsm/Kg INTERFACE SYSTEM CALCIUM 10.7(H) 8.4 - 10.5 mg/dL INTERFACE SYSTEM 04/24/2005 9:55 PM PLAYGROUND WORKER Dino Betts DO CHEMISTRY ORDERABLES Final Resu lt Performing Organization Address [facility] Phone Number INTERFACE SYSTEM Refer to clinic/hospital department * CARDIAC ENZYMES (04/24/2005 9:55 PM PLAYGROUND WORKER) CKMB <0.2 0.0 - 5.0 ng/mL INTERFACE SYSTEM Comment: As of 04 at 14:30 [facility] has changed the methodology for CK-MB and with this change the reference range has changed from 0-5.5 ng/ml to 0-5.0 ng/ml TROPONIN I <0.1 0.0 - 1.5 ng/mL INTERFACE SYSTEM Comment: As of 04 at 14:30 [facility] has changed the methodology for Troponin but the reference range of 1.5 ng/ml has remained the same. 04/24/2005 9:55 PM PLAYGROUND WORKER Dino Betts DO CHEMISTRY ORDERABLES Final Resu lt Performing Organization Address [facility] Phone Number INTERFACE SYSTEM Refer to clinic/hospital department documented in this encounter Visit Diagnoses Diagnosis Anxiety state, unspecified- Primary documented in this encounter Care Teams Wire Puller Relationship Specialty Start Date End Date Chuy Talavera Jr., MD [facility] [address] [phone] PCP - General Family Practice 07/09/19 documented as of this encounter
--- OUTSIDE RECORDS SUMMARY | 2024-09-06 05:55 | XMS_ITS | Encounter Summary ---
Author Organization [facility] Address [address] 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
--- OUTSIDE RECORDS SUMMARY | 2024-09-06 05:55 | XMS_ITS | Encounter Summary ---
Author Organization [facility] Address [address] 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
--- OUTSIDE RECORDS SUMMARY | 2024-09-06 05:55 | XMS_ITS | Encounter Summary ---
Author Organization [facility] Address [address] [place] [address] Care Team Providers Care Supervisor Final Name Role Phone Sadaf Ag MD, Chuy Lowery Primary Care Provider +1- [phone] Encounter Details Date Type Department Care Team (Late st Contact Info) Description 07/12/2004 Emergency [facility] Emergency Department [address] 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
--- OUTSIDE RECORDS SUMMARY | 2024-09-06 05:55 | XMS_ITS | Encounter Summary ---
Author Organization [facility] Address [address] [place] [address] Care Team Providers Care Tank Pumper Name Role Phone Sadaf Ag MD, Chuy Lowery Primary Care Provider +1- [phone] Encounter Details Date Type Department Care Team (Late st Contact Info) Description 04/05/2002 Emergency [facility] Emergency Department [address] 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
--- OUTSIDE RECORDS SUMMARY | 2024-09-06 05:55 | XMS_ITS | Encounter Summary ---
Author Organization [facility] Address [address] [place] [address] Care Team Providers Care Outdoor Education Teacher Name Role Phone Sadaf Ag MD, Chuy Lowery Primary Care Provider +1- [phone] Encounter Details Date Type Department Care Team (Late st Contact Info) Description 03/01/2004 Emergency [facility] Emergency Department [address] 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
--- OUTSIDE RECORDS SUMMARY | 2024-09-06 05:55 | XMS_ITS | Encounter Summary ---
Author Organization [facility] Address [address] [place] [address] Care Team Providers Care Steel Post Installer Supervisor Name Role Phone Sadaf Ag MD, Chuy Lowery Primary Care Provider +1- [phone] Encounter Details Date Type Department Care Team (Late st Contact Info) Description 02/16/2004 Emergency [facility] Emergency Department [address] 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
--- OUTSIDE RECORDS SUMMARY | 2024-09-06 05:55 | XMS_ITS | Encounter Summary ---
Author Organization [facility] Address [address] 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
--- OUTSIDE RECORDS SUMMARY | 2024-09-06 05:55 | XMS_ITS | Encounter Summary ---
Author Organization [facility] Address [address] [place] [address] Care Team Providers Care Staff Radiographer Name Role Phone Sadaf Ag MD, Chuy Lowery Primary Care Provider +1- [phone] Encounter Details Date Type Department Care Team (Late st Contact Info) Description 12/02/2004 Emergency [facility] Emergency Department [address] 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
--- OUTSIDE RECORDS SUMMARY | 2024-09-06 05:55 | XMS_ITS | Encounter Summary ---
Author Organization [facility] Address [address] 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
--- OUTSIDE RECORDS SUMMARY | 2024-09-06 05:55 | XMS_ITS | Encounter Summary ---
Author Organization [facility] Address [address] 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
--- OUTSIDE RECORDS SUMMARY | 2024-09-06 05:55 | XMS_ITS | Encounter Summary ---
Author Organization [facility] Address [address] [place] [address] Care Team Providers Care Rate Engineer Name Role Phone Sadaf Ag MD, Chuy Lowery Primary Care Provider +1- [phone] Encounter Details Date Type Department Care Team (Late st Contact Info) Description 12/20/2004 Emergency [facility] Emergency Department [address] 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
--- OUTSIDE RECORDS SUMMARY | 2024-09-06 05:55 | XMS_ITS | Encounter Summary ---
Author Organization [facility] Address [address] 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
--- OUTSIDE RECORDS SUMMARY | 2024-09-06 05:55 | XMS_ITS | Encounter Summary ---
Author Organization [facility] Address [address] [place] [address] Care Team Providers Care Service Administrator Name Role Phone Sadaf Ag MD, Chuy Lowery Primary Care Provider +1- [phone] Encounter Details Date Type Department Care Team (Late st Contact Info) Description 07/24/2004 Emergency [facility] Emergency Department [address] [place] [address] Natalio Bauer MD NO ADDRESS ON FILE PEPTIC ULCER NOS (Primary Dx) Social History Tobacco Use Types Packs/Day Years Used Date Smoking Tobacco: Never Assessed Comments Unknown Sex and Gender Information Value Date Recorded Sex Assigned at Not on file Legal Sex Female 6:07 AM CLEANING HANDYMAN Gender Identity Not on file Sexual Orientation Not on file documented as of this encounter Plan of Treatment Not on file documented as of this encounter Procedures Procedure Name Priority Date/Time Associated Diagnosis Comments CBC WITH DIFFERENTIAL Routine 07/24/2004 1:26 PM CLEANING HANDYMAN LIPASE Routine 07/24/2004 1:26 PM CLEANING HANDYMAN AMYLASE Routine 07/24/2004 1:26 PM CLEANING HANDYMAN COMPREHENSIVE METABOLIC PANEL Routine 07/24/2004 1:26 PM CLEANING HANDYMAN documented in this encounter Results * (ABNORMAL) CBC WITH DIFFERENTIAL (07/24/2004 1:26 PM CLEANING HANDYMAN) WBC 8.5 4.5 - 11.0 K/ul INTERFACE SYSTEM RBC 4.57 4.20 - 5.40 Mil/ul INTERFACE SYSTEM HEMOGLOBIN 14.8 12.0 - 16.0 g/dL INTERFACE SYSTEM HEMATOCRIT 41.7 36.0 - 46.0 % INTERFACE SYSTEM MCV 91.2 84.0 - 103.0 Fl INTERFACE SYSTEM MCH 32.4 27.0 - 34.0 pg INTERFACE SYSTEM MCHC 35.5(H) 30.0 - 35.0 g/dL INTERFACE SYSTEM RDW 14.3 11.0 - 14.5 percent(i nactive) INTERFACE SYSTEM PLATELETS 435 140 - 440 K/ul INTERFACE SYSTEM MPV 10.5 8.9 - 12.8 Fl INTERFACE SYSTEM NEUTROPHILS 64.0 42.2 - 75.2 percent(i nactive) INTERFACE SYSTEM LYMPHOCYTES 23.5(L) 24.0 - 44.0 percent(i nactive) INTERFACE SYSTEM MONOCYTES 11.9(H) 2.0 - 10.0 percent(i nactive) INTERFACE SYSTEM EOSINOPHILS 0.4 0.0 - 7.0 % INTERFACE SYSTEM BASOPHILS 0.2 0.0 - 1.0 percent(i nactive) INTERFACE SYSTEM NEUTROPHIL ABSOLUTE 5.4 2.0 - 8.0 K/uL INTERFACE SYSTEM LYMPHOCYTE ABSOLUTE 2.0 1.2 - 4.0 K/ul INTERFACE SYSTEM MONOCYTE ABSOLUTE 1.0(H) 0.1 - 0.6 K/ul INTERFACE SYSTEM EOSINOPHIL ABSOLUTE 0.0 0.0 - 0.7 K/ul INTERFACE SYSTEM BASOPHILS ABSOLUTE 0.0 0.0 - 0.2 K/ul INTERFACE SYSTEM PERIPHERAL BLOOD SMEAR REVIEW Automated Diff INTERFACE SYSTEM 07/24/2004 1:26 PM CLEANING HANDYMAN us Natalio Bauer MD HEMATOLOGY ORDERABLES Final Result INTERFACE SYSTEM Refer to clinic/hospital department * (ABNORMAL) COMPREHENSIVE METABOLIC PANEL (07/24/2004 1:26 PM CLEANING HANDYMAN) Pathologist [facility] GLUCOSE 107 70 - 110 mg/dL INTERFACE SYSTEM BUN 12 7 - 17 mg/dL INTERFACE SYSTEM CREATININE 0.7 0.7 - 1.2 mg/dL (inactive) INTERFACE SYSTEM SODIUM 139 136 - 145 mEq/L INTERFACE SYSTEM POTASSIUM 3.4(L) 3.5 - 5.0 mEq/L INTERFACE SYSTEM Comment:Specimen slightly he molyzed CO2 24 22 - 32 mmol/l INTERFACE SYSTEM CHLORIDE 99 95 - 110 mEq/L INTERFACE SYSTEM CALCIUM 10.3 8.4 - 10.5 mg/dL INTERFACE SYSTEM ALKALINE PHOSPHATASE 121 38 - 126 IU/L INTERFACE SYSTEM TOTAL PROTEIN 9.2(H) 6.3 - 8.2 g/dL INTERFACE SYSTEM ALBUMIN 4.8 3.5 - 5.0 g/dL INTERFACE SYSTEM AST 38(H) 14 - 36 IU/L INTERFACE SYSTEM ALT 46 9 - 52 IU/L INTERFACE SYSTEM BILIRUBIN TOTAL 0.7 0.2 - 1.4 mg/dL INTERFACE SYSTEM GLOBULIN (CALC) 4.4(H) 2.4 - 3.9 g/dL INTERFACE SYSTEM ANION GAP 19 9 - 20 mEq/L INTERFACE SYSTEM ALBUMIN/GLOBULIN RATIO 1.1 1.0 - 2.3 INTERFACE SYSTEM OSMOLALITY, CALCULATED 285 275 - 295 mOsm/Kg INTERFACE SYSTEM 07/24/2004 1:26 PM CLEANING HANDYMAN Natalio Bauer MD CHEMISTRY ORDERABLES Final R esult Performing Organization Address [facility] Phone Number INTERFACE SYSTEM Refer to clinic/hospital department * LIPASE (07/24/2004 1:26 PM CLEANING HANDYMAN) LIPASE 97 23 - 300 IU/L INTERFACE SYSTEM 07/24/2004 1:26 PM CLEANING HANDYMAN Natalio Bauer MD CHEMISTRY ORDERABLES Final R esult Performing Organization Address [facility] Phone Number INTERFACE SYSTEM Refer to clinic/hospital department * AMYLASE (07/24/2004 1:26 PM CLEANING HANDYMAN) AMYLASE 45 30 - 120 IU/L INTERFACE SYSTEM 07/24/2004 1:26 PM CLEANING HANDYMAN Natalio Bauer MD CHEMISTRY ORDERABLES Final R esult Performing Organization Address [facility] Phone Number INTERFACE SYSTEM Refer to clinic/hospital department documented in this encounter Visit Diagnoses Diagnosis Peptic ulcer, unspecified site, unspecified as acute or chronic, without mention of hemorrhage, perforation, or obstruction- Primary documented in this encounter Care Teams Service Administrator Relationship Specialty Start Date End Date Chuy Talavera Jr., MD [address] [place] [address] 248 [facility] [address] [phone] PCP - General Family Practice 07/09/19 documented as of this encounter
--- OUTSIDE RECORDS SUMMARY | 2024-09-06 05:55 | XMS_ITS | Encounter Summary ---
Author Organization [facility] Address [address] [place] [address] Care Team Providers Care Farm Adviser Name Role Phone Sadaf Ag MD, Chuy Lowery Primary Care Provider +1- [phone] Encounter Details Date Type Department Care Team (Late st Contact Info) Description 09/06/2004 Emergency [facility] Emergency Department [address] 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
--- OUTSIDE RECORDS SUMMARY | 2024-09-06 05:55 | XMS_ITS | Encounter Summary ---
Author Organization [facility] Address [address] [place] [address] Care Team Providers Care Manager Shop Name Role Phone Sadaf Ag MD, Chuy Lowery Primary Care Provider +1- [phone] Encounter Details Date Type Department Care Team (Late st Contact Info) Description 05/19/2004 Emergency [facility] Emergency Department [address] 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 WHIZ MACHINE OPERATOR Gender Identity Not on file Sexual Orientation Not on file documented as of this encounter Plan of Treatment Not on file documented as of this encounter Procedures Procedure Name Priority Date/Time Associated Diagnosis Comments POC ELECTROLYTES/BMP Routine 05/19/2004 2:35 PM TIN WHIZ MACHINE OPERATOR documented in this encounter Results * (ABNORMAL) POC ISTAT 6 (05/19/2004 2:35 PM TIN WHIZ MACHINE OPERATOR) SODIUM POC 136 136 - 145 mEq/L INTERFACE SYSTEM POTASSIUM POC 3.9 3.5 - 5.0 mEq/L INTERFACE SYSTEM CHLORIDE POC 107 95 - 110 mEq/L INTERFACE SYSTEM GLUCOSE POC 115(H) 70 - 110 mg/dL INTERFACE SYSTEM BLOOD UREA NITROGEN POC 13 7 - 17 mg/dL INTERFACE SYSTEM HEMATOCRIT POC 43.0 36.0 - 46.0 % INTERFACE SYSTEM HEMOGLOBIN POC 15.0 12.0 - 16.0 g/dL INTERFACE SYSTEM 05/19/2004 2:35 PM TIN WHIZ MACHINE OPERATOR Robel A Pablo DO POINT OF CARE TESTING Mackenzie l Result INTERFACE SYSTEM Refer to clinic/hospital department documented in this encounter Visit Diagnoses Diagnosis Syncope and collapse- Primary documented in this encounter Care Teams Manager Shop Relationship Specialty Start Date End Date Chuy Talavera Jr., MD [address] [place] [address] [address] [place] [phone] PCP - General Family Practice 07/09/19 documented as of this encounter
--- OUTSIDE RECORDS SUMMARY | 2024-09-06 05:55 | XMS_ITS | Encounter Summary ---
Author Organization [facility] Address [address] 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
--- OUTSIDE RECORDS SUMMARY | 2024-09-06 05:55 | XMS_ITS | Encounter Summary ---
Author Organization [facility] Address [address] [place] [address] Care Team Providers Care Telecommunications Project Manager Name Role Phone Sadaf Ag MD, Chuy Lowery Primary Care Provider +1- [phone] Encounter Details Date Type Department Care Team (Late st Contact Info) Description 06/25/2002 Emergency [facility] Emergency Department [address] 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
--- OUTSIDE RECORDS SUMMARY | 2024-09-06 05:55 | XMS_ITS | Encounter Summary ---
Author Organization [facility] Address [address] [place] [address] Care Team Providers Care Residential Subcontractor Name Role Phone Sadaf Ag MD, Chuy Lowery Primary Care Provider +1- [phone] Encounter Details Date Type Department Care Team (Late st Contact Info) Description 09/15/2004 Emergency [facility] Emergency Department [address] 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
--- OUTSIDE RECORDS SUMMARY | 2024-09-06 05:55 | XMS_ITS | Encounter Summary ---
Author Organization [facility] Address [address] 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
--- OUTSIDE RECORDS SUMMARY | 2024-09-06 05:55 | XMS_ITS | Encounter Summary ---
Author Organization [facility] Address [address] [place] [address] Care Team Providers Care Regulator Tester Name Role Phone Sadaf Ag MD, Chuy Lowery Primary Care Provider +1- [phone] Encounter Details Date Type Department Care Team (Late st Contact Info) Description 09/28/2004 Emergency [facility] Emergency Department [address] 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
--- OUTSIDE RECORDS SUMMARY | 2024-09-06 05:55 | XMS_ITS | Encounter Summary ---
Author Organization [facility] Address [address] [place] [address] Care Team Providers Care Salesperson Used Cars Name Role Phone Sadaf Ag MD, Chuy Lowery Primary Care Provider +1- [phone] Encounter Details Date Type Department Care Team (Late st Contact Info) Description 01/17/2005 Emergency [facility] Emergency Department [address] 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
--- OUTSIDE RECORDS SUMMARY | 2024-09-06 05:55 | XMS_ITS | Encounter Summary ---
Author Organization [facility] Address [address] [place] [address] Care Team Providers Care Inspector Integrated Circuits Name Role Phone Sadaf Ag MD, Chuy Lowery Primary Care Provider +1- [phone] Encounter Details Date Type Department Care Team (Late st Contact Info) Description 03/13/2005 Emergency [facility] Emergency Department [address] 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
--- OUTSIDE RECORDS SUMMARY | 2024-09-06 05:55 | XMS_ITS | Encounter Summary ---
Author Organization [facility] Address [address] 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
[2024-09-06 05:56] LABS: Anion Gap 18.8 (5-19); Blood Urea Nitrogen 7 mg/dL (8-23); Calcium 8.9 mg/dL (8.5-10.5); Carbon Dioxide 31 mmol/L (22-29); Chloride 98 mmol/L (98-107); Glomerular Filtration Rate 50.5 mL/min (90-130); Glucose 88 mg/dL (65-115); Magnesium 2.1 mg/dL (1.7-2.3); Osmolality Calculated 295 mOsm/kg (285-295); Potassium 3.8 mmol/L (3.5-5.1); Sodium 144 mmol/L (136-145)
[2024-09-06] MEDS: FUROsemide 20 mg Tablet PO (08:38)
[2024-09-06] MEDS: trazodone 50 mg Tablet 25 MG PO (08:38)
[2024-09-06] MEDS: pregabalin 75 mg Capsule PO ×3 (08:38→20:32)
[2024-09-06] MEDS: potassium chloride ER 20 mEq Tablet PO (08:38)
[2024-09-06] MEDS: doxycycline 100 mg Tablet PO ×2 (08:38→17:06)
[2024-09-06] MEDS: duloxetine 60 mg Capsule PO ×2 (08:38→17:06)
[2024-09-06 08:45] LABS: Glucose Point of Care 98 mg/dL (70-110)
--- NOTE | 2024-09-06 09:10 | USCV_ITS ---
Wanda Lamb Age: 59 Gender: F : 1965 Exam Date: 09/06/2024 14:02 Ordering Phys: Ventura Martinez MD Technologist: Exam [place] [facility] [place]: elevated trophin BP: 156 / 78 HR: Rhythm: Sinus Technical Quality: Adequate MEASUREMENTS (Male / Female) Normal Values 2D ECHO LV Diastolic Diameter PLAX 4.5 cm 4.2 - 5.9 / 3.9 - 5.3 cm IVS Diastolic Thickness 1.4 cm 0.6 - 1.0 / 0.6 - 0.9 cm IVS Systolic Thickness 1.6 cm LVPW Diastolic Thickness 1.5 cm 0.6 - 1.0 / 0.6 - 0.9 cm LVPW Systolic Thickness 1.6 cm LVOT Diameter 2.0 cm LV Ejection Fraction 2D Teich 69.5 % LV Ejection Fraction MOD 4C 63.5 % LV Ejection Fraction MOD 2C 65.0 % LV Ejection Fraction 2C AL 65.7 % LA Diameter 4.3 cm RA Systolic Volume 4C AL 59.1 ml RA Systolic Volume 4C MOD 61.8 ml Aorta at Sinotubular Diameter 3.7 cm M-MODE LA Ao Ratio MM 1.3 AV Cusp Separation MM 1.7 cm FINDINGS Left Ventricle Normal LV size ejection fraction of 63.5%.mild left ventricular hypertrophy. No regional wall motion abnormalities. Mild left ventricular hypertrophy. Right Ventricle The right ventricle is normal in size and function. Right Atrium The right atrium is normal in size. Left Atrium The left atrium is normal in size. Mitral Valve Mild mitral annular calcification. Aortic Valve Minimally thickened aortic valve Tricuspid Valve No gross abnormalities noted Pulmonic Valve Pulmonic valve not well visualized. Pericardium No pericardial effusion. Aorta Normal aortic annulus size. IVC The inferior vena cava appears normal. CONCLUSIONS Normal LV size ejection fraction of 63.5%.mild left ventricular hypertrophy. No regional wall motion abnormalities. Mild left ventricular hypertrophy. Mild mitral annular calcification. Minimally thickened aortic valve. There is no pericardial effusion. There are no intracardiac masses. Compared to the study from 07/10/2024, no significant change in the ejection fraction Dr Thomas Worthington MD [facility] (Electronically Signed) Final Date: 06 Sep 2024 16:29 S
--- NOTE | 2024-09-06 09:17 | PC.PHAR ---
Pt unable to verify her medications. Verified with [facility] [place] [phone]-all medications with last fill dates and day supply.
[2024-09-06] MEDS: methylPREDNISolone sod succ 125 mg/2 mL INJ 60 MG IVP ×3 (10:42→22:58)
[2024-09-06] MEDS: dextrose 5% 1,000 ML 50 ML IV (10:43)
[2024-09-06] MEDS: acetaminophen 325 mg Tablet 650 MG PO (12:56)
--- NOTE | 2024-09-06 12:57 | USCV_ITS ---
Wanda Lamb Age: 59 Gender: F : 1965 Exam Date: 09/06/2024 14:13 Ordering Phys: Ventura Martinez MD Technologist: Exam Location[place] [facility] [place]: rule out dvt PROCEDURES: The following venous structures were evaluated: common femoral vein, profunda vein, proximal portion of the greater saphenous vein, superficial femoral vein, and the popliteal vein. In addition, the posterior tibial and peroneal trunk were evaluated. FINDINGS: Normal 2-D Doppler and augmentation and compressibility throughout the lower extremity venous structures. Additional imaging through the proximal calf veins also reveals no thrombus. Limited evaluation of the greater saphenous vein is patent with no thrombus. CONCLUSIONS No evidence of right lower extremity DVT. No evidence of left lower extremity DVT. David Araiza MD (Electronically Signed) Final Date: 06 Sep 2024 15:24 S
--- NOTE | 2024-09-06 12:58 | XR_ITS ---
WS: [id number] XR lumbar spine 2-3V* [id number] REASON FOR EXAM: acute low back pain FINDINGS: There are endplate compression deformities of L1 and L2. These findings were present on the previous CT scan of the abdomen and pelvis as well as on a CT scan of the chest abdomen and pelvis on 06/07/2024. Remainder of the lumbar spine is also unchanged compared to the previous CT scans. Mild disc space narrowing at L3-L4 and L5-S1. No spondylolysis or significant spondylolisthesis. Mild degenerative change in the facet joints at L5-S1. There is significant distention of presumed large and small bowel. XR/XR lumbar spine 2-3V* [id number] IMPRESSION: Old compression deformities and mild changes of degenerative spondylosis as abo ve. Bowel distention as above.
[2024-09-06 13:10] LABS: Glucose Point of Care 203 mg/dL (70-110)
[2024-09-06] MEDS: insulin lispro 100 unit/1 mL SUBCUT ×3 (13:11→20:32)
[2024-09-06] MEDS: tizanidine 4 mg Tablet PO (13:14)
[2024-09-06 16:36] LABS: Glucose Point of Care 180 mg/dL (70-110)
--- NOTE | 2024-09-06 16:52 | PM.CONSULT ---
Providers/Reason For Consult Consulting Physician/Specialty*: PAULETTE Worthington MD/cardiology Reason for Consult*: Patient with COPD exacerbation and elevated troponin T Requesting Physician: Dr. Martinez Attending Physician: Ventura Martinez MD Primary Care Provider: JOANN Costa History of Present Illness History of Present Illness Wanda Lamb is a 59 year old female with a history of COPD, on home oxygen, multiple other medical problems is presenting with progressive shortness of breath/hypoxia. She was found to have features of COPD exacerbation and congestive heart failure. She also was found to have elevated troponin T. Cardiology consult is requested for further cardiac evaluation recommendations. This patient has multiple medical problems and had multiple hospital admissions and ER visits in the recent past. In June of this year, she was admitted to hospital with features of narcotic encephalopathy. She had elevated BNP and troponin T. She had a Myocardial perfusion imaging at that time which revealed a small area of possible ischemia in the circumflex artery. Since she did not have any chest pain or any specific cardiac symptoms, it was opted to treat her medically at that time. She had some features of pneumonia for which he was treated with IV antibiotics. In July, she was admitted to the hospital with back pain, hypotension, possible urosepsis and acute kidney injury. She was treated with IV fluids, antibiotics and other symptomatic measures. She had a Myocardial perfusion imaging in June because of the elevated troponin and BNP. She was found to have a small area of possible ischemia in the distribution of circumflex artery. It has opted to treat her medically at that time. She is known to have COPD and has been on 2 L of oxygen by nasal cannula. Lately her oxygen saturation has been going down. So she has been using 5 or 6 L of oxygen by nasal cannula on a as needed basis lately. She developed myoclonic jerks during her hospital admission in June. So she was placed on Keppra for this. She is scheduled for a EEG. Her troponin was found to be 50 at the baseline with no significant delta in 2 hours. The patient is a very poor historian. She lives with her mother. Information is partly from the patient and also from the medical records. Review of Systems Narrative: CONSTITUTIONAL: No fever or chills. EYES: No blurring of vision or other visual disturbances lately. ENT: No hoarseness of voice, auditory disturbances or sore throat. CARDIOVASCULAR: As mentioned above. RESPIRATORY: As mentioned above GASTROINTESTINAL: No hematemesis or melena. GENITOURINARY: History of acute kidney injury during the admission in July INTEGUMENTARY: No skin rashes or history of skin cancer. NEURO: History of narcotic encephalopathy, myoclonic jerks, etc. PSYCHIATRIC: No history of psychosis or major depression. HEMATOLOGIC: No bleeding disorders or significant anemia. ENDOCRINE: No history of polyuria or polydipsia. MUSCULOSKELETAL: No recent joint pain or swelling. ALLERGY/IMMUNOLOGY: As mentioned above. Medications/Allergies Home Medications ?Medication ?Instructions ?Recorded ?Confirmed ?Last Taken ?Type atorvastatin 20 mg tablet (Lipitor) 20 mg PO QPM 06/06/24 09/06/24 07/09/24 History duloxetine 60 mg capsule,delayed 60 mg PO BID 06/06/24 09/06/24 07/09/24 History release (Cymbalta) insulin lispro 100 unit/mL See Rx Instructions .Route .COMPLEX 06/06/24 09/06/24 07/09/24 History subcutaneous pen (Humalog KwikPen (U-100) Insulin) oxycodone-acetaminophen 5 mg-325 1 tab PO Q8H PRN pain #5 tabs 07/13/24 09/06/24 Unknown Rx mg tablet zolpidem 10 mg tablet 5 mg (1/2 x 10 mg) PO BEDTIME #1 07/13/24 09/06/24 07/09/24 Rx tab pregabalin 75 mg capsule (Lyrica) 75 mg PO TID 30 days #90 caps 08/12/24 09/06/24 Unknown Rx dapagliflozin propanediol 10 mg 10 mg PO DAILY 90 days #90 tabs 08/13/24 09/06/24 Unknown Rx tablet (Farxiga) hydroxyzine HCl 25 mg tablet 25 mg PO BID PRN itching 30 days 08/19/24 09/06/24 Unknown Rx #60 tabs insulin glargine 100 unit/mL (3 40 unit (0.4 mL) SUBCUT BID 30 08/19/24 09/06/24 Unknown Rx mL) subcutaneous pen (Lantus days #24 mL Solostar U-100 Insulin) methocarbamol 750 mg tablet 750 mg PO BID 10 days #20 tabs 08/19/24 09/06/24 Unknown Rx Incontinence Briefs XL #120 ea 08/22/24 09/06/24 Unknown Rx furosemide 20 mg tablet (Lasix) 20 mg PO DAILY #30 tabs 09/01/24 09/06/24 Unknown Rx potassium chloride 20 mEq 20 meq PO DAILY #30 tabs 09/01/24 09/06/24 Unknown Rx tablet,extended release (K-Tab) aripiprazole 2 mg tablet 2 mg PO DAILY 09/06/24 09/06/24 Unknown History aspirin 81 mg tablet,delayed 81 mg PO QAM 09/06/24 09/06/24 Unknown History release chlorthalidone 25 mg tablet 25 mg PO QAM 09/06/24 09/06/24 Unknown History lisinopril 40 mg tablet 40 mg PO DAILY 09/06/24 09/06/24 Unknown History trazodone 100 mg tablet 300 mg PO BEDTIME 09/06/24 09/06/24 Unknown History Allergies Allergy/AdvReac Type Severity Reaction Status Date / Time ibuprofen Allergy Unknown Verified 08/31/24 20:34 Current Medications Generic Name Dose Route Start Last Admin Trade Name Freq PRN Reason Stop Dose Admin Acetaminophen 650 mg 09/06/24 01:13 09/06/24 12:56 Acetaminophen 325 Mg Tablet PO 650 mg Q6H PRN Administration MILD PAIN Doxycycline Monohydrate 100 mg 09/06/24 09:00 09/06/24 08:38 Doxycycline 100 Mg Tablet PO 100 mg BID BRENNAN Administration Protocol Duloxetine HCl 60 mg 09/06/24 09:00 09/06/24 08:38 Duloxetine 60 Mg Capsule PO 60 mg BID BRENNAN Administration Enoxaparin Sodium 40 mg 09/06/24 01:15 09/06/24 01:59 Enoxaparin 40 Mg/0.4 Ml Syringe SUBCUT 40 mg Q24H BRENNAN Administration Furosemide 20 mg 09/06/24 09:00 09/06/24 08:38 Furosemide 20 Mg Tablet PO 20 mg DAILY BRENNAN Administration Hydralazine HCl 10 mg 09/06/24 01:20 09/06/24 06:03 Hydralazine 20 Mg/Ml Inj 1 Ml IVP 10 mg Q4H PRN Administration SYSTOLIC BLOOD PRESSURE Insulin Human Lispro 0 - 14 unit 09/06/24 08:00 09/06/24 13:11 Insulin Lispro 100 Unit/1 Ml SUBCUT 4 unit WM&BEDTIME BRENNAN Administration Protocol Methylprednisolone Sodium Succinate 60 mg 09/06/24 10:30 09/06/24 15:58 Methylprednisolone Sod Succ 125 Mg/2 Ml Inj IVP 60 mg Q6H BRENNAN Administration Potassium Chloride 20 meq 09/06/24 09:00 09/06/24 08:38 Potassium Chloride Er 20 Meq Tablet PO 20 meq DAILY BRENNAN Administration Pregabalin 75 mg 09/06/24 09:00 09/06/24 15:58 Pregabalin 75 Mg Capsule PO 75 mg TID BRENNAN Administration Tizanidine HCl 4 mg 09/06/24 12:57 09/06/24 13:14 Tizanidine 4 Mg Tablet PO 4 mg TID PRN Administration SPASMS Trazodone HCl 25 mg 09/06/24 09:00 09/06/24 08:38 Trazodone 50 Mg Tablet PO 25 mg DAILY BRENNAN Administration PFSH Acute PFSH: Medical History Morbid obesity Sepsis Chronic pain Hypertension Diabetes mellitus Tobacco use disorder Surgical History History of ankle surgery Family History Grandfather Bone cancer Social History Smoking and tobacco/nicotine status: current every day tobacco/nicotine user cigarettes Number of cigarettes per day: 11-20 Alcohol intake: never Substance/Drug Use: unknown Additional social history: Patient lives with her mother. Patient wants full code Vitals/I&O/Wt Last Vital Signs Temp 98.5 F 09/06/24 12:30 Pulse 56 L 09/06/24 15:35 Resp 18 09/06/24 15:35 BP 124/71 09/06/24 15:35 Pulse Ox 97 09/06/24 15:35 O2 Del Method Nasal Cannula 09/06/24 15:35 O2 Flow Rate 6 09/06/24 15:35 FiO2 40 09/06/24 08:01 09/06/24 09/06/24 09/06/24 06:59 14:59 22:59 Intake Total 800 / 800 1020 / 1020 Output Total 5350 / 5350 1700 / 1700 Balance -4550 / -4550 -680 / -680 Weight last 48 hrs Weight 238 lb 1.588 oz Weight 242 lb 8.136 oz Weight 240 lb Physical Exam Narrative: GENERAL: The patient is alert and oriented times three. Not in any acute distress. Obese HEENT: No significant pallor, icterus or lymphadenopathy.Oral cavity: There are no mucous membrane lesions. NECK: Trachea appears to be central. No masses noted. No JVD or thyromegaly appreciated. RESPIRATORY: Chest is symmetrical. No intercostals muscle retraction or any accessory muscle activation. There is no chest wall tenderness. Breath sounds are heard bilaterally. No rales or rhonchi heard. No evidence of any consolidation. BREASTS: Deferred. HEART: The heart sounds are normal. No S3 or S4. No significant murmurs. No pericardial rub ABDOMEN: No vessel pulsations or distention. No tenderness. No organomegaly appreciated. Bowel sounds are normally heard. : Deferred. RECTAL: Deferred. LYMPHATIC: No lymphadenopathy noted in the neck. EXTREMITIES: No edema or cyanosis. No clubbing. MUSCULOSKELETAL: No acute joint deformities or swelling SKIN: There are no significant rashes or ecchymosis NEUROPSYCHIATRIC: The patient is alert and oriented x3. Appears to be in a good mood. No tremors or rigidity noted. Urinary Catheter Management: Huerta: Cath Placed During This Visit: yes Reason for Continuing Indwelling Catheter: Accurate Measurement of Urinary Output in Critically Ill Patients Urinary Catheter Date of Insertion: 09/06/24 Urinary Catheter Time of Insertion: 00:25 Data 09/07/24 10:18 09/07/24 10:18 Other Labs: Laboratory Last Values WBC 9.12 10^3/uL (3.29-11.43) 09/06/24 04:35 RBC 3.89 10^6/uL (3.85-5.65) 09/06/24 04:35 Hgb 11.20 g/dL (11.27-16.99) L 09/06/24 04:35 Hct 37.2 % (36-47) 09/06/24 04:35 MCV 95.6 fl (85-98) 09/06/24 04:35 MCH 28.8 pg (27-33) 09/06/24 04:35 MCHC 30.1 g/dL (30-55) 09/06/24 04:35 RDW 18.5 % (12.1-15.1) H 09/06/24 04:35 Plt Count 283 10^3/cmm (157-399) 09/06/24 04:35 MPV 9.7 fL (7.4-10.4) 09/06/24 04:35 Neut % (Auto) 90.9 % 09/06/24 04:35 Lymph % (Auto) 5.7 % 09/06/24 04:35 [place] % (Auto) 1.5 % 09/06/24 04:35 Eos % (Auto) 0.1 % 09/06/24 04:35 Baso % (Auto) 0.2 % 09/06/24 04:35 Neut # (Auto) 8.28 10^3/uL (1.8-7.7) H 09/06/24 04:35 Lymph # (Auto) 0.5 10^3/uL (0.8-4.8) L 09/06/24 04:35 [place] # (Auto) 0.1 10^3/uL (0.2-0.9) L 09/06/24 04:35 Eos # (Auto) 0.0 10^3/uL (0.0-0.8) 09/06/24 04:35 Baso # (Auto) 0.0 10^3/uL (0.0-0.1) 09/06/24 04:35 Nucleated RBC % (auto) 0.3 % 09/06/24 04:35 Nucleated RBCs # 0.0 /100WBC 09/06/24 04:35 Specimen Type Arterial 09/05/24 22:19 Sample Site Radial, left 09/05/24 22:19 ABG pH 7.25 (7.35-7.45) L 09/05/24 22:19 ABG pCO2 78.1 mmHg (35-45) H* 09/05/24 22:19 ABG pO2 63.8 mmHg (80.0-100.0) L 09/05/24 22:19 ABG PO2/FiO2 Ratio 127 09/05/24 22:19 ABG HCO3 33.9 mmol/L (22-26) H 09/05/24 22:19 ABG Base Excess 4.4 mmol/L (-2.0-2.0) H 09/05/24 22:19 Aditya Test Pos 09/05/24 22:19 Hematocrit 36.4 % (37-47) L 09/05/24 22:19 Hgb O2 Saturation 84.7 % (95-100) L 09/05/24 22:19 Carboxyhemoglobin 2.6 %THgb (0.4-20.1) 09/05/24 22:19 Methemoglobin 1.3 % (0.4-1.5) 09/05/24 22:19 Total Hemoglobin 11.9 g/dL (12-16) L 09/05/24 22:19 O2 Delivery Device Bipap 09/05/24 22:19 FiO2 50.0 % 09/05/24 22:19 PEEP 10.0 cmH20 09/05/24 22:19 Vacuum Applicator Operator ID [email or web address] 09/05/24 22:19 Sodium 144 mmol/L (136-145) 09/06/24 04:35 Potassium 3.8 mmol/L (3.5-5.1) 09/06/24 04:35 Chloride 98 mmol/L (98-107) 09/06/24 04:35 Carbon Dioxide 31 mmol/L (22-29) H 09/06/24 04:35 Anion Gap 18.8 (5-19) 09/06/24 04:35 BUN 7 mg/dL (8-23) L 09/06/24 04:35 Creatinine 1.1 mg/dL (0.5-0.9) H 09/06/24 04:35 GFR Calculation 50.5 mL/min (90-130) L 09/06/24 04:35 Glucose 88 mg/dL (65-115) 09/06/24 04:35 POC Glucose 180 mg/dL (70-110) H 09/06/24 16:10 Calculated Osmolality 295 mOsm/kg (285-295) 09/06/24 04:35 Lactic Acid 0.7 mmol/L (0.5-2.2) 09/05/24 22:35 Calcium 8.9 mg/dL (8.5-10.5) 09/06/24 04:35 Magnesium 2.1 mg/dL (1.7-2.3) 09/06/24 04:35 Total Bilirubin 0.3 mg/dL (0.15-1.2) 09/05/24 22:35 AST 12 U/L (0-32) 09/05/24 22:35 ALT < 5 U/L (0-33) 09/05/24 22:35 Alkaline Phosphatase 143 U/L (35-105) H 09/05/24 22:35 Troponin T Baseline 59 ng/L (0-10) H 09/05/24 22:35 Troponin T 120 Minute 55.27 ng/L (0-10) H 09/06/24 00:31 Delta Troponin T -3.73 ABS# (0-10) L 09/06/24 00:31 Troponin T Hi Sens 6Hr 49.95 ng/L (0-10) H 09/06/24 04:35 Troponin T Hi Sens 6Hr Delta -9.05 ng/L (0-12) L 09/06/24 04:35 NT-Pro-B Natriuret Pep 3699 pg/mL (0-125) H 09/05/24 22:35 Total Protein 6.7 g/dL (6.6-8.7) 09/05/24 22:35 Albumin 3.4 g/dL (3.5-5.2) L 09/05/24 22:35 Globulin 3.3 g/dL (1.3-4.6) 09/05/24 22:35 Influenza A (PCR) Negative (Negative) 09/05/24 22:00 Influenza Type B (PCR) Negative (Negative) 09/05/24 22:00 RSV (PCR) Negative (Negative) 09/05/24 22:00 SARS-CoV-2 (PCR) Negative (Negative) 09/05/24 22:00 Micro: Microbiology 09/05/24 22:35 Blood Culture - Preliminary Blood SPECIMEN COLLECTED 09/05/24 22:39 Blood Culture - Preliminary Blood SPECIMEN COLLECTED EKG 1: My Interpretation: The EKG showed normal sinus rhythm with a normal ST Ts. Prolonged QTc. Other data: Myocardial perfusion imaging in June 2024 1. Small area of ischemia seen in left circumflex artery territory. Attenuation artifact seen in anterior wall. 2. LV systolic function is normal A&P Assessment and plan (1) Elevated troponin: Most likely type II WI. In view of the diastolic heart failure and prolonged QTc, possibility of underlying coronary ischemia causing this also is a consideration. She may benefit from a cardiac catheterization to better evaluate her coronary status. Need to consider this once respiratory status is stable. Patient may be treated with aspirin, beta-doug, nitrates and other symptomatic measures. (2) Abnormal stress test: Patient had a Myocardial perfusion imaging in June. She was found to have possible small area of ischemia in the circumflex territory. The patient's current chest pain, most likely is musculoskeletal. (3) Elevated brain natriuretic peptide (BNP) level: Elevated BNP may suggest diastolic heart failure. This might be contributing to some extent the COPD exacerbation. The patient may be carefully treated with IV diuretics. Because of the history of acute kidney injury, need to be careful with the fluid management. (4) Tobacco use disorder: Patient strongly advised to quit smoking (5) Hypertension: Currently normotensive. May continue on the current medications. (6) Diabetes mellitus: Aggressive management of the diabetes would be appropriate. (7) COPD exacerbation: Management as per the primary. Plan Other problems are History of chest pain-currently pain-free Obesity So far the respiratory status is stabilized, it may be appropriate to consider cardiac catheterization to better evaluate the coronary status and decide on further management. This was discussed with the patient detail which is understood well. Based on the clinical progress, further recommendations will be made PDMP PDMP Reviewed: Not Reviewed Coding Level of Care Code 22030 Diagnoses Elevated troponin R79.89 Abnormal stress test R94.39 Elevated brain natriuretic peptide (BNP) level R79.89 Tobacco use disorder F17.200 Primary hypertension I10 Hypertension type: primary hypertension Type 2 diabetes mellitus with hyperglycemia, with long-term current use of insulin E11.65; Z79.4 Diabetes mellitus complication status: with hyperglycemia Diabetes mellitus assisted insulin use: with assisted use Diabetes mellitus type: type 2 COPD exacerbation J44.1
[2024-09-06] MEDS: atorvastatin 40 mg Tablet 20 MG PO (17:07)
--- NOTE | 2024-09-06 18:49 | PC.NURSE ---
SHift SUmmary: uneventful shift. Up to a chair for meals. Titrated down to 4L NC. Urine output 2175 (extra 40mg ivp lasix received). Intake has been 1620mL orally plus IV medications. Started on 1200mL fluid restriction.
[2024-09-06 20:29] LABS: Glucose Point of Care 201 mg/dL (70-110)
[2024-09-06] MEDS: zolpidem 5 mg Tablet 10 MG PO (20:32)
[2024-09-07] VITALS (118 sets, daily range): BP systolic 122–175; BP diastolic 65–113; PULSE 60–92; RESP 12–30; TEMP 36.3; O2SAT 94–99
[2024-09-07] MEDS: enoxaparin 40 mg/0.4 mL Syringe SUBCUT (00:55)
[2024-09-07 04:23] LABS: Anion Gap 10.3 (5-19); Blood Urea Nitrogen 16 mg/dL (8-23); Calcium 8.6 mg/dL (8.5-10.5); Carbon Dioxide 37 mmol/L (22-29); Chloride 96 mmol/L (98-107); Glomerular Filtration Rate 50.5 mL/min (90-130); Glucose 157 mg/dL (65-115); Osmolality Calculated 292 mOsm/kg (285-295); Potassium 4.3 mmol/L (3.5-5.1); Sodium 139 mmol/L (136-145)
[2024-09-07] MEDS: methylPREDNISolone sod succ 125 mg/2 mL INJ 60 MG IVP ×4 (05:10→23:22)
[2024-09-07 07:11] LABS: Glucose Point of Care 157 mg/dL (70-110)
[2024-09-07] MEDS: doxycycline 100 mg Tablet PO ×2 (08:19→17:33)
[2024-09-07] MEDS: pregabalin 75 mg Capsule PO ×3 (08:19→21:01)
[2024-09-07] MEDS: duloxetine 60 mg Capsule PO ×2 (08:19→17:34)
[2024-09-07] MEDS: potassium chloride ER 20 mEq Tablet PO (08:19)
[2024-09-07] MEDS: hyDROXYzine 25 mg Capsule PO (08:20)
[2024-09-07] MEDS: FUROsemide 20 mg Tablet PO (08:20)
[2024-09-07] MEDS: insulin lispro 100 unit/1 mL SUBCUT ×4 (08:20→21:08)
[2024-09-07] MEDS: trazodone 50 mg Tablet 25 MG PO (08:20)
[2024-09-07] MEDS: oxyCODONE-APAP 5-325 mg Tablet 1 TAB PO ×2 (08:43→17:36)
[2024-09-07 10:26] LABS: Basophils % 0.1 %; Hematocrit 38.9 % (36-47); Lymphocytes # 0.7 10^3/uL (0.8-4.8); Mean Corpuscular HGB Conc 29.8 g/dL (30-55); Mean Corpuscular Hemoglobin 28.9 pg (27-33); Monocytes # 0.3 10^3/uL (0.2-0.9); Monocytes % 3.5 %; Neutrophils # 7.26 10^3/uL (1.8-7.7); Neutrophils % 87.1 %; Nucleated Red Blood Cells % 0 %; Platelet Count 258 10^3/cmm (157-399); Red Blood Count 4.01 10^6/uL (3.85-5.65); Red Cell Distribution Width 18.1 % (12.1-15.1); White Blood Count 8.34 10^3/uL (3.29-11.43)
[2024-09-07 10:38] LABS: ABG PH Result 7.39 (7.35-7.45); Alveolar-Arterial Oxygen Gradi 11.4 mmHg (5-10); Arterial Blood Gas Hematocrit 37.7 % (37-47); Base Excess ABG 11.9 mmol/L (-2.0-2.0); Blood Gas Allen Test Pos; Blood Gas Sample Site Radial, left; Blood Gas Sample Type Arterial; Carboxyhemoglobin 0.7 %THgb (0.4-20.1); HCO3 ABG 39.5 mmol/L (22-26); HGB O2 Sat 94.3 % (95-100); Ionized Calcium Level - ABG 1.2 mmol/L (1.1-1.4); Methemoglobin 1.1 % (0.4-1.5); Oxygen Device NC; Oxygen Saturation ABG 96.1; PO2 FiO2 Ratio Arterial Blood 247; Potassium Level - ABG 4.3 mmol/L (3.5-5.0); Total Hemoglobin 12.3 g/dL (12-16)
[2024-09-07 10:39] LABS: ABG PCO2 66.2 mmHg (35-45); Blood Gas Operator Identificat BROMA
[2024-09-07 10:46] LABS: Alanine Aminotransferase < 5 U/L (0-33); Albumin Level 3.1 g/dL (3.5-5.2); Alkaline Phosphatase 120 U/L (35-105); Anion Gap 13.5 (5-19); Aspartate Amino Transferase 9 U/L (0-32); Blood Urea Nitrogen 18 mg/dL (8-23); Calcium 8.7 mg/dL (8.5-10.5); Carbon Dioxide 34 mmol/L (22-29); Chloride 95 mmol/L (98-107); Creatinine Clr Calc Pharmacy 75.8608; Globulin 3.8 g/dL (1.3-4.6); Glomerular Filtration Rate 56.4 mL/min (90-130); Glucose 194 mg/dL (65-115); Osmolality Calculated 293 mOsm/kg (285-295); Potassium 4.5 mmol/L (3.5-5.1); Sodium 138 mmol/L (136-145); Total Bilirubin 0.5 mg/dL (0.15-1.2); Total Protein 6.9 g/dL (6.6-8.7)
[2024-09-07 10:56] LABS: Glucose Point of Care 191 mg/dL (70-110)
[2024-09-07] MEDS: hyDRALAzine 20 mg/mL INJ 1 mL 10 MG IVP (15:44)
--- NOTE | 2024-09-07 15:46 | PM.PN ---
Subjective Subjective: Wadna Lamb is a 59 year old female with history of COPD, diabetes, obesity Presented with some shortness of breath. She had increased oxygen requirements. Today she reports that she feels slightly better.She was briefly placed on BiPAP. Vitals/I&O/Wt Last Vital Signs Temp 97.4 F L 09/07/24 05:00 Pulse 76 09/07/24 15:00 Resp 15 09/07/24 15:00 BP 149/108 09/07/24 15:00 Pulse Ox 98 09/07/24 15:00 O2 Del Method Nasal Cannula 09/07/24 08:00 O2 Flow Rate 4 09/06/24 17:55 FiO2 40 09/07/24 14:30 09/07/24 09/07/24 09/07/24 06:59 14:59 22:59 Intake Total 0 / 2131.667 470 / 470 Output Total 850 / 3025 Balance -850 / -893.333 470 / 470 Weight last 48 hrs Weight 236 lb 15.951 oz Weight 238 lb 1.588 oz Weight 242 lb 8.136 oz Weight 240 lb Physical Exam Narrative: General well-developed morbidly obese CV regular rate and rhythm Lungs diminished Abdomen diminished bowel tones soft obese Calves 1+ bilateral pretibial edema Neck thick short no mass no tenderness Mood and affect are appropriate Urinary Catheter Management: Huerta: Cath Placed During This Visit: yes Reason for Continuing Indwelling Catheter: Accurate Measurement of Urinary Output in Critically Ill Patients Urinary Catheter Date of Insertion: 09/06/24 Urinary Catheter Time of Insertion: 00:25 Data 09/07/24 10:18 09/07/24 10:18 Micro: Microbiology 09/05/24 22:35 Blood Culture - Preliminary Blood NEGATIVE TO DATE 09/05/24 22:39 Blood Culture - Preliminary Blood NEGATIVE TO DATE A&P Assessment and plan (1) COPD exacerbation: (2) Acute on chronic respiratory failure with hypoxia and hypercapnia: (3) Pulmonary edema: Plan Acute hypoxemic respiratory failure COPD exacerbation Pulmonary edema -- Continue oxygen, BiPAP while resting and at night. Will continue doxycycline, IV steroids. As needed inhalers. Doxycycline Elevated troponin Concern for type II RI History of abnormal stress test Hypertension Diabetes --Appreciate cardiology recommendations -- Continue Lipitor 20 mg, aspirin, Lasix was given, as needed Tylenol -- Basal and sliding scale insulin Lovenox PDMP PDMP Reviewed: Not Reviewed Attestations Medical Necessity Statement*: Acute hypoxemic respiratory failure needs BiPAP, oxygen Coding Level of Care Code Acute Code for [facility] Diagnoses COPD exacerbation J44.1 Acute on chronic respiratory failure with hypoxia and hypercapnia J96.21; J96.22 Pulmonary edema J81.1
[2024-09-07 16:38] LABS: Glucose Point of Care 238 mg/dL (70-110)
--- NOTE | 2024-09-07 17:02 | PM.PN ---
Subjective Subjective: Patient is feeling better. The breathing seems to be improving. She is still on 6 L of oxygen by nasal cannula which seems to her baseline. Has difficulty lying flat. No chest pain Medications: Medication Review Details: Current Medications Acetaminophen (Acetaminophen 325 Mg Tablet) 650 mg PO Q6H PRN PRN Reason: MILD PAIN Last Admin: 09/06/24 12:56 Dose: 650 mg Albuterol Sulfate (Albuterol 2.5 Mg/0.5 Ml Neb) 2.5 mg INHALATION Q4H.RESPIRATORY PRN PRN Reason: BRONCHOSPASM Albuterol/Ipratropium (Ipratropium-Albuterol 3 Ml Neb) 3 ml INHALATION Q4H PRN PRN Reason: SHORTNESS OF BREATH Aripiprazole (Aripiprazole 2 Mg Tablet) 2 mg PO DAILY [facility] Aspirin (Aspirin 81 Mg Ec Tablet) 81 mg PO QAM [facility] Atorvastatin Calcium (Atorvastatin 40 Mg Tablet) 20 mg PO QPM [facility] Last Admin: 09/06/24 17:07 Dose: 20 mg Chlorthalidone (Chlorthalidone 25 Mg Tablet) 25 mg PO QAM [facility] Doxycycline Monohydrate (Doxycycline 100 Mg Tablet) 100 mg PO BID [facility]; Protocol Last Admin: 09/07/24 08:19 Dose: 100 mg Duloxetine HCl (Duloxetine 60 Mg Capsule) 60 mg PO BID [facility] Last Admin: 09/07/24 08:19 Dose: 60 mg Enoxaparin Sodium (Enoxaparin 40 Mg/0.4 Ml Syringe) 40 mg SUBCUT Q24H [facility] Last Admin: 09/07/24 00:55 Dose: 40 mg Furosemide (Furosemide 20 Mg Tablet) 20 mg PO DAILY [facility] Last Admin: 09/07/24 08:20 Dose: 20 mg Glucagon (Glucagon 1 Mg/Ml Kit 1 Ml) 1 mg IM ONCE PRN; Protocol PRN Reason: Adult Acute Hypoglycemia Nursing Prot. Hydralazine HCl (Hydralazine 20 Mg/Ml Inj 1 Ml) 10 mg IVP Q4H PRN PRN Reason: SYSTOLIC BLOOD PRESSURE Last Admin: 09/07/24 15:44 Dose: 10 mg Hydroxyzine Pamoate (Hydroxyzine 25 Mg Capsule) 25 mg PO BID PRN PRN Reason: itching Last Admin: 09/07/24 08:20 Dose: 25 mg Dextrose (D5w) 500 mls @ 0 mls/hr IV ONCE PRN; Protocol PRN Reason: Adult Acute Hypoglycemia Prot Dextrose (D10w) 125 mls @ 750 mls/hr IV PRN PRN; Protocol PRN Reason: Adult Acute Hypoglycemia Nursing Protocol Dextrose (D10w) 250 mls @ 1,000 mls/hr IV PRN PRN; Protocol PRN Reason: Adult Acute Hypoglycemia Nursing Protocol Insulin Human Lispro (Insulin Lispro 100 Unit/1 Ml) 0 - 14 unit SUBCUT WM&BEDTIME BRENNAN; Protocol Last Admin: 09/07/24 11:23 Dose: 4 unit Methylprednisolone Sodium Succinate (Methylprednisolone Sod Succ 125 Mg/2 Ml Inj) 60 mg IVP Q6H BRENNAN Last Admin: 09/07/24 15:44 Dose: 60 mg Non-Formulary Medication (Dapagliflozin Propanediol [Farxiga]) 10 mg PO DAILY [facility] Ondansetron HCl (Ondansetron 2 Mg/Ml Sdv 2 Ml) 4 mg IVP Q6H PRN PRN Reason: NAUSEA AND VOMITING Oxycodone/Acetaminophen (Oxycodone-Apap 5-325 Mg Tablet) 1 tab PO Q6H PRN PRN Reason: PAIN Last Admin: 09/07/24 08:43 Dose: 1 tab Potassium Chloride (Potassium Chloride Er 20 Meq Tablet) 20 meq PO DAILY [facility] Last Admin: 09/07/24 08:19 Dose: 20 meq Pregabalin (Pregabalin 75 Mg Capsule) 75 mg PO TID [facility] Last Admin: 09/07/24 15:44 Dose: 75 mg Tizanidine HCl (Tizanidine 4 Mg Tablet) 4 mg PO TID PRN PRN Reason: SPASMS Last Admin: 09/06/24 13:14 Dose: 4 mg Trazodone HCl (Trazodone 50 Mg Tablet) 25 mg PO DAILY [facility] Last Admin: 09/07/24 08:20 Dose: 25 mg Zolpidem Tartrate (Zolpidem 5 Mg Tablet) 10 mg PO BEDTIME [facility] Last Admin: 09/06/24 20:32 Dose: 10 mg Vitals/I&O/Wt Last Vital Signs Temp 97.4 F L 09/07/24 05:00 Pulse 84 09/07/24 16:30 Resp 12 09/07/24 16:30 BP 153/76 09/07/24 16:30 Pulse Ox 95 09/07/24 16:30 O2 Del Method Nasal Cannula 09/07/24 08:00 O2 Flow Rate 4 09/06/24 17:55 FiO2 40 09/07/24 14:30 09/07/24 09/07/24 09/07/24 06:59 14:59 22:59 Intake Total 0 / 2131.667 470 / 470 Output Total 850 / 3025 Balance -850 / -893.333 470 / 470 Weight last 48 hrs Weight 236 lb 15.951 oz Weight 238 lb 1.588 oz Weight 242 lb 8.136 oz Weight 240 lb Physical Exam Narrative: GENERAL: The patient is alert and oriented times three. Not in any acute distress. Obese HEENT: No significant pallor, icterus or lymphadenopathy.Oral cavity: There are no mucous membrane lesions. NECK: Trachea appears to be central. No masses noted. No JVD or thyromegaly appreciated. RESPIRATORY: Chest is symmetrical. No intercostals muscle retraction or any accessory muscle activation. There is no chest wall tenderness. Breath sounds are heard bilaterally. No rales or rhonchi heard. No evidence of any consolidation. BREASTS: Deferred. HEART: The heart sounds are normal. No S3 or S4. No significant murmurs. No pericardial rub ABDOMEN: No vessel pulsations or distention. No tenderness. No organomegaly appreciated. Bowel sounds are normally heard. : Deferred. RECTAL: Deferred. LYMPHATIC: No lymphadenopathy noted in the neck. EXTREMITIES: 1+ edema with no cyanosis.. No clubbing. MUSCULOSKELETAL: No acute joint deformities or swelling SKIN: There are no significant rashes or ecchymosis NEUROPSYCHIATRIC: The patient is alert and oriented x3. Appears to be in a good mood. No tremors or rigidity noted. Urinary Catheter Management: Huerta: Cath Placed During This Visit: yes Reason for Continuing Indwelling Catheter: Accurate Measurement of Urinary Output in Critically Ill Patients Urinary Catheter Date of Insertion: 09/06/24 Urinary Catheter Time of Insertion: 00:25 Data 09/07/24 10:18 09/07/24 10:18 Other Labs: Laboratory Last Values WBC 8.34 10^3/uL (3.29-11.43) 09/07/24 10:18 RBC 4.01 10^6/uL (3.85-5.65) 09/07/24 10:18 Hgb 11.60 g/dL (11.27-16.99) 09/07/24 10:18 Hct 38.9 % (36-47) 09/07/24 10:18 MCV 97.0 fl (85-98) 09/07/24 10:18 MCH 28.9 pg (27-33) 09/07/24 10:18 MCHC 29.8 g/dL (30-55) L 09/07/24 10:18 RDW 18.1 % (12.1-15.1) H 09/07/24 10:18 Plt Count 258 10^3/cmm (157-399) 09/07/24 10:18 MPV 10.0 fL (7.4-10.4) 09/07/24 10:18 Neut % (Auto) 87.1 % 09/07/24 10:18 Lymph % (Auto) 8.0 % 09/07/24 10:18 [place] % (Auto) 3.5 % 09/07/24 10:18 Eos % (Auto) 0.0 % 09/07/24 10:18 Baso % (Auto) 0.1 % 09/07/24 10:18 Neut # (Auto) 7.26 10^3/uL (1.8-7.7) 09/07/24 10:18 Lymph # (Auto) 0.7 10^3/uL (0.8-4.8) L 09/07/24 10:18 [place] # (Auto) 0.3 10^3/uL (0.2-0.9) 09/07/24 10:18 Eos # (Auto) 0.0 10^3/uL (0.0-0.8) 09/07/24 10:18 Baso # (Auto) 0.0 10^3/uL (0.0-0.1) 09/07/24 10:18 Nucleated RBC % (auto) 0 % 09/07/24 10:18 Nucleated RBCs # 0.0 /100WBC 09/07/24 10:18 Specimen Type Arterial 09/07/24 10:25 Sample Site Radial, left 09/07/24 10:25 ABG pH 7.39 (7.35-7.45) 09/07/24 10:25 ABG pCO2 66.2 mmHg (35-45) H* 09/07/24 10:25 ABG pO2 89.0 mmHg (80.0-100.0) 09/07/24 10:25 ABG PO2/FiO2 Ratio 247 09/07/24 10:25 ABG HCO3 39.5 mmol/L (22-26) H 09/07/24 10:25 ABG O2 Saturation 96.1 09/07/24 10:25 ABG Base Excess 11.9 mmol/L (-2.0-2.0) H 09/07/24 10:25 Aditya Test Pos 09/07/24 10:25 A-a O2 Gradient 11.4 mmHg (5-10) H 09/07/24 10:25 Hematocrit 37.7 % (37-47) 09/07/24 10:25 Hgb O2 Saturation 94.3 % (95-100) L 09/07/24 10:25 Carboxyhemoglobin 0.7 %THgb (0.4-20.1) 09/07/24 10:25 Methemoglobin 1.1 % (0.4-1.5) 09/07/24 10:25 Total Hemoglobin 12.3 g/dL (12-16) 09/07/24 10:25 Sodium 139.0 mmol/L (131-143) 09/07/24 10:25 Potassium 4.3 mmol/L (3.5-5.0) 09/07/24 10:25 Glucose 197.0 mg/dL (70-115) H 09/07/24 10:25 Ionized Calcium 1.2 mmol/L (1.1-1.4) 09/07/24 10:25 O2 Delivery Device Nc 09/07/24 10:25 FiO2 36.0 % 09/07/24 10:25 PEEP 10.0 cmH20 09/05/24 22:19 Correctional Supervisor Lieutenant ID Broma 09/07/24 10:25 Sodium 138 mmol/L (136-145) 09/07/24 10:18 Potassium 4.5 mmol/L (3.5-5.1) 09/07/24 10:18 Chloride 95 mmol/L (98-107) L 09/07/24 10:18 Carbon Dioxide 34 mmol/L (22-29) H 09/07/24 10:18 Anion Gap 13.5 (5-19) 09/07/24 10:18 BUN 18 mg/dL (8-23) 09/07/24 10:18 Creatinine 1.0 mg/dL (0.5-0.9) H 09/07/24 10:18 GFR Calculation 56.4 mL/min (90-130) L 09/07/24 10:18 Glucose 194 mg/dL (65-115) H 09/07/24 10:18 POC Glucose 238 mg/dL (70-110) H 09/07/24 16:34 Calculated Osmolality 293 mOsm/kg (285-295) 09/07/24 10:18 Lactic Acid 0.7 mmol/L (0.5-2.2) 09/05/24 22:35 Calcium 8.7 mg/dL (8.5-10.5) 09/07/24 10:18 Magnesium 2.1 mg/dL (1.7-2.3) 09/06/24 04:35 Total Bilirubin 0.5 mg/dL (0.15-1.2) 09/07/24 10:18 AST 9 U/L (0-32) 09/07/24 10:18 ALT < 5 U/L (0-33) 09/07/24 10:18 Alkaline Phosphatase 120 U/L (35-105) H 09/07/24 10:18 Troponin T Baseline 59 ng/L (0-10) H 09/05/24 22:35 Troponin T 120 Minute 55.27 ng/L (0-10) H 09/06/24 00:31 Delta Troponin T -3.73 ABS# (0-10) L 09/06/24 00:31 Troponin T Hi Sens 6Hr 49.95 ng/L (0-10) H 09/06/24 04:35 Troponin T Hi Sens 6Hr Delta -9.05 ng/L (0-12) L 09/06/24 04:35 NT-Pro-B Natriuret Pep 3699 pg/mL (0-125) H 09/05/24 22:35 Total Protein 6.9 g/dL (6.6-8.7) 09/07/24 10:18 Albumin 3.1 g/dL (3.5-5.2) L 09/07/24 10:18 Globulin 3.8 g/dL (1.3-4.6) 09/07/24 10:18 Influenza A (PCR) Negative (Negative) 09/05/24 22:00 Influenza Type B (PCR) Negative (Negative) 09/05/24 22:00 RSV (PCR) Negative (Negative) 09/05/24 22:00 SARS-CoV-2 (PCR) Negative (Negative) 09/05/24 22:00 Micro: Microbiology 09/05/24 22:35 Blood Culture - Preliminary Blood NEGATIVE TO DATE 09/05/24 22:39 Blood Culture - Preliminary Blood NEGATIVE TO DATE A&P Assessment and plan (1) Elevated troponin: Most likely type II [place]. In view of the diastolic heart failure and prolonged QTc, possibility of underlying coronary ischemia causing this also is a consideration. She may benefit from a cardiac catheterization to better evaluate her coronary status. Need to consider this once respiratory status is stable. Patient may be treated with aspirin, beta-doug, nitrates and other symptomatic measures. Because of the patient's respiratory status, we may have to hold off on the angiogram for the time being (2) Abnormal stress test: Patient had a Myocardial perfusion imaging in June. She was found to have possible small area of ischemia in the circumflex territory. The patient's current chest pain, most likely is musculoskeletal. (3) Elevated brain natriuretic peptide (BNP) level: Elevated BNP may suggest diastolic heart failure. This might be contributing to some extent the COPD exacerbation. The patient may be carefully treated with IV diuretics. Because of the history of acute kidney injury, need to be careful with the fluid management. (4) Hypertension: The blood pressure currently is elevated. Need to optimize the antihypertensive medications. (5) Diabetes mellitus: The blood sugar seems to be fairly under control. May continue on the current management. (6) COPD exacerbation: Management as per the primary. Even though the breathing has improved, she still has difficulty in lying flat. She also seems to be getting very short of breath with minimal activities. (7) Tobacco use disorder: Patient strongly advised to quit smoking Plan Other problems are History of chest pain-currently pain-free Obesity So far the respiratory status is stabilized, it may be appropriate to consider cardiac catheterization to better evaluate the coronary status and decide on further management. This was discussed with the patient detail which is understood well. Based on the clinical progress, further recommendations will be made PDMP PDMP Reviewed: Not Reviewed Attestations Medical Necessity Statement*: Patient requires continued hospital stay for close monitoring and further management Coding Level of Care Code 63741 Diagnoses Elevated troponin R79.89 Abnormal stress test R94.39 Elevated brain natriuretic peptide (BNP) level R79.89 Primary hypertension I10 Hypertension type: primary hypertension Type 2 diabetes mellitus with hyperglycemia, with long-term current use of insulin E11.65; Z79.4 Diabetes mellitus complication status: with hyperglycemia Diabetes mellitus watermaster insulin use: with [facility] use Diabetes mellitus type: type 2 COPD exacerbation J44.1 Tobacco use disorder F17.200
[2024-09-07] MEDS: atorvastatin 40 mg Tablet 20 MG PO (17:33)
[2024-09-07 20:49] LABS: Glucose Point of Care 221 mg/dL (70-110)
[2024-09-07] MEDS: zolpidem 5 mg Tablet 10 MG PO (21:02)
[2024-09-07] MEDS: hyDRALAzine 25 mg Tablet PO (21:03)
[2024-09-08] VITALS (87 sets, daily range): BP systolic 109–159; BP diastolic 64–100; PULSE 62–88; RESP 14–25; TEMP 36.4–36.8; O2SAT 94–98; BMI 35.9
[2024-09-08] MEDS: enoxaparin 40 mg/0.4 mL Syringe SUBCUT (02:11)
[2024-09-08 03:39] LABS: Blood Urea Nitrogen 23 mg/dL (8-23); Calcium 8.9 mg/dL (8.5-10.5); Carbon Dioxide 35 mmol/L (22-29); Chloride 96 mmol/L (98-107); Creatinine Clr Calc Pharmacy 84.2898; Glomerular Filtration Rate 63.7 mL/min (90-130); Glucose 175 mg/dL (65-115); Osmolality Calculated 294 mOsm/kg (285-295); Sodium 138 mmol/L (136-145)
[2024-09-08 03:42] LABS: Anion Gap 11.8 (5-19); Potassium 4.8 mmol/L (3.5-5.1)
[2024-09-08] MEDS: chlorthalidone 25 mg Tablet PO (05:44)
[2024-09-08] MEDS: aspirin 81 mg EC Tablet PO (05:44)
[2024-09-08] MEDS: methylPREDNISolone sod succ 125 mg/2 mL INJ 60 MG IVP ×4 (05:44→21:36)
[2024-09-08] MEDS: oxyCODONE-APAP 5-325 mg Tablet 1 TAB PO ×3 (06:01→20:29)
[2024-09-08 06:13] LABS: Glucose Point of Care 179 mg/dL (70-110)
[2024-09-08 07:32] LABS: Glucose Point of Care 173 mg/dL (70-110)
[2024-09-08] MEDS: pregabalin 75 mg Capsule PO ×3 (08:32→20:28)
[2024-09-08] MEDS: ARIPiprazole 2 mg Tablet PO (08:32)
[2024-09-08] MEDS: potassium chloride ER 20 mEq Tablet PO (08:32)
[2024-09-08] MEDS: doxycycline 100 mg Tablet PO ×2 (08:32→17:38)
[2024-09-08] MEDS: FUROsemide 20 mg Tablet PO (08:32)
[2024-09-08] MEDS: duloxetine 60 mg Capsule PO ×2 (08:32→17:38)
[2024-09-08] MEDS: hyDRALAzine 25 mg Tablet PO ×3 (08:33→20:29)
[2024-09-08] MEDS: insulin lispro 100 unit/1 mL SUBCUT ×4 (08:33→21:35)
[2024-09-08] MEDS: ipratropium-albuterol 3 mL Neb INHALATION (08:58)
[2024-09-08 11:46] LABS: Glucose Point of Care 270 mg/dL (70-110)
--- NOTE | 2024-09-08 14:00 | PM.PN ---
Subjective Subjective: Wanda Lamb is a 59 year old female with history of COPD, diabetes, obesity Presented with some shortness of breath. She had increased oxygen requirements. Denies chest pain, afebrile has a cough with clear or white sputum Vitals/I&O/Wt Last Vital Signs Temp 98.2 F 09/08/24 12:00 Pulse 74 09/08/24 12:00 Resp 17 09/08/24 12:24 BP 145/79 09/08/24 12:00 Pulse Ox 96 09/08/24 12:24 O2 Del Method Nasal Cannula 09/08/24 12:00 O2 Flow Rate 2 09/08/24 12:00 FiO2 4 09/08/24 08:58 09/07/24 09/08/24 09/08/24 22:59 06:59 14:59 Intake Total 120 / 590 620 / 620 Output Total 500 / 500 450 / 950 Balance -500 / -30 -330 / -360 620 / 620 Weight last 48 hrs Weight 235 lb 14.314 oz Weight 236 lb 15.951 oz Physical Exam Narrative: General well-developed morbidly obese CV regular rate and rhythm Lungs diminished Abdomen diminished bowel tones soft obese Calves 1+ bilateral pretibial edema Neck thick short no mass no tenderness Mood and affect are appropriate Urinary Catheter Management: Huerta: Cath Placed During This Visit: yes Reason for Continuing Indwelling Catheter: Perioperative Use in Selected Surgeries Urinary Catheter Date of Insertion: 09/06/24 Urinary Catheter Time of Insertion: 00:25 Data 09/07/24 10:18 09/08/24 03:14 A&P Assessment and plan (1) Acute exacerbation of CHF (congestive heart failure): (2) Elevated troponin: (3) Diabetes mellitus: (4) COPD with acute exacerbation: Plan Acute hypoxemic respiratory failure COPD exacerbation Pulmonary edema -- Continue oxygen, BiPAP while resting and at night. Will continue doxycycline, IV steroids. As needed inhalers. Doxycycline Elevated troponin Concern for type II [place] History of abnormal stress test Hypertension Diabetes --Appreciate cardiology recommendations -- Continue Lipitor 20 mg, aspirin, Lasix was given, as needed Tylenol -- Basal and sliding scale insulin Lovenox 40 PDMP PDMP PDMP Reviewed: Not Reviewed Attestations Medical Necessity Statement*: Cardiac evaluation, oxygen, monitoring labs Coding Level of Care Code 31354 Diagnoses Acute exacerbation of CHF (congestive heart failure) I50.9 Elevated troponin R79.89 Type 2 diabetes mellitus with hyperglycemia, with long-term current use of insulin E11.65; Z79.4 Diabetes mellitus type: type 2 Diabetes mellitus intermediate card tender insulin use: with intermediate card tender use Diabetes mellitus complication status: with hyperglycemia COPD with acute exacerbation J44.1
--- NOTE | 2024-09-08 14:09 | XRR_ITS ---
PROCEDURE INFORMATION: Exam: XR Chest Exam date and time: 09/08/2024 2:29 PM Age: 59 years old Clinical indication: Shortness of breath; Additional info: SOB TECHNIQUE: Imaging protocol: Radiologic exam of the chest. Views: 1 view. COMPARISON: CR (CHEST, ) 09/05/2024 10:42 PM FINDINGS: Tubes, catheters and devices: Overlying monitor leads. Lungs: Increased pulmonary vascular/interstitial markings bilaterally. No consolidation. Pleural spaces: Likely small effusions [id number] costophrenic angles. No pneumothorax. Decreased visualization left costophrenic angle in relation to previous exam. Heart/Mediastinum: Mild cardiomegaly. Bones/joints: Old rib fractures on the left. XR/XR chest 1V portable [id number] IMPRESSION: Findings most suggestive of CHF with mild cardiomegaly and pulmonary vascular congestion/mild interstitial edema and likely small effusion, particularly left costophrenic angle.
[2024-09-08] MEDS: FUROsemide 10 mg/mL SDV 4mL 40 MG IVP (16:01)
--- NOTE | 2024-09-08 17:33 | PM.PN ---
Subjective Subjective: Patient is feeling much better. She seems to be able to lie flat in her bed. No fever, chills or any significant cough. Vitals are stable. Medications: Medication Review Details: Current Medications Acetaminophen (Acetaminophen 325 Mg Tablet) 650 mg PO Q6H PRN PRN Reason: MILD PAIN Last Admin: 09/06/24 12:56 Dose: 650 mg Albuterol Sulfate (Albuterol 2.5 Mg/0.5 Ml Neb) 2.5 mg INHALATION Q4H.RESPIRATORY PRN PRN Reason: BRONCHOSPASM Albuterol/Ipratropium (Ipratropium-Albuterol 3 Ml Neb) 3 ml INHALATION Q4H PRN PRN Reason: SHORTNESS OF BREATH Last Admin: 09/08/24 08:58 Dose: 3 ml Aripiprazole (Aripiprazole 2 Mg Tablet) 2 mg PO DAILY [facility] Last Admin: 09/08/24 08:32 Dose: 2 mg Aspirin (Aspirin 81 Mg Ec Tablet) 81 mg PO QAM [facility] Last Admin: 09/08/24 05:44 Dose: 81 mg Atorvastatin Calcium (Atorvastatin 40 Mg Tablet) 20 mg PO QPM [facility] Last Admin: 09/07/24 17:33 Dose: 20 mg Chlorthalidone (Chlorthalidone 25 Mg Tablet) 25 mg PO QAM [facility] Last Admin: 09/08/24 05:44 Dose: 25 mg Doxycycline Monohydrate (Doxycycline 100 Mg Tablet) 100 mg PO BID [facility]; Protocol Last Admin: 09/08/24 08:32 Dose: 100 mg Duloxetine HCl (Duloxetine 60 Mg Capsule) 60 mg PO BID [facility] Last Admin: 09/08/24 08:32 Dose: 60 mg Enoxaparin Sodium (Enoxaparin 40 Mg/0.4 Ml Syringe) 40 mg SUBCUT Q24H [facility] Last Admin: 09/08/24 02:11 Dose: 40 mg Furosemide (Furosemide 10 Mg/Ml Sdv 4ml) 40 mg IVP Q12H [facility] Last Admin: 09/08/24 16:01 Dose: 40 mg Glucagon (Glucagon 1 Mg/Ml Kit 1 Ml) 1 mg IM ONCE PRN; Protocol PRN Reason: Adult Acute Hypoglycemia Nursing Prot. Hydralazine HCl (Hydralazine 25 Mg Tablet) 25 mg PO TID [facility] Last Admin: 09/08/24 16:02 Dose: 25 mg Hydroxyzine Pamoate (Hydroxyzine 25 Mg Capsule) 25 mg PO BID PRN PRN Reason: itching Last Admin: 09/07/24 08:20 Dose: 25 mg Dextrose (D5w) 500 mls @ 0 mls/hr IV ONCE PRN; Protocol PRN Reason: Adult Acute Hypoglycemia Prot Dextrose (D10w) 125 mls @ 750 mls/hr IV PRN PRN; Protocol PRN Reason: Adult Acute Hypoglycemia Nursing Protocol Dextrose (D10w) 250 mls @ 1,000 mls/hr IV PRN PRN; Protocol PRN Reason: Adult Acute Hypoglycemia Nursing Protocol Insulin Human Lispro (Insulin Lispro 100 Unit/1 Ml) 0 - 14 unit SUBCUT WM&BEDTIME [facility]; Protocol Last Admin: 09/08/24 12:22 Dose: 8 unit Methylprednisolone Sodium Succinate (Methylprednisolone Sod Succ 125 Mg/2 Ml Inj) 60 mg IVP Q6H [facility] Last Admin: 09/08/24 16:01 Dose: 60 mg Non-Formulary Medication (Dapagliflozin Propanediol [Farxiga]) 10 mg PO DAILY [facility] Ondansetron HCl (Ondansetron 2 Mg/Ml Sdv 2 Ml) 4 mg IVP Q6H PRN PRN Reason: NAUSEA AND VOMITING Oxycodone/Acetaminophen (Oxycodone-Apap 5-325 Mg Tablet) 1 tab PO Q6H PRN PRN Reason: PAIN Last Admin: 09/08/24 12:24 Dose: 1 tab Potassium Chloride (Potassium Chloride Er 20 Meq Tablet) 20 meq PO DAILY [facility] Last Admin: 09/08/24 08:32 Dose: 20 meq Pregabalin (Pregabalin 75 Mg Capsule) 75 mg PO TID [facility] Last Admin: 09/08/24 16:02 Dose: 75 mg Tizanidine HCl (Tizanidine 4 Mg Tablet) 4 mg PO TID PRN PRN Reason: SPASMS Last Admin: 09/06/24 13:14 Dose: 4 mg Trazodone HCl (Trazodone 50 Mg Tablet) 25 mg PO BEDTIME [facility] Zolpidem Tartrate (Zolpidem 5 Mg Tablet) 10 mg PO BEDTIME [facility] Last Admin: 09/07/24 21:02 Dose: 10 mg Vitals/I&O/Wt Last Vital Signs Temp 98.0 F 09/08/24 16:00 Pulse 71 05/07/25 16:00 Resp 18 09/08/24 16:00 BP 159/81 09/08/24 16:00 Pulse Ox 95 09/08/24 16:00 O2 Del Method Nasal Cannula 09/08/24 16:00 O2 Flow Rate 2 09/08/24 16:00 FiO2 4 09/08/24 08:58 09/08/24 09/08/24 09/08/24 06:59 14:59 22:59 Intake Total 120 / 590 620 / 620 Output Total 450 / 950 Balance -330 / -360 620 / 620 Weight last 48 hrs Weight 235 lb 14.314 oz Weight 236 lb 15.951 oz Physical Exam Narrative: GENERAL: The patient is alert and oriented times three. Not in any acute distress. Obese HEENT: No significant pallor, icterus or lymphadenopathy.Oral cavity: There are no mucous membrane lesions. NECK: Trachea appears to be central. No masses noted. No JVD or thyromegaly appreciated. RESPIRATORY: Chest is symmetrical. No intercostals muscle retraction or any accessory muscle activation. There is no chest wall tenderness. Breath sounds are heard bilaterally. Few scattered wheezes. No evidence of any consolidation. BREASTS: Deferred. HEART: The heart sounds are normal. No S3 or S4. No significant murmurs. No pericardial rub ABDOMEN: No vessel pulsations or distention. No tenderness. No organomegaly appreciated. Bowel sounds are normally heard. : Deferred. RECTAL: Deferred. LYMPHATIC: No lymphadenopathy noted in the neck. EXTREMITIES: Trace of edema with no cyanosis.. No clubbing. MUSCULOSKELETAL: No acute joint deformities or swelling SKIN: There are no significant rashes or ecchymosis NEUROPSYCHIATRIC: The patient is alert and oriented x3. Appears to be in a good mood. No tremors or rigidity noted. Urinary Catheter Management: Huerta: Cath Placed During This Visit: yes Reason for Continuing Indwelling Catheter: Perioperative Use in Selected Surgeries Urinary Catheter Date of Insertion: 09/06/24 Urinary Catheter Time of Insertion: 00:25 Data 09/07/24 10:18 09/08/24 03:14 Other Labs: Laboratory Last Values WBC 8.34 10^3/uL (3.29-11.43) 09/07/24 10:18 RBC 4.01 10^6/uL (3.85-5.65) 09/07/24 10:18 Hgb 11.60 g/dL (11.27-16.99) 09/07/24 10:18 Hct 38.9 % (36-47) 09/07/24 10:18 MCV 97.0 fl (85-98) 09/07/24 10:18 MCH 28.9 pg (27-33) 09/07/24 10:18 MCHC 29.8 g/dL (30-55) L 09/07/24 10:18 RDW 18.1 % (12.1-15.1) H 09/07/24 10:18 Plt Count 258 10^3/cmm (157-399) 09/07/24 10:18 MPV 10.0 fL (7.4-10.4) 09/07/24 10:18 Neut % (Auto) 87.1 % 09/07/24 10:18 Lymph % (Auto) 8.0 % 09/07/24 10:18 Trigg % (Auto) 3.5 % 09/07/24 10:18 Eos % (Auto) 0.0 % 09/07/24 10:18 Baso % (Auto) 0.1 % 09/07/24 10:18 Neut # (Auto) 7.26 10^3/uL (1.8-7.7) 09/07/24 10:18 Lymph # (Auto) 0.7 10^3/uL (0.8-4.8) L 09/07/24 10:18 Trigg # (Auto) 0.3 10^3/uL (0.2-0.9) 09/07/24 10:18 Eos # (Auto) 0.0 10^3/uL (0.0-0.8) 09/07/24 10:18 Baso # (Auto) 0.0 10^3/uL (0.0-0.1) 09/07/24 10:18 Nucleated RBC % (auto) 0 % 09/07/24 10:18 Nucleated RBCs # 0.0 /100WBC 09/07/24 10:18 Specimen Type Arterial 09/07/24 10:25 Sample Site Radial, left 09/07/24 10:25 ABG pH 7.39 (7.35-7.45) 09/07/24 10:25 ABG pCO2 66.2 mmHg (35-45) H* 09/07/24 10:25 ABG pO2 89.0 mmHg (80.0-100.0) 09/07/24 10:25 ABG PO2/FiO2 Ratio 247 09/07/24 10:25 ABG HCO3 39.5 mmol/L (22-26) H 09/07/24 10:25 ABG O2 Saturation 96.1 09/07/24 10:25 ABG Base Excess 11.9 mmol/L (-2.0-2.0) H 09/07/24 10:25 Aditya Test Pos 09/07/24 10:25 A-a O2 Gradient 11.4 mmHg (5-10) H 09/07/24 10:25 Hematocrit 37.7 % (37-47) 09/07/24 10:25 Hgb O2 Saturation 94.3 % (95-100) L 09/07/24 10:25 Carboxyhemoglobin 0.7 %THgb (0.4-20.1) 09/07/24 10:25 Methemoglobin 1.1 % (0.4-1.5) 09/07/24 10:25 Total Hemoglobin 12.3 g/dL (12-16) 09/07/24 10:25 Sodium 139.0 mmol/L (131-143) 09/07/24 10:25 Potassium 4.3 mmol/L (3.5-5.0) 09/07/24 10:25 Glucose 197.0 mg/dL (70-115) H 09/07/24 10:25 Ionized Calcium 1.2 mmol/L (1.1-1.4) 09/07/24 10:25 O2 Delivery Device Nc 09/07/24 10:25 FiO2 36.0 % 09/07/24 10:25 PEEP 10.0 cmH20 09/05/24 22:19 [employer]/Track [employer] Coach ID Broma 09/07/24 10:25 Sodium 138 mmol/L (136-145) 09/08/24 03:14 Potassium 4.8 mmol/L (3.5-5.1) 09/08/24 03:14 Chloride 96 mmol/L (98-107) L 09/08/24 03:14 Carbon Dioxide 35 mmol/L (22-29) H 09/08/24 03:14 Anion Gap 11.8 (5-19) 09/08/24 03:14 BUN 23 mg/dL (8-23) 09/08/24 03:14 Creatinine 0.9 mg/dL (0.5-0.9) 09/08/24 03:14 GFR Calculation 63.7 mL/min (90-130) L 09/08/24 03:14 Glucose 175 mg/dL (65-115) H 09/08/24 03:14 POC Glucose 270 mg/dL (70-110) H 09/08/24 11:43 Calculated Osmolality 294 mOsm/kg (285-295) 09/08/24 03:14 Lactic Acid 0.7 mmol/L (0.5-2.2) 09/05/24 22:35 Calcium 8.9 mg/dL (8.5-10.5) 09/08/24 03:14 Magnesium 2.1 mg/dL (1.7-2.3) 09/06/24 04:35 Total Bilirubin 0.5 mg/dL (0.15-1.2) 09/07/24 10:18 AST 9 U/L (0-32) 09/07/24 10:18 ALT < 5 U/L (0-33) 09/07/24 10:18 Alkaline Phosphatase 120 U/L (35-105) H 09/07/24 10:18 Troponin T Baseline 59 ng/L (0-10) H 09/05/24 22:35 Troponin T 120 Minute 55.27 ng/L (0-10) H 09/06/24 00:31 Delta Troponin T -3.73 ABS# (0-10) L 09/06/24 00:31 Troponin T Hi Sens 6Hr 49.95 ng/L (0-10) H 09/06/24 04:35 Troponin T Hi Sens 6Hr Delta -9.05 ng/L (0-12) L 09/06/24 04:35 NT-Pro-B Natriuret Pep 3699 pg/mL (0-125) H 09/05/24 22:35 Total Protein 6.9 g/dL (6.6-8.7) 09/07/24 10:18 Albumin 3.1 g/dL (3.5-5.2) L 09/07/24 10:18 Globulin 3.8 g/dL (1.3-4.6) 05/06/25 10:18 Influenza A (PCR) Negative (Negative) 09/05/24 22:00 Influenza Type B (PCR) Negative (Negative) 09/05/24 22:00 RSV (PCR) Negative (Negative) 09/05/24 22:00 SARS-CoV-2 (PCR) Negative (Negative) 09/05/24 22:00 A&P Assessment and plan (1) Elevated troponin: In view of the patient's recurrent CHF, abnormal Myocardial perfusion imaging, multiple risk factors for coronary artery disease in order to further evaluate the coronary status, a cardiac catheterization would be appropriate. (2) Abnormal stress test: Patient had a Myocardial perfusion imaging in June. She was found to have possible small area of ischemia in the circumflex territory. (3) Elevated brain natriuretic peptide (BNP) level: Elevated BNP may suggest diastolic heart failure. This might be contributing to some extent the COPD exacerbation. The patient may be carefully treated with IV diuretics. Because of the history of acute kidney injury, need to be careful with the fluid management. (4) Hypertension: The blood pressure currently is elevated. Will continue to optimize the antihypertensive medications. (5) Diabetes mellitus: The blood sugar seems to be fairly under control. May continue on the current management. (6) COPD exacerbation: The shortness of breath has significantly improved. May continue on the current management. (7) Tobacco use disorder: Patient strongly advised to quit smoking Plan Discussed with the patient about the cardiac catheterization, risks, benefit and alternatives. Because of the recurrent diastolic heart failure, it was decided to go ahead with the procedure. The risk of bleeding, hematoma, vascular injury, myocardial infarction, myocardial perforation, malignant cardiac arrhythmias ,CVA, renal failure and other concomitant complications were explained in detail. Patient understood this well and consented to proceed. The possibility of the respiratory status getting worse during or after the procedure also was discussed. Patient seems understand the implications well. May go ahead and schedule the procedure for tomorrow PDMP PDMP Reviewed: Not Reviewed Attestations Medical Necessity Statement*: Patient requires continued hospital stay for close monitoring and further management Coding Level of Care Code 45571 Diagnoses Elevated troponin R79.89 Abnormal stress test R94.39 Elevated brain natriuretic peptide (BNP) level R79.89 Primary hypertension I10 Hypertension type: primary hypertension Type 2 diabetes mellitus with hyperglycemia, with long-term current use of insulin E11.65; Z79.4 Diabetes mellitus type: type 2 Diabetes mellitus longterm insulin use: with director long term care use Diabetes mellitus complication status: with hyperglycemia COPD exacerbation J44.1 Tobacco use disorder F17.200
[2024-09-08 17:35] LABS: Glucose Point of Care 245 mg/dL (70-110)
[2024-09-08] MEDS: atorvastatin 40 mg Tablet 20 MG PO (17:38)
[2024-09-08] MEDS: zolpidem 5 mg Tablet 10 MG PO (20:28)
[2024-09-08] MEDS: trazodone 50 mg Tablet 25 MG PO (20:30)
[2024-09-08 21:15] LABS: Glucose Point of Care 363 mg/dL (70-110)
[2024-09-09] VITALS (43 sets, daily range): BP systolic 119–174; BP diastolic 56–96; PULSE 62–78; RESP 11–28; TEMP 36.6–37.1; O2SAT 91–99; BMI 35.9
[2024-09-09] MEDS: FUROsemide 10 mg/mL SDV 4mL 40 MG IVP ×2 (02:08→14:50)
[2024-09-09] MEDS: enoxaparin 40 mg/0.4 mL Syringe SUBCUT (02:09)
[2024-09-09] MEDS: methylPREDNISolone sod succ 125 mg/2 mL INJ 60 MG IVP ×2 (05:18→09:35)
[2024-09-09] MEDS: aspirin 81 mg EC Tablet PO (05:19)
[2024-09-09] MEDS: oxyCODONE-APAP 5-325 mg Tablet 1 TAB PO ×2 (05:19→13:58)
[2024-09-09] MEDS: chlorthalidone 25 mg Tablet PO (05:19)
--- NOTE | 2024-09-09 07:17 | P.PN_ITS ---
Subjective 2 Subjective: Patient is feeling much better. She is able to lie flat. Denies any chest pain. No fever or chills. No cough. She is still on oxygen 5 to 6 L/min by nasal cannula. Medications: Medication Review Details: Current Medications Acetaminophen (Acetaminophen 325 Mg Tablet) 650 mg PO Q6H PRN PRN Reason: MILD PAIN Last Admin: 09/06/24 12:56 Dose: 650 mg Albuterol Sulfate (Albuterol 2.5 Mg/0.5 Ml Neb) 2.5 mg INHALATION Q4H.RESPIRATORY PRN PRN Reason: BRONCHOSPASM Albuterol/Ipratropium (Ipratropium-Albuterol 3 Ml Neb) 3 ml INHALATION Q4H PRN PRN Reason: SHORTNESS OF BREATH Last Admin: 09/08/24 08:58 Dose: 3 ml Aripiprazole (Aripiprazole 2 Mg Tablet) 2 mg PO DAILY [facility] Last Admin: 09/08/24 08:32 Dose: 2 mg Aspirin (Aspirin 81 Mg Ec Tablet) 81 mg PO QAM [facility] Last Admin: 09/09/24 05:19 Dose: 81 mg Atorvastatin Calcium (Atorvastatin 40 Mg Tablet) 20 mg PO QPM [facility] Last Admin: 09/08/24 17:38 Dose: 20 mg Chlorthalidone (Chlorthalidone 25 Mg Tablet) 25 mg PO QAM [facility] Last Admin: 09/09/24 05:19 Dose: 25 mg Doxycycline Monohydrate (Doxycycline 100 Mg Tablet) 100 mg PO BID [facility]; Protocol Last Admin: 09/08/24 17:38 Dose: 100 mg Duloxetine HCl (Duloxetine 60 Mg Capsule) 60 mg PO BID [facility] Last Admin: 09/08/24 17:38 Dose: 60 mg Enoxaparin Sodium (Enoxaparin 40 Mg/0.4 Ml Syringe) 40 mg SUBCUT Q24H [facility] Last Admin: 09/09/24 02:09 Dose: 40 mg Furosemide (Furosemide 10 Mg/Ml Sdv 4ml) 40 mg IVP Q12H [facility] Last Admin: 09/09/24 02:08 Dose: 40 mg Glucagon (Glucagon 1 Mg/Ml Kit 1 Ml) 1 mg IM ONCE PRN; Protocol PRN Reason: Adult Acute Hypoglycemia Nursing Prot. Hydralazine HCl (Hydralazine 25 Mg Tablet) 25 mg PO TID [facility] Last Admin: 09/08/24 20:29 Dose: 25 mg Hydroxyzine Pamoate (Hydroxyzine 25 Mg Capsule) 25 mg PO BID PRN PRN Reason: itching Last Admin: 09/07/24 08:20 Dose: 25 mg Dextrose (D5w) 500 mls @ 0 mls/hr IV ONCE PRN; Protocol PRN Reason: Adult Acute Hypoglycemia Prot Dextrose (D10w) 125 mls @ 750 mls/hr IV PRN PRN; Protocol PRN Reason: Adult Acute Hypoglycemia Nursing Protocol Dextrose (D10w) 250 mls @ 1,000 mls/hr IV PRN PRN; Protocol PRN Reason: Adult Acute Hypoglycemia Nursing Protocol Sodium Chloride (Sodium Chloride 0.9%) 1,000 mls @ 50 mls/hr IV .Q20H ONE Stop: 09/09/24 17:37 Insulin Human Lispro (Insulin Lispro 100 Unit/1 Ml) 0 - 14 unit SUBCUT WM&BEDTIME [facility]; Protocol Last Admin: 09/08/24 21:35 Dose: 12 unit Methylprednisolone Sodium Succinate (Methylprednisolone Sod Succ 125 Mg/2 Ml Inj) 60 mg IVP Q6H [facility] Last Admin: 09/09/24 05:18 Dose: 60 mg Non-Formulary Medication (Dapagliflozin Propanediol [Farxiga]) 10 mg PO DAILY [facility] Ondansetron HCl (Ondansetron 2 Mg/Ml Sdv 2 Ml) 4 mg IVP Q6H PRN PRN Reason: NAUSEA AND VOMITING Oxycodone/Acetaminophen (Oxycodone-Apap 5-325 Mg Tablet) 1 tab PO Q6H PRN PRN Reason: PAIN Last Admin: 09/09/24 05:19 Dose: 1 tab Potassium Chloride (Potassium Chloride Er 20 Meq Tablet) 20 meq PO DAILY [facility] Last Admin: 09/08/24 08:32 Dose: 20 meq Pregabalin (Pregabalin 75 Mg Capsule) 75 mg PO TID [facility] Last Admin: 09/08/24 20:28 Dose: 75 mg Tizanidine HCl (Tizanidine 4 Mg Tablet) 4 mg PO TID PRN PRN Reason: SPASMS Last Admin: 09/06/24 13:14 Dose: 4 mg Trazodone HCl (Trazodone 50 Mg Tablet) 25 mg PO BEDTIME [facility] Last Admin: 09/08/24 20:30 Dose: 25 mg Zolpidem Tartrate (Zolpidem 5 Mg Tablet) 10 mg PO BEDTIME [facility] Last Admin: 09/08/24 20:28 Dose: 10 mg Vitals/I&O/Wt Last Vital Signs Temp 97.9 F 09/09/24 04:00 Pulse 69 09/09/24 06:00 Resp 15 09/09/24 06:00 BP 154/76 09/09/24 06:00 Pulse Ox 96 09/09/24 06:00 O2 Del Method Nasal Cannula 09/08/24 18:00 O2 Flow Rate 4 09/08/24 20:00 FiO2 40 09/09/24 03:17 09/08/24 09/09/24 09/09/24 22:59 06:59 14:59 Intake Total 400 / 1020 0 / 1020 Output Total 1900 / 1900 2500 / 4400 Balance -1500 / -880 -2500 / -3380 Weight last 48 hrs Weight 235 lb 14.314 oz Weight 235 lb 14.314 oz Weight 235 lb 14.314 oz Physical Exam 2 Narrative: GENERAL: The patient is alert and oriented times three. Not in any acute distress. Obese HEENT: No significant pallor, icterus or lymphadenopathy.Oral cavity: There are no mucous membrane lesions. NECK: Trachea appears to be central. No masses noted. No JVD or thyromegaly appreciated. RESPIRATORY: Chest is symmetrical. No intercostals muscle retraction or any accessory muscle activation. There is no chest wall tenderness. Breath sounds are heard bilaterally. Few scattered wheezes. No evidence of any consolidation. BREASTS: Deferred. HEART: The heart sounds are normal. No S3 or S4. No significant murmurs. No pericardial rub ABDOMEN: No vessel pulsations or distention. No tenderness. No organomegaly appreciated. Bowel sounds are normally heard. : Deferred. RECTAL: Deferred. LYMPHATIC: No lymphadenopathy noted in the neck. EXTREMITIES: Trace of edema with no cyanosis.. No clubbing. MUSCULOSKELETAL: No acute joint deformities or swelling SKIN: There are no significant rashes or ecchymosis NEUROPSYCHIATRIC: The patient is alert and oriented x3. Appears to be in a good mood. No tremors or rigidity noted. Urinary Catheter Management: Huerta: Cath Placed During This Visit: yes Reason for Continuing Indwelling Catheter: Accurate Measurement of Urinary Output in Critically Ill Patients Urinary Catheter Date of Insertion: 09/06/24 Urinary Catheter Time of Insertion: 00:25 Data 09/07/24 10:18 09/09/24 12:35 Other Labs: Laboratory Last Values WBC 8.34 10^3/uL (3.29-11.43) 09/07/24 10:18 RBC 4.01 10^6/uL (3.85-5.65) 09/07/24 10:18 Hgb 11.60 g/dL (11.27-16.99) 09/07/24 10:18 Hct 38.9 % (36-47) 09/07/24 10:18 MCV 97.0 fl (85-98) 09/07/24 10:18 MCH 28.9 pg (27-33) 09/07/24 10:18 MCHC 29.8 g/dL (30-55) L 09/07/24 10:18 RDW 18.1 % (12.1-15.1) H 09/07/24 10:18 Plt Count 258 10^3/cmm (157-399) 09/07/24 10:18 MPV 10.0 fL (7.4-10.4) 09/07/24 10:18 Neut % (Auto) 87.1 % 09/07/24 10:18 Lymph % (Auto) 8.0 % 09/07/24 10:18 Wise % (Auto) 3.5 % 09/07/24 10:18 Eos % (Auto) 0.0 % 09/07/24 10:18 Baso % (Auto) 0.1 % 09/07/24 10:18 Neut # (Auto) 7.26 10^3/uL (1.8-7.7) 09/07/24 10:18 Lymph # (Auto) 0.7 10^3/uL (0.8-4.8) L 09/07/24 10:18 Wise # (Auto) 0.3 10^3/uL (0.2-0.9) 09/07/24 10:18 Eos # (Auto) 0.0 10^3/uL (0.0-0.8) 09/07/24 10:18 Baso # (Auto) 0.0 10^3/uL (0.0-0.1) 09/07/24 10:18 Nucleated RBC % (auto) 0 % 09/07/24 10:18 Nucleated RBCs # 0.0 /100WBC 09/07/24 10:18 Specimen Type Arterial 09/07/24 10:25 Sample Site Radial, left 09/07/24 10:25 ABG pH 7.39 (7.35-7.45) 09/07/24 10:25 ABG pCO2 66.2 mmHg (35-45) H* 09/07/24 10:25 ABG pO2 89.0 mmHg (80.0-100.0) 09/07/24 10:25 ABG PO2/FiO2 Ratio 247 09/07/24 10:25 ABG HCO3 39.5 mmol/L (22-26) H 09/07/24 10:25 ABG O2 Saturation 96.1 09/07/24 10:25 ABG Base Excess 11.9 mmol/L (-2.0-2.0) H 09/07/24 10:25 Aditya Test Pos 09/07/24 10:25 A-a O2 Gradient 11.4 mmHg (5-10) H 09/07/24 10:25 Hematocrit 37.7 % (37-47) 09/07/24 10:25 Hgb O2 Saturation 94.3 % (95-100) L 09/07/24 10:25 Carboxyhemoglobin 0.7 %THgb (0.4-20.1) 09/07/24 10:25 Methemoglobin 1.1 % (0.4-1.5) 09/07/24 10:25 Total Hemoglobin 12.3 g/dL (12-16) 09/07/24 10:25 Sodium 139.0 mmol/L (131-143) 09/07/24 10:25 Potassium 4.3 mmol/L (3.5-5.0) 09/07/24 10:25 Glucose 197.0 mg/dL (70-115) H 09/07/24 10:25 Ionized Calcium 1.2 mmol/L (1.1-1.4) 09/07/24 10:25 O2 Delivery Device Nc 09/07/24 10:25 FiO2 36.0 % 09/07/24 10:25 PEEP 10.0 cmH20 09/05/24 22:19 Steel Worker ID Broma 09/07/24 10:25 Sodium 138 mmol/L (136-145) 09/08/24 03:14 Potassium 4.8 mmol/L (3.5-5.1) 09/08/24 03:14 Chloride 96 mmol/L (98-107) L 09/08/24 03:14 Carbon Dioxide 35 mmol/L (22-29) H 09/08/24 03:14 Anion Gap 11.8 (5-19) 09/08/24 03:14 BUN 23 mg/dL (8-23) 09/08/24 03:14 Creatinine 0.9 mg/dL (0.5-0.9) 09/08/24 03:14 GFR Calculation 63.7 mL/min (90-130) L 09/08/24 03:14 Glucose 175 mg/dL (65-115) H 09/08/24 03:14 POC Glucose 363 mg/dL (70-110) H 09/08/24 21:09 Calculated Osmolality 294 mOsm/kg (285-295) 09/08/24 03:14 Lactic Acid 0.7 mmol/L (0.5-2.2) 09/05/24 22:35 Calcium 8.9 mg/dL (8.5-10.5) 09/08/24 03:14 Magnesium 2.1 mg/dL (1.7-2.3) 09/06/24 04:35 Total Bilirubin 0.5 mg/dL (0.15-1.2) 09/07/24 10:18 AST 9 U/L (0-32) 09/07/24 10:18 ALT < 5 U/L (0-33) 09/07/24 10:18 Alkaline Phosphatase 120 U/L (35-105) H 09/07/24 10:18 Troponin T Baseline 59 ng/L (0-10) H 09/05/24 22:35 Troponin T 120 Minute 55.27 ng/L (0-10) H 09/06/24 00:31 Delta Troponin T -3.73 ABS# (0-10) L 09/06/24 00:31 Troponin T Hi Sens 6Hr 49.95 ng/L (0-10) H 09/06/24 04:35 Troponin T Hi Sens 6Hr Delta -9.05 ng/L (0-12) L 09/06/24 04:35 NT-Pro-B Natriuret Pep 3699 pg/mL (0-125) H 09/05/24 22:35 Total Protein 6.9 g/dL (6.6-8.7) 09/07/24 10:18 Albumin 3.1 g/dL (3.5-5.2) L 09/07/24 10:18 Globulin 3.8 g/dL (1.3-4.6) 09/07/24 10:18 Influenza A (PCR) Negative (Negative) 09/05/24 22:00 Influenza Type B (PCR) Negative (Negative) 09/05/24 22:00 RSV (PCR) Negative (Negative) 09/05/24 22:00 SARS-CoV-2 (PCR) Negative (Negative) 09/05/24 22:00 A&P Assessment and plan (1) Elevated troponin: In view of the patient's recurrent CHF, abnormal Myocardial perfusion imaging, multiple risk factors for coronary artery disease in order to further evaluate the coronary status, a cardiac catheterization would be appropriate. Risks, benefits and alternatives were discussed. Risk of bleeding, hematoma, vascular injury, myocardial infarction, CVA and other contributory complications were explained in detail which the patient understood well and consented to proceed (2) Abnormal stress test: Patient had a Myocardial perfusion imaging in June. She was found to have possible small area of ischemia in the circumflex territory. (3) Elevated brain natriuretic peptide (BNP) level: Elevated BNP may suggest diastolic heart failure. This might be contributing to some extent the COPD exacerbation. The patient may be carefully treated with IV diuretics. Because of the history of acute kidney injury, need to be careful with the fluid management. (4) Hypertension: The blood pressure currently is elevated. Will continue to optimize the antihypertensive medications. (5) Diabetes mellitus: The blood sugar seems to be fairly under control. May continue on the current management. (6) COPD exacerbation: The shortness of breath has significantly improved. May continue on the current management. (7) Tobacco use disorder: Patient strongly advised to quit smoking Plan Cardiac catheterization today. Based on the angiogram findings, further recommendations will be made PDMP PDMP Reviewed: Not Reviewed Attestations 2 Medical Necessity Statement*: Deferred to the primary Coding Level of Care Code 52918 Diagnoses Elevated troponin R79.89 Abnormal stress test R94.39 Elevated brain natriuretic peptide (BNP) level R79.89 Primary hypertension I10 Hypertension type: primary hypertension Type 2 diabetes mellitus with hyperglycemia, with long-term current use of insulin E11.65; Z79.4 Diabetes mellitus complication status: with hyperglycemia Diabetes mellitus retirement insulin use: with assistant terminal manager use Diabetes mellitus type: type 2 COPD exacerbation J44.1 Tobacco use disorder F17.200
[2024-09-09 07:23] LABS: Glucose Point of Care 275 mg/dL (70-110)
[2024-09-09] MEDS: hyDRALAzine 25 mg Tablet PO ×3 (07:37→20:59)
--- NOTE | 2024-09-09 07:39 | PC.NURSE ---
Per Dr. Worthington verbal order, hydralazine 25mg given early.
--- NOTE | 2024-09-09 08:00 | XACV_ITS ---
Exam Room: 2 Ht: 173 cm Wt: 107 kg BSA: 2.30 m2 Gender: Female : 1965 Any Known Allergies: Other Exam Priority: Routine Procedure(s): Procedure Description: Diagnostic procedure Procedure Description: Coronary Angiography Ander FLORES; Diagnostic Cath Status: Elective Diagnostic Findings * The left main is a medium caliber extremely short vessel with no significant lesions. Moderate calcification was noted near the ostium of the left main. * The left left anterior descending artery is a medium caliber vessel which appears to taper off towards the LV apex. The mid segment of the artery right after the takeoff of the first diagonal branch was found to have 40% segmental lesion. Mild diffuse intimal elevatus is noted in the distal vessel. The first diagonal branch was relative small caliber vessel with a 60 to 70% tubular narrowing proximally. * The left circumflex artery is a medium to large caliber codominant vessel with mild diffuse disease in the midsegment. The second obtuse marginal branch, large caliber vessel, has a 70% lesion before its terminal bifurcation.. * The right coronary artery, medium caliber codominant vessel, was found to have minimal intimal regularities distally. No significant stenotic lesions were noted. Conclusions 1. 59-year-old white female with multiple risk factors for coronary disease, recurrent diastolic heart failure, had a Myocardial perfusion imaging revealing a small area of ischemia in the circumflex artery. In view of the patient is a recurrent heart failure, it was thought to be appropriate to do a cardiac catheterization to further evaluate the coronary status and decide on further management. Patient underwent a left heart catheterization with left and right coronary angiogram today. The findings are as follows. 2. Extremely short left main. Left and descending artery has a 40% lesion at the midsegment. First diagonal branch was found to have around 70% elongated lesion proximally, is a relatively small caliber vessel. 70% lesion in the terminal segment of the second obtuse marginal artery, before its bifurcation. Minimal intimal irregularities in the right coronary artery. LVEDP of 18 mmHg.. 3. I reviewed and discussed the cardiac catheterization data with Dr. Mcguire. Since the patient has no chest pain and also since the area of ischemia is small, it was thought to be appropriate to continue the medical treatment at this point. Diagnostic RX Recommendation: medical therapy and/or counseling LV EDP: 18 mmHg Left Ventriculography Findings: * LV gram was not performed. The LVEDP was 18 mmHg. Pressures Phase:Rest AO : 129 / 61 ( 88 ) @ 5:50:00 PM 130 / 62 ( 89 ) @ 5:50:00 PM LV : 129 / 0 / 17 @ 5:50:00 PM 129 / 0 / 18 @ 5:50:00 PM Valves Phase:DefaultPhase AV : 0.0 @ 5:26:13 PM AV Mean Gradient: 0.0 @ 5:26:13 PM Clinical Evaluation EBL: 5mL-10mL Procedural Details Procedure Consent Obtained. Admit Source: In Patient. Pre-Procedure Time Out. Identified patient by full name and date of as verbalized by the patient/guarantor. Does the consent match the physician's order: Yes. Accurate & Complete Informed Consent: Yes. Inpatient/Outpatient History & Physical on Chart: Yes. If H&P is completed, is and addenduem needed: No; If yes, is the addendum complete: N/A. Visualize and Verify Site with Patient/Guarantor: N/A. Relevant Radiology Images available: N/A. The risks, benefits, and alternatives of sedation and/or procedure were discussed by physician. The patient agrees to continue. Procedure started. [facility] Clinical Fraility Score: 4: Vulnerable. 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 Chest Pain Symptom Assessment: Typical Angina Symptoms. Cardiovascular Instability: No. Correct patient, site and procedure confirmed by cath team. PERRLA. Strong, equal hand battery charger conveyor line bilaterally. Lungs clear x 5 lobes. IV Site on Arrival: 20 gauge in the right forearm. IV Site on Arrival: 20 gauge in the right hand. IV Fluids: 0.9% NaCl at KVO. 0 mL infused prior to laboratory cureman. Pre Procedural Pulses: bilateral radial was 3+. Oxygen started at 5liters/min via nasal canula. right groin was prepped with chloroprep then draped in the usual sterile fashion. right radial was prepped with chloroprep then draped in the usual sterile fashion. Physician notified. Baseline sample Acquired. HR: 75 BPM. Patient's family unavailable. Equipment: 6F - Radial. Cardiac Cath Pack. ACIST Manifold Kit Model BT 2000. Heparinized Saline (2 units/mL), 1000 mL bag. Physician arrived. Patient with ocampo cath on arrival drainig clear, yellow UOP. Physician scrubbed in. Immediate Pre-Procedure Time Out. Correct Patient: Yes; Correct Procedure: Yes; Correct Site: Yes; Correct Patient Position: Yes; Correct Supplies: Yes; Dried Flammable Prep: Yes; Blood Products Available: N/A;. Lidocaine 1% infiltrated to the right radial. Arterial access obtained. A 5 guamanian Moises catheter in over the exchange J wire. EDP Sample taken: LV 129/-1,17; HR: 70 BPM; SpO2: 89%. Pullback taken: LV 129/-1,18; AO 129/61(88); Mean: 0mmHg, Peak to Peak: 0mmHg, SEP: 15sec/min; HR: 69 BPM; SpO2: 92%. Multiple views taken of left coronary artery. Catheter removed over the exchange wire. A 5 guamanian JR4 catheter in over the exchange J wire. Multiple views taken of right coronary artery. Catheter removed over the exchange J wire. Dr. Worthington scrubbed out. Dr. Mcguire called to view cineography. Dr. Mcguire here to view cineography. A TR Band was successful obtaining hemostatsis at the Right Radial artery insertion site. Post Procedure: Pulses reassessed and unchanged. PERRLA. Strong, equal hand battery charger conveyor line bilaterally. No VTE prophylaxis required. Medication's Wasted: Lidocaine 1% = 18 mL. Medication's Wasted: Nitro = 49.8 mg. Medication's Wasted: Heparin = 1000 units. Medication's Wasted: Other = Versed 1 mg. Medication's Wasted: Other = Fentanyl 62.5 mcg. Total IV fluids: 45 mL. Post-op diagnosis: non-obstructive CAD. Complications: none. Estimated blood loss: 5mL-10mL. Responsiveness - Normal response to verbal stimuli; alert and oriented, PERRLA. Airway - Unaffected, no intervention required; spontaneous ventilation. Circulation: W/N/L, pulses unchanged. Nausea/Vomiting: No. Procedure completed. Patient transferred by bed to ICU. Vital chart was stopped. Access Site Site: Right Radial artery Sheath Size: 6 Fr Hemostasis Method: TR Band Hemostasis Success: Successful Procedure Medications Start: 4:40 PM Stop: 4:40 PM Medication: Versed Amount: 1 mg Route: I.V. Start: 4:47 PM Stop: 4:47 PM Medication: Verapamil Amount: 5 mg Route: I.A. Start: 4:47 PM Stop: 4:47 PM Medication: Nitrogylcerin Amount: 200 mcg Route: I.A. Start: 4:47 PM Stop: 4:47 PM Medication: Fentanyl Amount: 12.5 mcg Route: I.V. Start: 4:51 PM Stop: 4:51 PM Medication: Versed Amount: 0.5 mg Route: I.V. Start: 4:54 PM Stop: 4:54 PM Medication: Heparin Amount: 5000 units Route: I.V. Start: 4:58 PM Stop: 4:58 PM Medication: Nitrogylcerin Amount: 100 mcg Route: I.A. Start: 4:59 PM Stop: 4:59 PM Medication: Versed Amount: 0.5 mg Route: I.V. Start: 4:59 PM Stop: 4:59 PM Medication: Fentanyl Amount: 12.5 mcg Route: I.V. Start: 5:05 PM Stop: 5:05 PM Medication: Fentanyl Amount: 12.5 mcg Route: I.V. Start: 5:07 PM Stop: 5:07 PM Medication: Versed Amount: 1 mg Route: I.V. I, the attending physician, have reviewed and verified all procedure medications. Yes, all medications given per verbal order History/Risk Factors Hypertension: Yes Dyslipidemia: No Peripheral Arterial Disease (PAD): No Myocardial Infarction (DE): No Obesity: Yes Renal Disease: No Tobacco Use: Current/Recent(w/in 1 year) Prior Interventions PCI: No CABG: No Valve Surgery: No Report Signatures Finalized by Dr Thomas Worthington MD [facility] on 09/10/2024 09:05 AM
[2024-09-09] MEDS: insulin lispro 100 unit/1 mL SUBCUT ×4 (08:43→20:59)
[2024-09-09] MEDS: potassium chloride ER 20 mEq Tablet PO (08:43)
[2024-09-09] MEDS: pregabalin 75 mg Capsule PO ×3 (08:43→21:00)
[2024-09-09] MEDS: doxycycline 100 mg Tablet PO ×2 (08:43→17:53)
[2024-09-09] MEDS: duloxetine 60 mg Capsule PO ×2 (08:43→17:54)
[2024-09-09] MEDS: ARIPiprazole 2 mg Tablet PO (08:43)
--- NOTE | 2024-09-09 09:09 | PC.NURSE ---
Verbal order for home dose lisinopril per Dr. Marie.
--- NOTE | 2024-09-09 09:12 | USCV_ITS ---
Wanda Lamb Age: 59 Gender: F : 1965 Exam Date: 09/09/2024 10:26 Ordering Phys: Rossy Marie MD Technologist: [facility] Exam Location: [place] Indication: r/o DVT HISTORY: r/o DVT PROCEDURES: Venous duplex imaging was performed in only the left lower extremity. Serial compression, augmentation maneuvers, and spectral Doppler flow evaluation were performed. FINDINGS: No evidence of DVT seen in any vessel visualized at this time. CONCLUSIONS No evidence of left lower extremity DVT. 3.1cm lymph node LEFT groin non-specific but may be reactive David Araiza MD (Electronically Signed) Final Date: 09 Sep 2024 11:26 S
[2024-09-09] MEDS: lisinopril 20 mg Tablet 40 MG PO (09:34)
[2024-09-09] MEDS: diphenhydrAMINE 50 mg Capsule PO (10:32)
[2024-09-09] MEDS: aspirin 325 mg Tablet PO (10:32)
--- NOTE | 2024-09-09 11:07 | PC.OT ---
OT EVAL ORDERS RECEIVED; PT SCHEDULED FOR CARDIAC CATH; WILL HOLD AT THIS TIME
[2024-09-09 11:14] LABS: Glucose Point of Care 232 mg/dL (70-110)
--- NOTE | 2024-09-09 11:32 | P.PN_ITS ---
Subjective 2 Subjective: No acute events overnight. Patient seen at the bedside denies any new complaints today. Shortness of breath is improved. She denies chest pain. Vitals/I&O/Wt Last Vital Signs Temp 97.9 F 09/09/24 10:00 Pulse 68 09/09/24 10:00 Resp 16 09/09/24 08:07 BP 157/94 09/09/24 10:00 Pulse Ox 97 09/09/24 10:00 O2 Del Method Nasal Cannula 09/09/24 10:00 O2 Flow Rate 4 09/08/24 20:00 FiO2 4 09/09/24 08:07 09/08/24 09/09/24 09/09/24 22:59 06:59 14:59 Intake Total 400 / 1020 0 / 1020 0 / 0 Output Total 1900 / 1900 2500 / 4400 Balance -1500 / -880 -2500 / -3380 0 / 0 Weight last 48 hrs Weight 107 kg Weight 107 kg Weight 107 kg Physical Exam 2 Narrative: GENERAL: Awake, alert, no acute distress HEENT: Normocephalic, atraumatic, PERRL RESPIRATORY: Breath sounds bilaterally, no wheezes or crackles. HEART: The heart sounds are normal. No S3 or S4. No significant murmurs. ABDOMEN: Soft, nontender, normal bowel sounds EXTREMITIES: Trace of edema with no cyanosis.. No clubbing. NEURO: No gross focal deficits Urinary Catheter Management: Huerta: Cath Placed During This Visit: yes Reason for Continuing Indwelling Catheter: Accurate Measurement of Urinary Output in Critically Ill Patients Urinary Catheter Date of Insertion: 09/06/24 Urinary Catheter Time of Insertion: 00:25 Data 09/07/24 10:18 09/08/24 03:14 A&P Assessment and plan (1) Acute exacerbation of CHF (congestive heart failure): (2) Elevated troponin: (3) Diabetes mellitus: (4) COPD with acute exacerbation: Plan #Acute on chronic hypoxemic respiratory failure -There is no COPD exacerbation, pulmonary edema -Patient uses 2 L supplemental oxygen at home, she is currently on 4 L -Continue to wean oxygen as tolerated -Continue BiPAP for naps and at bedtime - Walk study prior to discharge # Acute COPD exacerbation -Patient breath sounds improved -Start Solu-Medrol taper -Continue DuoNebs -Continue doxycycline # Elevated troponin -Patient evaluated by cardiology and be scheduled for cardiac catheterization today # Acute decompensated heart failure with preserved EF - Continue IV Lasix - Urology following # Hypertension -Continue antihypertensives # Type 2 diabetes - Continue glucose checks, titrate insulin as appropriate VTE prophylaxis -Lovenox 40 PDMP PDMP PDMP Reviewed: Not Reviewed Attestations 2 Medical Necessity Statement*: Patient continues to require inpatient care for respiratory failure Coding Level of Care Code Acute Code for Chg Fwd Diagnoses Acute exacerbation of CHF (congestive heart failure) I50.9 Elevated troponin R79.89 Type 2 diabetes mellitus with hyperglycemia, with long-term current use of insulin E11.65; Z79.4 Diabetes mellitus type: type 2 Diabetes mellitus 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
[2024-09-09 12:57] LABS: Albumin Level 3.4 g/dL (3.5-5.2); Blood Urea Nitrogen 30 mg/dL (8-23); Chloride 91 mmol/L (98-107); Creatinine Clr Calc Pharmacy 75.6743; Glomerular Filtration Rate 56.4 mL/min (90-130); Glucose 216 mg/dL (65-115); Phosphorus 3.3 mg/dL (2.5-4.5); Sodium 138 mmol/L (136-145)
[2024-09-09 13:11] LABS: Carbon Dioxide 41 mmol/L (22-29)
[2024-09-09 13:12] LABS: Anion Gap 10.7 (5-19); Potassium 4.7 mmol/L (3.5-5.1)
--- NOTE | 2024-09-09 16:27 | PC.NURSE ---
Patient in care of Social Sciences Research Scientist team.
--- NOTE | 2024-09-09 17:09 | PM.OP ---
Operative Report Date of procedure: September 09, 2024 Surgeon: Thomas Worthington MD Procedure: Will patient with left vertical incision with lifting. Coronary angiogram today. She was found to have moderately severe disease in the first diagonal branch of the left artery descending artery. This relatively small caliber vessel. The circumflex artery was found to have around 80% lesion in the distal segment of the second obtuse marginal branch. Mild diffuse disease was noted in the other vessels. LVEDP was 17 mmHg. I reviewed and discussed the cardiac catheterization data with Dr. Mcguire. Since the patient has no chest pain and the distal circumflex lesion does not appear to be causing the heart failure, it was decided to treat her medically
--- NOTE | 2024-09-09 17:24 | W.PM.OPSUD ---
Surgery/Procedure H&P Update DATE OF PROCEDURE: September 09, 2024 DATE H&P PERFORMED: 09/06/24 H&P UPDATE INFORMATION: I have reviewed H&P completed within last 30 days, I have examined patient prior to procedure and No changes to prior documentation PREOP DIAGNOSIS: ASHD PRIMARY INDICATION FOR PROCEDURE: Elevated troponin T, congestive heart failure, abnormal stress test, multiple risk factors for coronary artery disease PLANNED PROCEDURE: Operation Date: 09/09/24 11:15 Proposed Procedures p Cardiac Catheterization(Left) - Thomas Worthington MD PATIENT REASSESSED PRIOR TO SEDATION, WITH NO CHANGE NOTED: Yes PHYSICAL EXAM: alert, oriented x 3, clear to auscultation bilaterally and regular rate & rhythm AIRWAY EVAL/ANESTHESIA PLAN: normal airway, see other exam findings, ASA III, Monitored Anesthesia, Local Anesthesia, Risks, benefits & alternatives of sedation and/or procedure discussed and Patient agrees to continue as planned
[2024-09-09 17:45] LABS: Glucose Point of Care 206 mg/dL (70-110)
[2024-09-09] MEDS: atorvastatin 40 mg Tablet 20 MG PO (17:54)
[2024-09-09] MEDS: methylPREDNISolone sod succ 40 mg/mL INJ IVP (17:54)
--- NOTE | 2024-09-09 19:34 | PC.NURSE ---
Shift note: Patient rested in bed throughout shift, did report pain as documented and PO med given with effective results. Patient remains on fluid restrict 1200 of which she consumed 400ml, patient was NPO for majority of shift for Cardiac cath which was performed at 1630, no interventions. TR band in place with now 14ml Right wrist. No complications. Patient refused recliner use, majority turning self in bed. Education provided on importance of ambulation, turning, and working with PT. Patient provided with information on [facility] Rehab by support representative, patient states to this nurse that she is yet undecided weather she will go home or to rehab upon discharge.
[2024-09-09] MEDS: trazodone 50 mg Tablet 25 MG PO (21:00)
[2024-09-09] MEDS: zolpidem 5 mg Tablet 10 MG PO (21:02)
[2024-09-10] VITALS (31 sets, daily range): BP systolic 103–181; BP diastolic 50–93; PULSE 48–87; RESP 13–27; TEMP 36.2–36.6; O2SAT 88–100
[2024-09-10] MEDS: enoxaparin 40 mg/0.4 mL Syringe SUBCUT (01:57)
[2024-09-10] MEDS: methylPREDNISolone sod succ 40 mg/mL INJ IVP ×3 (01:58→21:34)
[2024-09-10] MEDS: FUROsemide 10 mg/mL SDV 4mL 40 MG IVP (02:01)
[2024-09-10 03:59] LABS: Basophils % 0.1 %; Eosinophils % 0.4 %; Hematocrit 48.1 % (36-47); Lymphocytes # 0.5 10^3/uL (0.8-4.8); Lymphocytes % 6.4 %; Mean Corpuscular HGB Conc 30.6 g/dL (30-55); Mean Corpuscular Hemoglobin 28.7 pg (27-33); Mean Corpuscular Volume 93.9 fl (85-98); Mean Platelet Volume 10.2 fL (7.4-10.4); Monocytes # 0.5 10^3/uL (0.2-0.9); Neutrophils # 6.63 10^3/uL (1.8-7.7); Neutrophils % 85.5 %; Nucleated Red Blood Cells % 0 %; Platelet Count 202 10^3/cmm (157-399); Red Blood Count 5.12 10^6/uL (3.85-5.65); Red Cell Distribution Width 16.3 % (12.1-15.1); White Blood Count 7.76 10^3/uL (3.29-11.43)
[2024-09-10 04:25] LABS: Albumin Level 3.5 g/dL (3.5-5.2); Blood Urea Nitrogen 32 mg/dL (8-23); Calcium 9.2 mg/dL (8.5-10.5); Carbon Dioxide 40 mmol/L (22-29); Chloride 89 mmol/L (98-107); Glomerular Filtration Rate 56.4 mL/min (90-130); Glucose 227 mg/dL (65-115); Phosphorus 2.9 mg/dL (2.5-4.5); Sodium 135 mmol/L (136-145)
[2024-09-10 04:26] LABS: Anion Gap 10.8 (5-19); Potassium 4.8 mmol/L (3.5-5.1)
[2024-09-10] MEDS: chlorthalidone 25 mg Tablet PO (05:00)
[2024-09-10] MEDS: aspirin 81 mg EC Tablet PO (05:00)
[2024-09-10] MEDS: oxyCODONE-APAP 5-325 mg Tablet 1 TAB PO (05:44)
--- NOTE | 2024-09-10 06:45 | PC.NURSE ---
All air removed from TR band according to policy. Final 2ml relased at 2200 and dressing applied to site at 2215. Site without hematoma.
[2024-09-10 07:17] LABS: Glucose Point of Care 342 mg/dL (70-110)
[2024-09-10 07:17] LABS: Glucose Point of Care 299 mg/dL (70-110)
[2024-09-10] MEDS: doxycycline 100 mg Tablet PO ×2 (08:19→18:01)
[2024-09-10] MEDS: insulin lispro 100 unit/1 mL SUBCUT ×4 (08:19→21:49)
[2024-09-10] MEDS: ARIPiprazole 2 mg Tablet PO (08:19)
[2024-09-10] MEDS: duloxetine 60 mg Capsule PO ×2 (08:20→18:01)
[2024-09-10] MEDS: potassium chloride ER 20 mEq Tablet PO (08:20)
[2024-09-10] MEDS: lisinopril 20 mg Tablet 40 MG PO (08:20)
[2024-09-10] MEDS: hyDRALAzine 25 mg Tablet PO ×2 (08:20→21:34)
[2024-09-10] MEDS: tizanidine 4 mg Tablet PO (08:41)
[2024-09-10 11:14] LABS: Glucose Point of Care 310 mg/dL (70-110)
--- NOTE | 2024-09-10 12:25 | PM.PN ---
Subjective Subjective: No acute events overnight. Patient seen at the bedside denies any new complaints today. Shortness of breath is improved. She denies chest pain. She is on 3.5L supplemental oxygen. Medications: Medication Review Details: Current Medications Acetaminophen (Acetaminophen 325 Mg Tablet) 650 mg PO Q6H PRN PRN Reason: MILD PAIN Last Admin: 09/06/24 12:56 Dose: 650 mg Albuterol Sulfate (Albuterol 2.5 Mg/0.5 Ml Neb) 2.5 mg INHALATION Q4H.RESPIRATORY PRN PRN Reason: BRONCHOSPASM Albuterol/Ipratropium (Ipratropium-Albuterol 3 Ml Neb) 3 ml INHALATION Q4H PRN PRN Reason: SHORTNESS OF BREATH Last Admin: 09/08/24 08:58 Dose: 3 ml Aripiprazole (Aripiprazole 2 Mg Tablet) 2 mg PO DAILY [facility] Last Admin: 09/08/24 08:32 Dose: 2 mg Aspirin (Aspirin 81 Mg Ec Tablet) 81 mg PO QAM [facility] Last Admin: 09/09/24 05:19 Dose: 81 mg Atorvastatin Calcium (Atorvastatin 40 Mg Tablet) 20 mg PO QPM [facility] Last Admin: 09/08/24 17:38 Dose: 20 mg Chlorthalidone (Chlorthalidone 25 Mg Tablet) 25 mg PO QAM [facility] Last Admin: 09/09/24 05:19 Dose: 25 mg Doxycycline Monohydrate (Doxycycline 100 Mg Tablet) 100 mg PO BID [facility]; Protocol Last Admin: 09/08/24 17:38 Dose: 100 mg Duloxetine HCl (Duloxetine 60 Mg Capsule) 60 mg PO BID [facility] Last Admin: 09/08/24 17:38 Dose: 60 mg Enoxaparin Sodium (Enoxaparin 40 Mg/0.4 Ml Syringe) 40 mg SUBCUT Q24H [facility] Last Admin: 09/09/24 02:09 Dose: 40 mg Furosemide (Furosemide 10 Mg/Ml Sdv 4ml) 40 mg IVP Q12H [facility] Last Admin: 09/09/24 02:08 Dose: 40 mg Glucagon (Glucagon 1 Mg/Ml Kit 1 Ml) 1 mg IM ONCE PRN; Protocol PRN Reason: Adult Acute Hypoglycemia Nursing Prot. Hydralazine HCl (Hydralazine 25 Mg Tablet) 25 mg PO TID [facility] Last Admin: 09/08/24 20:29 Dose: 25 mg Hydroxyzine Pamoate (Hydroxyzine 25 Mg Capsule) 25 mg PO BID PRN PRN Reason: itching Last Admin: 09/07/24 08:20 Dose: 25 mg Dextrose (D5w) 500 mls @ 0 mls/hr IV ONCE PRN; Protocol PRN Reason: Adult Acute Hypoglycemia Prot Dextrose (D10w) 125 mls @ 750 mls/hr IV PRN PRN; Protocol PRN Reason: Adult Acute Hypoglycemia Nursing Protocol Dextrose (D10w) 250 mls @ 1,000 mls/hr IV PRN PRN; Protocol PRN Reason: Adult Acute Hypoglycemia Nursing Protocol Sodium Chloride (Sodium Chloride 0.9%) 1,000 mls @ 50 mls/hr IV .Q20H ONE Stop: 09/09/24 17:37 Insulin Human Lispro (Insulin Lispro 100 Unit/1 Ml) 0 - 14 unit SUBCUT WM&BEDTIME [facility]; Protocol Last Admin: 09/08/24 21:35 Dose: 12 unit Methylprednisolone Sodium Succinate (Methylprednisolone Sod Succ 125 Mg/2 Ml Inj) 60 mg IVP Q6H [facility] Last Admin: 09/09/24 05:18 Dose: 60 mg Non-Formulary Medication (Dapagliflozin Propanediol [Farxiga]) 10 mg PO DAILY [facility] Ondansetron HCl (Ondansetron 2 Mg/Ml Sdv 2 Ml) 4 mg IVP Q6H PRN PRN Reason: NAUSEA AND VOMITING Oxycodone/Acetaminophen (Oxycodone-Apap 5-325 Mg Tablet) 1 tab PO Q6H PRN PRN Reason: PAIN Last Admin: 09/09/24 05:19 Dose: 1 tab Potassium Chloride (Potassium Chloride Er 20 Meq Tablet) 20 meq PO DAILY [facility] Last Admin: 09/08/24 08:32 Dose: 20 meq Pregabalin (Pregabalin 75 Mg Capsule) 75 mg PO TID [facility] Last Admin: 09/08/24 20:28 Dose: 75 mg Tizanidine HCl (Tizanidine 4 Mg Tablet) 4 mg PO TID PRN PRN Reason: SPASMS Last Admin: 09/06/24 13:14 Dose: 4 mg Trazodone HCl (Trazodone 50 Mg Tablet) 25 mg PO BEDTIME [facility] Last Admin: 09/08/24 20:30 Dose: 25 mg Zolpidem Tartrate (Zolpidem 5 Mg Tablet) 10 mg PO BEDTIME [facility] Last Admin: 09/08/24 20:28 Dose: 10 mg Vitals/I&O/Wt Last Vital Signs Temp 97.2 F L 09/10/24 08:00 Pulse 51 L 09/10/24 11:00 Resp 16 09/10/24 11:00 BP 137/72 09/10/24 11:00 Pulse Ox 100 09/10/24 11:00 O2 Del Method Nasal Cannula 09/10/24 11:00 O2 Flow Rate 3.5 09/10/24 11:00 FiO2 40 09/10/24 03:35 09/09/24 09/10/24 09/10/24 22:59 06:59 14:59 Intake Total 370 / 370 Output Total 2650 / 3750 2600 / 6350 Balance -2280 / -3380 -2600 / -5980 Weight last 48 hrs Weight 102 kg Weight 107 kg Weight 107 kg Physical Exam Narrative: GENERAL: Awake, alert, no acute distress HEENT: Normocephalic, atraumatic, PERRL RESPIRATORY: Diminished breath sounds bilaterally, no wheezes or crackles. HEART: The heart sounds are normal. No S3 or S4. No significant murmurs. ABDOMEN: Soft, nontender, normal bowel sounds EXTREMITIES: Trace of edema with no cyanosis.. No clubbing. NEURO: No gross focal deficits Urinary Catheter Management: Huerta: Cath Placed During This Visit: yes Reason for Continuing Indwelling Catheter: Accurate Measurement of Urinary Output in Critically Ill Patients Urinary Catheter Date of Insertion: 09/06/24 Urinary Catheter Time of Insertion: 00:25 Data 09/10/24 03:40 09/10/24 03:40 A&P Assessment and plan (1) Acute exacerbation of CHF (congestive heart failure): (2) Elevated troponin: (3) Diabetes mellitus: (4) COPD with acute exacerbation: Plan #Acute on chronic hypoxemic respiratory failure -In the setting of COPD exacerbation, pulmonary edema -Patient uses 2 L supplemental oxygen at home, she is currently on 4 L -Continue to wean oxygen as tolerated -Continue BiPAP for naps and at bedtime - Walk study prior to discharge # Acute COPD exacerbation -Patient breath sounds improved -Continue Solu-Medrol taper -Continue DuoNebs -Continue doxycycline # Elevated troponin -Patient evaluated by cardiology and be scheduled for cardiac catheterization today # Acute decompensated heart failure with preserved EF -Patient has improvement on IV lasix -Will start oral lasix -Urology following # Hypertension -Continue antihypertensives # Type 2 diabetes - Continue glucose checks, titrate insulin as appropriate #Generalized Weakness -PT/OT evaluation for appropriate disposition VTE prophylaxis -Lovenox PDMP PDMP Reviewed: Not Reviewed Attestations Medical Necessity Statement*: Patient continues to require inpatient care for respiratory failure, awaiting PT/OT evaluation. 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
[2024-09-10] MEDS: acetaminophen 325 mg Tablet 650 MG PO (16:55)
[2024-09-10 17:25] LABS: Glucose Point of Care 270 mg/dL (70-110)
[2024-09-10] MEDS: atorvastatin 40 mg Tablet 20 MG PO (18:01)
[2024-09-10] MEDS: trazodone 50 mg Tablet 25 MG PO (21:33)
[2024-09-10 21:47] LABS: Glucose Point of Care 253 mg/dL (70-110)
[2024-09-10] MEDS: insulin glargine 100 units/1 mL 20 UNIT SUBCUT (21:49)
[2024-09-11] VITALS (21 sets, daily range): BP systolic 104–160; BP diastolic 48–106; PULSE 52–82; RESP 11–23; TEMP 35.9–36.7; O2SAT 91–98
[2024-09-11] MEDS: enoxaparin 40 mg/0.4 mL Syringe SUBCUT (02:04)
[2024-09-11] MEDS: chlorthalidone 25 mg Tablet PO (05:15)
[2024-09-11] MEDS: aspirin 81 mg EC Tablet PO (05:15)
[2024-09-11 05:26] LABS: Albumin Level 3.4 g/dL (3.5-5.2); Anion Gap 9.6 (5-19); Blood Urea Nitrogen 34 mg/dL (8-23); Calcium 9.2 mg/dL (8.5-10.5); Carbon Dioxide 40 mmol/L (22-29); Chloride 88 mmol/L (98-107); Creatinine Clr Calc Pharmacy 90.7653; Glomerular Filtration Rate 72.9 mL/min (90-130); Glucose 262 mg/dL (65-115); Phosphorus 2.7 mg/dL (2.5-4.5); Potassium 4.6 mmol/L (3.5-5.1); Sodium 133 mmol/L (136-145)
[2024-09-11] MEDS: ARIPiprazole 2 mg Tablet PO (09:03)
[2024-09-11] MEDS: FUROsemide 40 mg Tablet PO (09:03)
[2024-09-11] MEDS: insulin lispro 100 unit/1 mL SUBCUT ×4 (09:03→20:22)
[2024-09-11] MEDS: hyDRALAzine 25 mg Tablet PO ×3 (09:04→20:13)
[2024-09-11] MEDS: potassium chloride ER 20 mEq Tablet PO (09:04)
[2024-09-11] MEDS: duloxetine 60 mg Capsule PO ×2 (09:04→17:57)
[2024-09-11] MEDS: lisinopril 20 mg Tablet 40 MG PO (09:04)
[2024-09-11] MEDS: doxycycline 100 mg Tablet PO ×2 (09:08→17:57)
[2024-09-11] MEDS: oxyCODONE-APAP 5-325 mg Tablet 1 TAB PO ×2 (10:13→16:08)
[2024-09-11] MEDS: methylPREDNISolone sod succ 40 mg/mL INJ IVP (10:14)
[2024-09-11 11:30] LABS: Glucose Point of Care 273 mg/dL (70-110)
[2024-09-11 11:30] LABS: Glucose Point of Care 316 mg/dL (70-110)
--- NOTE | 2024-09-11 12:12 | P.PN_ITS ---
Subjective 2 Subjective: No acute events overnight. Patient seen at the bedside, denies any new complaints today. Shortness of breath is improved. She denies chest pain. She is on 2L supplemental oxygen. Medications: Medication Review Details: Current Medications Acetaminophen (Acetaminophen 325 Mg Tablet) 650 mg PO Q6H PRN PRN Reason: MILD PAIN Last Admin: 09/06/24 12:56 Dose: 650 mg Albuterol Sulfate (Albuterol 2.5 Mg/0.5 Ml Neb) 2.5 mg INHALATION Q4H.RESPIRATORY PRN PRN Reason: BRONCHOSPASM Albuterol/Ipratropium (Ipratropium-Albuterol 3 Ml Neb) 3 ml INHALATION Q4H PRN PRN Reason: SHORTNESS OF BREATH Last Admin: 09/08/24 08:58 Dose: 3 ml Aripiprazole (Aripiprazole 2 Mg Tablet) 2 mg PO DAILY [facility] Last Admin: 09/08/24 08:32 Dose: 2 mg Aspirin (Aspirin 81 Mg Ec Tablet) 81 mg PO QAM [facility] Last Admin: 09/09/24 05:19 Dose: 81 mg Atorvastatin Calcium (Atorvastatin 40 Mg Tablet) 20 mg PO QPM [facility] Last Admin: 09/08/24 17:38 Dose: 20 mg Chlorthalidone (Chlorthalidone 25 Mg Tablet) 25 mg PO QAM [facility] Last Admin: 09/09/24 05:19 Dose: 25 mg Doxycycline Monohydrate (Doxycycline 100 Mg Tablet) 100 mg PO BID [facility]; Protocol Last Admin: 09/08/24 17:38 Dose: 100 mg Duloxetine HCl (Duloxetine 60 Mg Capsule) 60 mg PO BID [facility] Last Admin: 09/08/24 17:38 Dose: 60 mg Enoxaparin Sodium (Enoxaparin 40 Mg/0.4 Ml Syringe) 40 mg SUBCUT Q24H [facility] Last Admin: 09/09/24 02:09 Dose: 40 mg Furosemide (Furosemide 10 Mg/Ml Sdv 4ml) 40 mg IVP Q12H [facility] Last Admin: 09/09/24 02:08 Dose: 40 mg Glucagon (Glucagon 1 Mg/Ml Kit 1 Ml) 1 mg IM ONCE PRN; Protocol PRN Reason: Adult Acute Hypoglycemia Nursing Prot. Hydralazine HCl (Hydralazine 25 Mg Tablet) 25 mg PO TID [facility] Last Admin: 09/08/24 20:29 Dose: 25 mg Hydroxyzine Pamoate (Hydroxyzine 25 Mg Capsule) 25 mg PO BID PRN PRN Reason: itching Last Admin: 09/07/24 08:20 Dose: 25 mg Dextrose (D5w) 500 mls @ 0 mls/hr IV ONCE PRN; Protocol PRN Reason: Adult Acute Hypoglycemia Prot Dextrose (D10w) 125 mls @ 750 mls/hr IV PRN PRN; Protocol PRN Reason: Adult Acute Hypoglycemia Nursing Protocol Dextrose (D10w) 250 mls @ 1,000 mls/hr IV PRN PRN; Protocol PRN Reason: Adult Acute Hypoglycemia Nursing Protocol Sodium Chloride (Sodium Chloride 0.9%) 1,000 mls @ 50 mls/hr IV .Q20H ONE Stop: 09/09/24 17:37 Insulin Human Lispro (Insulin Lispro 100 Unit/1 Ml) 0 - 14 unit SUBCUT WM&BEDTIME [facility]; Protocol Last Admin: 09/08/24 21:35 Dose: 12 unit Methylprednisolone Sodium Succinate (Methylprednisolone Sod Succ 125 Mg/2 Ml Inj) 60 mg IVP Q6H [facility] Last Admin: 09/09/24 05:18 Dose: 60 mg Non-Formulary Medication (Dapagliflozin Propanediol [Farxiga]) 10 mg PO DAILY [facility] Ondansetron HCl (Ondansetron 2 Mg/Ml Sdv 2 Ml) 4 mg IVP Q6H PRN PRN Reason: NAUSEA AND VOMITING Oxycodone/Acetaminophen (Oxycodone-Apap 5-325 Mg Tablet) 1 tab PO Q6H PRN PRN Reason: PAIN Last Admin: 09/09/24 05:19 Dose: 1 tab Potassium Chloride (Potassium Chloride Er 20 Meq Tablet) 20 meq PO DAILY [facility] Last Admin: 09/08/24 08:32 Dose: 20 meq Pregabalin (Pregabalin 75 Mg Capsule) 75 mg PO TID [facility] Last Admin: 09/08/24 20:28 Dose: 75 mg Tizanidine HCl (Tizanidine 4 Mg Tablet) 4 mg PO TID PRN PRN Reason: SPASMS Last Admin: 09/06/24 13:14 Dose: 4 mg Trazodone HCl (Trazodone 50 Mg Tablet) 25 mg PO BEDTIME [facility] Last Admin: 09/08/24 20:30 Dose: 25 mg Zolpidem Tartrate (Zolpidem 5 Mg Tablet) 10 mg PO BEDTIME [facility] Last Admin: 09/08/24 20:28 Dose: 10 mg Vitals/I&O/Wt Last Vital Signs Temp 97.1 F L 09/11/24 08:00 Pulse 59 L 09/11/24 08:00 Resp 15 09/11/24 10:13 BP 146/77 09/11/24 08:00 Pulse Ox 97 09/11/24 10:13 O2 Del Method Nasal Cannula 09/11/24 08:00 O2 Flow Rate 2 09/11/24 08:00 FiO2 40 09/11/24 03:22 09/10/24 09/11/24 09/11/24 22:59 06:59 14:59 Intake Total 340 / 820 100 / 920 Output Total 1650 / 1650 1150 / 2800 Balance -1310 / -830 -1050 / -1880 Weight last 48 hrs Weight 98.792 kg Weight 102 kg Physical Exam 2 Narrative: GENERAL: Awake, alert, no acute distress HEENT: Normocephalic, atraumatic, PERRL RESPIRATORY: Diminished breath sounds bilaterally, no wheezes or crackles. HEART: The heart sounds are normal. No S3 or S4. No significant murmurs. ABDOMEN: Soft, nontender, normal bowel sounds EXTREMITIES: Trace of edema with no cyanosis.. No clubbing. NEURO: No gross focal deficits Urinary Catheter Management: Huerta: Cath Placed During This Visit: yes Reason for Continuing Indwelling Catheter: Accurate Measurement of Urinary Output in Critically Ill Patients Urinary Catheter Date of Insertion: 09/06/24 Urinary Catheter Time of Insertion: 00:25 Data 09/10/24 03:40 09/11/24 04:36 Micro: Microbiology 09/05/24 22:35 Blood Culture - Final Blood NO GROWTH AFTER 5 DAYS 09/05/24 22:39 Blood Culture - Final Blood NO GROWTH AFTER 5 DAYS A&P Assessment and plan (1) Acute exacerbation of CHF (congestive heart failure): (2) Elevated troponin: (3) Diabetes mellitus: (4) COPD with acute exacerbation: Plan #Acute on chronic hypoxemic respiratory failure -In the setting of COPD exacerbation, pulmonary edema -Patient uses 2 L supplemental oxygen at home, she is now on 2 L -Continue to wean oxygen as tolerated -Continue BiPAP for naps and at bedtime - Walk study prior to discharge # Acute COPD exacerbation -Patient's breath sounds improved -Continue Solu-Medrol taper -Continue DuoNebs -Continue doxycycline # Elevated troponin -Patient evaluated by cardiology , cardiac cath negative for significant obstructive CAD # Acute decompensated heart failure with preserved EF -Patient has improvement on IV lasix -Continue oral lasix -Urology following # Hypertension -Continue antihypertensives # Type 2 diabetes - Continue glucose checks, titrate insulin as appropriate #Generalized Weakness -PT/OT evaluation - Rehab recommended VTE prophylaxis -Lovenox PDMP PDMP Reviewed: Not Reviewed Attestations 2 Medical Necessity Statement*: Patient continues to require inpatient care for appropriate disposition Coding Level of Care Code Acute Code for g Fwd Diagnoses Acute exacerbation of CHF (congestive heart failure) I50.9 Elevated troponin R79.89 Type 2 diabetes mellitus with hyperglycemia, with long-term current use of insulin E11.65; Z79.4 Diabetes mellitus type: type 2 Diabetes mellitus snf insulin use: with manager long term care use Diabetes mellitus complication status: with hyperglycemia COPD with acute exacerbation J44.1
[2024-09-11 17:20] LABS: Glucose Point of Care 331 mg/dL (70-110)
[2024-09-11] MEDS: atorvastatin 40 mg Tablet 20 MG PO (17:57)
--- NOTE | 2024-09-11 18:05 | PC.NURSE ---
Pt lacks spatial awareness. This nurse noted this each time pt got out of bed to chair for her meals. She stated her vision is good. She would walk with walker to chair and stand by to minimal assistance She would walk by the chair and try to sit either on the arm or miss it completely. She did stop her attempt to sit when commanded, explained that she was past the chair and would be hitting the floor if she continued this morning. She would take steps forward when she needed to step left, she would be asked to take steps backwards and she would go right or left, etc. Multiple verbal cues needed to get her to the chair safely. She did this to a lesser extent going back to bed at breakfast and lunch.
--- NOTE | 2024-09-11 18:27 | CTR_ITS ---
PROCEDURE INFORMATION: Exam: CT Head Without Contrast Exam date and time: 09/11/2024 7:42 PM Age: 59 years old Clinical indication: Walking, difficulty; Worsening spatial awareness with gait instability. ; Additional info: Loss of balnace TECHNIQUE: Imaging protocol: Computed tomography of the head without contrast. Radiation optimization: All CT scans at this facility use at least one of these dose optimization techniques: automated exposure control; mA and/or kV adjustment per patient size (includes targeted exams where dose is matched to clinical indication); or iterative reconstruction. COMPARISON: CT head wo con* [id number] 07/09/2024 8:59 PM RADIATION DOSE METRICS: Total DLP (mGy-cm): 922.4 FINDINGS: Brain: Normal. No hemorrhage. Unremarkable white matter. No mass effect. Cerebral ventricles: Redemonstrated large cavum septum pellucidum. Prominence of the ventricles related to volume loss. Pituitary gland and sella: Empty sella. Paranasal sinuses: Visualized sinuses are unremarkable. No fluid levels. Mastoid air cells: Visualized mastoid air cells are well aerated. Bones: Unremarkable. No acute fracture. Soft tissues: Unremarkable. Vasculature: Vascular calcifications along the carotid siphons. CT/CT head wo con* [id number] IMPRESSION: No acute intracranial findings.
--- NOTE | 2024-09-11 18:52 | PC.NURSE ---
Shift summary: Pt has been out of bed three times today for each meal. She is able to bear weight well. Shuffling of her feet noted. Discussed with pt that picking her feet up and taking bigger steps are her goals for tomorrow. Some lack of spatial awareness noted, see previous note. VSS. Afebrile. Sinus rhythm noted on monitor. She has utilized her Home O2 amount of 2 lpm/NC. She has complained of her chronic back and leg pain. Oyxcodone 5-325mg admin twice this shift. She has had a good appetite ,eating majority of her meals. She has been compliant with the fluid restriction. No IV medication gtts or fluids today. Just solu-medrol IVP . Her blood sugars have been 273-331, each time treated per sliding scale order. 1650 ml of dark yellow urine output noted.
[2024-09-11 19:33] LABS: ABG PH Result 7.44 (7.35-7.45); Arterial Blood Gas Hematocrit 46.8 % (37-47); Base Excess ABG 14.8 mmol/L (-2.0-2.0); Blood Gas Allen Test Pos; Blood Gas Operator Identificat JDB; Blood Gas Sample Site Brachial, right; Blood Gas Sample Type Arterial; Carboxyhemoglobin 1.6 %THgb (0.4-20.1); HCO3 ABG 42.3 mmol/L (22-26); HGB O2 Sat 93.2 % (95-100); Ionized Calcium Level - ABG 1.2 mmol/L (1.1-1.4); Methemoglobin 1.1 % (0.4-1.5); Oxygen Device NC; Oxygen Saturation ABG 95.8; PO2 ABG 76.6 mmHg (80.0-100.0); Potassium Level - ABG 4.3 mmol/L (3.5-5.0); Total Hemoglobin 15.3 g/dL (12-16)
[2024-09-11 19:34] LABS: ABG PCO2 61.7 mmHg (35-45)
[2024-09-11 19:35] LABS: PO2 FiO2 Ratio Arterial Blood 28
[2024-09-11] MEDS: trazodone 50 mg Tablet 25 MG PO (20:13)
[2024-09-11 20:21] LABS: Glucose Point of Care 309 mg/dL (70-110)
[2024-09-11] MEDS: insulin glargine 100 units/1 mL 30 UNIT SUBCUT (20:23)
[2024-09-12] VITALS (95 sets, daily range): BP systolic 84–140; BP diastolic 41–73; PULSE 60–89; RESP 12–33; TEMP 36.4–36.8; O2SAT 72–100
[2024-09-12] MEDS: enoxaparin 40 mg/0.4 mL Syringe SUBCUT (01:02)
[2024-09-12] MEDS: oxyCODONE-APAP 5-325 mg Tablet 1 TAB PO ×3 (01:02→16:56)
[2024-09-12] MEDS: aspirin 81 mg EC Tablet PO (05:16)
[2024-09-12] MEDS: chlorthalidone 25 mg Tablet PO (05:16)
[2024-09-12 05:42] LABS: Albumin Level 3.7 g/dL (3.5-5.2); Anion Gap 15.3 (5-19); Blood Urea Nitrogen 37 mg/dL (8-23); Calcium 9.5 mg/dL (8.5-10.5); Carbon Dioxide 36 mmol/L (22-29); Chloride 88 mmol/L (98-107); Creatinine Clr Calc Pharmacy 71.3842; Glomerular Filtration Rate 56.4 mL/min (90-130); Glucose 176 mg/dL (65-115); Phosphorus 2.7 mg/dL (2.5-4.5); Potassium 4.3 mmol/L (3.5-5.1); Sodium 135 mmol/L (136-145)
[2024-09-12] MEDS: hyDRALAzine 25 mg Tablet PO ×3 (08:32→21:28)
[2024-09-12] MEDS: lisinopril 20 mg Tablet 40 MG PO (08:32)
[2024-09-12] MEDS: FUROsemide 40 mg Tablet PO (08:32)
[2024-09-12] MEDS: potassium chloride ER 20 mEq Tablet PO (08:32)
[2024-09-12] MEDS: ARIPiprazole 2 mg Tablet PO (08:32)
[2024-09-12] MEDS: doxycycline 100 mg Tablet PO ×2 (08:33→16:56)
[2024-09-12] MEDS: insulin lispro 100 unit/1 mL SUBCUT ×4 (08:33→21:33)
[2024-09-12] MEDS: duloxetine 60 mg Capsule PO ×2 (08:33→16:56)
[2024-09-12] MEDS: methylPREDNISolone sod succ 40 mg/mL INJ IVP (08:34)
[2024-09-12 08:42] LABS: Glucose Point of Care 169 mg/dL (70-110)
--- NOTE | 2024-09-12 08:42 | P.PN_ITS ---
Subjective 2 Subjective: Patient is doing okay. Has not had chest pain or shortness of breath. Vitals seems to be remaining stable. No significant arrhythmias on the monitor. Medications: Medication Review Details: Current Medications Acetaminophen (Acetaminophen 325 Mg Tablet) 650 mg PO Q6H PRN PRN Reason: MILD PAIN Last Admin: 09/10/24 16:55 Dose: 650 mg Al Hydrox/Mg Hydrox/Simethicone (Mvqj-Ftj-Fwxzitkxc-Emma 30 Ml Udc) 30 ml PO Q15M PRN PRN Reason: INDIGESTION Albuterol Sulfate (Albuterol 2.5 Mg/0.5 Ml Neb) 2.5 mg INHALATION Q4H.RESPIRATORY PRN PRN Reason: BRONCHOSPASM Albuterol/Ipratropium (Ipratropium-Albuterol 3 Ml Neb) 3 ml INHALATION Q4H PRN PRN Reason: SHORTNESS OF BREATH Last Admin: 09/08/24 08:58 Dose: 3 ml Aripiprazole (Aripiprazole 2 Mg Tablet) 2 mg PO DAILY [facility] Last Admin: 09/12/24 08:32 Dose: 2 mg Aspirin (Aspirin 81 Mg Ec Tablet) 81 mg PO QAM [facility] Last Admin: 09/12/24 05:16 Dose: 81 mg Atorvastatin Calcium (Atorvastatin 40 Mg Tablet) 20 mg PO QPM [facility] Last Admin: 09/11/24 17:57 Dose: 20 mg Atropine Sulfate (Atropine 1 Mg/Ml Sdv 1 Ml) 0.5 mg IVP PRN PRN PRN Reason: Symptomatic bradycardia Chlorthalidone (Chlorthalidone 25 Mg Tablet) 25 mg PO QAM [facility] Last Admin: 09/12/24 05:16 Dose: 25 mg Doxycycline Monohydrate (Doxycycline 100 Mg Tablet) 100 mg PO BID [facility]; Protocol Last Admin: 09/12/24 08:33 Dose: 100 mg Duloxetine HCl (Duloxetine 60 Mg Capsule) 60 mg PO BID [facility] Last Admin: 09/12/24 08:33 Dose: 60 mg Enoxaparin Sodium (Enoxaparin 40 Mg/0.4 Ml Syringe) 40 mg SUBCUT Q24H [facility] Last Admin: 09/12/24 01:02 Dose: 40 mg Furosemide (Furosemide 40 Mg Tablet) 40 mg PO DAILY@0800 [facility] Last Admin: 09/12/24 08:32 Dose: 40 mg Glucagon (Glucagon 1 Mg/Ml Kit 1 Ml) 1 mg IM ONCE PRN; Protocol PRN Reason: Adult Acute Hypoglycemia Nursing Prot. Hydralazine HCl (Hydralazine 25 Mg Tablet) 25 mg PO TID [facility] Last Admin: 09/12/24 08:32 Dose: 25 mg Hydroxyzine Pamoate (Hydroxyzine 25 Mg Capsule) 25 mg PO BID PRN PRN Reason: itching Last Admin: 09/07/24 08:20 Dose: 25 mg Dextrose (D5w) 500 mls @ 0 mls/hr IV ONCE [facility]; Protocol PRN Reason: Adult Acute Hypoglycemia Prot Dextrose (D10w) 125 mls @ 750 mls/hr IV PRN PRN; Protocol PRN Reason: Adult Acute Hypoglycemia Nursing Protocol Dextrose (D10w) 250 mls @ 1,000 mls/hr IV PRN PRN; Protocol PRN Reason: Adult Acute Hypoglycemia Nursing Protocol Insulin Glargine (Insulin Glargine 100 Units/1 Ml) 30 unit SUBCUT BEDTIME [facility] Last Admin: 09/11/24 20:23 Dose: 30 unit Insulin Human Lispro (Insulin Lispro 100 Unit/1 Ml) 0 - 14 unit SUBCUT WM&BEDTIME [facility]; Protocol Last Admin: 09/12/24 08:33 Dose: 2 unit Lisinopril (Lisinopril 20 Mg Tablet) 40 mg PO DAILY [facility] Last Admin: 09/12/24 08:32 Dose: 40 mg Magnesium Hydroxide (Magnesium Hydroxide 30 Ml Udc) 30 ml PO DAILY PRN PRN Reason: CONSTIPATION Methylprednisolone Sodium Succinate (Methylprednisolone Sod Succ 40 Mg/Ml Inj) 40 mg IVP Q24H [facility] Last Admin: 09/12/24 08:34 Dose: 40 mg Naloxone HCl (Naloxone 0.4 Mg/Ml Sdv) 0.1 mg IVP Q2M PRN PRN Reason: RESPIRATORY RATE < 8/MIN Nitroglycerin (Nitroglycerin 0.4 Mg Sublingual Tablet) 0.4 mg SUBLINGUAL Q5M PRN PRN Reason: CHEST PAIN Non-Formulary Medication (Dapagliflozin Propanediol [Farxiga]) 10 mg PO DAILY [facility] Ondansetron HCl (Ondansetron 2 Mg/Ml Sdv 2 Ml) 4 mg IVP Q6H PRN PRN Reason: NAUSEA AND VOMITING Oxycodone/Acetaminophen (Oxycodone-Apap 5-325 Mg Tablet) 1 tab PO Q6H PRN PRN Reason: MODERATE PAIN Stop: 09/15/24 17:00 Last Admin: 09/12/24 07:12 Dose: 1 tab Potassium Chloride (Potassium Chloride Er 20 Meq Tablet) 20 meq PO DAILY [facility] Last Admin: 09/12/24 08:32 Dose: 20 meq Tizanidine HCl (Tizanidine 4 Mg Tablet) 4 mg PO TID PRN PRN Reason: SPASMS Last Admin: 09/10/24 08:41 Dose: 4 mg Trazodone HCl (Trazodone 50 Mg Tablet) 25 mg PO BEDTIME [facility] Last Admin: 09/11/24 20:13 Dose: 25 mg Vitals/I&O/Wt Last Vital Signs Temp 98.2 F 09/12/24 01:00 Pulse 62 09/12/24 08:00 Resp 22 H 09/12/24 08:00 BP 124/66 09/12/24 08:00 Pulse Ox 92 09/12/24 08:00 O2 Del Method Nasal Cannula 09/12/24 06:00 O2 Flow Rate 2 09/12/24 06:00 FiO2 40 09/12/24 00:00 09/11/24 09/12/24 09/12/24 22:59 06:59 14:59 Intake Total 175 / 825 100 / 925 Output Total 1900 / 2650 600 / 3250 Balance -1725 / -1825 -500 / -2325 Weight last 48 hrs Weight 210 lb 8.663 oz Weight 217 lb 12.8 oz Physical Exam 2 Narrative: GENERAL: The patient is alert and oriented times three. Not in any acute distress. Obese HEENT: No significant pallor, icterus or lymphadenopathy.Oral cavity: There are no mucous membrane lesions. NECK: Trachea appears to be central. No masses noted. No JVD or thyromegaly appreciated. RESPIRATORY: Chest is symmetrical. No intercostals muscle retraction or any accessory muscle activation. There is no chest wall tenderness. Breath sounds are heard bilaterally. Few scattered wheezes. No evidence of any consolidation. BREASTS: Deferred. HEART: The heart sounds are normal. No S3 or S4. No significant murmurs. No pericardial rub ABDOMEN: No vessel pulsations or distention. No tenderness. No organomegaly appreciated. Bowel sounds are normally heard. : Deferred. RECTAL: Deferred. LYMPHATIC: No lymphadenopathy noted in the neck. EXTREMITIES: Trace of edema with no cyanosis.. No clubbing. MUSCULOSKELETAL: No acute joint deformities or swelling SKIN: There are no significant rashes or ecchymosis NEUROPSYCHIATRIC: The patient is alert and oriented x3. Appears to be in a good mood. No tremors or rigidity noted. Urinary Catheter Management: Huerta: Cath Placed During This Visit: yes Reason for Continuing Indwelling Catheter: Accurate Measurement of Urinary Output in Critically Ill Patients Urinary Catheter Date of Insertion: 09/06/24 Urinary Catheter Time of Insertion: 00:25 Data 09/10/24 03:40 09/12/24 04:51 Other Labs: Laboratory Last Values WBC 7.76 10^3/uL (3.29-11.43) 09/10/24 03:40 RBC 5.12 10^6/uL (3.85-5.65) 09/10/24 03:40 Hgb 14.70 g/dL (11.27-16.99) 09/10/24 03:40 Hct 48.1 % (36-47) H 09/10/24 03:40 MCV 93.9 fl (85-98) 09/10/24 03:40 MCH 28.7 pg (27-33) 09/10/24 03:40 MCHC 30.6 g/dL (30-55) 09/10/24 03:40 RDW 16.3 % (12.1-15.1) H 09/10/24 03:40 Plt Count 202 10^3/cmm (157-399) 09/10/24 03:40 MPV 10.2 fL (7.4-10.4) 09/10/24 03:40 Neut % (Auto) 85.5 % 09/10/24 03:40 Lymph % (Auto) 6.4 % 09/10/24 03:40 Griggs % (Auto) 7.0 % 09/10/24 03:40 Eos % (Auto) 0.4 % 09/10/24 03:40 Baso % (Auto) 0.1 % 09/10/24 03:40 Neut # (Auto) 6.63 10^3/uL (1.8-7.7) 09/10/24 03:40 Lymph # (Auto) 0.5 10^3/uL (0.8-4.8) L 09/10/24 03:40 Griggs # (Auto) 0.5 10^3/uL (0.2-0.9) 09/10/24 03:40 Eos # (Auto) 0.0 10^3/uL (0.0-0.8) 09/10/24 03:40 Baso # (Auto) 0.0 10^3/uL (0.0-0.1) 09/10/24 03:40 Nucleated RBC % (auto) 0 % 09/10/24 03:40 Nucleated RBCs # 0.0 /100WBC 09/10/24 03:40 Specimen Type Arterial 09/11/24 19:18 Sample Site Brachial, right 09/11/24 19:18 ABG pH 7.44 (7.35-7.45) 09/11/24 19:18 ABG pCO2 61.7 mmHg (35-45) H* 09/11/24 19:18 ABG pO2 76.6 mmHg (80.0-100.0) L 09/11/24 19:18 ABG PO2/FiO2 Ratio 28 09/11/24 19:18 ABG HCO3 42.3 mmol/L (22-26) H 09/11/24 19:18 ABG O2 Saturation 95.8 09/11/24 19:18 ABG Base Excess 14.8 mmol/L (-2.0-2.0) H 09/11/24 19:18 Aditya Test Pos 09/11/24 19:18 A-a O2 Gradient Not Reportable 09/11/24 19:18 Hematocrit 46.8 % (37-47) 09/11/24 19:18 Hgb O2 Saturation 93.2 % (95-100) L 09/11/24 19:18 Carboxyhemoglobin 1.6 %THgb (0.4-20.1) 09/11/24 19:18 Methemoglobin 1.1 % (0.4-1.5) 09/11/24 19:18 Total Hemoglobin 15.3 g/dL (12-16) 09/11/24 19:18 Sodium 131.0 mmol/L (131-143) 09/11/24 19:18 Potassium 4.3 mmol/L (3.5-5.0) 09/11/24 19:18 Glucose 333.0 mg/dL (70-115) H 09/11/24 19:18 Ionized Calcium 1.2 mmol/L (1.1-1.4) 09/11/24 19:18 O2 Delivery Device Nc 09/11/24 19:18 O2 Liters/Min 2.0 % 09/11/24 19:18 FiO2 36.0 % 09/07/24 10:25 PEEP 10.0 cmH20 09/05/24 22:19 Application Support Manager ID [id number] 09/11/24 19:18 Sodium 135 mmol/L (136-145) L 09/12/24 04:51 Potassium 4.3 mmol/L (3.5-5.1) 09/12/24 04:51 Chloride 88 mmol/L (98-107) L 09/12/24 04:51 Carbon Dioxide 36 mmol/L (22-29) H 09/12/24 04:51 Anion Gap 15.3 (5-19) 09/12/24 04:51 BUN 37 mg/dL (8-23) H 09/12/24 04:51 Creatinine 1.0 mg/dL (0.5-0.9) H 09/12/24 04:51 GFR Calculation 56.4 mL/min (90-130) L 09/12/24 04:51 Glucose 176 mg/dL (65-115) H 09/12/24 04:51 POC Glucose 169 mg/dL (70-110) H 09/12/24 07:21 Calculated Osmolality 294 mOsm/kg (285-295) 09/08/24 03:14 Lactic Acid 0.7 mmol/L (0.5-2.2) 09/05/24 22:35 Calcium 9.5 mg/dL (8.5-10.5) 09/12/24 04:51 Phosphorus 2.7 mg/dL (2.5-4.5) 09/12/24 04:51 Magnesium 2.1 mg/dL (1.7-2.3) 09/06/24 04:35 Total Bilirubin 0.5 mg/dL (0.15-1.2) 09/07/24 10:18 AST 9 U/L (0-32) 09/07/24 10:18 ALT < 5 U/L (0-33) 09/07/24 10:18 Alkaline Phosphatase 120 U/L (35-105) H 09/07/24 10:18 Troponin T Baseline 59 ng/L (0-10) H 09/05/24 22:35 Troponin T 120 Minute 55.27 ng/L (0-10) H 09/06/24 00:31 Delta Troponin T -3.73 ABS# (0-10) L 09/06/24 00:31 Troponin T Hi Sens 6Hr 49.95 ng/L (0-10) H 09/06/24 04:35 Troponin T Hi Sens 6Hr Delta -9.05 ng/L (0-12) L 09/06/24 04:35 NT-Pro-B Natriuret Pep 3699 pg/mL (0-125) H 09/05/24 22:35 Total Protein 6.9 g/dL (6.6-8.7) 09/07/24 10:18 Albumin 3.7 g/dL (3.5-5.2) 09/12/24 04:51 Globulin 3.8 g/dL (1.3-4.6) 09/07/24 10:18 Influenza A (PCR) Negative (Negative) 09/05/24 22:00 Influenza Type B (PCR) Negative (Negative) 09/05/24 22:00 RSV (PCR) Negative (Negative) 09/05/24 22:00 SARS-CoV-2 (PCR) Negative (Negative) 09/05/24 22:00 A&P Assessment and plan (1) Elevated troponin: Patient had the characterization which revealed moderately severe disease of the proximal segment of the first diagonal branch of the left anterior descending artery and before the terminal bifurcation of the first obtuse marginal branch of the left circumflex artery. It was decided to treat her medically. She has not had any chest pain or any specific cardiac symptoms. May continue on the current medications. (2) Abnormal stress test: Status post cardiac catheterization. Angiogram findings as mentioned above. (3) Elevated brain natriuretic peptide (BNP) level: Patient has diastolic heart failure. Currently appears to be compensated. Will repeat the BNP today. May continue on the current management I may cut back on the Lasix to 20 mg p.o. daily (4) Hypertension: Currently the blood pressure is in the normal range. May continue on the current medications. (5) Diabetes mellitus: The blood sugar seems to be fairly under control. May continue on the current management. (6) COPD exacerbation: The shortness of breath has significantly improved. May continue on the current management. (7) Tobacco use disorder: Patient strongly advised to quit smoking Plan May continue on the current management. Need to be seen in the clinic in 2 weeks after the hospital discharge, by the nurse practitioner. 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
--- NOTE | 2024-09-12 10:32 | P.PN_ITS ---
Subjective 2 Subjective: 59 year old female with history of COPD, diabetes, obesity. Admitted to the hospital on September 06, 2024 after presenting with progressively increasing shortness of breath. Oxygen requirement was at 6 L/min up from typically 2 L/min. She was admitted on September 06 in view of acute on chronic respiratory failure with hypoxia and hypercapnia needing BiPAP support. She was also found to be having a CHF exacerbation for which she was started on IV Lasix. She received steroids and scheduled nebs for COPD exacerbation. Cardiology service was consulted and opined that the elevated troponin was related to likely type II [place] from diastolic CHF. Echocardiogram revealed an ejection fraction of 63%. She had an abnormal stress test in June. On September 09, 2024 she underwent coronary angiogram which showed moderately severe disease in the first diagonal branch of the left artery descending artery. The circumflex artery was found to have around 80% lesion in the distal segment of the second obtuse marginal branch. Mild diffuse disease was noted in the other vessels.Since the patient has no chest pain and the distal circumflex lesion does not appear to be causing the heart failure, it was decided to treat her medically. She is currently stable from her medical comorbidities plan to discharge to SNF. , BiPAP to be made available at SNF on Friday.BIRGIT now improved. Medications: Reviewed: Yes Medication Review Details: Current Medications Acetaminophen (Acetaminophen 325 Mg Tablet) 650 mg PO Q6H PRN PRN Reason: MILD PAIN Last Admin: 09/10/24 16:55 Dose: 650 mg Al Hydrox/Mg Hydrox/Simethicone (Ujhx-[place] 30 Ml Udc) 30 ml PO Q15M PRN PRN Reason: INDIGESTION Albuterol Sulfate (Albuterol 2.5 Mg/0.5 Ml Neb) 2.5 mg INHALATION Q4H.RESPIRATORY PRN PRN Reason: BRONCHOSPASM Albuterol/Ipratropium (Ipratropium-Albuterol 3 Ml Neb) 3 ml INHALATION Q4H PRN PRN Reason: SHORTNESS OF BREATH Last Admin: 09/08/24 08:58 Dose: 3 ml Aripiprazole (Aripiprazole 2 Mg Tablet) 2 mg PO DAILY [facility] Last Admin: 09/12/24 08:32 Dose: 2 mg Aspirin (Aspirin 81 Mg Ec Tablet) 81 mg PO QAM [facility] Last Admin: 09/12/24 05:16 Dose: 81 mg Atorvastatin Calcium (Atorvastatin 40 Mg Tablet) 20 mg PO QPM [facility] Last Admin: 09/11/24 17:57 Dose: 20 mg Atropine Sulfate (Atropine 1 Mg/Ml Sdv 1 Ml) 0.5 mg IVP PRN PRN PRN Reason: Symptomatic bradycardia Chlorthalidone (Chlorthalidone 25 Mg Tablet) 25 mg PO QAM [facility] Last Admin: 09/12/24 05:16 Dose: 25 mg Doxycycline Monohydrate (Doxycycline 100 Mg Tablet) 100 mg PO BID [facility]; Protocol Last Admin: 09/12/24 08:33 Dose: 100 mg Duloxetine HCl (Duloxetine 60 Mg Capsule) 60 mg PO BID [facility] Last Admin: 09/12/24 08:33 Dose: 60 mg Enoxaparin Sodium (Enoxaparin 40 Mg/0.4 Ml Syringe) 40 mg SUBCUT Q24H [facility] Last Admin: 09/12/24 01:02 Dose: 40 mg Furosemide (Furosemide 40 Mg Tablet) 40 mg PO DAILY@0800 [facility] Last Admin: 09/12/24 08:32 Dose: 40 mg Glucagon (Glucagon 1 Mg/Ml Kit 1 Ml) 1 mg IM ONCE PRN; Protocol PRN Reason: Adult Acute Hypoglycemia Nursing Prot. Hydralazine HCl (Hydralazine 25 Mg Tablet) 25 mg PO TID [facility] Last Admin: 09/12/24 08:32 Dose: 25 mg Hydroxyzine Pamoate (Hydroxyzine 25 Mg Capsule) 25 mg PO BID PRN PRN Reason: itching Last Admin: 09/07/24 08:20 Dose: 25 mg Dextrose (D5w) 500 mls @ 0 mls/hr IV ONCE PRN; Protocol PRN Reason: Adult Acute Hypoglycemia Prot Dextrose (D10w) 125 mls @ 750 mls/hr IV PRN PRN; Protocol PRN Reason: Adult Acute Hypoglycemia Nursing Protocol Dextrose (D10w) 250 mls @ 1,000 mls/hr IV PRN PRN; Protocol PRN Reason: Adult Acute Hypoglycemia Nursing Protocol Insulin Glargine (Insulin Glargine 100 Units/1 Ml) 30 unit SUBCUT BEDTIME [facility] Last Admin: 09/11/24 20:23 Dose: 30 unit Insulin Human Lispro (Insulin Lispro 100 Unit/1 Ml) 0 - 14 unit SUBCUT WM&BEDTIME [facility]; Protocol Last Admin: 09/12/24 08:33 Dose: 2 unit Lisinopril (Lisinopril 20 Mg Tablet) 40 mg PO DAILY [facility] Last Admin: 09/12/24 08:32 Dose: 40 mg Magnesium Hydroxide (Magnesium Hydroxide 30 Ml Udc) 30 ml PO DAILY PRN PRN Reason: CONSTIPATION Methylprednisolone Sodium Succinate (Methylprednisolone Sod Succ 40 Mg/Ml Inj) 40 mg IVP Q24H [facility] Last Admin: 09/12/24 08:34 Dose: 40 mg Naloxone HCl (Naloxone 0.4 Mg/Ml Sdv) 0.1 mg IVP Q2M PRN PRN Reason: RESPIRATORY RATE < 8/MIN Nitroglycerin (Nitroglycerin 0.4 Mg Sublingual Tablet) 0.4 mg SUBLINGUAL Q5M PRN PRN Reason: CHEST PAIN Non-Formulary Medication (Dapagliflozin Propanediol [Farxiga]) 10 mg PO DAILY [facility] Ondansetron HCl (Ondansetron 2 Mg/Ml Sdv 2 Ml) 4 mg IVP Q6H PRN PRN Reason: NAUSEA AND VOMITING Oxycodone/Acetaminophen (Oxycodone-Apap 5-325 Mg Tablet) 1 tab PO Q6H PRN PRN Reason: MODERATE PAIN Stop: 09/15/24 17:00 Last Admin: 09/12/24 07:12 Dose: 1 tab Potassium Chloride (Potassium Chloride Er 20 Meq Tablet) 20 meq PO DAILY [facility] Last Admin: 09/12/24 08:32 Dose: 20 meq Tizanidine HCl (Tizanidine 4 Mg Tablet) 4 mg PO TID PRN PRN Reason: SPASMS Last Admin: 09/10/24 08:41 Dose: 4 mg Trazodone HCl (Trazodone 50 Mg Tablet) 25 mg PO BEDTIME [facility] Last Admin: 09/11/24 20:13 Dose: 25 mg Vitals/I&O/Wt Last Vital Signs Temp 98.2 F 09/12/24 01:00 Pulse 74 09/12/24 10:00 Resp 17 09/12/24 10:00 BP 111/58 09/12/24 10:00 Pulse Ox 92 09/12/24 10:00 O2 Del Method Nasal Cannula 09/12/24 09:31 O2 Flow Rate 2 09/12/24 09:31 FiO2 40 09/12/24 00:00 09/11/24 09/12/24 09/12/24 22:59 06:59 14:59 Intake Total 175 / 825 100 / 925 Output Total 1900 / 2650 600 / 3250 Balance -1725 / -1825 -500 / -2325 Weight last 48 hrs Weight 95.5 kg Weight 98.792 kg Physical Exam 2 Narrative: General: No acute distress, AO x3 HEENT: PERRLA, pupils bilaterally equal and reactive, pallors not present Chest: Normal vesicular breath sounds, no added sounds, equal good air entry bilaterally CVS: S1-S2 regular, no murmurs, no tachycardia, no gallops, no rubs Abdomen: Soft, nontender, no organomegaly, bowel sounds present Neuro: No focal deficits, no facial deformity, AO x3, power 5/5 in all limbs Urinary Catheter Management: Huerta: Cath Placed During This Visit: yes Reason for Continuing Indwelling Catheter: Accurate Measurement of Urinary Output in Critically Ill Patients Urinary Catheter Date of Insertion: 09/06/24 Urinary Catheter Time of Insertion: 00:25 Data 09/10/24 03:40 09/12/24 04:51 A&P Assessment and plan (1) Acute exacerbation of CHF (congestive heart failure): (2) Elevated troponin: (3) Diabetes mellitus: (4) COPD with acute exacerbation: Plan #Acute on chronic hypoxemic respiratory failure -In the setting of COPD exacerbation, pulmonary edema -Patient uses 2 L supplemental oxygen at home, she is now on 2 L -Continue to wean oxygen as tolerated -Continue BiPAP for naps and at bedtime - Walk study prior to discharge # Acute COPD exacerbation -Patient's breath sounds improved -Continue Solu-Medrol taper -Continue DuoNebs -Continue doxycycline # Elevated troponin -Patient evaluated by cardiology , cardiac cath negative for significant obstructive CAD # Acute decompensated heart failure with preserved EF -Patient has improvement on IV lasix -Continue oral lasix -Urology following # Hypertension -Continue antihypertensives # Type 2 diabetes - Continue glucose checks, titrate insulin as appropriate #Generalized Weakness -PT/OT evaluation - Rehab recommended VTE prophylaxis -Lovenox September 12, 2024 Patient is back to supplemental O2 at 2 L/min which is her baseline requirement. Mental status is adequate, at baseline. Continue Lasix 40 mg p.o. daily. Blood pressure is well-controlled today.Patient to be transition to rehab, needs BiPAP continuously at nighttime. BiPAP will be available at the facility tomorrow. Anticipate discharge in the upcoming 24 hours. Transfer out of ICU PDMP PDMP Reviewed: Not Reviewed Attestations 2 Medical Necessity Statement*: needs disposiiton planning Coding Level of Care Code Acute Code for [facility] Fwd Diagnoses Acute exacerbation of CHF (congestive heart failure) I50.9 Elevated troponin R79.89 Type 2 diabetes mellitus with hyperglycemia, with long-term current use of insulin E11.65; Z79.4 Diabetes mellitus complication status: with hyperglycemia Diabetes mellitus custodial insulin use: with custodial use Diabetes mellitus type: type 2 COPD with acute exacerbation J44.1
[2024-09-12 11:57] LABS: Glucose Point of Care 261 mg/dL (70-110)
[2024-09-12 16:14] LABS: Glucose Point of Care 289 mg/dL (70-110)
[2024-09-12] MEDS: atorvastatin 40 mg Tablet 20 MG PO (16:55)
[2024-09-12 19:00] LABS: NT Pro B Type Natriuretic Pept 501 pg/mL (0-125)
[2024-09-12 21:06] LABS: Glucose Point of Care 300 mg/dL (70-110)
[2024-09-12] MEDS: trazodone 50 mg Tablet 25 MG PO (21:28)
[2024-09-12] MEDS: insulin glargine 100 units/1 mL 30 UNIT SUBCUT (21:33)
[2024-09-13] VITALS (93 sets, daily range): BP systolic 97–133; BP diastolic 52–72; PULSE 65–89; RESP 12–27; TEMP 36.4–36.8; O2SAT 88–99; BMI 31.8
[2024-09-13] MEDS: enoxaparin 40 mg/0.4 mL Syringe SUBCUT (01:53)
[2024-09-13] MEDS: aspirin 81 mg EC Tablet PO (05:43)
[2024-09-13] MEDS: chlorthalidone 25 mg Tablet PO (05:43)
[2024-09-13 06:02] LABS: Basophils % 0.2 %; Eosinophils # 0.2 10^3/uL (0.0-0.8); Hematocrit 49.9 % (36-47); Lymphocytes # 2.6 10^3/uL (0.8-4.8); Lymphocytes % 18.4 %; Mean Corpuscular HGB Conc 30.5 g/dL (30-55); Mean Corpuscular Hemoglobin 29.4 pg (27-33); Mean Corpuscular Volume 96.5 fl (85-98); Mean Platelet Volume 10.9 fL (7.4-10.4); Monocytes # 1.3 10^3/uL (0.2-0.9); Neutrophils % 70.7 %; Nucleated Red Blood Cells % 0 %; Platelet Count 217 10^3/cmm (157-399); Red Blood Count 5.17 10^6/uL (3.85-5.65); Red Cell Distribution Width 15.7 % (12.1-15.1)
[2024-09-13 06:27] LABS: Alanine Aminotransferase 10 U/L (0-33); Albumin Level 3.4 g/dL (3.5-5.2); Alkaline Phosphatase 88 U/L (35-105); Anion Gap 16.9 (5-19); Aspartate Amino Transferase 11 U/L (0-32); Blood Urea Nitrogen 41 mg/dL (8-23); Calcium 9.4 mg/dL (8.5-10.5); Carbon Dioxide 31 mmol/L (22-29); Chloride 91 mmol/L (98-107); Creatinine Clr Calc Pharmacy 71.1977; Globulin 2.9 g/dL (1.3-4.6); Glomerular Filtration Rate 56.4 mL/min (90-130); Glucose 153 mg/dL (65-115); Osmolality Calculated 293 mOsm/kg (285-295); Potassium 3.9 mmol/L (3.5-5.1); Sodium 135 mmol/L (136-145); Total Bilirubin 1.2 mg/dL (0.15-1.2); Total Protein 6.3 g/dL (6.6-8.7)
[2024-09-13 06:54] LABS: Glucose Point of Care 127 mg/dL (70-110)
[2024-09-13 07:58] LABS: Glucose Point of Care 139 mg/dL (70-110)
[2024-09-13] MEDS: doxycycline 100 mg Tablet PO (08:02)
[2024-09-13] MEDS: FUROsemide 40 mg Tablet PO (08:02)
[2024-09-13] MEDS: duloxetine 60 mg Capsule PO (08:02)
[2024-09-13] MEDS: ARIPiprazole 2 mg Tablet PO (08:03)
[2024-09-13] MEDS: potassium chloride ER 20 mEq Tablet PO (08:03)
[2024-09-13] MEDS: oxyCODONE-APAP 5-325 mg Tablet 1 TAB PO ×2 (08:04→15:44)
[2024-09-13] MEDS: methylPREDNISolone sod succ 40 mg/mL INJ IVP (08:04)
--- NOTE | 2024-09-13 08:37 | P.DS_ITS ---
Discharge Providers Date of Admission: 09/06/24 01:16 Date of Discharge: September 13, 2024 Attending Provider at Admission: David Kaplan MD Attending Provider at Discharge: Chey Argueta MD Primary Care Provider: JOANN Costa Diagnoses at Discharge Discharge Diagnosis (1) Acute exacerbation of CHF (congestive heart failure): Status: Acute (2) Elevated troponin: Status: Acute (3) Diabetes mellitus: Status: Acute Qualifiers: Diabetes mellitus type: type 2 Diabetes mellitus correction insulin use: with correction use Diabetes mellitus complication status: with hyperglycemia Qualified Code(s): E11.65 - Type 2 diabetes mellitus with hyperglycemia; Z79.4 - custodial (current) use of insulin (4) COPD with acute exacerbation: Status: Acute (5) NSTEMI (non-ST elevated myocardial infarction): Status: Acute Reason for Visit Reason for Visit: sob Hospital Course Hospital Course 59 year old female with history of COPD, diabetes, obesity. Admitted to the hospital on September 06, 2024 after presenting with progressively increasing shortness of breath. Oxygen requirement was at 6 L/min up from typically 2 L/min. She was admitted on September 06 in view of acute on chronic respiratory failure with hypoxia and hypercapnia needing BiPAP support. She was also found to be having a CHF exacerbation for which she was started on IV Lasix. She received iv steroids and scheduled nebs for COPD exacerbation. Cardiology service was consulted and opined that the elevated troponin was related to likely type II [place] from diastolic CHF. Echocardiogram revealed an ejection fraction of 63%. She had an abnormal stress test in June. On September 09, 2024 she underwent coronary angiogram which showed moderately severe disease in the first diagonal branch of the left artery descending artery. The circumflex artery was found to have around 80% lesion in the distal segment of the second obtuse marginal branch. Mild diffuse disease was noted in the other vessels.Since the patient has no chest pain and the distal circumflex lesion does not appear to be causing the heart failure, it was decided to treat her medically.She is currently stable from her medical comorbidities. She needs Bipap at night time and during sleep. BIRGIT on admission with cr at 7.1, now improved at 1.0. Lasix 40mg po daily for one week, then reduce to 20mg po daily at home dosing. Physical Exam Narrative: General: No acute distress, AO x3 HEENT: PERRLA, pupils bilaterally equal and reactive, pallors not present Chest: Normal vesicular breath sounds, no added sounds, equal good air entry bilaterally CVS: S1-S2 regular, no murmurs, no tachycardia, no gallops, no rubs Abdomen: Soft, nontender, no organomegaly, bowel sounds present Neuro: No focal deficits, no facial deformity, AO x3, power 5/5 in all limbs Extremities: no edema, clubbing or cyanosis Urinary Catheter Management: Huerta: Cath Placed During This Visit: yes Reason for Continuing Indwelling Catheter: Accurate Measurement of Urinary Output in Critically Ill Patients Urinary Catheter Date of Insertion: 09/06/24 Urinary Catheter Time of Insertion: 00:25 Discharge Data Studies Completed and Pending Completed Studies During Hospitalization Category Date Time Status CT head wo con* [id number] Routine Cat Scan 09/11/24 18:27 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 echo limited [id number] Routine Ultrasound 09/06/24 09:10 Completed Radiology Impressions Lumbar Spine X-Ray 09/06/24 12:58 IMPRESSION: Old compression deformities and mild changes of degenerative spondylosis as above. Bowel distention as above. Chest X-Ray 09/08/24 14:09 IMPRESSION: Findings most suggestive of CHF with mild cardiomegaly and pulmonary vascular congestion/mild interstitial edema and likely small effusion, particularly left costophrenic angle. Head CT 09/11/24 18:27 IMPRESSION: No acute intracranial findings. Laboratory Results WBC 14.30 10^3/uL (3.29-11.43) H 09/13/24 05:35 RBC 5.17 10^6/uL (3.85-5.65) 09/13/24 05:35 Hgb 15.20 g/dL (11.27-16.99) 09/13/24 05:35 Hct 49.9 % (36-47) H 09/13/24 05:35 MCV 96.5 fl (85-98) 09/13/24 05:35 MCH 29.4 pg (27-33) 09/13/24 05:35 MCHC 30.5 g/dL (30-55) 09/13/24 05:35 RDW 15.7 % (12.1-15.1) H 09/13/24 05:35 Plt Count 217 10^3/cmm (157-399) 09/13/24 05:35 MPV 10.9 fL (7.4-10.4) H 09/13/24 05:35 Neut % (Auto) 70.7 % 09/13/24 05:35 Lymph % (Auto) 18.4 % 09/13/24 05:35 [place] % (Auto) 9.0 % 09/13/24 05:35 Eos % (Auto) 1.0 % 09/13/24 05:35 Baso % (Auto) 0.2 % 09/13/24 05:35 Neut # (Auto) 10.10 10^3/uL (1.8-7.7) H 09/13/24 05:35 Lymph # (Auto) 2.6 10^3/uL (0.8-4.8) 09/13/24 05:35 [place] # (Auto) 1.3 10^3/uL (0.2-0.9) H 09/13/24 05:35 Eos # (Auto) 0.2 10^3/uL (0.0-0.8) 09/13/24 05:35 Baso # (Auto) 0.0 10^3/uL (0.0-0.1) 09/13/24 05:35 Nucleated RBC % (auto) 0 % 09/13/24 05:35 Nucleated RBCs # 0.0 /100WBC 09/13/24 05:35 Specimen Type Arterial 09/11/24 19:18 Sample Site Brachial, right 09/11/24 19:18 ABG pH 7.44 (7.35-7.45) 09/11/24 19:18 ABG pCO2 61.7 mmHg (35-45) H* 09/11/24 19:18 ABG pO2 76.6 mmHg (80.0-100.0) L 09/11/24 19:18 ABG PO2/FiO2 Ratio 28 09/11/24 19:18 ABG HCO3 42.3 mmol/L (22-26) H 09/11/24 19:18 ABG O2 Saturation 95.8 09/11/24 19:18 ABG Base Excess 14.8 mmol/L (-2.0-2.0) H 09/11/24 19:18 Aditya Test Pos 09/11/24 19:18 A-a O2 Gradient Not Reportable 09/11/24 19:18 Hematocrit 46.8 % (37-47) 09/11/24 19:18 Hgb O2 Saturation 93.2 % (95-100) L 09/11/24 19:18 Carboxyhemoglobin 1.6 %THgb (0.4-20.1) 09/11/24 19:18 Methemoglobin 1.1 % (0.4-1.5) 09/11/24 19:18 Total Hemoglobin 15.3 g/dL (12-16) 09/11/24 19:18 Sodium 131.0 mmol/L (131-143) 09/11/24 19:18 Potassium 4.3 mmol/L (3.5-5.0) 09/11/24 19:18 Glucose 333.0 mg/dL (70-115) H 09/11/24 19:18 Ionized Calcium 1.2 mmol/L (1.1-1.4) 09/11/24 19:18 O2 Delivery Device Nc 09/11/24 19:18 O2 Liters/Min 2.0 % 09/11/24 19:18 FiO2 36.0 % 09/07/24 10:25 PEEP 10.0 cmH20 09/05/24 22:19 Gluing Machine Feeder ID [id number] 09/11/24 19:18 Sodium 135 mmol/L (136-145) L 09/13/24 05:35 Potassium 3.9 mmol/L (3.5-5.1) 09/13/24 05:35 Chloride 91 mmol/L (98-107) L 09/13/24 05:35 Carbon Dioxide 31 mmol/L (22-29) H 09/13/24 05:35 Anion Gap 16.9 (5-19) 09/13/24 05:35 BUN 41 mg/dL (8-23) H 09/13/24 05:35 Creatinine 1.0 mg/dL (0.5-0.9) H 09/13/24 05:35 GFR Calculation 56.4 mL/min (90-130) L 09/13/24 05:35 Glucose 153 mg/dL (65-115) H 09/13/24 05:35 POC Glucose 139 mg/dL (70-110) H 09/13/24 07:55 Calculated Osmolality 293 mOsm/kg (285-295) 09/13/24 05:35 Lactic Acid 0.7 mmol/L (0.5-2.2) 09/05/24 22:35 Calcium 9.4 mg/dL (8.5-10.5) 09/13/24 05:35 Phosphorus 2.7 mg/dL (2.5-4.5) 09/12/24 04:51 Magnesium 2.1 mg/dL (1.7-2.3) 09/06/24 04:35 Total Bilirubin 1.2 mg/dL (0.15-1.2) 09/13/24 05:35 AST 11 U/L (0-32) 09/13/24 05:35 ALT 10 U/L (0-33) 09/13/24 05:35 Alkaline Phosphatase 88 U/L (35-105) 09/13/24 05:35 Troponin T Baseline 59 ng/L (0-10) H 09/05/24 22:35 Troponin T 120 Minute 55.27 ng/L (0-10) H 09/06/24 00:31 Delta Troponin T -3.73 ABS# (0-10) L 09/06/24 00:31 Troponin T Hi Sens 6Hr 49.95 ng/L (0-10) H 09/06/24 04:35 Troponin T Hi Sens 6Hr Delta -9.05 ng/L (0-12) L 09/06/24 04:35 NT-Pro-B Natriuret Pep 501 pg/mL (0-125) H 09/12/24 04:51 Total Protein 6.3 g/dL (6.6-8.7) L 09/13/24 05:35 Albumin 3.4 g/dL (3.5-5.2) L 09/13/24 05:35 Globulin 2.9 g/dL (1.3-4.6) 09/13/24 05:35 Influenza A (PCR) Negative (Negative) 09/05/24 22:00 Influenza Type B (PCR) Negative (Negative) 09/05/24 22:00 RSV (PCR) Negative (Negative) 09/05/24 22:00 SARS-CoV-2 (PCR) Negative (Negative) 09/05/24 22:00 Vitals Last Vital Signs Temp 97.8 F 09/13/24 06:00 Pulse 74 09/13/24 06:00 Resp 18 09/13/24 08:04 BP 114/63 09/13/24 06:00 Pulse Ox 95 09/13/24 06:00 O2 Del Method Nasal Cannula 09/13/24 00:00 O2 Flow Rate 2 09/12/24 09:31 FiO2 40 09/12/24 23:35 Discharge Plan Discharge Patient Disposition: Xfer Inpatient Rehab Fac Condition: Fair Prescriptions: New trazodone 50 mg Tablet 25 mg PO BEDTIME Qty: 0 0RF prednisone 20 mg tablet 20 mg PO BID 5 Days Qty: 10 0RF metoprolol succinate [Toprol XL] 25 mg tablet extended release 24 hr 12.5 mg PO DAILY Qty: 30 0RF pantoprazole [Protonix] 40 mg tablet,delayed release (DR/EC) 40 mg PO DAILY 28 Days Qty: 30 0RF Continued pregabalin [Lyrica] 75 mg capsule 75 mg PO TID 30 Days Qty: 90 2RF hydroxyzine HCl 25 mg tablet 25 mg PO BID PRN (Reason: itching) 30 Days Qty: 60 0RF insulin glargine [Lantus Solostar U-100 Insulin] 100 unit/mL (3 mL) insulin pen 40 unit SUBCUT BID 30 Days Qty: 24 0RF Rx Instructions: script change to 40u BID on 08/19. no refill needed methocarbamol 750 mg tablet 750 mg PO BID 10 Days Qty: 20 0RF (DME) Incontinence Briefs XL See Rx Instructions .Route .MEDSUPPLY Qty: 120 0RF Rx Instructions: 4 per day dapagliflozin propanediol [Farxiga] 10 mg tablet 10 mg PO DAILY 90 Days Qty: 90 0RF atorvastatin [Lipitor] 20 mg Tablet 20 mg PO QPM insulin lispro [Humalog KwikPen Insulin] 100 unit/mL Insulin Pen See Rx Instructions .ROUTE .COMPLEX Rx Instructions: Inject 5 units with meals along with sliding scale . 150-200=2units 201-250=4units 251-300-=6units 301-350=8units over 350=10 units max 15 duloxetine [Cymbalta] 60 mg Capsule,Delayed Release(Dr/Ec) 60 mg PO BID potassium chloride [K-Tab] 20 mEq tablet extended release 20 meq PO DAILY Qty: 30 0RF oxycodone-acetaminophen 5-325 mg tablet 1 tab PO Q8H PRN (Reason: pain) Qty: 5 0RF zolpidem 10 mg tablet 5 mg PO BEDTIME Qty: 1 0RF Rx Instructions: Dose change only. chlorthalidone 25 mg tablet 25 mg PO QAM aspirin 81 mg tablet,delayed release (DR/EC) 81 mg PO QAM aripiprazole 2 mg tablet 2 mg PO DAILY Changed furosemide [Lasix] 20 mg tablet 40 mg PO DAILY 7 Days Qty: 14 0RF Held lisinopril 40 mg tablet 40 mg PO DAILY Hold Instructions: Resume on 09/20/24. hold for one week, re check cr prior to resuming if needed Discontinued trazodone 100 mg tablet 300 mg PO BEDTIME Discharge Orders: Discharge Order (Routine); Ordered 09/13/24 Ordered By: Chey Argueta Referrals: [facility] [Outside] Wai Byrne FNP [Primary Care Provider, Family Practice] Fiona Castillo FNP [Nurse Practitioner, Cardiology] - 1 week Referral Note: f/up post [place] and cath Patient Instructions: Opioid Safety Discharge Attestations Time Spent in Discharge Care*: greater than 30 min Quality Metrics Clinical Quality Measures [ Acute Myocardial Infaction { Clinical Trial Participant: No; Contraindication to aspirin: None; Aspirin prescribed; Contraindication to statin: None; Statin prescribed; Contraindication to PCI: None; PCI performed;}] Coding Level of Care Code Acute Code for [facility] Fwd Diagnoses Acute exacerbation of CHF (congestive heart failure) I50.9 Elevated troponin R79.89 Type 2 diabetes mellitus with hyperglycemia, with long-term current use of insulin E11.65; Z79.4 Diabetes mellitus type: type 2 Diabetes mellitus correction insulin use: with long chain quiller tender use Diabetes mellitus complication status: with hyperglycemia COPD with acute exacerbation J44.1 NSTEMI (non-ST elevated myocardial infarction) I21.4
--- NOTE | 2024-09-13 16:09 | PC.OT ---
OT TREATMENT HELD TODAY DUE TO SCHEDULED PATIENT D/C
[2024-09-15 11:15] LABS: Glucose Point of Care 199 mg/dL (70-110)
== END 2024-09-13 16:15 | DRG 280 ==
LOC: ER 09-06 00:05 → ICU 09-06 01:20
PROVIDERS: Internal Medicine; Internal Medicine Cardiovascular Disease; Student in an Organized Health Care Education/Training Program; Admitting Provider Internal Medicine; Emergency Provider Emergency Medicine; PCP Registered Nurse; Visit Provider Student in an Organized Health Care Education/Training Program
PROC: B2111ZZ Fluoroscopy of Multiple Coronary Arteries using Low Osmolar Contrast (ICD-10-PCS; principal; 2024-09-09 11:15)
DX: I11.0 Hypertensive heart disease with heart failure (principal); I50.31 Acute diastolic (congestive) heart failure; I21.A1 Myocardial infarction type 2; J96.22 Acute and chronic respiratory failure with hypercapnia; J96.21 Acute and chronic respiratory failure with hypoxia; J44.1 Chronic obstructive pulmonary disease with (acute) exacerbation; N17.9 Acute kidney failure, unspecified; E11.65 Type 2 diabetes mellitus with hyperglycemia; E66.01 Morbid (severe) obesity due to excess calories; G89.29 Other chronic pain; F17.210 Nicotine dependence, cigarettes, uncomplicated; R94.31 Abnormal electrocardiogram [ECG] [EKG]; Z68.31 Body mass index [BMI] 31.0-31.9, adult; Z99.81 Dependence on supplemental oxygen; Z79.4 Long term (current) use of insulin; Z79.891 Long term (current) use of opiate analgesic; Z79.82 Long term (current) use of aspirin
CPT/HCPCS: 36415; 36416; 36600; 51702; 70450; 71045; 72100; 80048; 80051; 80053; 80069; 82330; 82803; 82805; 82962; 83605; 83735; 83880; 84484; 85025; 87040; 87637; 93005; 93308; 93458; 93970; 93971; 94640; 94660; 96365; 96367; 96372; 96374; 96375; 96376; 97116; 97162; 97165; 97530; 99152; 99153; 99291; C1769; C1887; C1894; J0360; J1100; J1644; J1650; J1815; J1938; J1940; J2060; J2250; J2543; J2919; J3010; J3370; J3490; J7030; J7070; J7799; J9999; Q0163; Q9967

== ENCOUNTER → 2025-03-02 12:39 | Outpatient (BNVA) | payer MEDICAID, SELFPAY | PROVIDERS: PCP Family Medicine; Visit Provider Podiatrist Foot & Ankle Surgery | DX: T84.84XA Pain due to internal orthopedic prosthetic devices, implants and grafts, initial encounter (principal); M17.32 Unilateral post-traumatic osteoarthritis, left knee; Y79.2 Prosthetic and other implants, materials and accessory orthopedic devices associated with adverse incidents | CPT/HCPCS: 73610; 99204 ==

== ENCOUNTER 2025-03-24 12:14 | Outpatient (CLI) | payer MEDICAID, SELFPAY ==
--- NOTE | 2025-03-24 12:30 | CTR_ITS ---
PROCEDURE INFORMATION: Exam: CT Left Lower Extremity Without Contrast, Ankle Exam date and time: 03/24/2025 12:26 PM Age: 59 years old Clinical indication: Pain; Prior surgery; Surgery date: 6+ months; Surgery type: Left ankle 2018; Bruising up lateral side of left leg from heel up to mid leg x several months. ; Additional info: Nonunion fracture, left TECHNIQUE: Imaging protocol: CT of the left lower extremity without contrast was performed. Exam focused on the ankle. Radiation optimization: All CT scans at this facility use at least one of these dose optimization techniques: automated exposure control; mA and/or kV adjustment per patient size (includes targeted exams where dose is matched to clinical indication); or iterative reconstruction. COMPARISON: CR XR ankle LT min 3V* [id number] 03/02/2025 12:48 PM RADIATION DOSE METRICS: Total DLP (mGy-cm): 177.59 FINDINGS: Bones/joints: There are postoperative changes involving the ankle. There is a lateral sideplate with respect to the fibula. There are multiple screws. There are 3 screws traversing the syndesmosis. There are 2 screws traversing the medial malleolus. There is lucency surrounding both screws suggesting loosening and/or infection. There is extensive erosive change involving the articular surfaces of the distal tibia and talus. There is a joint effusion. Findings suggestive of septic arthritis with osteomyelitis. No acute appearing fracture or dislocation is appreciated. Soft tissues: There is mild edema involving the subcutaneous tissues circumferentially. No loculated fluid collection is identified. No soft tissue air/gas is identified. CT/CT ankle LT wo con* [id number] IMPRESSION: 1. Postoperative changes involving the fibula and distal tibia. There is lucency along the 2 screws traversing the medial malleolus suggesting loosening or infection. 2. Extensive erosive changes involving the articular surfaces of the distal tibia and talus. There is a joint effusion. Findings suggestive of a septic arthritis with osteomyelitis. Recommend clinical correlation. Joint aspiration may be of benefit.
== END 2025-03-24 12:15 | disposition home or self-care (01) ==
PROVIDERS: PCP Family Medicine; Visit Provider Podiatrist Foot & Ankle Surgery
DX: S82.892K Other fracture of left lower leg, subsequent encounter for closed fracture with nonunion (principal); R93.6 Abnormal findings on diagnostic imaging of limbs; Z98.890 Other specified postprocedural states; M89.8X7 Other specified disorders of bone, ankle and foot; M25.472 Effusion, left ankle; R60.0 Localized edema; X58.XXXA Exposure to other specified factors, initial encounter
CPT/HCPCS: 73700

== ENCOUNTER → 2025-04-14 08:07 | Outpatient (BNVA) | payer MEDICAID, SELFPAY | PROVIDERS: PCP Family Medicine; Visit Provider Podiatrist Foot & Ankle Surgery | DX: T84.84XA Pain due to internal orthopedic prosthetic devices, implants and grafts, initial encounter (principal); M17.32 Unilateral post-traumatic osteoarthritis, left knee; Y79.2 Prosthetic and other implants, materials and accessory orthopedic devices associated with adverse incidents | CPT/HCPCS: 99214 ==